=== PATIENT | female | born 1960 | race Caucasian/White ===

== ENCOUNTER 2021-06-28 14:02 | Outpatient (REF) | payer MEDICARE, MEDICAID, SELFPAY ==
--- NOTE | ~2021-06-28 | MM_ITS ---
EXAMINATION: MM SCREENING DIGITAL BREAST TOMOSYNTHESIS, BILATERAL CLINICAL INFORMATION: Screening. Asymptomatic. Remote reduction mammoplasty. Family history breast cancer, sister. The lifetime risk of breast cancer based on the Tyrer-Cuzick Model is 4%. COMPARISON: Mammography: 12/31/2018, 12/28/2017, 12/15/2016 TECHNIQUE: Digital breast tomosynthesis is performed in both the craniocaudal and mediolateral oblique views along with computer-aided detection (CAD). Synthesized 2D images are generated from the tomosynthesis. Additional views are provided: Exaggerated right CC, left CC, left MLO. FINDINGS: The breasts are almost entirely fatty (ACR BI-RADS breast composition Category a). Background stromal and fibroglandular densities are stable. There is no interval mass or architectural abnormality or abnormal calcifications. Grouped dermal calcifications are again noted on the left overlying inferior breast. There are other scattered round and dermal and vascular calcifications on each side. The axilla are unremarkable. No significant changes. MM/MM tomosynthesis screening BI IMPRESSION: No mammographic evidence of malignancy. ASSESSMENT: BI-RADS 2: Benign RECOMMENDATION: Routine annual mammography screening. This patient's information was entered into a reminder system with a target due date for their next mammogram.
== END 2021-06-28 14:03 | disposition home or self-care (01) ==
LOC: HO.MAMMO 14:02
PROVIDERS: Visit Provider Internal Medicine
DX: Z12.31 Encounter for screening mammogram for malignant neoplasm of breast (principal)
CPT/HCPCS: 77063; 77067

== ENCOUNTER → 2021-07-01 13:30 | Outpatient (BNVA) | payer MEDICARE, MEDICAID, SELFPAY | PROVIDERS: PCP Internal Medicine; Referring Provider Internal Medicine; Visit Provider Nurse Practitioner Family | DX: Z01.810 Encounter for preprocedural cardiovascular examination (principal); I48.0 Paroxysmal atrial fibrillation; I10 Essential (primary) hypertension; E66.01 Morbid (severe) obesity due to excess calories | CPT/HCPCS: 93005; 99212 ==

== ENCOUNTER → 2022-01-06 12:28 | Outpatient (BNVA) | payer MEDICARE, MEDICAID, SELFPAY | PROVIDERS: PCP Internal Medicine; Referring Provider Internal Medicine; Visit Provider Nurse Practitioner Family | DX: I48.0 Paroxysmal atrial fibrillation (principal); I10 Essential (primary) hypertension; E66.01 Morbid (severe) obesity due to excess calories; Z68.42 Body mass index [BMI] 45.0-49.9, adult | CPT/HCPCS: 99212 ==

== ENCOUNTER 2022-09-26 10:03 | Outpatient (REF) | payer MEDICARE, MEDICAID, SELFPAY ==
--- NOTE | ~2022-09-26 | MM_ITS ---
EXAMINATION: MM SCREENING DIGITAL BREAST TOMOSYNTHESIS, BILATERAL CLINICAL INFORMATION: Screening. Asymptomatic. The lifetime risk of breast cancer based on the Tyrer-Cuzick Model is 3.3%. COMPARISON: Mammography: This study is compared with the prior examinations dating back to 2018. TECHNIQUE: Digital breast tomosynthesis is performed in both the craniocaudal and mediolateral oblique views along with computer-aided detection (CAD). Synthesized 2D images are generated from the tomosynthesis. FINDINGS: At approximately the 12:00 position of the left breast at middle depth there is a focal asymmetry for which additional mammographic and targeted sonographic imaging is advised. In the upper-outer quadrant of the left breast, there is a focal asymmetry which warrants additional mammographic and targeted imaging. This may represent a small benign intramammary lymph node. There are no other significant findings. MM/MM tomosynthesis screening BI IMPRESSION: Bilateral focal asymmetries which warrant additional mammographic and targeted sonographic evaluation. ASSESSMENT: BI-RADS BI-RADS 0 - Incomplete: Needs additional Imaging. RECOMMENDATION: 1. Additional views of each breast are advised. 2. Targeted ultrasound if warranted after review of the additional views. 3. Radiology department staff will contact the patient for additional imaging. Additional Imaging required This patient's information was entered into a reminder system with a target due date for their next mammogram.
== END 2022-09-26 10:04 | disposition home or self-care (01) ==
LOC: HO.MAMMO 10:03
PROVIDERS: PCP Internal Medicine; Visit Provider Internal Medicine
DX: Z12.31 Encounter for screening mammogram for malignant neoplasm of breast (principal)
CPT/HCPCS: 77063; 77067

== ENCOUNTER → 2022-09-26 10:15 | Outpatient (BNV) | payer MEDICARE, MEDICAID, SELFPAY | PROVIDERS: PCP Internal Medicine; Visit Provider Radiology Diagnostic Radiology | DX: Z12.31 Encounter for screening mammogram for malignant neoplasm of breast (principal) | CPT/HCPCS: 77063; 77067 ==

== ENCOUNTER 2022-09-29 12:47 | Outpatient (AMB) | payer MEDICARE, MEDICAID, SELFPAY ==
[2022-09-29 13:14] VITALS: BP 130/80; PULSE 72; BMI 46.2
--- NOTE | 2022-09-29 13:14 | A.OFFVIS_ITS ---
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 Allergies latex [LATEX] Allergy (Unknown, Verified 09/29/22 13:34) RASH Sulfa (Sulfonamide Antibiotics) Allergy (Unknown, Verified 09/29/22 13:34) hives sulfamethoxazole [From BACTRIM] Allergy (Unknown, Verified 09/29/22 13:34) HIVES trimethoprim [From BACTRIM] Allergy (Unknown, Verified 09/29/22 13:34) HIVES valsartan [From DIOVAN] Allergy (Unknown, Verified 09/29/22 13:34) RASH Bandage Adhesive [place] 3/4 Allergy (Unknown, Uncoded 07/01/21 13:49) Unknown Pt states no allergy to foods Allergy (Unknown, Uncoded 07/01/21 13:49) Unknown SURGICAL TAPE Allergy (Unknown, Uncoded 07/01/21 13:49) RASH tape Allergy (Unknown, Uncoded 07/01/21 13:49) Unknown Medication List - Last Reconciled 09/29/22 by Kristie Bright NP-Jayshree apixaban (Eliquis) 5 mg PO BID ascorbic acid (vitamin C) (Vitamin C) 500 mg PO BID atenolol 100 mg PO DAILY bupropion HCl 300 mg PO DAILY calcium carbonate-vitamin D3 600 mg-20 mcg (800 unit) 1 tab PO BID cetirizine 10 mg PO DAILY cyanocobalamin (vitamin B-12) 100 mcg PO DAILY fluoxetine 40 mg PO QAM furosemide 20 mg PO DAILY gabapentin 600 mg PO TID hydrochlorothiazide 12.5 mg PO DAILY lorazepam 1 mg PO TID mirtazapine 15 mg PO BEDTIME oxycodone 5 mg PO Q6H PRN sucralfate 1 g PO BID HPI r/s 6 month follow up HPI Details Beba Delcid is a 62-year-old female with past medical history of hypertension, morbid obesity, paroxysmal atrial fibrillation who presents for follow-up. Today she reports that she has generally been doing very well since her last visit 9 months ago. She has not had any known recurrent atrial fibrillation. She denies any chest discomfort at rest or with activity.? No heart palpitations, dizziness, presyncope, syncope, PND, orthopnea or edema. Her Pradaxa was changed to Eliquis for insurance reasons.? No bleeding issues. She is still trying to lose weight.? She has no concerning symptoms during activity.? Takes all meds as directed. [facility] Medical History Hypertension Paroxysmal atrial fibrillation Surgical History (Reviewed 09/29/22 @ 15: by Kristie Bright NP-C) H/O hemorrhoidectomy H/O shoulder surgery History of cholecystectomy History of gastric bypass History of left knee replacement History of total right knee replacement Status post breast reduction Family History (Reviewed 09/29/22 @ 15: by SOPHIE GreenC) Father COPD (chronic obstructive pulmonary disease) HTN (hypertension) Diabetes Mother COPD (chronic obstructive pulmonary disease) Diabetes HTN (hypertension) Social History Patient Tobacco Use Status: Former Tobacco user Review of Systems ENT Reports dizziness Card Denies chest pain, Denies chest pain at rest, Denies chest pain with activity, Denies rapid heart rate, Denies pedal edema, Denies edema, Denies leg edema, Denies lightheadedness, Denies palpitations, Denies dyspnea, Denies dyspnea on exertion and Denies orthopnea Resp Denies cough, Denies dyspnea and Denies dyspnea on exertion GI Denies hematochezia and Denies change in stool character Musc Denies abnormal gait, Reports limited range of motion, Reports muscle cramps, Denies muscle weakness, Denies numbness, Denies radiating pain into limb, Denies stiffness and Denies tingling Neuro Denies abnormal gait, Reports dizziness, Denies numbness and Denies tingling Endo Denies palpitations Physical Exam Vital Signs: Last Vital Signs Pulse 72 09/29/22 13:14 BP 130/80 09/29/22 13:14 BMI result Body Mass Index 46.2 Const Other: morbidly obese General: cooperative, comfortable and no acute distress Orientation/consciousness: patient oriented x3 Neck Neck: Yes normal visual inspection Resp Effort & Inspection: normal respiratory effort Auscultation: clear to auscultation bilaterally, no crackles, no rales, no rhonchi and no wheezes Cardio Jugular venous distension: no JVD Rate: regular rate Rhythm: regular rhythm Heart sounds: S1 normal heart sound present, S2 normal heart sound present, no murmurs and no rubs Neuro General: patient oriented x3 Extrem General: Yes normal to inspection and No no pedal edema Psych Appearance: grossly normal Mental Status: mental status grossly normal Speech and movement: Normal speech and movement present Office Procedures EKG Details: today, read by me, normal sinus rhythm, no acute ST or T-wave abnormalities, rate 72, QTC 420 milliseconds [id number], Complete Assessment & Plan Assessment & Plan (1) Paroxysmal atrial fibrillation: Code(s): I48.0 - Paroxysmal atrial fibrillation Plan: History of paroxysmal atrial fibrillation. No recent episodes documented. Patient denies feeling heart palpitations. EKG done last visit showed normal sinus rhythm. EKG today showing normal sinus rhythm, rate 72. She continues on atenolol for heart rate control. She is on Eliquisfor anticoagulation. No reports of bleeding. Chads Vasc score of 2. Last echocardiogram done 04/04/2017 showing EF 65-70%, no valve abnormalities, mild pulmonary hypertension. Nuclear stress test done 05/16/2016 showed normal myocardial perfusion imaging. Will continue on current med management with atenolol and Eliquis. labs ordered for her to complete today. Cardiology followup in 9 months, sooner if needed (2) Hypertension: Code(s): I10 - Essential (primary) hypertension Plan: Well controlled presently. Medications reviewed and she reports compliance with atenolol, hydrochlorothiazide. checking labs. She says she is working on weight loss and better dietary control however no weight loss since last visit, 12/2021 (3) Morbid obesity: Code(s): E66.01 - Morbid (severe) obesity due to excess calories Orders: Orders Comprehensive Met. Panel Today I10 - Essential (primary) hypertension, I48.0 - Paroxysmal atrial fibrillation Complete Blood Count Auto Diff Today I10 - Essential (primary) hypertension, I48.0 - Paroxysmal atrial fibrillation Coding Level of Care Code Tele Est Pt Level 3 (31744) Diagnoses Paroxysmal atrial fibrillation I48.0 Hypertension I10 Morbid obesity E66.01 CPT Codes EKG - CPT: 62613-[id number], Complete ([id number]) Time Spent (min) 20 Comment chart review, documentation, interview, assess
== END 2022-09-29 14:20 | disposition home or self-care (01) ==
PROVIDERS: Visit Provider Nurse Practitioner Family
DX: I48.0 Paroxysmal atrial fibrillation (principal); I10 Essential (primary) hypertension; E66.01 Morbid (severe) obesity due to excess calories
CPT/HCPCS: 93010; 99213

== ENCOUNTER 2022-09-29 12:47 | Outpatient (REF) | payer MEDICARE, MEDICAID, SELFPAY ==
[2022-09-29 14:19] LABS: MANUAL DIFF FLAG NO
[2022-09-29 15:08] LABS: Basophils Percent Auto 0.3 % (0-2); Eosinophils Absolute Auto 0.1 X10*3/uL (0.0-0.4); Eosinophils Percent Auto 1.3 % (0-4); Hematocrit 40.8 % (37.0-47.0); Hemoglobin 12.6 g/dl (12.0-16.0); Imm Gran Abs Auto 0.01 X10*3/uL (0.00-0.03); Imm Gran Pct Auto 0.2 % (0.0-0.4); Lymphocytes Absolute Auto 2.2 X10*3/uL (1.2-4.9); Lymphocytes Percent Auto 35.7 % (20-40); Mean Corpuscular HGB Conc 30.9 g/dl (31.0-35.0); Mean Corpuscular Hemoglobin 27.3 pg (27.0-33.0); Mean Corpuscular Volume 88.5 fL (80.0-98.0); Mean Platelet Volume 10.7 fL (9.4-12.3); Monocytes Absolute Auto 0.4 X10*3/uL (0.1-1.2); Monocytes Percent Auto 6.7 % (2-11); Neutrophils Absolute Auto 3.4 x10*3/uL (2.0-8.3); Neutrophils Percent Auto 55.8 % (45-73); Platelet Count 241 X10*3/uL (160-400); Red Blood Count 4.61 X10*6/uL (4.20-5.50); White Blood Count 6.1 X10*3/uL (4.8-10.8)
[2022-09-29 16:04] LABS: Alanine Aminotransferase 21 U/L (0-31); Alkaline Phosphatase 94 U/L (39-117); Anion Gap 12 (12-20); Aspartate Amino Transferase 24 U/L (5-31); Bilirubin Total 0.5 mg/dL (0.0-1.0); Blood Urea Nitrogen 16 mg/dL (9-16); Calcium 9.8 mg/dL (8.4-10.2); Carbon Dioxide 28 mmol/L (22-29); Chloride 106 mmol/L (96-108); Estimated Glomerular Filt Rate > 60; Glucose Random 82 mg/dL (60-115); Sodium 142 mmol/L (135-145); Total Protein 6.9 g/dL (6.5-8.0)
== END 2022-09-29 12:48 | disposition home or self-care (01) ==
LOC: HO.LAB 12:47
PROVIDERS: PCP Internal Medicine; Visit Provider Nurse Practitioner Family
DX: I48.0 Paroxysmal atrial fibrillation (principal); I10 Essential (primary) hypertension; E66.01 Morbid (severe) obesity due to excess calories; Z79.01 Long term (current) use of anticoagulants; Z79.899 Other long term (current) drug therapy
CPT/HCPCS: 36415; 80053; 85025; 93005; 99212

== ENCOUNTER 2022-10-25 11:16 | Outpatient (REF) | payer MEDICARE, MEDICAID, SELFPAY ==
--- NOTE | ~2022-10-25 | US_ITS ---
EXAMINATION: MM DIAGNOSTIC DIGITAL BREAST TOMOSYNTHESIS, BILATERAL AND BILATERAL BREAST ULTRASOUND. CLINICAL INFORMATION: The patient presents for bilateral additional imaging of focal asymmetries in each breast as noted on screening mammography from 09/26/2022. COMPARISON: Mammography: This study is compared with prior exams dating back to 2017. MAMMOGRAM: TECHNIQUE: Digital breast tomosynthesis is performed in both the craniocaudal and mediolateral oblique views along with computer-aided detection (CAD). Synthesized 2D images are generated from the tomosynthesis. Bilateral CC and MLO spot compression in each breast and bilateral 90 degree views of each breast. FINDINGS: There are scattered areas of fibroglandular density (ACR BI-RADS breast composition Category b). Additional mammographic imaging of the focal asymmetry in the right breast at the 5:00 position reveals a suspicious, irregular mass. Additional mammographic imaging of the left breast revealed reveals no suspicious underlying abnormality. There are small, normal intramammary lymph nodes which are closely grouped together which account for the focal asymmetry. This finding is corroborated by the ultrasound performed today. This is a benign finding. ULTRASOUND: Sonography of the left breast to evaluate the mammographic focal asymmetry was performed. In the 5:00 region of the left breast, 7 cm from the nipple, there is an irregular 11 mm x 6 x 6 mm hypoechoic irregularly marginated mass. This finding is suspicious and ultrasound-guided biopsy is indicated. Sonography of the 10:00 region of the right breast reveals few, subcentimeter, contiguous normal intramammary lymph nodes. This finding accounts for the mammographic finding and is benign. US/US breast BI limited mamm only IMPRESSION: Suspicious 11 mm irregular mass in the 5:00 position of the left breast warrants ultrasound-guided biopsy. No mammographic signs of malignancy right breast. Results are provided to the patient at time of visit by the interpreting radiologist. ASSESSMENT: BI-RADS BI-RADS 4 - Suspicious finding RECOMMENDATION: Biopsy recommended. This recommendation for biopsy refers to the left breast. Annual screening mammography of right breast recommended. This patient's information was entered into a reminder system with a target due date for their next mammogram.
== END 2022-10-25 11:17 | disposition home or self-care (01) ==
LOC: HO.MAMMO 11:16
PROVIDERS: PCP Internal Medicine; Visit Provider Internal Medicine
DX: N64.89 Other specified disorders of breast (principal)
CPT/HCPCS: 76642; 77062; 77066

== ENCOUNTER 2022-10-31 08:17 | Outpatient (AMB) | payer MEDICARE, MEDICAID, SELFPAY ==
--- NOTE | 2022-10-31 08:14 | A.OFFVIS_ITS ---
Intake Vital Signs 10/31/22 08:19 Height 5 ft 5 in Weight 277 lb BMI 46.1 Intake Visit Reasons: US bx left breast 5 O'clock asymmetry Intake Note: This patient presents for a Ultrasound guided biopsy consultation for left breast 5 o'clock asymmetry. Patient c/o; reports left breast pain. 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 Accompanied by: Self / Same As Patient Allergies latex [LATEX] Allergy (Unknown, Verified 10/31/22 08:20) RASH Sulfa (Sulfonamide Antibiotics) Allergy (Unknown, Verified 10/31/22 08:20) hives sulfamethoxazole [From BACTRIM] Allergy (Unknown, Verified 10/31/22 08:20) HIVES trimethoprim [From BACTRIM] Allergy (Unknown, Verified 10/31/22 08:20) HIVES valsartan [From DIOVAN] Allergy (Unknown, Verified 10/31/22 08:20) RASH Bandage Adhesive Damian 3/4 Allergy (Unknown, Uncoded 10/31/22 08:20) Unknown Pt states no allergy to foods Allergy (Unknown, Uncoded 10/31/22 08:20) Unknown SURGICAL TAPE Allergy (Unknown, Uncoded 10/31/22 08:20) RASH tape Allergy (Unknown, Uncoded 10/31/22 08:20) Unknown Medication List - Last Reconciled 10/31/22 by Henok Shultz MD apixaban (Eliquis) 5 mg PO BID ascorbic acid (vitamin C) (Vitamin C) 500 mg PO BID atenolol 100 mg PO DAILY bupropion HCl 300 mg PO DAILY calcium carbonate-vitamin D3 600 mg-20 mcg (800 unit) 1 tab PO BID cetirizine 10 mg PO DAILY cyanocobalamin (vitamin B-12) 100 mcg PO DAILY fluoxetine 40 mg PO QAM furosemide 20 mg PO DAILY gabapentin 600 mg PO TID hydrochlorothiazide 12.5 mg PO DAILY lorazepam 1 mg PO TID mirtazapine 15 mg PO BEDTIME oxycodone 5 mg PO Q6H PRN sucralfate 1 g PO BID HPI US bx left breast 5 O'clock asymmetry HPI Details 62-year-old female referred for a left breast mass. She had undergone screening mammogram last month and was noted to have this density on the left breast. She underwent a diagnostic mammogram and ultrasound. This showed an irregular 11 x 6 x 6 mm hypoechoic irregularly marginated mass at the 5 o'clock position of the left breast. An ultrasound biopsy had been recommended She otherwise says she did not feel any lump on her breast. She denies any breast changes Her menarche was at age of 11. Her 1st was at age of 14. She had 4 pregnancies. She had menopause in her 40s. [facility] Medical History Hypertension Left breast mass Paroxysmal atrial fibrillation Surgical History H/O hemorrhoidectomy H/O shoulder surgery History of cholecystectomy History of gastric bypass History of left knee replacement History of total right knee replacement Status post breast reduction Family History Father COPD (chronic obstructive pulmonary disease) HTN (hypertension) Diabetes Mother COPD (chronic obstructive pulmonary disease) Diabetes HTN (hypertension) Social History Patient Tobacco Use Status: Former Tobacco user Female Reproductive History Menstrual Age of Menarche: 10 Total pregnancies: 4 Review of Systems Const Denies chills and Denies fever(s) Card Denies chest pain, Denies dyspnea and Denies dyspnea on exertion Resp Denies cough, Denies dyspnea and Denies dyspnea on exertion GI Denies hematochezia and Denies change in bowel habits Denies hematuria Musc Denies back pain and Denies limited range of motion Neuro Denies focal weakness and Denies convulsions Psych Denies depression and Denies mood swings Physical Exam Vital Signs: BMI result Body Mass Index 46.1 Const Other: Morbidly obese General: comfortable and no acute distress Orientation/consciousness: patient oriented x3 Neck Neck: Yes no lymphadenopathy Chest Other: No palpable breast masses, no nipple or skin changes, no axillary lymphadenopathy Resp Auscultation: clear to auscultation bilaterally Cardio Rhythm: abnormal rhythm GI Palpation (GI): Soft to palpation, nontender and no guarding Neuro General: patient oriented x3 Assessment & Plan Assessment & Plan (1) Left breast mass: Code(s): N63.20 - Unspecified lump in the left breast, unspecified quadrant Plan: She has a left breast mass as described above. She understands the technique of ultrasound-guided biopsy. I will see her again in the office next week to discuss the path report She seems to be comfortable with the plan. Orders: Orders US breast ndl core biopsy LT 10/28/22 N63.20 - Unspecified lump in the left breast, unspecified quadrant Coding Level of Care Code New Pt Level 3 (40405) Diagnoses Left breast mass N63.20
[2022-10-31 08:19] VITALS: BMI 46.1
== END 2022-10-31 08:46 | disposition home or self-care (01) ==
PROVIDERS: PCP Internal Medicine; Visit Provider Surgery
DX: N63.20 Unspecified lump in the left breast, unspecified quadrant (principal)
CPT/HCPCS: 99203

== ENCOUNTER 2022-10-31 09:04 | Outpatient (REF) | payer MEDICARE, MEDICAID, SELFPAY ==
--- NOTE | ~2022-10-31 | MM_ITS ---
PROCEDURE: ULTRASOUND-GUIDED LEFT BREAST BIOPSY CLINICAL INFORMATION: Suspicious spiculated mass 5:00 axis left breast, 7 cm from the nipple. Biopsy recommended. COMPARISON: Left breast ultrasound 10/25/2022. Left breast mammography 10/25/2022, 09/26/2022, 06/28/2021. TECHNIQUE: The details of the procedure, as well as the risks, benefits, and alternatives to the procedure were explained to the patient in detail and all of her questions were answered, after which, written informed consent was obtained. PROCEDURE: Prior to the procedure, sonography revealed a hypoechoic irregular shadowing mass at the 5:00 axis left breast, 7 cm from the nipple, measuring 11 x 6 x 6 mm. A time-out was performed, the lesion intended for biopsy was targeted and the skin of the left breast overlying the lesion was then marked, prepped and draped in the usual sterile fashion. Using sonographic guidance, sterile technique, and 1% lidocaine without epinephrine for local anesthesia, a total of 3 cores were obtained through the targeted area with a 14-gauge spring activated Achieve biopsy device. At the completion of tissue sampling, a single butterfly-shaped metallic clip was deposited at the biopsy site. The postprocedure 2-view direct digital mammogram reveals accurate positioning of the biopsy clip. The patient tolerated the procedure well and, after assuring adequate hemostasis, was discharged in good condition after reviewing postbiopsy breast care instructions. Final pathology results are pending. MM/MM diagnostic mammo unilat LT IMPRESSION: 1. Uncomplicated sonographically-guided core biopsy of the left breast. The 2-view direct digital postprocedure mammogram reveals accurate positioning of the biopsy clip. 2. Final pathology results are pending. A separate report with final recommendations will be issued once these results are made available.
== END 2022-10-31 09:05 | disposition home or self-care (01) ==
LOC: HO.MAMMO 09:04
PROVIDERS: PCP Internal Medicine; Visit Provider Surgery
DX: N63.24 Unspecified lump in the left breast, lower inner quadrant (principal)
CPT/HCPCS: 19083; 77062; 77065; 88305; 88342; 88360; 99202

== ENCOUNTER → 2022-10-31 10:00 | Outpatient (BNV) | payer MEDICARE, MEDICAID, SELFPAY | PROVIDERS: PCP Internal Medicine; Visit Provider Radiology Diagnostic Radiology | DX: N63.10 Unspecified lump in the right breast, unspecified quadrant (principal) | CPT/HCPCS: 19083; 77065 ==

== ENCOUNTER → 2022-11-09 10:55 | Outpatient (BNV) | payer MEDICARE, MEDICAID, SELFPAY | PROVIDERS: PCP Internal Medicine; Visit Provider Internal Medicine | DX: D05.12 Intraductal carcinoma in situ of left breast (principal); Z90.12 Acquired absence of left breast and nipple; Z92.21 Personal history of antineoplastic chemotherapy; D64.9 Anemia, unspecified | CPT/HCPCS: 99204; 99213; 99214; G2211 ==

== ENCOUNTER 2022-11-14 08:23 | Outpatient (AMB) | payer MEDICARE, MEDICAID, SELFPAY ==
--- NOTE | 2022-11-14 08:51 | MHC.OFFVIS ---
Intake Vital Signs 11/14/22 08:52 Height 5 ft 5.5 in Weight 275 lb BMI 45.1 BP 136/80 Position Sitting Respiration 16 Pulse 80 Intake Visit Reasons: James cath insert consultation Intake Note: I'm here to talk about having a port put in my chest. c/o fall over the weekend - states her knee gave out c/o bruising of both ankles. 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 Allergies latex [LATEX] Allergy (Unknown, Verified 11/14/22 08:58) RASH Sulfa (Sulfonamide Antibiotics) Allergy (Unknown, Verified 11/14/22 08:58) hives sulfamethoxazole [From BACTRIM] Allergy (Unknown, Verified 11/14/22 08:58) HIVES trimethoprim [From BACTRIM] Allergy (Unknown, Verified 11/14/22 08:58) HIVES valsartan [From DIOVAN] Allergy (Unknown, Verified 11/14/22 08:58) RASH Bandage Adhesive Damian 3/4 Allergy (Unknown, Uncoded 11/14/22 08:58) Unknown Pt states no allergy to foods Allergy (Unknown, Uncoded 11/14/22 08:58) Unknown SURGICAL TAPE Allergy (Unknown, Uncoded 11/14/22 08:58) RASH tape Allergy (Unknown, Uncoded 11/14/22 08:58) Unknown Medication List - Last Reconciled 11/14/22 by Krzysztof Grimes, RN apixaban (Eliquis) 5 mg PO BID ascorbic acid (vitamin C) (Vitamin C) 500 mg PO BID atenolol 100 mg PO DAILY bupropion HCl 300 mg PO DAILY calcium carbonate-vitamin D3 600 mg-20 mcg (800 unit) 1 tab PO BID cetirizine 10 mg PO DAILY cyanocobalamin (vitamin B-12) 100 mcg PO DAILY fluoxetine 40 mg PO QAM furosemide 20 mg PO DAILY gabapentin 600 mg PO TID hydrochlorothiazide 12.5 mg PO DAILY lorazepam 1 mg PO TID mirtazapine 15 mg PO BEDTIME oxycodone 5 mg PO Q6H PRN sucralfate 1 g PO BID HPI HPI Comments History of Present Illness Details Patient presents for Port-A-Cath placement her recent diagnosed breast cancer. Chart was reviewed patient evaluated. Patient , among other issues, is on Eliquis. This will be held 2 days prior to the procedure. [facility] Medical History Hypertension Left breast mass Paroxysmal atrial fibrillation Surgical History H/O hemorrhoidectomy H/O shoulder surgery History of cholecystectomy History of gastric bypass History of left knee replacement History of total right knee replacement Status post breast reduction Family History Father COPD (chronic obstructive pulmonary disease) HTN (hypertension) Diabetes Mother COPD (chronic obstructive pulmonary disease) Diabetes HTN (hypertension) Social History (Updated 11/09/22 @ 11:11 by Annemarie Ferguson) Household Members: Children Housing: House Patient Tobacco Use Status: Former Tobacco user Tobacco use type: Cigarette service: No Current occupational status: employed Female Reproductive History Menstrual Age of Menarche: 10 Physical Exam Vital Signs: Last Vital Signs Pulse 80 11/14/22 08:52 Resp 16 11/14/22 08:52 BP 136/80 11/14/22 08:52 BMI result Body Mass Index 45.1 Chest Other: Chest breath sounds bilaterally, left breast pathology. HS 1 2. GI Other: Corpulent, soft Assessment & Plan Assessment & Plan (1) Breast cancer: Code(s): C50.919 - Malignant neoplasm of unspecified site of unspecified female breast (2) Triple negative breast cancer: Code(s): C50.919 - Malignant neoplasm of unspecified site of unspecified female breast (3) Admission for fitting of Port-A-Cath: Code(s): Z45.2 - Encounter for adjustment and management of vascular access device Plan Risks, benefits, alternatives of Port-A-Cath placement reviewed with the patient and included but not limited to bleeding, infection, pneumothorax, numbness, pain, scarring, catheter migration and the patient wishes to proceed. All questions were answered. Arrangements will be made for this to be tentatively scheduled for 11/17 Coding Level of Care Code New Pt Level 4 (71704) Diagnoses Breast cancer C50.919 Triple negative breast cancer C50.919 Admission for fitting of Port-A-Cath Z45.2
[2022-11-14 08:52] VITALS: BP 136/80; PULSE 80; RESP 16; BMI 45.1
== END 2022-11-14 09:32 | disposition home or self-care (01) ==
PROVIDERS: PCP Internal Medicine; Visit Provider Surgery
DX: C50.919 Malignant neoplasm of unspecified site of unspecified female breast (principal); Z45.2 Encounter for adjustment and management of vascular access device
CPT/HCPCS: 99204

== ENCOUNTER → 2022-11-14 08:23 | Outpatient (BNVA) | payer MEDICARE, MEDICAID, SELFPAY | PROVIDERS: PCP Internal Medicine; Visit Provider Surgery | DX: C50.919 Malignant neoplasm of unspecified site of unspecified female breast (principal); I48.0 Paroxysmal atrial fibrillation; Z79.01 Long term (current) use of anticoagulants | CPT/HCPCS: 99202 ==

== ENCOUNTER 2022-11-18 08:31 | Inpatient (IN) | payer MEDICARE, MEDICAID, SELFPAY ==
[2022-11-18] VITALS (12 sets, daily range): BP systolic 114–152; BP diastolic 57–80; PULSE 72–80; RESP 10–20; TEMP 36–36.7; O2SAT 93–99; BMI 45.3; BMI 48.9
--- NOTE | ~2022-11-18 | NM_ITS ---
EXAMINATION: NM LYMPH SCINTIGRAPHY CLINICAL INFORMATION: Malignant neoplasm left breast. COMPARISON: None available. TECHNIQUE: Following explaining left breast sentinel node procedure, benefits and risk, a written consent was obtained. The area around the left breast areola was cleaned and draped in usual sterile manner. 0.500 uCi of 99m Tc lymphoseek divided in 4 equal doses was injected in 4 quadrants of the left breast areola and imaging obtained 30 minutes later. Patient tolerated procedure extremely well. FINDINGS: On imaging there is isotope activity in the 4 quadrants around the left breast areola. There is a solitary sentinel node seen in the left anterior axilla at 30 minutes. No additional lymph nodes seen. NM/NM sentinel node w imaging IMPRESSION: Solitary sentinel node left anterior axilla on left breast lymphoscintigraphy.
[2022-11-18] MEDS: Lactated Ringers 1,000 ML 50 ML IVCONT ×2 (08:12→18:08)
--- NOTE | 2022-11-18 09:12 | PC.NURSE ---
at 0825, computer technology instructor over to see pt and states radiologist delay of 1/[address] Shultz aware.
--- NOTE | 2022-11-18 09:56 | MHC.SHP ---
Pre-Procedural Eval Section A Date of Service: 11/18/22 The patient is an INPATIENT: No Changes since office visit: No Cold of Flu in the past 2 weeks, No New Medical Problems, No Changes in Medication and No Patient answered all questions The History & Physical has been completed within 30 days and I have reviewed it.: Yes Section B Chief Complaint: LEFT BREAST CANCER Allergies: Allergies Allergy/AdvReac Type Severity Reaction Status Date / Time latex [LATEX] Allergy Unknown RASH Verified 11/14/22 08:58 Sulfa (Sulfonamide Allergy Unknown hives Verified 11/14/22 08:58 Antibiotics) sulfamethoxazole Allergy Unknown HIVES Verified 11/14/22 08:58 [From BACTRIM] trimethoprim [From BACTRIM] Allergy Unknown HIVES Verified 11/14/22 08:58 valsartan [From DIOVAN] Allergy Unknown RASH Verified 11/14/22 08:58 Bandage Adhesive Damian Allergy Unknown Unknown Uncoded 11/14/22 08:58 3/4 Pt states no allergy to foods Allergy Unknown Unknown Uncoded 11/14/22 08:58 SURGICAL TAPE Allergy Unknown RASH Uncoded 11/14/22 08:58 tape Allergy Unknown Unknown Uncoded 11/14/22 08:58 Plan I have reviewed the history and physical and performed a pertinent physical examination on my patient. No changes have occurred unless specified. Time Spent With Patient Time: Total time managing care of this patient today ____ minutes.
--- NOTE | 2022-11-18 10:05 | PC.NURSE ---
1002 pt left for sentinal node. per tech approx 1/2 hour - Dr. Shultz and team aware.
--- NOTE | 2022-11-18 10:16 | PHA.MEDREC ---
Pharmacy Consult ? Medication Reconciliation Pharmacy has reviewed the medication reconciliation done by RN.
--- NOTE | 2022-11-18 10:40 | P.CONAN_ITS ---
HPI - Anesthesia Eval Consult details Narrative: for left simple mastectomy PMFSH Active Problems Active Problems: All Active Problems (Updated 11/09/22 @ 11:13 by Cathryn Starkey MD) Admission for fitting of Port-A-Cath (Acute) Triple negative breast cancer (Acute) Breast cancer (Acute) Left breast mass (Acute) Preop cardiovascular exam (Acute) Morbid obesity (Acute) Hypertension (Acute) Paroxysmal atrial fibrillation (Acute) Past Medical History Medical History Hypertension Left breast mass Paroxysmal atrial fibrillation Family History Family History Father COPD (chronic obstructive pulmonary disease) HTN (hypertension) Diabetes Mother COPD (chronic obstructive pulmonary disease) Diabetes HTN (hypertension) Family history of problems with anesthesia: No Surgical History Surgical History H/O hemorrhoidectomy H/O shoulder surgery History of cholecystectomy History of gastric bypass History of left knee replacement History of total right knee replacement Status post breast reduction History of Problems with Anesthesia: No Social History Social History (Updated 11/09/22 @ 11:11 by Annemarie Ferguson) Household Members: Children Housing: House Patient Tobacco Use Status: Former Tobacco user Tobacco use type: Cigarette Use of substances other than those prescribed or required for medical reasons: No Are you DNR?: No Advance Directives: No Advance Directives Information Provided: Yes service: No Current occupational status: employed Meds Allergies Allergy/AdvReac Type Severity Reaction Status Date / Time latex [LATEX] Allergy Unknown RASH Verified 11/14/22 08:58 Sulfa (Sulfonamide Allergy Unknown hives Verified 11/14/22 08:58 Antibiotics) sulfamethoxazole Allergy Unknown HIVES Verified 11/14/22 08:58 [From BACTRIM] trimethoprim [From BACTRIM] Allergy Unknown HIVES Verified 11/14/22 08:58 valsartan [From DIOVAN] Allergy Unknown RASH Verified 11/14/22 08:58 Bandage Adhesive [place] Allergy Unknown Unknown Uncoded 11/14/22 08:58 3/4 Pt states no allergy to foods Allergy Unknown Unknown Uncoded 11/14/22 08:58 SURGICAL TAPE Allergy Unknown RASH Uncoded 11/14/22 08:58 tape Allergy Unknown Unknown Uncoded 11/14/22 08:58 Active Medications: Current Medications Lactated Ringer's (Lr) 1,000 mls @ 50 mls/hr IVCONT .Q20H [facility] Last Admin: 11/18/22 08:12 Dose: 50 mls/hr Sodium Chloride (0.9 % Sodium Chloride Flush 3 Ml Syringe) 3 ml IVFLUSH QSHIFT [facility] Home Medications Medication Instructions Recorded Confirmed Last Taken Type ascorbic acid (vitamin C) 500 mg 500 mg PO BID 07/01/21 11/18/22 11/10/22 History tablet (Vitamin C) bupropion HCl 150 mg tablet,12 hr 300 mg PO DAILY 07/01/21 11/18/22 11/17/22 History sustained-release calcium carbonate 600 mg-vitamin 1 tab PO BID 07/01/21 11/18/22 11/17/22 History D3 20 mcg (800 unit) tablet cetirizine 10 mg tablet 10 mg PO DAILY 07/01/21 11/18/22 11/17/22 History cyanocobalamin (vitamin B-12) 100 100 mcg PO DAILY 07/01/21 11/18/22 11/17/22 History mcg tablet fluoxetine 20 mg capsule 40 mg PO QAM 07/01/21 11/18/22 11/17/22 History furosemide 20 mg tablet 20 mg PO DAILY 07/01/21 11/18/22 11/17/22 History gabapentin 600 mg tablet 600 mg PO TID 07/01/21 11/18/22 11/17/22 History lorazepam 1 mg tablet 1 mg PO TID 07/01/21 11/18/22 11/17/22 History mirtazapine 15 mg tablet 15 mg PO BEDTIME 07/01/21 11/18/22 11/17/22 History sucralfate 1 gram tablet 1 g PO BID 07/01/21 11/18/22 11/17/22 History oxycodone 10 mg tablet 5 mg PO Q6H PRN Pain 01/06/22 11/18/22 11/17/22 History Exam Exam Date and Time: November 18, 2022 1040 Height,Weight and Vital Signs: Height 5 ft 5 in Weight 123.377 kg Last Vital Signs Temp 96.9 F 11/18/22 07:41 Pulse 72 11/18/22 07:41 Resp 18 11/18/22 07:41 BP 152/79 H 11/18/22 07:41 Pulse Ox 98 11/18/22 07:41 O2 Del Method Room Air 11/18/22 07:41 Airway Mallampati Class: II TM Dist: <=3cm Neck ROM: Full Loose/Missing/Broken Teeth: No Heart: ok. see above. Lungs: ok Assessment and Plan Assessment Anesthesia Assessment: Anesthesia Plan Discussed and Chart Reviewed Final Anesthetic Review Family History of Problems with Anesthesia: No History of Problems with Anesthesia: No NPO: Yes ASA Class: III Final Preanesthetic Review: No Changes in Pt Med Stat, Meds/Allgs Chart Reviewed, Consent Obtained/Reviewed and Anes Risks/Benef Reviewed Patient Risk: Intermediate Procedure Risk: Low Anesthetic Plan Anesthetic Plan: GA and Agree w/ Assess. and Plan Disposition: Standard PACU
--- NOTE | 2022-11-18 12:52 | P.OP_ITS ---
Operative Note Operative Note Date of Service: 11/18/22 Narrative: Preop diagnosis: Left breast cancer, invasive ductal Postop diagnosis: The same Procedure: Left breast mastectomy with sentinel node biopsy Surgeon: Henok Shultz MD temporary office assistant: HANNA Andrews The patient is a 62 year female recently diagnosed to have invasive ductal carcinoma of the left breast. She wanted to proceed with mastectomy after explanation of her treatment options. She understood the technique of the planned procedure including final biopsy, as well as the risks, benefits, alternatives. She had undergone sentinel node mapping earlier. I reviewed the films and there was 1 lymph node that seemed to have uptake in the axilla She was brought to the operating room. She was placed supine with the left arm abducted to expose the axilla. She was in general anesthesia via laryngeal mask airway. The left chest and the axilla were prepped and draped in the usual sterile fashion. A surgical time-out was done. The patient received cefazolin 2 g IV preoperatively I marked my planned line of incision for the mastectomy. I made the incision in elliptical fashion around the nipple areolar complex using blade 15. This carried down with electrocautery through the full-thickness of the skin and part of subcutaneous tissue. We I then developed her superior flap. I left about 5 to 10 mm of subcutaneous fat on the flap and developed this plane all the way to the level of the clavicle. The medial border was the sternum. I developed the inferior flap as well in the same manner with the inferior border being the inframammary crease The patient did have a previous breast reduction so we did encounter some poorly defined planes periodically Once we were able to define the superior and inferior and medial margins I proceeded to then incise the fascia of the pectoralis muscle. I then proceeded to define another plane of dissection between the pectoralis fascia and the fibers of the pectoralis. I used electrocautery to separate the fascia from the muscle fibers along this plane. I continue with dissection to remove all the breast tissue along this plane until I was able to reach the lateral border of the pectoralis muscle. This worse the lateral margin of our dissection and a proceeded to then complete the resection of the breast way up to this area. I marked the medial margin and was sent as a specimen I copies irrigated paired I observed for hemostasis. I cauterized oozing areas on the post fibers of the pectoralis. There was 1 area with some bleeding cover mat machine operator vessel so we had to ligate this Other than that, we were able to achieve good hemostasis. I copies irrigated He did to do the sentinel node biopsy. I used the gamma probe and scanned the axillary fat pad. I was able to detect elevated signals in 2 areas. We then proceeded to gently dissect using the [place] emptied scissors through the axillary fat pad until was able to visualize 1 lymph node with a count of 563.This was labled as sentinel node #1. Another lymph node with a count of 4299 was also removed. This was labeled snetinel node #2. These were sent as specimen. There were 2 nodules that appeared to be lymph nodes as well which were removed but this did not have any count but we had sent this as axillary tissue. Final scanning of the axilla did not reveal any other elevated counts above 10% of highest count. I copies irrigated again and made sure we had good hemostasis. I positioned 1 drain on the inferior under the inferior flap and a 2nd drain on the superior flap and these were brought out so an exit site on the lateral aspect of the lower flap. This required to the skin with sutures nylon 3-0 Within reapposed the subcutaneous layer with multiple Polysorb 3-0 interrupted sutures. Skin closure was achieved with a running Polysorb 4-0 subcuticular stitch Dressings were applied. The flaps appeared viable at the end the procedure The procedure was completed. The patient tolerated procedure well. There were no immediate complications. Initial and final counts of sponges and instruments were correct. Estimated blood loss was about 75 cc The patient was extubated without difficulty and transferred to the recovery room with stable vital signs. Breast [place] Node Biopsy Substrate(s) used for sentinel node biopsy in the non-neoadjuvant setting: Radiotracer Substrate(s) used for sentinel node biopsy in the neoadjuvant setting: N/A All colored nodes or non-colored nodes present at the end of a dye filled lymphatic channel were removed, if dye was used as the substrate for localization: N/A All significantly radioactive nodes were removed, if radionuclide was used as the substrate for localization: Yes All palpably suspicious nodes were removed, if present: N/A If clips were placed in pathology-involved nodes, those nodes were identified and removed: N/A General Surg. - Synoptic Notes Breast [place] Node Biopsy Substrate(s) used for sentinel node biopsy in the non-neoadjuvant setting: Radiotracer Substrate(s) used for sentinel node biopsy in the neoadjuvant setting: N/A All colored nodes or non-colored nodes present at the end of a dye filled lymphatic channel were removed, if dye was used as the substrate for localization: N/A All significantly radioactive nodes were removed, if radionuclide was used as the substrate for localization: Yes All palpably suspicious nodes were removed, if present: N/A If clips were placed in pathology-involved nodes, those nodes were identified and removed: N/A
[2022-11-18] MEDS: oxyCODONE HCl Immed Release 5 MG TABLET PO (13:33)
[2022-11-18] MEDS: Acetaminophen 325 MG TABLET 650 MG PO (13:34)
--- NOTE | 2022-11-18 15:26 | P.F2F_ITS ---
Service Date Service Date: 11/18/22 Encounter Date of encounter: 11/18/22 Reasons for Services Signs and symptoms assessed: s/p left mastectomy and sentinel node biopsy dressing change, SHERRY drain care Reason for half-way: wound care and other (SHERRY drains) Homebound: Leaving the home is medically contraindicated at this time without the asist of a device and/or another person due th the listed conditions above and below. Reason homebound: pain with ambulation, poor balance / fall risk and unable to drive Certification: Based on the above findings, I certify that this patient is confined to the home and needs intermittent half-way care, physical therapy and/or speech therapy, or continues to need occupational therapy. The patient is under my care, and I have initiated the establishment of the plan of care. The patient will be followed by a physician who will periodically review the plan of care. Time Spent With Patient Time: Total time managing care of this patient today ____ minutes.
--- NOTE | 2022-11-18 15:28 | PM.DS ---
DS: Providers Provider Date of Service: 11/18/22 Date of admission: 11/18/22 08:31 Primary care physician: Ayan Perdomo MD DS: Diagnosis Discharge Diagnosis (1) Triple negative breast cancer: Status: Acute (2) Left breast mass: Status: Acute DS: Summary Hospital Course Hospital Course: 62-year-old female with recent diagnosis of left breast invasive ductal carcinoma, underwent left breast mastectomy with sentinel biopsy on 11/18/2022. She had [address] as well. She tolerated procedure well. She was kept overnight for pain management There were no significant events during her hospital stay. She is being sent home with the SHERRY drains in place. She will have a visiting nurse as well for dressing changes. She can restart all her medications from home. She has been prescribed cassette for pain. She will be seen in the office next week for wound check. Time Spent with Patient Time attestation: Total time managing care of this patient today ____ minutes. Discharge coordination time: Less than 30 minutes Quality: Safe Use of Opioids Does Pt have an Active Cancer Diagnosis on the Problem List?: Yes Opioid Measure Date for [facility] Report: 10/23/22 Opioid Measure Time for [facility] Report: 14:49 Quality: Stroke Does the patient have a stroke diagnosis?: No Physical Exam Vital Signs: Vital Signs: Last Vital Signs Temp 97.8 F 11/18/22 15:08 Pulse 78 11/18/22 15:08 Resp 16 11/18/22 15:08 BP 139/71 11/18/22 15:08 Pulse Ox 95 11/18/22 15:08 O2 Del Method Nasal Cannula 11/18/22 15:08 O2 Flow Rate 2 11/18/22 15:08 BMI result Body Mass Index 48.9 Const: General: comfortable and no acute distress Chest: Other: Mastectomy site with dry dressings, SHERRY drains x2 in place, scanty serosanguineous output Resp: Effort & Inspection: normal respiratory effort Cardio: Rhythm: abnormal rhythm GI: Palpation (GI): Soft to palpation, not firm and nontender DS: Data Data Completed and Pending Pending studies at discharge: Pending at discharge 11/18/22 12:13 Surgical [PTH] Routine Discharge Plan Discharge Anticipated Discharge Date/Time: 11/19/22 15:57 Patient Disposition: Home Health Service Discharge Diagnosis: left breast cancer Referrals: [facility] [Outside] - 1 Day (the visiting nurse will see you on Monday11/20/22 for start of care. ) Henok Shultz MD [Physician] - 1 Week Discharge Medications: New oxycodone-acetaminophen [Percocet] 5-325 mg tablet 1 tab PO Q4-6H PRN (Reason: pain) Qty: 30 0RF Rx Instructions: Partial Fill upon patient request. ok to take 1-2 tablets every 4-6 hours NEEDED for pain Continued atenolol 100 mg tablet 100 mg PO DAILY Qty: 90 3RF hydrochlorothiazide 12.5 mg tablet 12.5 mg PO DAILY Qty: 90 3RF Eliquis 5 mg tablet 5 mg PO BID Qty: 60 5RF lorazepam 1 mg tablet 1 mg PO TID sucralfate 1 gram tablet 1 g PO BID ascorbic acid (vitamin C) [Vitamin C] 500 mg tablet 500 mg PO BID cetirizine 10 mg tablet 10 mg PO DAILY gabapentin 600 mg tablet 600 mg PO TID mirtazapine 15 mg tablet 15 mg PO BEDTIME calcium carbonate-vitamin D3 600 mg-20 mcg (800 unit) tablet 1 tab PO BID cyanocobalamin (vitamin B-12) 100 mcg tablet 100 mcg PO DAILY bupropion HCl 150 mg tablet sustained-release 12 hr 300 mg PO DAILY furosemide 20 mg tablet 20 mg PO DAILY fluoxetine 20 mg capsule 40 mg PO QAM oxycodone 10 mg tablet 5 mg PO Q6H PRN (Reason: Pain) Discharge Orders: Discharge Order (Routine); Ordered 11/20/22 Ordered By: Saeid Parkinson Diet: Advance to usual diet Activity on Discharge: No heavy lifting Stand Alone Forms: Patient Portal Discharge page Activity Restrictions/Additional Instructions: change dressings with thick gauze daily starting Monday 3 - dry sterile gauze them reapply breast binder If the incision area is tender, you may apply an ice pack for short intervals (No more than 20 minutes on, followed by at least 20 minutes off). Do not apply heat. Do not use creams, lotions, or topical antibiotics unless instructed to do so by your surgeon. These can cause infection or allergic reaction. You have 2 drains - empty contents twice a day or as necessary No lifting more than 20 lbs Okay to shower starting 11/20/2022 SHERRY drain care - measure total output daily and record separately No strenuous activities Call the office for follow-up in 2 weeks - with Dr. Shultz Call Your Doctor If: -Your temperature exceeds 101.5? F -You experience excessive pain or swelling -You have an unexpected reaction to medication -You have excessive bleeding -You experience continued vomiting/nausea -Your incision begins to separate -Your incision shows signs of infection such as increased redness, swelling, excessive pain, drainage (light blood or clear fluid is normal) or heat Care Plan Goals: continue treatment for breast cancer pain control postop Health Concerns: breast cancer atrial fibrillation postop pain Plan of Treatment: ffup in office Assessment: doing well postop Discharge Date/Time: 11/20/22 14:31
--- NOTE | 2022-11-18 15:39 | PC.NURSE ---
Assume care of patient at this time.
--- NOTE | 2022-11-18 16:12 | PM.EVENT ---
Event Note Date of Service: 11/18/22 Event Note: Seen postop Appears to have good pain control Looks comfortable Stable vital signs Dressings dry 2 SHERRY drains with scanty deep serosanguineous output Continue pain management Drain care Visiting nurse arranged Likely home tomorrow Daughter June updated Time Spent With Patient Time: Total time managing care of this patient today ____ minutes.
[2022-11-18] MEDS: oxyCODONE HCl Immed Release 5 MG TABLET 10 MG PO ×2 (17:27→21:39)
[2022-11-18] MEDS: LORazepam 1 MG TABLET PO ×2 (17:27→20:59)
[2022-11-18] MEDS: Gabapentin 600 MG TABLET PO ×2 (17:27→21:00)
[2022-11-18] MEDS: 0.9 % Sodium Chloride Flush 3 ML SYRINGE IVFLUSH (17:28)
[2022-11-18] MEDS: Acetaminophen 1,000 MG/100 ML PIGGYBACK 400 MG IV ×2 (17:28→21:01)
[2022-11-18] MEDS: Apixaban 5 MG TABLET PO (20:59)
[2022-11-18] MEDS: Ascorbic Acid 500 MG TABLET PO (20:59)
[2022-11-18] MEDS: Calcium + Vitamin D 250 MG TABLET 500 MG PO (20:59)
[2022-11-18] MEDS: Sucralfate 1 GM TABLET PO (21:00)
[2022-11-18] MEDS: Mirtazapine 15 MG TABLET PO (21:00)
[2022-11-19] MEDS: oxyCODONE HCl Immed Release 5 MG TABLET 10 MG PO ×6 (01:45→23:42)
[2022-11-19] MEDS: Acetaminophen 1,000 MG/100 ML PIGGYBACK 400 MG IV ×4 (03:12→20:23)
[2022-11-19 04:00] VITALS: BP 114/58; PULSE 76; RESP 20; TEMP 36.6; O2SAT 92
[2022-11-19 07:03] LABS: MANUAL DIFF FLAG NO
[2022-11-19 07:13] LABS: Basophils Percent Auto 0.2 % (0-2); Eosinophils Absolute Auto 0.1 X10*3/uL (0.0-0.4); Eosinophils Percent Auto 1.7 % (0-4); Hematocrit 38.5 % (37.0-47.0); Hemoglobin 11.7 g/dl (12.0-16.0); Imm Gran Abs Auto 0.01 X10*3/uL (0.00-0.03); Imm Gran Pct Auto 0.2 % (0.0-0.4); Lymphocytes Absolute Auto 2.2 X10*3/uL (1.2-4.9); Lymphocytes Percent Auto 34.3 % (20-40); Mean Corpuscular HGB Conc 30.4 g/dl (31.0-35.0); Mean Corpuscular Volume 92.1 fL (80.0-98.0); Mean Platelet Volume 10.3 fL (9.4-12.3); Monocytes Absolute Auto 0.5 X10*3/uL (0.1-1.2); Monocytes Percent Auto 7.9 % (2-11); Neutrophils Absolute Auto 3.5 x10*3/uL (2.0-8.3); Neutrophils Percent Auto 55.7 % (45-73); Platelet Count 253 X10*3/uL (160-400); Red Blood Count 4.18 X10*6/uL (4.20-5.50); Red Cell Distribution Width 14.4 % (11.0-16.0); White Blood Count 6.3 X10*3/uL (4.8-10.8)
[2022-11-19 07:26] VITALS: BP 124/51; PULSE 100; RESP 20; TEMP 36.8; O2SAT 94
[2022-11-19 07:36] LABS: Anion Gap 15 (12-20); Blood Urea Nitrogen 18 mg/dL (9-16); Calcium 9.2 mg/dL (8.4-10.2); Carbon Dioxide 22 mmol/L (22-29); Chloride 103 mmol/L (96-108); Creatinine Clr Calc Pharmacy 60.9; Estimated Glomerular Filt Rate 42; Glucose Fasting 101 mg/dL (60-99); Potassium 4.4 mmol/L (3.3-5.1); Sodium 136 mmol/L (135-145)
[2022-11-19] MEDS: buPROPion HCl XL 300 MG TAB.ER.24H PO (08:53)
[2022-11-19] MEDS: FLUoxetine HCl 20 MG CAPSULE 40 MG PO (08:53)
[2022-11-19] MEDS: Loratadine 10 MG TABLET PO (08:54)
[2022-11-19] MEDS: Cyanocobalamin (Vitamin B-12) 100 MCG TABLET PO (08:54)
[2022-11-19] MEDS: Apixaban 5 MG TABLET PO ×2 (08:54→20:17)
[2022-11-19] MEDS: Sucralfate 1 GM TABLET PO ×2 (08:54→20:17)
[2022-11-19] MEDS: Ascorbic Acid 500 MG TABLET PO ×2 (08:54→20:17)
[2022-11-19] MEDS: atenoloL 100 MG TABLET PO (08:54)
[2022-11-19] MEDS: hydroCHLOROthiazide 12.5 MG TABLET PO (08:54)
[2022-11-19] MEDS: Furosemide 20 MG TABLET PO (08:54)
[2022-11-19] MEDS: Gabapentin 600 MG TABLET PO ×3 (08:54→20:17)
[2022-11-19] MEDS: LORazepam 1 MG TABLET PO ×3 (08:55→20:17)
[2022-11-19] MEDS: Calcium + Vitamin D 250 MG TABLET 500 MG PO ×2 (08:55→20:17)
--- NOTE | 2022-11-19 10:04 | PM.PNGS ---
Subjective Subjective Date of Service: 11/19/22 Patient reports: still having pain Interval history: Patient is seen in coverage for Dr. Shultz Patient reports she is having severe pain. We discussed discharge, but the patient reports that she was told to plan to be in the hospital till at least Monday by Dr. Shultz and that she is not comfortable going home. She reports pain in her left axilla and left chest. She otherwise denies difficulty breathing or shortness of breath. Physical Exam Vital Signs: Vital Signs: Last Vital Signs Temp 98.3 F 11/19/22 07:26 Pulse 100 11/19/22 07:26 Resp 20 11/19/22 07:26 BP 124/51 L 11/19/22 07:26 Pulse Ox 94 11/19/22 07:26 O2 Del Method Room Air 11/19/22 07:26 O2 Flow Rate 2 11/18/22 15:08 BMI result Body Mass Index 48.9 The patient is having no respiratory difficulty She appears comfortable Dressing is clean and intact on the left chest and serosanguineous, predominantly bloody drainage is noted. Objective Data Active Medications Apixaban (Apixaban 5 Mg Tablet) 5 mg PO BID [facility] Last Admin: 11/19/22 08:54 Dose: 5 mg Documented By: MAGDALENA Ascorbic Acid (Ascorbic Acid 500 Mg Tablet) 500 mg PO BID [facility] Last Admin: 11/19/22 08:54 Dose: 500 mg Documented By: MAGDALENA Atenolol (Atenolol 100 Mg Tablet) 100 mg PO DAILY [facility]; Protocol Last Admin: 11/19/22 08:54 Dose: 100 mg Documented By: MAGDALENA Bupropion HCl (Bupropion Hcl Xl 300 Mg Tab.Er.24h) 300 mg PO DAILY [facility] Last Admin: 11/19/22 08:53 Dose: 300 mg Documented By: MAGDALENA Calcium Carbonate/Cholecalciferol (Calcium + Vitamin D 250 Mg Tablet) 500 mg PO BID [facility] Last Admin: 11/19/22 08:55 Dose: 500 mg Documented By: MAGDALENA Cyanocobalamin (Cyanocobalamin (Vitamin B-12) 100 Mcg Tablet) 100 mcg PO DAILY [facility] Last Admin: 11/19/22 08:54 Dose: 100 mcg Documented By: MAGDALENA Fluoxetine HCl (Fluoxetine Hcl 20 Mg Capsule) 40 mg PO DAILY [facility] Last Admin: 11/19/22 08:53 Dose: 40 mg Documented By: MAGDALENA Furosemide (Furosemide 20 Mg Tablet) 20 mg PO DAILY [facility]; Protocol Last Admin: 11/19/22 08:54 Dose: 20 mg Documented By: MAGDALENA Gabapentin (Gabapentin 600 Mg Tablet) 600 mg PO TID [facility] Last Admin: 11/19/22 08:54 Dose: 600 mg Documented By: MAGDALENA Hydrochlorothiazide (Hydrochlorothiazide 12.5 Mg Tablet) 12.5 mg PO DAILY [facility]; Protocol Last Admin: 11/19/22 08:54 Dose: 12.5 mg Documented By: MAGDALENA Lactated Ringer's (Lr) 1,000 mls @ 50 mls/hr IVCONT .Q20H [facility] Last Admin: 11/18/22 18:08 Dose: 50 mls/hr Documented By: ABIDA-RIVLA Acetaminophen (Ofirmev) 1,000 mg in 100 mls @ 400 mls/hr IV Q6H [facility] Last Infusion: 11/19/22 09:18 Dose: 0 mls/hr Documented By: MAGDALENA Loratadine (Loratadine 10 Mg Tablet) 10 mg PO DAILY [facility] Last Admin: 11/19/22 08:54 Dose: 10 mg Documented By: MAGDALENA Lorazepam (Lorazepam 1 Mg Tablet) 1 mg PO TID [facility] Last Admin: 11/19/22 08:55 Dose: 1 mg Documented By: MAGDALENA Mirtazapine (Mirtazapine 15 Mg Tablet) 15 mg PO BEDTIME [facility] Last Admin: 11/18/22 21:00 Dose: 15 mg Documented By: KATELYN Oxycodone HCl (Oxycodone Hcl Immed Release 5 Mg Tablet) 5 mg PO Q4H PRN PRN Reason: Pain, Moderate(Pain Scale 4-6) Oxycodone HCl (Oxycodone Hcl Immed Release 5 Mg Tablet) 10 mg PO Q4H PRN PRN Reason: Pain, Severe (Pain Scale 7-10) Last Admin: 11/19/22 06:20 Dose: 10 mg Documented By: KATELYN Sodium Chloride (0.9 % Sodium Chloride Flush 3 Ml Syringe) 3 ml IVFLUSH QSHIFT [facility] Last Admin: 11/19/22 08:44 Dose: Not Given Documented By: MAGDALENA Non-Admin Reason: IV Running Sucralfate (Sucralfate 1 Gm Tablet) 1 gm PO BID [facility] Last Admin: 11/19/22 08:54 Dose: 1 gm Documented By: MAGDALENA Labs 11/19/22 06:32 11/19/22 06:32 Labs: Laboratory Results - last 24 hr 11/19/22 11/19/22 06:32 06:32 MCV 92.1 MCH 28.0 MCHC 30.4 L RDW 14.4 Plt Count 253 MPV 10.3 Immature Gran % (Auto) 0.2 Neut % (Auto) 55.7 Lymph % (Auto) 34.3 [place] % (Auto) 7.9 Eos % (Auto) 1.7 Baso % (Auto) 0.2 Lymph # (Auto) 2.2 [place] # (Auto) 0.5 Eos # (Auto) 0.1 Baso # (Auto) 0.0 Abs Immat Gran (auto) 0.01 Absolute Neuts (auto) 3.5 Absolute Nucleated RBC 0.000 Nucleated RBC % (auto) 0.0 Anion Gap 15 Estim Creat Clear Calc 60.9 Estimated GFR 42 Fasting Glucose 101 H Calcium 9.2 D Procedures Date of Service Date of Service: 11/19/22 Progress Note: A&P Assessment and plan (1) Left breast mass: Status: Acute (2) Breast cancer: Status: Acute (3) Triple negative breast cancer: Status: Acute (4) Morbid obesity: Status: Acute (5) Hypertension: Status: Acute Plan The patient states she is not comfortable going home due to pain and that she was advised she would be in the hospital until Monday. Continue present management Time Spent With Patient Time: Total time managing care of this patient today ____ minutes. Quality Stroke Does the patient have a stroke diagnosis?: No VTE Prior VTE?: No VTE Risk Level:: Medical - moderate - high VTE Device Contraindication: N/A - Device Ordered VTE Drug Contraindication: N/A - Med Ordered
--- NOTE | 2022-11-19 10:40 | P.POSTANES_ITS ---
Post Anesthesia Evaluation Post Anesthesia Evaluation Date of Service: 11/19/22 Vital Signs: Vital Signs Temp Pulse Resp BP Pulse Ox O2 Del Method 11/19/22 07:26 98.3 F 100 20 124/51 L 94 Room Air 11/19/22 04:00 97.8 F 76 20 114/58 L 92 Room Air Anesthesia: General LMA Mental Status: Awake Pain Control: Satisfactory (SIGNIFICANT PAIN IN AXILLA ANS AT THE SITE OF IN CISION) Nausea/Vomiting: None Anesthesia-Related Issues: No Anes. Related Issues
--- NOTE | 2022-11-19 12:59 | MHC.CM.PN ---
pt lives with son who will transport pt home had no previous services pt will have [facility]
[2022-11-19] MEDS: Lactated Ringers 1,000 ML 50 ML IVCONT (14:19)
[2022-11-19 20:00] VITALS: BP 143/61; PULSE 77; RESP 18; TEMP 36.1; O2SAT 92
[2022-11-19] MEDS: oxyCODONE HCl Immed Release 5 MG TABLET PO (20:17)
[2022-11-19] MEDS: Mirtazapine 15 MG TABLET PO (20:17)
[2022-11-20] MEDS: Acetaminophen 1,000 MG/100 ML PIGGYBACK 400 MG IV ×2 (03:20→09:21)
[2022-11-20 03:59] VITALS: BP 122/56; PULSE 74; RESP 18; TEMP 36.3; O2SAT 95
[2022-11-20] MEDS: oxyCODONE HCl Immed Release 5 MG TABLET 10 MG PO ×3 (05:57→14:00)
[2022-11-20] MEDS: Lactated Ringers 1,000 ML 50 ML IVCONT (05:59)
[2022-11-20 07:22] VITALS: BP 118/58; PULSE 74; RESP 20; TEMP 36.4; O2SAT 92
[2022-11-20] MEDS: Furosemide 20 MG TABLET PO (09:16)
[2022-11-20] MEDS: buPROPion HCl XL 300 MG TAB.ER.24H PO (09:16)
[2022-11-20] MEDS: Ascorbic Acid 500 MG TABLET PO (09:16)
[2022-11-20] MEDS: Calcium + Vitamin D 250 MG TABLET 500 MG PO (09:16)
[2022-11-20] MEDS: FLUoxetine HCl 20 MG CAPSULE 40 MG PO (09:16)
[2022-11-20] MEDS: LORazepam 1 MG TABLET PO (09:16)
[2022-11-20] MEDS: hydroCHLOROthiazide 12.5 MG TABLET PO (09:17)
[2022-11-20] MEDS: Sucralfate 1 GM TABLET PO (09:17)
[2022-11-20] MEDS: Loratadine 10 MG TABLET PO (09:17)
[2022-11-20] MEDS: atenoloL 100 MG TABLET PO (09:17)
[2022-11-20] MEDS: Gabapentin 600 MG TABLET PO (09:17)
[2022-11-20] MEDS: Apixaban 5 MG TABLET PO (09:17)
[2022-11-20] MEDS: Cyanocobalamin (Vitamin B-12) 100 MCG TABLET PO (09:17)
--- NOTE | 2022-11-20 09:33 | PM.PNGS ---
Subjective Subjective Date of Service: 11/20/22 Interval history: Patient is seen in coverage for Dr. Shultz The patient reports that she is still having pain but believes that she can go home today. She denies any worsening pain, fevers, chills, shortness of breath. Physical Exam Vital Signs: Vital Signs: Last Vital Signs Temp 97.5 F 11/20/22 07:22 Pulse 74 11/20/22 07:22 Resp 20 11/20/22 07:22 BP 118/58 L 11/20/22 07:22 Pulse Ox 92 11/20/22 07:22 O2 Del Method Room Air 11/20/22 07:22 O2 Flow Rate 2 11/18/22 15:08 BMI result Body Mass Index 48.9 On exam she is nontoxic She is in no respiratory distress Dressings are clean, dry and intact SHERRY is have continued serosanguineous drainage Objective Data Active Medications Apixaban (Apixaban 5 Mg Tablet) 5 mg PO BID [facility] Last Admin: 11/20/22 09:17 Dose: 5 mg Documented By: MAGDALENA Ascorbic Acid (Ascorbic Acid 500 Mg Tablet) 500 mg PO BID [facility] Last Admin: 11/20/22 09:16 Dose: 500 mg Documented By: MAGDALENA Atenolol (Atenolol 100 Mg Tablet) 100 mg PO DAILY [facility]; Protocol Last Admin: 11/20/22 09:17 Dose: 100 mg Documented By: MAGDALENA Bupropion HCl (Bupropion Hcl Xl 300 Mg Tab.Er.24h) 300 mg PO DAILY [facility] Last Admin: 11/20/22 09:16 Dose: 300 mg Documented By: MAGDALENA Calcium Carbonate/Cholecalciferol (Calcium + Vitamin D 250 Mg Tablet) 500 mg PO BID [facility] Last Admin: 11/20/22 09:16 Dose: 500 mg Documented By: MAGDALENA Cyanocobalamin (Cyanocobalamin (Vitamin B-12) 100 Mcg Tablet) 100 mcg PO DAILY [facility] Last Admin: 11/20/22 09:17 Dose: 100 mcg Documented By: MAGDALENA Fluoxetine HCl (Fluoxetine Hcl 20 Mg Capsule) 40 mg PO DAILY [facility] Last Admin: 11/20/22 09:16 Dose: 40 mg Documented By: MAGDALENA Furosemide (Furosemide 20 Mg Tablet) 20 mg PO DAILY [facility]; Protocol Last Admin: 11/20/22 09:16 Dose: 20 mg Documented By: MAGDALENA Gabapentin (Gabapentin 600 Mg Tablet) 600 mg PO TID [facility] Last Admin: 11/20/22 09:17 Dose: 600 mg Documented By: MAGDALENA Hydrochlorothiazide (Hydrochlorothiazide 12.5 Mg Tablet) 12.5 mg PO DAILY [facility]; Protocol Last Admin: 11/20/22 09:17 Dose: 12.5 mg Documented By: MAGDALENA Acetaminophen (Ofirmev) 1,000 mg in 100 mls @ 400 mls/hr IV Q6H [facility] Last Admin: 11/20/22 09:21 Dose: 400 mls/hr Documented By: MAGDALENA Loratadine (Loratadine 10 Mg Tablet) 10 mg PO DAILY [facility] Last Admin: 11/20/22 09:17 Dose: 10 mg Documented By: MAGDALENA Lorazepam (Lorazepam 1 Mg Tablet) 1 mg PO TID [facility] Last Admin: 11/20/22 09:16 Dose: 1 mg Documented By: MAGDALENA Mirtazapine (Mirtazapine 15 Mg Tablet) 15 mg PO BEDTIME [facility] Last Admin: 11/19/22 20:17 Dose: 15 mg Documented By: KATELYN Oxycodone HCl (Oxycodone Hcl Immed Release 5 Mg Tablet) 5 mg PO Q4H PRN PRN Reason: Pain, Moderate(Pain Scale 4-6) Last Admin: 11/19/22 20:17 Dose: 5 mg Documented By: KATELYN Oxycodone HCl (Oxycodone Hcl Immed Release 5 Mg Tablet) 10 mg PO Q4H PRN PRN Reason: Pain, Severe (Pain Scale 7-10) Last Admin: 11/20/22 05:57 Dose: 10 mg Documented By: KATELYN Sodium Chloride (0.9 % Sodium Chloride Flush 3 Ml Syringe) [facility] Last Admin: 11/20/22 09:12 Dose: Not Given Documented By: MAGDALENA Non-Admin Reason: IV Running Sucralfate (Sucralfate 1 Gm Tablet) 1 gm PO BID [facility] Last Admin: 11/20/22 09:17 Dose: 1 gm Documented By: MAGDALENA Labs 11/19/22 06:32 11/19/22 06:32 Procedures Date of Service Date of Service: 11/20/22 Progress Note: A&P Assessment and plan (1) Breast cancer: Status: Acute (2) Morbid obesity: Status: Acute (3) Hypertension: Status: Acute Plan Okay for discharge. Follow-up with Dr. Shultz on outpatient basis Time Spent With Patient Time: Total time managing care of this patient today ____ minutes. Quality Stroke Does the patient have a stroke diagnosis?: No VTE Prior VTE?: No VTE Risk Level:: Medical - moderate - high VTE Device Contraindication: N/A - Device Ordered VTE Drug Contraindication: N/A - Med Ordered
--- NOTE | 2022-11-20 09:41 | MHC.CM.PN ---
PT WILL DC HOME TODAY WITH [facility] NOTIFIED OF DC AND DCS/F2[facility] SENT VIA [facility] PT WILL ARRANGE TRANSPORTATION HOME
== END 2022-11-20 14:31 | disposition home health service (06) | DRG 580 ==
LOC: HO.SSSA 10:01 → HO.S3 14:38
PROVIDERS: Physician Assistant Surgical; Admitting Provider Surgery; PCP Internal Medicine; Visit Provider Surgery
PROC: (CPT 19303; principal; 2022-11-18 09:50)
DX: C50.912 Malignant neoplasm of unspecified site of left female breast (principal); Z68.42 Body mass index [BMI] 45.0-49.9, adult; E66.01 Morbid (severe) obesity due to excess calories; I10 Essential (primary) hypertension; Z17.1 Estrogen receptor negative status [ER-]; Z98.84 Bariatric surgery status; Z91.040 Latex allergy status; Z79.01 Long term (current) use of anticoagulants; Z79.899 Other long term (current) drug therapy
CPT/HCPCS: 36415; 78195; 80048; 85025; 88305; 88307; 88342; 88360; A9520; J0131; J0690; J1170; J2250; J2405; J3010

== ENCOUNTER → 2022-11-18 08:31 | Outpatient (BNV) | payer MEDICARE, MEDICAID, SELFPAY | PROVIDERS: Admitting Provider Surgery; PCP Internal Medicine; Visit Provider Surgery | DX: C50.919 Malignant neoplasm of unspecified site of unspecified female breast (principal); N63.20 Unspecified lump in the left breast, unspecified quadrant | CPT/HCPCS: 19307; 99024; 99499; G0180 ==

== ENCOUNTER 2022-11-24 08:39 | Outpatient (AMB) | payer MEDICARE, MEDICAID, SELFPAY ==
--- NOTE | 2022-11-24 08:41 | MHC.OFFVIS ---
Intake Intake Visit Reasons: s/p left mastectomy Intake Note: This patient presents for a post-op assessment status post left breast mastectomy. Patient c/o; I will talk to him , denies changes or new medications at this time. Mystery Shopper Required: No Accompanied by: Other Relationship Allergies latex [LATEX] Allergy (Unknown, Verified 11/24/22 08:49) RASH Sulfa (Sulfonamide Antibiotics) Allergy (Unknown, Verified 11/24/22 08:49) hives sulfamethoxazole [From BACTRIM] Allergy (Unknown, Verified 11/24/22 08:49) HIVES trimethoprim [From BACTRIM] Allergy (Unknown, Verified 11/24/22 08:49) HIVES valsartan [From DIOVAN] Allergy (Unknown, Verified 11/24/22 08:49) RASH Bandage Adhesive Pillager 3/4 Allergy (Unknown, Uncoded 11/24/22 08:49) Unknown Pt states no allergy to foods Allergy (Unknown, Uncoded 11/24/22 08:49) Unknown SURGICAL TAPE Allergy (Unknown, Uncoded 11/24/22 08:49) RASH tape Allergy (Unknown, Uncoded 11/24/22 08:49) Unknown HPI s/p left mastectomy HPI Details She had undergone left breast mastectomy and sentinel biopsy for invasive ductal cancer on 11/18/2022. She tolerated the procedure well. She was discharged with drains in place. She seems to be doing well at home. A visiting nurse has been helping her with dressings as well as with care of her SHERRY drains. She states she has ran out of her Percocet and is asking for a refill. [facility] Medical History (Updated 11/24/22 @ 08:43 by Henok Shultz MD) Invasive ductal carcinoma of left breast Left breast mass Hypertension Paroxysmal atrial fibrillation Surgical History H/O total mastectomy of left breast (~11/18/22) History of total right knee replacement History of cholecystectomy History of gastric bypass H/O shoulder surgery H/O hemorrhoidectomy History of left knee replacement Status post breast reduction Family History Father COPD (chronic obstructive pulmonary disease) HTN (hypertension) Diabetes Mother COPD (chronic obstructive pulmonary disease) Diabetes HTN (hypertension) Social History Household Members: Children Housing: House Do you presently have visiting nurse or other home services: Yes (home health aid 1x [facility]) Patient Tobacco Use Status: Never used Tobacco Tobacco use type: Cigarette Second Hand Smoke Exposure: No service: No Current occupational status: employed Female Reproductive History Menstrual Age of Menarche: 10 Review of Systems Const Denies chills and Denies fever(s) Card Denies chest pain, Denies dyspnea and Denies dyspnea on exertion Resp Denies cough, Denies dyspnea and Denies dyspnea on exertion GI Denies hematochezia and Denies change in bowel habits Denies hematuria Musc Denies back pain and Denies limited range of motion Neuro Denies focal weakness and Denies convulsions Psych Denies depression and Denies mood swings Physical Exam Const General: comfortable and no acute distress Chest Other: Incision healing well, flaps viable with some area of redness on the inferior flap; two drains in place Assessment & Plan Assessment & Plan (1) Invasive ductal carcinoma of left breast: Code(s): C50.912 - Malignant neoplasm of unspecified site of left female breast Plan: Status post left breast mastectomy, sentinel biopsy. Her path report confirms an invasive ductal cancer, T2 N0 with lymphovascular invasion. She seems to be doing well at home. She denies any significant complaints. She does state that she has ran out of pain meds and is asking for refill. I am leaving the drains in place as she still has about at least 50 cc of serosanguineous output on the drains every day. The incision is well healed. The flaps appeared to be viable at this point although there is some redness on the inferior flap. I will see her again next week in the office for another wound check and to see if we can remove the drains . She will have a follow-up with Dr. Starkey as well. Coding Level of Care Code Global (51814) Diagnoses Invasive ductal carcinoma of left breast C50.912
== END 2022-11-24 09:05 | disposition home or self-care (01) ==
PROVIDERS: PCP Internal Medicine; Visit Provider Surgery
DX: C50.912 Malignant neoplasm of unspecified site of left female breast (principal)
CPT/HCPCS: 99024

== ENCOUNTER → 2022-11-24 08:39 | Outpatient (BNVA) | payer MEDICARE, MEDICAID, SELFPAY | PROVIDERS: PCP Internal Medicine; Visit Provider Surgery ==

== ENCOUNTER 2022-12-01 08:38 | Outpatient (AMB) | payer MEDICARE, MEDICAID, SELFPAY ==
--- NOTE | 2022-12-01 08:40 | A.OFFVIS_ITS ---
Intake Vital Signs 12/01/22 08:48 BP 132/66 Blood Pressure Location Lt brachial Position Sitting Pulse 75 Intake Visit Reasons: s/p left mastectomy- 1 wk check Intake Note: This patient presents for a one week check status post left breast mastectomy. Patient c/o; denies complaints at this time. Sorter Lumber Straightener Required: No Accompanied by: Other Relationship Allergies latex [LATEX] Allergy (Unknown, Verified 12/01/22 08:48) RASH Sulfa (Sulfonamide Antibiotics) Allergy (Unknown, Verified 12/01/22 08:48) hives sulfamethoxazole [From BACTRIM] Allergy (Unknown, Verified 12/01/22 08:48) HIVES trimethoprim [From BACTRIM] Allergy (Unknown, Verified 12/01/22 08:48) HIVES valsartan [From DIOVAN] Allergy (Unknown, Verified 12/01/22 08:48) RASH Bandage Adhesive Harmon 3/4 Allergy (Unknown, Uncoded 12/01/22 08:48) Unknown Pt states no allergy to foods Allergy (Unknown, Uncoded 12/01/22 08:48) Unknown SURGICAL TAPE Allergy (Unknown, Uncoded 12/01/22 08:48) RASH tape Allergy (Unknown, Uncoded 12/01/22 08:48) Unknown HPI s/p left mastectomy- 1 wk check HPI Details She is here for follow-up after mastectomy and sentinel node biopsy for a left breast invasive ductal cancer. She still has both drains in place. She denies any new complaints. Says she feels well overall. She is asking if both drains can be removed. [facility] Medical History Invasive ductal carcinoma of left breast Left breast mass Hypertension Paroxysmal atrial fibrillation Surgical History H/O total mastectomy of left breast (~11/18/22) History of total right knee replacement History of cholecystectomy History of gastric bypass H/O shoulder surgery H/O hemorrhoidectomy History of left knee replacement Status post breast reduction Family History Father COPD (chronic obstructive pulmonary disease) HTN (hypertension) Diabetes Mother COPD (chronic obstructive pulmonary disease) Diabetes HTN (hypertension) Social History Household Members: Children Housing: House Do you presently have visiting nurse or other home services: Yes (home health aid 1x [facility]) Patient Tobacco Use Status: Never used Tobacco Tobacco use type: Cigarette Second Hand Smoke Exposure: No service: No Current occupational status: employed Female Reproductive History Menstrual Age of Menarche: 10 Review of Systems Const Denies chills and Denies fever(s) Card Denies chest pain, Denies dyspnea and Denies dyspnea on exertion Resp Denies cough, Denies dyspnea and Denies dyspnea on exertion GI Denies hematochezia and Denies change in bowel habits Denies hematuria Musc Denies back pain and Denies limited range of motion Neuro Denies focal weakness and Denies convulsions Psych Denies depression and Denies mood swings Physical Exam Vital Signs: Last Vital Signs Pulse 75 12/01/22 08:48 BP 132/66 12/01/22 08:48 Const General: comfortable and no acute distress Chest Other: Mastectomy site healing well with small area on the inferior flap that seems to be a little erythematous to be from flap ischemia with no open wound; both SHERRY drains in place with minimal output from SHERRY drain 2 which is towards the superior flap. SHERRY 1 still has about 40-50 cc every day of output Resp Effort & Inspection: normal respiratory effort Assessment & Plan Assessment & Plan (1) Invasive ductal carcinoma of left breast: Code(s): C50.912 - Malignant neoplasm of unspecified site of left female breast Plan: Status post left breast mastectomy, sentinel biopsy for a T2 N0 invasive ductal carcinoma. I have changed her dressings. I removed SHERRY drain number 2. I left SHERRY drain 1 and will remove this next week. She seems to be doing well overall. Her incision is healing well. She is scheduled to see Dr. Starkey next week to discuss event treatment in view of her triple negative cancer. She will eventually need to have genetic testing as well. I will see her again in the office next week. Coding Level of Care Code Global (77060) Diagnoses Invasive ductal carcinoma of left breast C50.912
[2022-12-01 08:48] VITALS: BP 132/66; PULSE 75
== END 2022-12-01 09:06 | disposition home or self-care (01) ==
PROVIDERS: PCP Internal Medicine; Visit Provider Surgery
DX: C50.912 Malignant neoplasm of unspecified site of left female breast (principal)
CPT/HCPCS: 99024

== ENCOUNTER → 2022-12-01 08:38 | Outpatient (BNVA) | payer MEDICARE, MEDICAID, SELFPAY | PROVIDERS: PCP Internal Medicine; Visit Provider Surgery ==

== ENCOUNTER 2022-12-07 15:51 | Outpatient (AMB) | payer MEDICARE, MEDICAID, SELFPAY ==
--- NOTE | 2022-12-07 15:51 | A.OFFVIS_ITS ---
Intake Vital Signs 12/07/22 15:55 Comment pt in wheelchair Intake Visit Reasons: s/p left mastectomy- 1 wk check Intake Note: This patient presents for a one week follow-up status post left mastectomy. Patient c/o; reports lost of appetite, has not been able to eat in the last 2 days or sleep, pain, reports dizziness, patient appearance; pale. Identification Printing Machine Setter Required: No Accompanied by: Family/Other Allergies latex [LATEX] Allergy (Unknown, Verified 12/07/22 15:56) RASH Sulfa (Sulfonamide Antibiotics) Allergy (Unknown, Verified 12/07/22 15:56) hives sulfamethoxazole [From BACTRIM] Allergy (Unknown, Verified 12/07/22 15:56) HIVES trimethoprim [From BACTRIM] Allergy (Unknown, Verified 12/07/22 15:56) HIVES valsartan [From DIOVAN] Allergy (Unknown, Verified 12/07/22 15:56) RASH Bandage Adhesive Jessamine 3/4 Allergy (Unknown, Uncoded 12/07/22 15:56) Unknown Pt states no allergy to foods Allergy (Unknown, Uncoded 12/07/22 15:56) Unknown SURGICAL TAPE Allergy (Unknown, Uncoded 12/07/22 15:56) RASH tape Allergy (Unknown, Uncoded 12/07/22 15:56) Unknown HPI s/p left mastectomy- 1 wk check HPI Details She is here for follow-up after left breast mastectomy last 11/18/2022. She still has 1 drain left which is on the inferior flap and I had asked her to come back to much output there has been She she seems to have had no appetite for about 2-3 days. According to her son, she may have had some chills as well at home although no actual fever. She has therefore had poor oral intake she admits. She was just seen by Dr. Starkey of Oncology and she had ordered for blood tests. [facility] Medical History Invasive ductal carcinoma of left breast Left breast mass Hypertension Paroxysmal atrial fibrillation Surgical History H/O total mastectomy of left breast (~11/18/22) History of total right knee replacement History of cholecystectomy History of gastric bypass H/O shoulder surgery H/O hemorrhoidectomy History of left knee replacement Status post breast reduction Family History Father COPD (chronic obstructive pulmonary disease) HTN (hypertension) Diabetes Mother COPD (chronic obstructive pulmonary disease) Diabetes HTN (hypertension) Social History Household Members: Children Housing: House Do you presently have visiting nurse or other home services: Yes (home health aid 1x [facility]) Patient Tobacco Use Status: Never used Tobacco Tobacco use type: Cigarette Second Hand Smoke Exposure: No service: No Current occupational status: employed Female Reproductive History Menstrual Age of Menarche: 10 Review of Systems Const Reports chills Card Denies chest pain Resp Denies cough Denies difficulty voiding Physical Exam Const Other: On wheelchair General: comfortable and no acute distress Chest Other: Mastectomy site is well healed, SHERRY drain in place, output occasionally above 50 cc per day, no cellulitis Resp Effort & Inspection: normal respiratory effort Cardio Rate: regular rate Assessment & Plan Assessment & Plan (1) Invasive ductal carcinoma of left breast: Code(s): C50.912 - Malignant neoplasm of unspecified site of left female breast Plan: Status post left breast mastectomy, sentinel biopsy. Her incision is clean and well healed. Her flaps are viable. Her SHERRY drain still has some 50 cc of output a drain so I am going to keep this in place for now. She just saw Dr. Starkey of Oncology who had ordered for blood draws today. Her white count today was 20 and her blood sugar was 266. I therefore advised Beba Ma to the ER as she is likely to have a new onset diabetes. Initially, she was hesitant but I was able to convince her with her family. I will see her again in the office next week otherwise to if he can remove the SHERRY drain. Orders: Orders AMB Urinalysis Auto Microscop. Today C50.912 - Malignant neoplasm of unspecified site of left female breast Coding Level of Care Code Global (07269) Diagnoses Invasive ductal carcinoma of left breast C50.912
== END 2022-12-07 16:20 | disposition home or self-care (01) ==
PROVIDERS: PCP Internal Medicine; Visit Provider Surgery
DX: C50.912 Malignant neoplasm of unspecified site of left female breast (principal)
CPT/HCPCS: 99024

== ENCOUNTER → 2022-12-07 15:51 | Outpatient (BNVA) | payer MEDICARE, MEDICAID, SELFPAY | PROVIDERS: PCP Internal Medicine; Visit Provider Surgery ==

== ENCOUNTER 2022-12-07 16:30 | Inpatient (IN) | payer MEDICARE, MEDICAID, SELFPAY ==
--- NOTE | ~2022-12-07 | XR_ITS ---
EXAMINATION: XR CHEST CLINICAL INFORMATION: Fever COMPARISON: 03/17/2019 TECHNIQUE: Frontal view of the chest was obtained. FINDINGS: No acute finding. The lung leach are felt to be grossly clear comparable to previous. No infiltrate. No failure. Low lung volumes. The cardiac silhouette is within normal limits. Mildly tortuous versus ectatic aorta XR/XR chest 1V IMPRESSION: No acute finding.
--- NOTE | ~2022-12-07 | CT_ITS ---
EXAMINATION: CT ABDOMEN AND PELVIS WITH CONTRAST CLINICAL INFORMATION: Pain, leukocytosis, fever COMPARISON: Previous exam dated 01/22/2018 TECHNIQUE: Multidetector volumetric images were obtained from the superior aspect of the liver through the pubic symphysis following administration 85 mL of Omnipaque 350 intravenous contrast. Sagittal and coronal reformatted images were obtained on the technologist's workstation. Oral contrast: No This CT examination was performed using dose optimization techniques as appropriate, variously including the following: *Automated exposure control *Adjustment of mA and/or kV according to patient size (this includes techniques or standardized protocols for targeted exams where dose is matched to indication/reason for exam; i.e. extremities or head) *Use of iterative reconstruction technique DLP: 1430 mGy-cm FINDINGS: LUNG BASES: The visualized lung bases are unremarkable. LIVER, GALLBLADDER, AND BILIARY TREE: Probable fatty change Status post cholecystectomy PANCREAS: Unremarkable. SPLEEN: Unremarkable. ADRENAL GLANDS: Unremarkable. KIDNEYS AND URETERS: The kidneys are normal in size, shape, and attenuation. No hydronephrosis, hydroureter, or calculi seen. No perinephric stranding. BLADDER: Unremarkable. GASTROINTESTINAL TRACT: The bowel pattern is nonobstructing. The appendix is within normal limits. Surgical change around the stomach is noted ABDOMINAL WALL: There is a catheter within the subcutaneous fat on the topmost images which terminates in the subcutaneous fat anterior to the left lower chest wall. There is surrounding soft tissue and fluid density. The entire extent of this area is not visualized and if indicated consider CT of the chest for full evaluation. Catheter tip as stated lies within the subcutaneous fat approximately 6 cm from the midline sternal region. Mild periumbilical herniation of fat also seen previously LYMPH NODES: There is no bulky adenopathy here. VASCULAR: Mild atherosclerotic changes PELVIC VISCERA: Unremarkable. OSSEOUS STRUCTURES: No acute finding. Some areas of chronic compression injury. CT/CT abdomen pelvis w IV con IMPRESSION: This exam is most remarkable for a catheter which is within the subcutaneous fat of the lower chest on the left with surrounding soft tissue stranding and fluid density.. The entirety of the subcutaneous abnormality is not seen on this study and is only visualized the topmost cuts. Certainly infectious etiology with the surrounding soft tissue stranding would need to be considered. The catheter tip ends as described within the subcutaneous fat anterior to the lower left chest wall The bowel pattern is nonobstructing. There is no free fluid. Other findings are as described above. Fleischner guidelines were followed.
--- NOTE | 2022-12-07 16:36 | ED_ITS ---
HPI - General Adult General Chief complaint: General Medical Stated complaint: referred by provider abnormal labs Time Seen by Provider: 12/07/22 17:26 Source: patient, RN notes reviewed and old records reviewed History of Present Illness HPI narrative: 62-year-old female with a past medical history of AFib on Eliquis, invasive ductal carcinoma s/p left breast mastectomy on 11/18/22 w/SHERRY drain intact, sent to ED from Dr. Shultz's office for fever T-max 101 degrees and leukocytosis noted on outpatient labs today. Patient was also seen in oncology office today who ordered labs. Patient reports lower abdominal discomfort, dysuria, generalized fatigue/weakness and decreased p.o. intake. Admits to taking Tylenol. Denies nausea, vomiting, diarrhea, chest pain/shortness of breath Onset (ago): day(s) Related Data Home Medications Medication Instructions Recorded Confirmed ascorbic acid (vitamin C) 500 mg 500 mg PO BID 07/01/21 12/07/22 tablet (Vitamin C) bupropion HCl 150 mg tablet,12 hr 300 mg PO DAILY 07/01/21 12/07/22 sustained-release calcium carbonate 600 mg-vitamin 1 tab PO DAILY 07/01/21 12/07/22 D3 20 mcg (800 unit) tablet cetirizine 10 mg tablet 10 mg PO DAILY 07/01/21 12/07/22 cyanocobalamin (vitamin B-12) 100 100 mcg PO DAILY 07/01/21 12/07/22 mcg tablet fluoxetine 20 mg capsule 40 mg PO QAM 07/01/21 12/07/22 furosemide 20 mg tablet 20 mg PO DAILY 07/01/21 12/07/22 gabapentin 600 mg tablet 600 mg PO TID 07/01/21 12/07/22 lorazepam 1 mg tablet 1 mg PO TID 07/01/21 12/07/22 docusate sodium 100 mg capsule 100 mg PO QAM PRN Constipation 12/07/22 12/07/22 magnesium oxide 400 mg (241.3 mg 400 mg PO DAILY 12/07/22 12/07/22 magnesium) tablet mirtazapine 15 mg disintegrating 15 mg PO BEDTIME 12/07/22 12/07/22 tablet oxycodone 5 mg tablet 5 mg PO Q4H severe pain 12/07/22 12/07/22 pantoprazole 40 mg tablet,delayed 40 mg PO QAM 12/07/22 12/07/22 release Previous Rx's Medication Instructions Recorded atenolol 100 mg tablet 100 mg PO DAILY #90 tabs 09/15/22 hydrochlorothiazide 12.5 mg tablet 12.5 mg PO DAILY #90 tabs 09/15/22 apixaban 5 mg tablet (Eliquis) 5 mg PO BID #60 tabs 10/13/22 Allergies Allergy/AdvReac Type Severity Reaction Status Date / Time latex [LATEX] Allergy Unknown RASH Verified 12/07/22 15:56 Sulfa (Sulfonamide Allergy Unknown hives Verified 12/07/22 15:56 Antibiotics) sulfamethoxazole Allergy Unknown HIVES Verified 12/07/22 15:56 [From BACTRIM] trimethoprim [From BACTRIM] Allergy Unknown HIVES Verified 12/07/22 15:56 valsartan [From DIOVAN] Allergy Unknown RASH Verified 12/07/22 15:56 Bandage Adhesive Damian Allergy Unknown Unknown Uncoded 12/07/22 15:56 3/4 Pt states no allergy to foods Allergy Unknown Unknown Uncoded 12/07/22 15:56 SURGICAL TAPE Allergy Unknown RASH Uncoded 12/07/22 15:56 tape Allergy Unknown Unknown Uncoded 12/07/22 15:56 Review of Systems 2 Review of Systems: Constitutional: + Fever, No Chills, +Fatigue, No Malaise ENT/Mouth: No Hearing loss, No Ear Pain, No Nasal Congestion, No sore throat, No Rhinorrhea, No Swallowing Difficulty Eyes: No Eye Pain, No Swelling, No Redness, No Vision Changes Cardiovascular: No Chest Pain, No SOB, No Edema, No Palpitations Respiratory: No Cough, No Sputum, No Dyspnea Gastrointestinal: No Nausea, No Vomiting, No Diarrhea, No Constipation, + Abdominal pain Genitourinary: No irregular bleeding, + Dysuria, No Urinary Frequency, No Hematuria, No Flank Pain Musculoskeletal: No joint pain, No Myalgias, No Joint Swelling Skin: No Skin Lesions, No rash Neuro: + Weakness, No Numbness, No Paresthesias, No Loss of Consciousness, No Dizziness, No Headache Yes all other systems are reviewed and are negative Constitutional: Constitutional: Reports as per HPI Neurologic: Denies Abnormal speech present PMFSH Past Medical History Attestation statement: The following information was validated with the patient. Source: old records reviewed Medical History Invasive ductal carcinoma of left breast Left breast mass Hypertension Paroxysmal atrial fibrillation Surgical History H/O total mastectomy of left breast (~11/18/22) History of total right knee replacement History of cholecystectomy History of gastric bypass H/O shoulder surgery H/O hemorrhoidectomy History of left knee replacement Status post breast reduction Family History Family History Father COPD (chronic obstructive pulmonary disease) HTN (hypertension) Diabetes Mother COPD (chronic obstructive pulmonary disease) Diabetes HTN (hypertension) Social History Social History Household Members: Children Housing: House Do you presently have visiting nurse or other home services: Yes (home health aid 1x [facility]) Alcohol intake: never Patient Tobacco Use Status: Never used Tobacco Tobacco use type: Cigarette Smoked in Last 30 Days: No Second Hand Smoke Exposure: No Use of substances other than those prescribed or required for medical reasons: No Advance Directives: Yes Advance Directives on File: Yes Advance Directives Date on File: 11/22/22 service: No Current occupational status: employed Physical Exam ED Vital Signs: Vital Signs - 24 hr 12/07/22 16:37 12/07/22 20:25 Temperature 98.4 F Pulse Rate 120 H 85 Respiratory Rate 20 19 Blood Pressure 149/80 H 93/54 L Pulse Oximetry 96 95 Oxygen Delivery Method Room Air Room Air BMI result Body Mass Index 46.3 Const General: cooperative, healthy appearing and no acute distress Orientation/consciousness: patient oriented x3 Limitations: no limitations HENMT Head: Yes normal to inspection and Yes atraumatic Ears: hearing grossly normal bilaterally General nose exam: Normal external nose present Face and sinus: Yes normal facial exam Eyes General: appearance normal, both eyes and all related structures EOM: EOMs intact bilaterally Neck Neck: Yes normal visual inspection and Yes no meningeal signs Chest Other: Left mastectomy site appropriately healing with SHERRY drain in place. Output noted in SHERRY drain. Slight surrounding erythema. No warmth, fluctuance/induration or drainage around site. Resp Effort & Inspection: normal respiratory effort and no respiratory distress Auscultation: clear to auscultation bilaterally and no wheezes Cardio Rate: regular rate Heart sounds: S1 normal heart sound present and S2 normal heart sound present GI Inspection: Yes normal to inspection Palpation (GI): Soft to palpation, Tenderness to palpation present (GI) suprapubicly; with no rebound tenderness, no guarding and not rigid General: Yes no CVA tenderness Back/Spine/Pelvis Back: no CVA tenderness Skin Rashes: no rashes Wounds: no wounds Neuro General: patient oriented x3, tone normal, moves all extremities, no meningeal signs, no focal motor deficits and CN's II-XI intact bilaterally Cranial nerves: Yes CN's II-XII intact bilaterally Cognition (Neuro): normal cognition Speech: No Abnormal speech present Motor exam (neuro): 5/5 motor strength present throughout Extrem General: Yes normal to inspection Course Course Course Narrative: This is a rapid medical exam: Additional HPI, ROS, PE not included below will be deferred to primary provider. Patient is a 62-year-old female with history of breast CA, HTN, afib on Eliquis presenting to the ED from Dr. Shultz's office with report of abnormal labs. Complaining of pain in area of drain. Reports weakness, stating I think I have a UTI. Leukocytosis on labs drawn today. Patient reports she has not been eating or drinking. Tachycardic to 120's in triage. Plan: UA, labs, EKG, blood cultures, lactic, weigh and charge worker notified as patient meets sepsis criteria -[id number]--patient in AFib with RVR will give 10 mg of IV Cardizem. Empiric IV Rocephin already ordered. > heart rate improved to 85. -leukocytosis 20,000. Labs otherwise reassuring. UA negative. CXR unremarkable > will obtain CT for further eval CT abdomen pelvis w IV con IMPRESSION: This exam is most remarkable for a catheter which is within the subcutaneous fat of the lower chest on the left with surrounding soft tissue stranding and fluid density.. The entirety of the subcutaneous abnormality is not seen on this study and is only visualized the topmost cuts. Certainly infectious etiology with the surrounding soft tissue stranding would need to be considered. The catheter tip ends as described within the subcutaneous fat anterior to the lower left chest wall The bowel pattern is nonobstructing. There is no free fluid. Other findings are as described above. Fleischner guidelines were followed. > hospitalist consulted Medications Administered Generic Name Dose Route Start Last Admin Trade Name Fre[place]ward PRN Reason Stop Dose Admin Acetaminophen/Codeine Phosphate 1 tab 12/07/22 22:29 12/07/22 22:54 Acetaminophen With Codeine # 3 Tablet PO 1 tab Q4H PRN Administration Pain, Severe (Pain Scale 7-10) Sodium Chloride 3 ml 12/08/22 00:00 12/08/22 00:24 0.9 % Sodium Chloride Flush 3 Ml Syringe IVFLUSH Not Given QSHIFT BEV Discontinued Medications Generic Name Dose Route Start Last Admin Trade Name [place]ward PRN Reason Stop Dose Admin Apixaban 5 mg 12/07/22 22:38 12/07/22 22:54 Apixaban 5 Mg Tablet PO 12/07/22 22:39 5 mg ONCE ONE Administration Diltiazem HCl 10 mg 12/07/22 18:55 12/07/22 20:09 Diltiazem Hcl 50 Mg/10 Ml Vial IVPUSH 12/07/22 18:56 10 mg STAT STA Administration Ceftriaxone Sodium 1 gm/ 50 mls @ 100 mls/hr 12/07/22 17:46 12/07/22 19:28 Sodium Chloride IV 12/07/22 18:15 Infused ONCE ONE Infusion Sodium Chloride 500 mls @ 999 mls/hr 12/07/22 18:00 12/07/22 20:09 Ns IV 12/07/22 18:30 Infused .Q31M BEV Infusion Sodium Chloride 500 mls @ 999 mls/hr 12/07/22 18:30 12/08/22 01:35 Ns IV 12/07/22 19:00 Infused .Q31M BEV Infusion Vancomycin HCl 2,000 mg in 500 mls @ 250 mls/hr 12/07/22 22:28 12/08/22 01:34 Vancomycin/Ns IV 12/08/22 00:27 Infused ONCE ONE Infusion Iohexol 100 ml 12/07/22 20:58 12/07/22 20:59 Iohexol 350 Mg/Ml 100 Ml Infus..Btl IV 12/07/22 20:59 85 ml ONCE ONE Administration Lorazepam 1 mg 12/07/22 19:28 12/07/22 20:09 Lorazepam 1 Mg Tablet PO 12/07/22 19:29 1 mg ONCE ONE Administration Mirtazapine 15 mg 12/07/22 22:38 12/07/22 22:54 Mirtazapine 15 Mg Tablet PO 12/07/22 22:39 15 mg ONCE ONE Administration Oxycodone HCl 5 mg 12/07/22 18:07 12/07/22 18:22 Oxycodone Hcl Immed Release 5 Mg Tablet PO 12/07/22 18:08 5 mg ONCE ONE Administration Medical Decision Making Medical Decision Making MDM Narrative: 62-year-old female with a past medical history of AFib on Eliquis, invasive ductal carcinoma s/p left breast mastectomy on 11/18/22 w/SHERRY drain intact, sent to ED from Dr. Shultz's office for fever T-max 101 degrees and leukocytosis noted on outpatient labs today. On exam tachycardic to 120, AFib with RVR noted on EKG, physical exam as above, lungs CTA, no focal neuro deficits, left mastectomy site appropriately healing with SHERRY drain intact. Concern for infectious etiology including UTI. Mastectomy site does not seem to be source at this time. Lower suspicion for appendicitis/diverticulitis or renal stones/pneumonia at this time. Rule out metabolic abnormalities Plan: EKG, labs, lactic/blood cultures, UA, CXR, empiric IV antibiotics, admission Please refer to course for remaining clinical decision making, interpretation of labs/imaging results, and discussions with consultants and/or family members. Differential Diagnosis Differential Diagnoses: The differential diagnosis associated with the presentation includes As above Admission/Observation Consideration of admission/observation: Escalation of care including admission/observation considered Consult Healthcare Provider Management of the patient was discussed with: Hospitalist Lab Data [facility] Lab Attestation statement: I reviewed the patient's lab results. 12/07/22 17:09 12/07/22 17:09 Labs: Lab Results 12/07/22 12/07/22 Range/Units 17:09 19:59 WBC 20.0 H (4.8-10.8) X10*3/uL RBC 4.66 (4.20-5.50) X10*6/uL Hgb 13.1 (12.0-16.0) g/dl Hct 41.3 (37.0-47.0) % MCV 88.6 (80.0-98.0) fL MCH 28.1 (27.0-33.0) pg MCHC 31.7 (31.0-35.0) g/dl RDW 13.9 (11.0-16.0) % Plt Count 363 (160-400) X10*3/uL MPV 10.8 (9.4-12.3) fL Immature Gran % (Auto) 0.6 H (0.0-0.4) % Neut % (Auto) 84.2 H (45-73) % Lymph % (Auto) 10.7 L (20-40) % [place] % (Auto) 4.2 (2-11) % Eos % (Auto) 0.0 (0-4) % Baso % (Auto) 0.3 (0-2) % Lymph # (Auto) 2.2 (1.2-4.9) X10*3/uL [place] # (Auto) 0.8 (0.1-1.2) X10*3/uL Eos # (Auto) 0.0 (0.0-0.4) X10*3/uL Baso # (Auto) 0.1 (0.0-0.2) X10*3/uL Abs Immat Gran (auto) 0.13 H (0.00-0.03) X10*3/uL Absolute Neuts (auto) 16.8 H (2.0-8.3) x10*3/uL Absolute Nucleated RBC 0.000 (0.0-0.012) X10*3/uL Nucleated RBC % (auto) 0.0 (0.0-0.2) /100WBC Sodium 135 (135-145) mmol/L Potassium 3.8 (3.3-5.1) mmol/L Chloride 101 (96-108) mmol/L Carbon Dioxide 25 (22-29) mmol/L Anion Gap 13 (12-20) BUN 12 (9-16) mg/dL Creatinine 0.93 (0.5-1.4) mg/dL Estim Creat Clear Calc 81.7 Estimated GFR > 60 Random Glucose 171 H (60-115) mg/dL Lactic Acid 2.0 (0.5-2.0) mmol/L Calcium 9.7 (8.4-10.2) mg/dL Magnesium 2.0 (1.6-2.6) mg/dL Total Bilirubin 1.1 H (0.0-1.0) mg/dL AST 16 (5-31) U/L ALT 12 (0-31) U/L Alkaline Phosphatase 85 (39-117) U/L Troponin I High Sens < 2.7 (<3.5-17.0) ng/L Total Protein 7.4 (6.5-8.0) g/dL Albumin 4.1 (3.5-5.0) g/dL Lipase 14 (8-78) U/L Urine Color Yellow Urine Appearance Clear Urine pH 7.5 (5.0-9.0) Ur Specific [place] 1.015 (1.005-1.025) Urine Protein Trace (Neg-Trace) mg/dL Urine Glucose (UA) 100 H (Negative) mg/dL Urine Ketones Negative (Negative) mg/dL Urine Blood Negative (Negative) Urine Nitrite Negative (Negative) Ur Leukocyte Esterase Negative (Negative) Independent Interpretation I performed an independent interpretation of an: EKG (EKG AFib with RVR at rate of 116. QRS 78. QTC 442. AFib has replaced sinus rhythm when compared to prior. ) Radiology Impression Discussion of test interpretation with radiology: I have reviewed the radiologist's reading. Independent Historian Clinical information obtained from an independent historian. History obtained from or confirmed by: Other (Son) External Record Review External record reviewed: Inpatient record, Office record, Outpatient record, Prior outpatient labs, Prior outpatient radiology, Primary care record and Outside ED record Tests considered The following testing was considered but not selected: As above Prescription Management I considered prescription management with: Pain Medication and Antibiotic Chronic Conditions Patient?s care impacted by: Hypertension, Cancer and Other (Proximal AFib) Critical Care Time Critical Care Time Critical Care Time: Yes Total Critical Care Time: 45 Attestation: I have personally provided critical care time exclusive of time spent on separately billable procedures. Time includes review of lab data, radiology results, discussion with consultants, and monitoring for potential decompensation. Intervention performed as documented. Discharge Plan Discharge Clinical Impression: Fever, Leukocytosis Patient Disposition: Admitted As Inpatient
[2022-12-07 16:37] VITALS: BP 149/80; PULSE 120; RESP 20; TEMP 36.9; O2SAT 96; BMI 46.3
--- NOTE | 2022-12-07 16:40 | ECG_ITS ---
Test Reason : tachycardic Blood Pressure : / mmHG Vent. Rate : 116 BPM Atrial Rate : 000 BPM P-R Int : 000 ms QRS Dur : 078 ms QT Int : 318 ms P-R-T Axes : 000 014 047 degrees QTc Int : 442 ms Atrial fibrillation with rapid ventricular response Abnormal ECG When compared with ECG of 17-MAR-2019 09:25, Atrial fibrillation has replaced Sinus rhythm Vent. rate has increased BY 41 BPM Referred By: Vicki Hansen Electronically Signed By:JUDY WARNER
[2022-12-07 17:15] LABS: MANUAL DIFF FLAG NO
[2022-12-07 17:18] LABS: Basophils Absolute Auto 0.1 X10*3/uL (0.0-0.2); Basophils Percent Auto 0.3 % (0-2); Hematocrit 41.3 % (37.0-47.0); Hemoglobin 13.1 g/dl (12.0-16.0); Imm Gran Abs Auto 0.13 X10*3/uL (0.00-0.03); Imm Gran Pct Auto 0.6 % (0.0-0.4); Lymphocytes Absolute Auto 2.2 X10*3/uL (1.2-4.9); Lymphocytes Percent Auto 10.7 % (20-40); Mean Corpuscular HGB Conc 31.7 g/dl (31.0-35.0); Mean Corpuscular Hemoglobin 28.1 pg (27.0-33.0); Mean Corpuscular Volume 88.6 fL (80.0-98.0); Mean Platelet Volume 10.8 fL (9.4-12.3); Monocytes Absolute Auto 0.8 X10*3/uL (0.1-1.2); Monocytes Percent Auto 4.2 % (2-11); Neutrophils Absolute Auto 16.8 x10*3/uL (2.0-8.3); Neutrophils Percent Auto 84.2 % (45-73); Platelet Count 363 X10*3/uL (160-400); Red Blood Count 4.66 X10*6/uL (4.20-5.50); Red Cell Distribution Width 13.9 % (11.0-16.0)
[2022-12-07 17:31] LABS: Alanine Aminotransferase 12 U/L (0-31); Albumin Level 4.1 g/dL (3.5-5.0); Alkaline Phosphatase 85 U/L (39-117); Anion Gap 13 (12-20); Aspartate Amino Transferase 16 U/L (5-31); Bilirubin Total 1.1 mg/dL (0.0-1.0); Blood Urea Nitrogen 12 mg/dL (9-16); Calcium 9.7 mg/dL (8.4-10.2); Carbon Dioxide 25 mmol/L (22-29); Chloride 101 mmol/L (96-108); Creatinine Clr Calc Pharmacy 81.7; Estimated Glomerular Filt Rate > 60; Glucose Random 171 mg/dL (60-115); Potassium 3.8 mmol/L (3.3-5.1); Sodium 135 mmol/L (135-145); Total Protein 7.4 g/dL (6.5-8.0)
[2022-12-07 17:50] LABS: Troponin-I High Sensitivity < 2.7 ng/L (<3.5-17.0)
[2022-12-07] MEDS: 0.9 % Sodium Chloride 500 ML 999 ML IV ×2 (18:15→20:09)
[2022-12-07] MEDS: cefTRIAXone sodium 1 GM in 0.9 % Sodium Chloride 50 ML IV (18:21)
[2022-12-07] MEDS: oxyCODONE HCl Immed Release 5 MG TABLET PO (18:22)
[2022-12-07 18:28] LABS: Lipase 14 U/L (8-78)
--- NOTE | 2022-12-07 18:32 | PC.NURSE ---
coming in s/p left breast mastectomy. iv established in right AC, fluids/abx infusing.
[2022-12-07 20:04] LABS: Appearance Urine Clear; Color Urine Yellow; Glucose Urine UA 100 mg/dL (Negative); Leukocyte Esterase Urine Negative (Negative); Nitrite Urine Negative (Negative); PH 7.5 (5.0-9.0); Specific Gravity - Urine 1.015 (1.005-1.025); Urine Blood Negative (Negative); Urine Ketones Negative (Negative); Urine Protein Trace mg/dL (Neg-Trace)
[2022-12-07] MEDS: LORazepam 1 MG TABLET PO (20:09)
[2022-12-07] MEDS: dilTIAZem HCL 50 MG/10 ML VIAL 10 MG IVPUSH (20:09)
[2022-12-07 20:25] VITALS: BP 93/54; PULSE 85; RESP 19; O2SAT 95
[2022-12-07] MEDS: iohexoL 350 MG/ML 100 ML INFUS..BTL IV (20:59)
--- NOTE | 2022-12-07 22:30 | PM.IMHP ---
History of Present Illness Date of Service: 12/07/22 Chief Complaint: Fever This is a 62-year-old female with pertinent history of mood disorder, invasive ductal carcinoma of left breast status post mastectomy, paroxysmal atrial fibrillation on Eliquis who was sent to the emergency department for evaluation of fevers. Patient states she saw her oncologist and general surgeon today. She was found to be febrile and white count was found to be elevated and she was sent to the ER for further evaluation. Patient does admit that the surgical mastectomy site is burning and warm. Continues to drain clear serous fluid. Also complaining of suprapubic pain and thinks she has a UTI. Admits fevers and chills that has been ongoing for the last 2 days. Has associated poor p.o. intake and generalized body discomfort. No chest discomfort, palpitations, shortness of breath, changes in bowel habits In the emergency department, patient was found to be septic and initiated on empiric antibiotics. Review of Systems Constitutional: Constitutional: Reports chills, Reports fatigue, Reports fever(s) and Reports lethargy Cardiovascular: Cardiovascular: Reports no additional cardiovascular complaints Respiratory: Respiratory: Reports no additional respiratory complaints Gastrointestinal: Gastrointestinal: Reports no additional gastrointestinal complaints Genitourinary: Genitourinary: Reports no additional female genitourinary complaints Musculoskeletal: Musculoskeletal: Reports myalgias Endocrine: Endocrine: Reports fatigue [facility] Medical History Invasive ductal carcinoma of left breast Left breast mass Hypertension Paroxysmal atrial fibrillation Family History Father COPD (chronic obstructive pulmonary disease) HTN (hypertension) Diabetes Mother COPD (chronic obstructive pulmonary disease) Diabetes HTN (hypertension) Surgical History H/O total mastectomy of left breast (~11/18/22) History of total right knee replacement History of cholecystectomy History of gastric bypass H/O shoulder surgery H/O hemorrhoidectomy History of left knee replacement Status post breast reduction Social History Household Members: Children Housing: House Do you presently have visiting nurse or other home services: Yes (home health aid 1x [facility]) Patient Tobacco Use Status: Never used Tobacco Tobacco use type: Cigarette Second Hand Smoke Exposure: No Advance Directives: Yes Advance Directives on File: Yes Advance Directives Date on File: 11/22/22 service: No Current occupational status: employed Meds Allergies Allergy/AdvReac Type Severity Reaction Status Date / Time latex [LATEX] Allergy Unknown RASH Verified 12/07/22 15:56 Sulfa (Sulfonamide Allergy Unknown hives Verified 12/07/22 15:56 Antibiotics) sulfamethoxazole Allergy Unknown HIVES Verified 12/07/22 15:56 [From BACTRIM] trimethoprim [From BACTRIM] Allergy Unknown HIVES Verified 12/07/22 15:56 valsartan [From DIOVAN] Allergy Unknown RASH Verified 12/07/22 15:56 Bandage Adhesive [place] Allergy Unknown Unknown Uncoded 12/07/22 15:56 3/4 Pt states no allergy to foods Allergy Unknown Unknown Uncoded 12/07/22 15:56 SURGICAL TAPE Allergy Unknown RASH Uncoded 12/07/22 15:56 tape Allergy Unknown Unknown Uncoded 12/07/22 15:56 Active Medications: Current Medications Vancomycin HCl (Vancomycin/Ns) 2,000 mg in 500 mls @ 250 mls/hr IV ONCE ONE Stop: 12/08/22 00:27 Pharmacy Consult (Consult Rx Vancomycin Dosing) 1 each MISCELLANE DAILY PRN PRN Reason: Consult order Home Medications Medication Instructions Recorded Confirmed Last Taken Type ascorbic acid (vitamin C) 500 mg 500 mg PO BID 07/01/21 11/18/22 11/10/22 History tablet (Vitamin C) bupropion HCl 150 mg tablet,12 hr 300 mg PO DAILY 07/01/21 11/18/22 11/17/22 History sustained-release calcium carbonate 600 mg-vitamin 1 tab PO DAILY 07/01/21 11/18/22 11/17/22 History D3 20 mcg (800 unit) tablet cetirizine 10 mg tablet 10 mg PO DAILY 07/01/21 11/18/22 11/17/22 History cyanocobalamin (vitamin B-12) 100 100 mcg PO DAILY 07/01/21 11/18/22 11/17/22 History mcg tablet fluoxetine 20 mg capsule 40 mg PO QAM 07/01/21 11/18/22 11/17/22 History furosemide 20 mg tablet 20 mg PO DAILY 07/01/21 11/18/22 11/17/22 History gabapentin 600 mg tablet 600 mg PO TID 07/01/21 11/18/22 11/17/22 History lorazepam 1 mg tablet 1 mg PO TID 07/01/21 11/18/22 11/17/22 History sucralfate 1 gram tablet 1 g PO BID 07/01/21 11/18/22 11/17/22 History oxycodone 10 mg tablet 5 mg PO Q4H PRN Severe Pain (Scale 01/06/22 11/18/22 11/17/22 History Score 7-10) docusate sodium 100 mg capsule 100 mg PO QAM 12/07/22 Unknown History exenatide microspheres 2 mg/0.85 2 mg subcut QMONTH 12/07/22 Unknown History mL subcutaneous auto-injector ([employer]) magnesium oxide 400 mg (241.3 mg 400 mg PO DAILY 12/07/22 Unknown History magnesium) tablet mirtazapine 15 mg disintegrating 15 mg PO BEDTIME 12/07/22 Unknown History tablet pantoprazole 40 mg tablet,delayed 40 mg PO QAM 12/07/22 Unknown History release Physical Exam Vital Signs and Narrative: Vital Signs: Last Vital Signs Temp 98.4 F 12/07/22 16:37 Pulse 85 12/07/22 20:25 Resp 19 12/07/22 20:25 BP 93/54 L 12/07/22 20:25 Pulse Ox 95 12/07/22 20:25 O2 Del Method Room Air 12/07/22 20:25 BMI result Body Mass Index 46.3 Middle-aged female lying in bed in no distress Neck supple, no JVD Irregularly irregular, S1-S2 heard Regular breath sounds bilaterally, no wheezing or crackles appreciated Abdomen soft nontender, no guarding, no rigidity Patient is awake, alert and oriented to self, place, time and person ; no focal motor deficit Skin: mastectomy site erythematous, warm draining serous fluid Psych: Anxious No pedal edema Results Labs 12/07/22 17:09 12/07/22 17:09 Labs: Laboratory Results - last 24 hr 12/07/22 12/07/22 17:09 19:59 MCV 88.6 MCH 28.1 MCHC 31.7 RDW 13.9 Plt Count 363 MPV 10.8 Immature Gran % (Auto) 0.6 H Neut % (Auto) 84.2 H Lymph % (Auto) 10.7 L [place] % (Auto) 4.2 Eos % (Auto) 0.0 Baso % (Auto) 0.3 Lymph # (Auto) 2.2 [place] # (Auto) 0.8 Eos # (Auto) 0.0 Baso # (Auto) 0.1 Abs Immat Gran (auto) 0.13 H Absolute Neuts (auto) 16.8 H Absolute Nucleated RBC 0.000 Nucleated RBC % (auto) 0.0 Anion Gap 13 Estim Creat Clear Calc 81.7 Estimated GFR > 60 Random Glucose 171 H Lactic Acid 2.0 Calcium 9.7 Magnesium 2.0 Total Bilirubin 1.1 H AST 16 ALT 12 Alkaline Phosphatase 85 Total Protein 7.4 Albumin 4.1 Lipase 14 Urine Color Yellow Urine Appearance Clear Urine pH 7.[address] [place] 1.015 Urine Protein Trace Urine Glucose (UA) 100 H Urine Ketones Negative Urine Blood Negative Urine Nitrite Negative Ur Leukocyte Esterase Negative Imaging Radiologist's Impressions: Impressions Chest X-Ray 12/07/22 19:20 IMPRESSION: No acute finding. Abdomen/Pelvis CT 12/07/22 21:04 IMPRESSION: This exam is most remarkable for a catheter which is within the subcutaneous fat of the lower chest on the left with surrounding soft tissue stranding and fluid density.. The entirety of the subcutaneous abnormality is not seen on this study and is only visualized the topmost cuts. Certainly infectious etiology with the surrounding soft tissue stranding would need to be considered. The catheter tip ends as described within the subcutaneous fat anterior to the lower left chest wall The bowel pattern is nonobstructing. There is no free fluid. Other findings are as described above. Fleischner guidelines were followed. Assessment and Plan (1) Sepsis: Status: Acute Plan This is a 62-year-old female with pertinent history of mood disorder, invasive ductal carcinoma of left breast status post mastectomy, paroxysmal atrial fibrillation on Eliquis who was sent to the emergency department for evaluation of fevers. #. sepsis, likely due to cellulitis over mastectomy site. Resuscitated with IV crystalloids. Lactic acid and blood culture obtained. Initiating empiric IV antibiotics. The site with drain in place draining clear serous fluid. Consulting general surgery, appreciate assistance. Patient thinks she has urine infection but urine not concerning for UTI. #. paroxysmal atrial fibrillation. Continue Eliquis #. mood disorder. Continue home mood stabilizers med rec pending DVT prophylaxis: Eliquis Full code Admit as inpatient and will require two night minimum hospital stay for IV antibiotics Time Spent With Patient Time: Total time managing care of this patient today ____ minutes. Quality Stroke Does the patient have a stroke diagnosis?: No VTE Prior VTE?: No VTE Risk Level:: Medical - moderate - high VTE Device Contraindication: Treatment Not Indicated VTE Drug Contraindication: N/A - Med Ordered
--- NOTE | 2022-12-07 22:49 | PHA.MEDREC ---
Pharmacy Consult ? Medication Reconciliation Pharmacy has completed the medication reconciliation. Patient confirmed medications. Report oxycodone every 4 hr instead of PRN. Astrid Tirado, LilyD
[2022-12-07] MEDS: Mirtazapine 15 MG TABLET PO (22:54)
[2022-12-07] MEDS: Apixaban 5 MG TABLET PO (22:54)
[2022-12-07] MEDS: vancomycin/NS 2,000 MG/500 ML PLAST..BAG 250 MG IV (22:55)
[2022-12-08 04:33] VITALS: BP 106/65; PULSE 99; RESP 16; O2SAT 93
[2022-12-08 05:28] LABS: MANUAL DIFF FLAG NO
[2022-12-08 05:29] LABS: Basophils Percent Auto 0.3 % (0-2); Eosinophils Percent Auto 0.1 % (0-4); Hematocrit 34.4 % (37.0-47.0); Hemoglobin 10.9 g/dl (12.0-16.0); Imm Gran Abs Auto 0.06 X10*3/uL (0.00-0.03); Imm Gran Pct Auto 0.4 % (0.0-0.4); Lymphocytes Absolute Auto 1.8 X10*3/uL (1.2-4.9); Lymphocytes Percent Auto 11.4 % (20-40); Mean Corpuscular HGB Conc 31.7 g/dl (31.0-35.0); Mean Corpuscular Hemoglobin 28.1 pg (27.0-33.0); Mean Corpuscular Volume 88.7 fL (80.0-98.0); Mean Platelet Volume 10.8 fL (9.4-12.3); Monocytes Percent Auto 6.1 % (2-11); Neutrophils Absolute Auto 12.7 x10*3/uL (2.0-8.3); Neutrophils Percent Auto 81.7 % (45-73); Platelet Count 231 X10*3/uL (160-400); Red Blood Count 3.88 X10*6/uL (4.20-5.50); Red Cell Distribution Width 13.8 % (11.0-16.0); White Blood Count 15.5 X10*3/uL (4.8-10.8)
[2022-12-08 05:50] LABS: Anion Gap 12 (12-20); Blood Urea Nitrogen 10 mg/dL (9-16); Calcium 8.4 mg/dL (8.4-10.2); Carbon Dioxide 24 mmol/L (22-29); Chloride 105 mmol/L (96-108); Creatinine Clr Calc Pharmacy 101.2; Estimated Glomerular Filt Rate > 60; Glucose Random 143 mg/dL (60-115); Potassium 3.3 mmol/L (3.3-5.1); Sodium 138 mmol/L (135-145)
--- NOTE | 2022-12-08 06:47 | PC.NURSE ---
pt's left SHERRY drain accidently pulled out by patient. Hospitalist Alejandro aware. Surgical site covered with gauze. Per MD pt may need to return to the OR today for a new drain
[2022-12-08 08:18] VITALS: BP 97/62; PULSE 66; RESP 16; O2SAT 93
[2022-12-08] MEDS: vancomycin HCL 1,000 MG in 0.9 % Sodium Chloride 250 ML 270 MG IV ×2 (08:19→22:00)
[2022-12-08] MEDS: FLUoxetine HCl 20 MG CAPSULE 40 MG PO (08:21)
[2022-12-08] MEDS: Ascorbic Acid 500 MG TABLET PO ×2 (08:21→19:53)
[2022-12-08] MEDS: Calcium + Vitamin D 250 MG TABLET PO (08:21)
[2022-12-08] MEDS: Gabapentin 600 MG TABLET PO ×3 (08:21→19:53)
[2022-12-08] MEDS: Omeprazole 20 MG CAPSULE.DR PO (08:21)
[2022-12-08] MEDS: LORazepam 1 MG TABLET PO ×3 (08:21→19:52)
[2022-12-08] MEDS: buPROPion HCl XL 300 MG TAB.ER.24H PO (08:21)
[2022-12-08] MEDS: Magnesium Oxide 400 MG TABLET PO (08:22)
[2022-12-08] MEDS: Furosemide 20 MG TABLET PO (08:22)
[2022-12-08] MEDS: oxyCODONE HCl Immed Release 5 MG TABLET PO ×5 (08:22→23:06)
[2022-12-08] MEDS: Apixaban 5 MG TABLET PO ×2 (08:22→19:53)
[2022-12-08] MEDS: Loratadine 10 MG TABLET PO (08:22)
--- NOTE | 2022-12-08 09:54 | MHC.EDTECH ---
PT was changed cleaned up and bedding was changed
[2022-12-08] MEDS: atenoloL 100 MG TABLET PO (10:34)
[2022-12-08] MEDS: Cyanocobalamin (Vitamin B-12) 100 MCG TABLET PO (10:34)
[2022-12-08] MEDS: hydroCHLOROthiazide 12.5 MG TABLET PO (10:34)
[2022-12-08] MEDS: 0.9 % Sodium Chloride Flush 3 ML SYRINGE IVFLUSH ×3 (10:35→23:07)
--- NOTE | 2022-12-08 10:44 | PM.CNGS ---
History of Present Illness Consult details Consult date: 12/08/22 Narrative: 62-year-old female admitted because of of sepsis. She had left breast mastectomy and sentinel biopsy for invasive ductal cancer last 11/18/2022. I had seen her in the office yesterday and she had complained of some fever at home. She also described sense of being ?not well?. She had an outpatient blood draw yesterday as well which showed a white count of 20 and a blood sugar of 266 so I had sent her to the ER from the office. She currently says that she feels better although still is not completely well. She has had no fever since last night She had [address] from her mastectomy site and this got pulled out accidentally when she was having an x-ray last night. Review of Systems Constitutional: Constitutional: Denies chills and Reports fever(s) Cardiovascular: Cardiovascular: Denies chest pain, Denies dyspnea and Denies dyspnea on exertion Respiratory: Respiratory: Denies cough, Denies dyspnea and Denies dyspnea on exertion Gastrointestinal: Gastrointestinal: Denies hematochezia and Denies change in bowel habits Genitourinary: Genitourinary: Denies hematuria Musculoskeletal: Musculoskeletal: Denies back pain and Denies limited range of motion Neurologic: Denies focal weakness and Denies convulsions Psychiatric: Psychiatric: Denies depression and Denies mood swings PMFSH Past Medical History Medical History Invasive ductal carcinoma of left breast Left breast mass Hypertension Paroxysmal atrial fibrillation Family History Family History Father COPD (chronic obstructive pulmonary disease) HTN (hypertension) Diabetes Mother COPD (chronic obstructive pulmonary disease) Diabetes HTN (hypertension) Surgical History Surgical History H/O total mastectomy of left breast (~11/18/22) History of total right knee replacement History of cholecystectomy History of gastric bypass H/O shoulder surgery H/O hemorrhoidectomy History of left knee replacement Status post breast reduction Social History Social History Household Members: Family Housing: House Do you presently have visiting nurse or other home services: Yes (was set up before admission (hadn't actually seen)) Alcohol intake: never Patient Tobacco Use Status: Never used Tobacco Tobacco use type: Cigarette Second Hand Smoke Exposure: No Advance Directives Date on File: 11/22/22 service: No Current occupational status: employed Meds Allergies Allergy/AdvReac Type Severity Reaction Status Date / Time latex [LATEX] Allergy Unknown RASH Verified 12/07/22 15:56 Sulfa (Sulfonamide Allergy Unknown hives Verified 12/07/22 15:56 Antibiotics) sulfamethoxazole Allergy Unknown HIVES Verified 12/07/22 15:56 [From BACTRIM] trimethoprim [From BACTRIM] Allergy Unknown HIVES Verified 12/07/22 15:56 valsartan [From DIOVAN] Allergy Unknown RASH Verified 12/07/22 15:56 seafood Allergy Rash Verified 12/08/22 11:59 Bandage Adhesive [place] Allergy Unknown Unknown Uncoded 12/07/22 15:56 3/4 SURGICAL TAPE Allergy Unknown RASH Uncoded 12/07/22 15:56 tape Allergy Unknown Unknown Uncoded 12/07/22 15:56 Active Medications: Current Medications Acetaminophen (Acetaminophen 325 Mg Tablet) 650 mg PO Q6H PRN PRN Reason: Pain, Mild (Pain Scale 1-3) Acetaminophen/Codeine Phosphate (Acetaminophen With Codeine # 3 Tablet) 1 tab PO Q4H PRN PRN Reason: Pain, Severe (Pain Scale 7-10) Last Admin: 12/08/22 03:27 Dose: 1 tab Apixaban (Apixaban 5 Mg Tablet) 5 mg PO BID [facility] Last Admin: 12/08/22 08:22 Dose: 5 mg Ascorbic Acid (Ascorbic Acid 500 Mg Tablet) 500 mg PO BID [facility] Last Admin: 12/08/22 08:21 Dose: 500 mg Atenolol (Atenolol 100 Mg Tablet) 100 mg PO DAILY [facility]; Protocol Last Admin: 12/08/22 10:34 Dose: 100 mg Bupropion HCl (Bupropion Hcl Xl 300 Mg Tab.Er.24h) 300 mg PO DAILY [facility] Last Admin: 12/08/22 08:21 Dose: 300 mg Calcium Carbonate/Cholecalciferol (Calcium + Vitamin D 250 Mg Tablet) 250 mg PO DAILY [facility] Last Admin: 12/08/22 08:21 Dose: 250 mg Cyanocobalamin (Cyanocobalamin (Vitamin B-12) 100 Mcg Tablet) 100 mcg PO DAILY [facility] Last Admin: 12/08/22 10:34 Dose: 100 mcg Docusate Sodium (Docusate Sodium 100 Mg Capsule) 100 mg PO DAILY PRN PRN Reason: Constipation Fluoxetine HCl (Fluoxetine Hcl 20 Mg Capsule) 40 mg PO DAILY [facility] Last Admin: 12/08/22 08:21 Dose: 40 mg Furosemide (Furosemide 20 Mg Tablet) 20 mg PO DAILY [facility]; Protocol Last Admin: 12/08/22 08:22 Dose: 20 mg Gabapentin (Gabapentin 600 Mg Tablet) 600 mg PO TID [facility] Last Admin: 12/08/22 08:21 Dose: 600 mg Hydrochlorothiazide (Hydrochlorothiazide 12.5 Mg Tablet) 12.5 mg PO DAILY [facility]; Protocol Last Admin: 12/08/22 10:34 Dose: 12.5 mg Vancomycin HCl 1,000 mg/ (Sodium Chloride) 270 mls @ 270 mls/hr IV Q12H [facility] Last Admin: 12/08/22 08:19 Dose: 270 mls/hr Loratadine (Loratadine 10 Mg Tablet) 10 mg PO DAILY [facility] Last Admin: 12/08/22 08:22 Dose: 10 mg Lorazepam (Lorazepam 1 Mg Tablet) 1 mg PO TID [facility] Last Admin: 12/08/22 08:21 Dose: 1 mg Magnesium Oxide (Magnesium Oxide 400 Mg Tablet) 400 mg PO DAILY [facility] Last Admin: 12/08/22 08:22 Dose: 400 mg Melatonin (Melatonin 3 Mg Tablet) 6 mg PO BEDTIME PRN PRN Reason: Insomnia Mirtazapine (Mirtazapine 15 Mg Tablet) 15 mg PO BEDTIME [facility] Omeprazole (Omeprazole 20 Mg Capsule.Dr) 20 mg PO DAILY@0630 [facility] Last Admin: 12/08/22 08:21 Dose: 20 mg Ondansetron HCl (Ondansetron Hcl 4 Mg/2 Ml Vial) 4 mg IVPUSH Q8H PRN PRN Reason: Nausea and Vomiting Oxycodone HCl (Oxycodone Hcl Immed Release 5 Mg Tablet) 5 mg PO Q4H [facility] Last Admin: 12/08/22 08:22 Dose: 5 mg Pharmacy Consult (Consult Rx Vancomycin Dosing) 1 each MISCELLANE DAILY PRN PRN Reason: Consult order Sodium Chloride (0.9 % Sodium Chloride Flush 3 Ml Syringe) 3 ml IVFLUSH QSHIFT [facility] Last Admin: 12/08/22 10:35 Dose: 3 ml Home Medications Medication Instructions Recorded Confirmed Last Taken Type ascorbic acid (vitamin C) 500 mg 500 mg PO BID 07/01/21 12/07/22 11/10/22 History tablet (Vitamin C) bupropion HCl 150 mg tablet,12 hr 300 mg PO DAILY 07/01/21 12/07/22 11/17/22 History sustained-release calcium carbonate 600 mg-vitamin 1 tab PO DAILY 07/01/21 12/07/22 11/17/22 History D3 20 mcg (800 unit) tablet cetirizine 10 mg tablet 10 mg PO DAILY 07/01/21 12/07/22 11/17/22 History cyanocobalamin (vitamin B-12) 100 100 mcg PO DAILY 07/01/21 12/07/22 11/17/22 History mcg tablet fluoxetine 20 mg capsule 40 mg PO QAM 07/01/21 12/07/22 11/17/22 History furosemide 20 mg tablet 20 mg PO DAILY 07/01/21 12/07/22 11/17/22 History gabapentin 600 mg tablet 600 mg PO TID 07/01/21 12/07/22 11/17/22 History lorazepam 1 mg tablet 1 mg PO TID 07/01/21 12/07/22 11/17/22 History docusate sodium 100 mg capsule 100 mg PO QAM PRN Constipation 12/07/22 12/07/22 Unknown History magnesium oxide 400 mg (241.3 mg 400 mg PO DAILY 12/07/22 12/07/22 Unknown History magnesium) tablet mirtazapine 15 mg disintegrating 15 mg PO BEDTIME 12/07/22 12/07/22 Unknown History tablet oxycodone 5 mg tablet 5 mg PO Q4H severe pain 12/07/22 12/07/22 Unknown History pantoprazole 40 mg tablet,delayed 40 mg PO QAM 12/07/22 12/07/22 Unknown History release Physical Exam Vital Signs: Vital Signs: Last Vital Signs Temp 98.4 F 12/07/22 16:37 Pulse 66 12/08/22 08:18 Resp 16 12/08/22 08:18 BP 97/62 12/08/22 08:18 Pulse Ox 93 12/08/22 08:18 O2 Del Method Room Air 12/08/22 08:18 BMI result Body Mass Index 46.3 Const: Other: She appears comfortable, conversant General: no acute distress Orientation/consciousness: patient oriented x3 Neck: Neck: Yes no lymphadenopathy Chest: Other: Mastectomy site well healed, mild patchy redness but no spreading cellulitis or fluctuance; there is no SHERRY drain seen Resp: Auscultation: clear to auscultation bilaterally Cardio: Rhythm: regular rhythm GI: Palpation (GI): Soft to palpation, nontender and no guarding Neuro: General: patient oriented x3 Results Labs 12/09/22 10:22 12/09/22 08:15 Labs: Abnormal lab results 12/07/22 12/07/22 12/08/22 Range/Units 17:09 19:59 04:52 WBC 20.0 H 15.5 H (4.8-10.8) X10*3/uL RBC 3.88 L (4.20-5.50) X10*6/uL Hgb 10.9 L (12.0-16.0) g/dl Hct 34.4 L (37.0-47.0) % Immature Gran % (Auto) 0.6 H (0.0-0.4) % Neut % (Auto) 84.2 H 81.7 H (45-73) % Lymph % (Auto) 10.7 L 11.4 L (20-40) % Abs Immat Gran (auto) 0.13 H 0.06 H (0.00-0.03) X10*3/uL Absolute Neuts (auto) 16.8 H 12.7 H (2.0-8.3) x10*3/uL Random Glucose 171 H 143 H (60-115) mg/dL Total Bilirubin 1.1 H (0.0-1.0) mg/dL Urine Glucose (UA) 100 H (Negative) mg/dL Short CBC 12/07/22 12/08/22 Range/Units 17:09 04:52 WBC 20.0 H 15.5 H (4.8-10.8) X10*3/uL Hgb 13.1 10.9 L (12.0-16.0) g/dl Hct 41.3 34.4 L (37.0-47.0) % Plt Count 363 231 D (160-400) X10*3/uL BMP 12/07/22 12/08/22 17:09 04:52 Sodium 135 138 Potassium 3.8 3.3 Chloride 101 105 Carbon Dioxide 25 24 BUN 12 10 Creatinine 0.93 0.75 Calcium 9.7 8.4 D Liver Function 12/07/22 Range/Units 17:09 Total Bilirubin 1.1 H (0.0-1.0) mg/dL AST 16 (5-31) U/L ALT 12 (0-31) U/L Alkaline Phosphatase 85 (39-117) U/L Albumin 4.1 (3.5-5.0) g/dL Urine 12/07/22 Range/Units 19:59 Urine Color Yellow Urine Appearance Clear Urine pH 7.5 (5.0-9.0) Ur Specific [place] 1.015 (1.005-1.025) Urine Protein Trace (Neg-Trace) mg/dL Urine Glucose (UA) 100 H (Negative) mg/dL All other labs normal. Assessment and Plan (1) Leukocytosis: Status: Acute Her white count has dropped to 15 from 20 yesterday. Her blood sugars have improved as well. She says she feels better today. Her mastectomy site on the left is well healed. Her SHERRY drain was however pulled out accidentally. I did tell her that there is a possibility that she may develop a seroma and to aspirate this if this happens. In the meantime, she seems to have improved significantly. Focus of infection is uncertain at this time. There is some mild redness on areas of the mastectomy but no convincing signs of any abscess or spreading infection I will follow along while she is in the hospital. Time Spent With Patient Time: Total time managing care of this patient today ____ minutes. Procedures Date of Service Date of Service: 12/09/22
--- NOTE | 2022-12-08 10:53 | MHC.CM.PN ---
CM MET WITH PT IN ED OVERFLOW BED 4 PT REPORTS SHE LIVES WITH HER SON AND IS INDEPENDENT WITH CARE SHE SAYS SHE IS STILL ACTIVE WITH [facility] AND HAS NO OTHER SERVICES SHE HAS NO DME PCP: [facility] HCP ON FILE IMM DELIVERED DCP: [facility] TO TRANSPORT
[2022-12-08] MEDS: Acetaminophen 325 MG TABLET 650 MG PO ×3 (11:39→23:05)
--- NOTE | 2022-12-08 14:07 | PM.EVENT ---
Event Note Date of Service: 12/08/22 Event Note: Seen on afternoon rounds Comfortable Does not appear toxic No significant redness on mastectomy site I have applied a new mastectomy binder Will re-evaluate tomorrow - if there is significant buildup of fluid on the mastectomy site, planned to aspirate with a needle She understands the plan Time Spent With Patient Time: Total time managing care of this patient today ____ minutes.
--- NOTE | 2022-12-08 17:35 | P.PNIM_ITS ---
Subjective Subjective Date of Service: 12/08/22 Interval History: No acute issues overnight. SHERRY out unintentionally Review of Systems Denies chest pain Denies shortness of breath Denies nausea vomiting diarrhea Denies fever chills Physical Exam 2 Vital Signs: Vital Signs: Last Vital Signs Temp 98.4 F 12/07/22 16:37 Pulse 66 12/08/22 08:18 Resp 16 12/08/22 08:18 BP 97/62 12/08/22 08:18 Pulse Ox 93 12/08/22 08:18 O2 Del Method Room Air 12/08/22 08:18 BMI result Body Mass Index 46.3 Const: Other: Awake alert no acute distress Chest: Other: Right mastectomy site with minimal erythema and no drainage. No palpable fluctuance Resp: Other: Clear to auscultation bilaterally no rales rhonchi or wheezes Cardio: Other: No S4; positive S1-S2; no S3 murmurs rubs or gallops GI: Other: Soft nontender nondistended normoactive bowel sounds Extrem: Other: No edema bilaterally Objective Data Active Medications Acetaminophen (Acetaminophen 325 Mg Tablet) 650 mg PO Q6H PRN PRN Reason: Pain, Mild (Pain Scale 1-3) Last Admin: 12/08/22 17:15 Dose: 650 mg Documented By: YAN Acetaminophen/Codeine Phosphate (Acetaminophen With Codeine # 3 Tablet) 1 tab PO Q4H PRN PRN Reason: Pain, Severe (Pain Scale 7-10) Last Admin: 12/08/22 03:27 Dose: 1 tab Documented By: LOVE Apixaban (Apixaban 5 Mg Tablet) 5 mg PO BID [facility] Last Admin: 12/08/22 08:22 Dose: 5 mg Documented By: YAN Ascorbic Acid (Ascorbic Acid 500 Mg Tablet) 500 mg PO BID [facility] Last Admin: 12/08/22 08:21 Dose: 500 mg Documented By: YAN Atenolol (Atenolol 100 Mg Tablet) 100 mg PO DAILY [facility]; Protocol Last Admin: 12/08/22 10:34 Dose: 100 mg Documented By: YAN Bupropion HCl (Bupropion Hcl Xl 300 Mg Tab.Er.24h) 300 mg PO DAILY [facility] Last Admin: 12/08/22 08:21 Dose: 300 mg Documented By: YAN Calcium Carbonate/Cholecalciferol (Calcium + Vitamin D 250 Mg Tablet) 250 mg PO DAILY [facility] Last Admin: 12/08/22 08:21 Dose: 250 mg Documented By: YAN Cyanocobalamin (Cyanocobalamin (Vitamin B-12) 100 Mcg Tablet) 100 mcg PO DAILY [facility] Last Admin: 12/08/22 10:34 Dose: 100 mcg Documented By: YAN Docusate Sodium (Docusate Sodium 100 Mg Capsule) 100 mg PO DAILY PRN PRN Reason: Constipation Fluoxetine HCl (Fluoxetine Hcl 20 Mg Capsule) 40 mg PO DAILY [facility] Last Admin: 12/08/22 08:21 Dose: 40 mg Documented By: YAN Furosemide (Furosemide 20 Mg Tablet) 20 mg PO DAILY [facility]; Protocol Last Admin: 12/08/22 08:22 Dose: 20 mg Documented By: YAN Gabapentin (Gabapentin 600 Mg Tablet) 600 mg PO TID [facility] Last Admin: 12/08/22 15:34 Dose: 600 mg Documented By: YAN Hydrochlorothiazide (Hydrochlorothiazide 12.5 Mg Tablet) 12.5 mg PO DAILY [facility]; Protocol Last Admin: 12/08/22 10:34 Dose: 12.5 mg Documented By: YAN Vancomycin HCl 1,000 mg/ (Sodium Chloride) 270 mls @ 270 mls/hr IV Q12H [facility] Last Infusion: 12/08/22 15:09 Dose: Infused Documented By: YAN Loratadine (Loratadine 10 Mg Tablet) 10 mg PO DAILY [facility] Last Admin: 12/08/22 08:22 Dose: 10 mg Documented By: YAN Lorazepam (Lorazepam 1 Mg Tablet) 1 mg PO TID [facility] Last Admin: 12/08/22 15:34 Dose: 1 mg Documented By: YAN Magnesium Oxide (Magnesium Oxide 400 Mg Tablet) 400 mg PO DAILY [facility] Last Admin: 12/08/22 08:22 Dose: 400 mg Documented By: YAN Melatonin (Melatonin 3 Mg Tablet) 6 mg PO BEDTIME PRN PRN Reason: Insomnia Mirtazapine (Mirtazapine 15 Mg Tablet) 15 mg PO BEDTIME [facility] Omeprazole (Omeprazole 20 Mg Capsule.) 20 mg PO DAILY@0630 [facility] Last Admin: 12/08/22 08:21 Dose: 20 mg Documented By: YAN Ondansetron HCl (Ondansetron Hcl 4 Mg/2 Ml Vial) 4 mg IVPUSH Q8H PRN PRN Reason: Nausea and Vomiting Oxycodone HCl (Oxycodone Hcl Immed Release 5 Mg Tablet) 5 mg PO Q4H [facility] Last Admin: 12/08/22 15:34 Dose: 5 mg Documented By: YAN Pharmacy Consult (Consult Rx Vancomycin Dosing) 1 each MISCELLANE DAILY PRN PRN Reason: Consult order Sodium Chloride (0.9 % Sodium Chloride Flush 3 Ml Syringe) 3 ml IVFLUSH QSHIFT [facility] Last Admin: 12/08/22 17:23 Dose: 3 ml Documented By: YAN Labs 12/08/22 04:52 12/08/22 04:52 Labs: Laboratory Results - last 24 hr 12/07/22 12/07/22 12/08/22 17:09 19:59 04:52 MCV 88.7 MCH 28.1 MCHC 31.7 RDW 13.8 Plt Count 231 D MPV 10.8 Immature Gran % (Auto) 0.4 Neut % (Auto) 81.7 H Lymph % (Auto) 11.4 L [place] % (Auto) 6.1 Eos % (Auto) 0.1 Baso % (Auto) 0.3 Lymph # (Auto) 1.8 [place] # (Auto) 1.0 Eos # (Auto) 0.0 Baso # (Auto) 0.0 Abs Immat Gran (auto) 0.06 H Absolute Neuts (auto) 12.7 H Absolute Nucleated RBC 0.000 Nucleated RBC % (auto) 0.0 Anion Gap 12 Estim Creat Clear Calc 101.2 Estimated GFR > 60 Random Glucose 143 H Calcium 8.4 D Magnesium 2.0 Lipase 14 Urine Color Yellow Urine Appearance Clear Urine pH 7.5 Ur Specific [place] 1.015 Urine Protein Trace Urine Glucose (UA) 100 H Urine Ketones Negative Urine Blood Negative Urine Nitrite Negative Ur Leukocyte Esterase Negative Assessment and Plan (1) Cellulitis: Status: Acute (2) Paroxysmal atrial fibrillation: Status: Acute Plan This is a 62-year-old female with pertinent history of mood disorder, invasive ductal carcinoma of left breast status post mastectomy, paroxysmal atrial fibrillation on Eliquis who was sent to the emergency department for evaluation of fevers. 1.Cellulitis @mastectomy site(sepsis resolved) -continue vanco/ceftriaxone (2) -further treatment as per Dr. Shultz 2.Paroxysmal atrial fibrillation -acceptable rate control -continue Eliquis -adjust meds as indicated 3. Hyperglycemia -lispro correctional scale -A1C in am Eliquis Full code Patient requires ongoing hospitalization for IV antibiotics to treat cellulitis Time Spent With Patient Time: Total time managing care of this patient today ____ minutes. Quality Stroke Does the patient have a stroke diagnosis?: No VTE Prior VTE?: No VTE Risk Level:: Medical - moderate - high VTE Device Contraindication: Treatment Not Indicated VTE Drug Contraindication: N/A - Med Ordered
[2022-12-08 19:18] VITALS: BP 139/64; PULSE 87; RESP 18; TEMP 36.8; O2SAT 96
[2022-12-08] MEDS: Mirtazapine 15 MG TABLET PO (19:52)
[2022-12-09] MEDS: oxyCODONE HCl Immed Release 5 MG TABLET PO ×5 (02:48→21:10)
[2022-12-09 04:00] VITALS: BP 122/59; PULSE 73; RESP 16; TEMP 36.4; O2SAT 94
[2022-12-09 07:34] VITALS: BP 146/63; PULSE 79; RESP 12; TEMP 35.8; O2SAT 98
[2022-12-09 08:43] LABS: Vancomycin Trough 12.2 mcg/mL (10.0-20.0)
[2022-12-09] MEDS: 0.9 % Sodium Chloride Flush 3 ML SYRINGE IVFLUSH ×2 (08:43→16:04)
[2022-12-09] MEDS: LORazepam 1 MG TABLET PO ×3 (08:44→21:10)
[2022-12-09] MEDS: Gabapentin 600 MG TABLET PO ×3 (08:45→21:10)
[2022-12-09] MEDS: Ascorbic Acid 500 MG TABLET PO ×2 (08:45→21:11)
[2022-12-09] MEDS: buPROPion HCl XL 300 MG TAB.ER.24H PO (08:45)
[2022-12-09] MEDS: Magnesium Oxide 400 MG TABLET PO (08:45)
[2022-12-09] MEDS: Cyanocobalamin (Vitamin B-12) 100 MCG TABLET PO (08:45)
[2022-12-09] MEDS: Loratadine 10 MG TABLET PO (08:45)
[2022-12-09] MEDS: Calcium + Vitamin D 250 MG TABLET PO (08:46)
[2022-12-09] MEDS: FLUoxetine HCl 20 MG CAPSULE 40 MG PO (08:46)
[2022-12-09] MEDS: Apixaban 5 MG TABLET PO ×2 (08:46→21:11)
[2022-12-09 08:47] LABS: Alanine Aminotransferase 7 U/L (0-31); Albumin Level 3.5 g/dL (3.5-5.0); Alkaline Phosphatase 72 U/L (39-117); Anion Gap 16 (12-20); Aspartate Amino Transferase 13 U/L (5-31); Bilirubin Total 0.6 mg/dL (0.0-1.0); Blood Urea Nitrogen 11 mg/dL (9-16); Calcium 8.8 mg/dL (8.4-10.2); Carbon Dioxide 23 mmol/L (22-29); Chloride 105 mmol/L (96-108); Estimated Average Glucose 108 mg/dL; Estimated Glomerular Filt Rate > 60; Glucose Fasting 104 mg/dL (60-99); Hemoglobin A1c % 5.4 % (<6.0); Potassium 3.5 mmol/L (3.3-5.1); Sodium 140 mmol/L (135-145); Total Protein 6.6 g/dL (6.5-8.0)
[2022-12-09] MEDS: hydroCHLOROthiazide 12.5 MG TABLET PO (08:53)
[2022-12-09] MEDS: Furosemide 20 MG TABLET PO (08:53)
[2022-12-09] MEDS: atenoloL 100 MG TABLET PO (08:53)
--- NOTE | 2022-12-09 09:03 | HE.PHANOTE ---
RE CYNDEE CONTINUE CURRENT DOSE. TROUGH WAS 12.2 AFTER THREE DOSES. PT NOT AT STEADY STATE YET. NEXT LEVEL 12/10 @ 1999 FERMÍN
[2022-12-09] MEDS: vancomycin HCL 1,000 MG in 0.9 % Sodium Chloride 250 ML 270 MG IV ×2 (10:14→21:04)
[2022-12-09 10:35] LABS: MANUAL DIFF FLAG NO
[2022-12-09 10:38] LABS: Basophils Percent Auto 0.1 % (0-2); Eosinophils Absolute Auto 0.1 X10*3/uL (0.0-0.4); Eosinophils Percent Auto 1.3 % (0-4); Hematocrit 31.9 % (37.0-47.0); Hemoglobin 9.8 g/dl (12.0-16.0); Imm Gran Abs Auto 0.04 X10*3/uL (0.00-0.03); Imm Gran Pct Auto 0.5 % (0.0-0.4); Lymphocytes Absolute Auto 0.9 X10*3/uL (1.2-4.9); Lymphocytes Percent Auto 11.1 % (20-40); Mean Corpuscular HGB Conc 30.7 g/dl (31.0-35.0); Mean Corpuscular Hemoglobin 27.8 pg (27.0-33.0); Mean Corpuscular Volume 90.4 fL (80.0-98.0); Mean Platelet Volume 10.6 fL (9.4-12.3); Monocytes Absolute Auto 0.5 X10*3/uL (0.1-1.2); Monocytes Percent Auto 5.4 % (2-11); Neutrophils Absolute Auto 6.8 x10*3/uL (2.0-8.3); Neutrophils Percent Auto 81.6 % (45-73); Platelet Count 212 X10*3/uL (160-400); Red Blood Count 3.53 X10*6/uL (4.20-5.50); Red Cell Distribution Width 13.8 % (11.0-16.0); White Blood Count 8.4 X10*3/uL (4.8-10.8)
--- NOTE | 2022-12-09 12:57 | MHC.CM.PN ---
Per MD rounds no discharge today. DP home resume [facility]. He son with provide transport home.
--- NOTE | 2022-12-09 14:08 | P.PNGS_ITS ---
Subjective Subjective Date of Service: 12/09/22 Interval history: Feels well Denies new complaints States she is sore on mastectomy site Physical Exam 2 Vital Signs: Vital Signs: Last Vital Signs Temp 96.5 F L 12/09/22 07:34 Pulse 79 12/09/22 07:34 Resp 12 12/09/22 07:34 BP 146/63 H 12/09/22 07:34 Pulse Ox 98 12/09/22 07:34 O2 Del Method Room Air 12/09/22 07:34 BMI result Body Mass Index 46.3 Const: Other: Ambulating General: comfortable and no acute distress Chest: Other: Mastectomy site is well healed, no obvious cellulitic changes, no fluctuance, some bogginess lateral to the mastectomy site towards the axilla but this may be axillary fat Resp: Effort & Inspection: normal respiratory effort Objective Data Active Medications Acetaminophen (Acetaminophen 325 Mg Tablet) 650 mg PO Q6H PRN PRN Reason: Pain, Mild (Pain Scale 1-3) Last Admin: 12/08/22 23:05 Dose: 650 mg Documented By: MOISÉS Acetaminophen/Codeine Phosphate (Acetaminophen With Codeine # 3 Tablet) 1 tab PO Q4H PRN PRN Reason: Pain, Severe (Pain Scale 7-10) Last Admin: 12/09/22 13:21 Dose: 1 tab Documented By: RICHAR Apixaban (Apixaban 5 Mg Tablet) 5 mg PO BID [facility] Last Admin: 12/09/22 08:46 Dose: 5 mg Documented By: RICHAR Ascorbic Acid (Ascorbic Acid 500 Mg Tablet) 500 mg PO BID [facility] Last Admin: 12/09/22 08:45 Dose: 500 mg Documented By: RICHAR Atenolol (Atenolol 100 Mg Tablet) 100 mg PO DAILY [facility]; Protocol Last Admin: 12/09/22 08:53 Dose: 100 mg Documented By: RICHAR Bupropion HCl (Bupropion Hcl Xl 300 Mg Tab.Er.24h) 300 mg PO DAILY [facility] Last Admin: 12/09/22 08:45 Dose: 300 mg Documented By: RICHAR Calcium Carbonate/Cholecalciferol (Calcium + Vitamin D 250 Mg Tablet) 250 mg PO DAILY [facility] Last Admin: 12/09/22 08:46 Dose: 250 mg Documented By: RICHAR Cyanocobalamin (Cyanocobalamin (Vitamin B-12) 100 Mcg Tablet) 100 mcg PO DAILY [facility] Last Admin: 12/09/22 08:45 Dose: 100 mcg Documented By: RICHAR Docusate Sodium (Docusate Sodium 100 Mg Capsule) 100 mg PO DAILY PRN PRN Reason: Constipation Fluoxetine HCl (Fluoxetine Hcl 20 Mg Capsule) 40 mg PO DAILY [facility] Last Admin: 12/09/22 08:46 Dose: 40 mg Documented By: RICHAR Furosemide (Furosemide 20 Mg Tablet) 20 mg PO DAILY [facility]; Protocol Last Admin: 12/09/22 08:53 Dose: 20 mg Documented By: RICHAR Gabapentin (Gabapentin 600 Mg Tablet) 600 mg PO TID [facility] Last Admin: 12/09/22 08:45 Dose: 600 mg Documented By: RICHAR Hydrochlorothiazide (Hydrochlorothiazide 12.5 Mg Tablet) 12.5 mg PO DAILY [facility]; Protocol Last Admin: 12/09/22 08:53 Dose: 12.5 mg Documented By: RICHAR Vancomycin HCl 1,000 mg/ (Sodium Chloride) 270 mls @ 270 mls/hr IV Q12H [facility] Last Infusion: 12/09/22 11:31 Dose: Infused Documented By: RICHAR Loratadine (Loratadine 10 Mg Tablet) 10 mg PO DAILY [facility] Last Admin: 12/09/22 08:45 Dose: 10 mg Documented By: RICHAR Lorazepam (Lorazepam 1 Mg Tablet) 1 mg PO TID [facility] Last Admin: 12/09/22 08:44 Dose: 1 mg Documented By: RICHAR Magnesium Oxide (Magnesium Oxide 400 Mg Tablet) 400 mg PO DAILY [facility] Last Admin: 12/09/22 08:45 Dose: 400 mg Documented By: RICHAR Melatonin (Melatonin 3 Mg Tablet) 6 mg PO BEDTIME PRN PRN Reason: Insomnia Mirtazapine (Mirtazapine 15 Mg Tablet) 15 mg PO BEDTIME [facility] Last Admin: 12/08/22 19:52 Dose: 15 mg Documented By: MOISÉS Omeprazole (Omeprazole 20 Mg Capsule.) 20 mg PO DAILY@0630 [facility] Last Admin: 12/09/22 06:15 Dose: Not Given Documented By: MOISÉS Non-Admin Reason: nursing judgment Ondansetron HCl (Ondansetron Hcl 4 Mg/2 Ml Vial) 4 mg IVPUSH Q8H PRN PRN Reason: Nausea and Vomiting Oxycodone HCl (Oxycodone Hcl Immed Release 5 Mg Tablet) 5 mg PO Q4H [facility] Last Admin: 12/09/22 11:16 Dose: 5 mg Documented By: RICHAR Pharmacy Consult (Consult Rx Vancomycin Dosing) 1 each MISCELLANE DAILY PRN PRN Reason: Consult order Sodium Chloride (0.9 % Sodium Chloride Flush 3 Ml Syringe) 3 ml IVFLUSH QSHIFT [facility] Last Admin: 12/09/22 08:43 Dose: 3 ml Documented By: RICHAR Labs 12/09/22 10:22 12/09/22 08:15 Labs: Laboratory Results - last 24 hr 12/09/22 12/09/22 08:15 10:22 MCV 90.4 MCH 27.8 MCHC 30.7 L RDW 13.8 Plt Count 212 MPV 10.6 Immature Gran % (Auto) 0.5 H Neut % (Auto) 81.6 H Lymph % (Auto) 11.1 L [place] % (Auto) 5.4 Eos % (Auto) 1.3 Baso % (Auto) 0.1 Lymph # (Auto) 0.9 L [place] # (Auto) 0.5 Eos # (Auto) 0.1 Baso # (Auto) 0.0 Abs Immat Gran (auto) 0.04 H Absolute Neuts (auto) 6.8 Absolute Nucleated RBC 0.000 Nucleated RBC % (auto) 0.0 Anion Gap 16 Estim Creat Clear Calc 100.0 Estimated GFR > 60 Fasting Glucose 104 H Estimat Average Glucose 108 Hemoglobin A1c % 5.4 Calcium 8.8 Total Bilirubin 0.6 AST 13 ALT 7 Alkaline Phosphatase 72 Total Protein 6.6 Albumin 3.5 Vancomycin Trough 12.2 Microbiology Microbiology Results: Microbiology 12/07/22 17:08 Blood Culture - Preliminary Blood - Venous No growth after 24 hours. 12/07/22 17:09 Blood Culture - Preliminary Blood - Venous No growth after 24 hours. Procedures Date of Service Date of Service: 12/09/22 Progress Note: A&P Assessment and plan (1) Sepsis: Status: Acute Assessment and Plan: WBC back to normal No fever Clinical looks well No cellulitic changes on mastectomy site I aspirated the area lateral to the mastectomy site with a gauge 18 needle This was initially prepped and draped. Lidocaine was used for local anesthesia Very scanty serosanguineous fluid aspirated, less than 10 cc Breast binder reapplied If discharged, I can see her in the office in 1-2 weeks Time Spent With Patient Time: Total time managing care of this patient today ____ minutes. Quality Stroke Does the patient have a stroke diagnosis?: No VTE Prior VTE?: No VTE Risk Level:: Medical - moderate - high VTE Device Contraindication: Treatment Not Indicated VTE Drug Contraindication: N/A - Med Ordered
[2022-12-09 15:25] VITALS: BP 115/56; PULSE 73; RESP 18; TEMP 36.6; O2SAT 95
--- NOTE | 2022-12-09 17:16 | P.PNIM_ITS ---
Subjective Subjective Date of Service: 12/09/22 Interval History: Continues to improve. Discussed with surgery no fluid accumulation overnight. Review of Systems Denies chest pain Denies shortness of breath Denies nausea vomiting diarrhea Denies fever chills Physical Exam 2 Vital Signs: Vital Signs: Last Vital Signs Temp 97.9 F 12/09/22 15:25 Pulse 73 12/09/22 15:25 Resp 18 12/09/22 15:25 BP 115/56 L 12/09/22 15:25 Pulse Ox 95 12/09/22 15:25 O2 Del Method Room Air 12/09/22 15:25 BMI result Body Mass Index 46.3 Const: Other: Awake alert no acute distress Chest: Other: Right mastectomy site with minimal erythema and no drainage. No palpable fluctuance Resp: Other: Clear to auscultation bilaterally no rales rhonchi or wheezes Cardio: Other: No S4; positive S1-S2; no S3 murmurs rubs or gallops GI: Other: Soft nontender nondistended normoactive bowel sounds Extrem: Other: No edema bilaterally Objective Data Active Medications Acetaminophen (Acetaminophen 325 Mg Tablet) 650 mg PO Q6H PRN PRN Reason: Pain, Mild (Pain Scale 1-3) Last Admin: 12/08/22 23:05 Dose: 650 mg Documented By: MOISÉS Acetaminophen/Codeine Phosphate (Acetaminophen With Codeine # 3 Tablet) 1 tab PO Q4H PRN PRN Reason: Pain, Severe (Pain Scale 7-10) Last Admin: 12/09/22 13:21 Dose: 1 tab Documented By: RICHAR Apixaban (Apixaban 5 Mg Tablet) 5 mg PO BID [facility] Last Admin: 12/09/22 08:46 Dose: 5 mg Documented By: RICHAR Ascorbic Acid (Ascorbic Acid 500 Mg Tablet) 500 mg PO BID [facility] Last Admin: 12/09/22 08:45 Dose: 500 mg Documented By: RICHAR Atenolol (Atenolol 100 Mg Tablet) 100 mg PO DAILY [facility]; Protocol Last Admin: 12/09/22 08:53 Dose: 100 mg Documented By: RICHAR Bupropion HCl (Bupropion Hcl Xl 300 Mg Tab.Er.24h) 300 mg PO DAILY [facility] Last Admin: 12/09/22 08:45 Dose: 300 mg Documented By: RICHAR Calcium Carbonate/Cholecalciferol (Calcium + Vitamin D 250 Mg Tablet) 250 mg PO DAILY [facility] Last Admin: 12/09/22 08:46 Dose: 250 mg Documented By: RICHAR Cyanocobalamin (Cyanocobalamin (Vitamin B-12) 100 Mcg Tablet) 100 mcg PO DAILY [facility] Last Admin: 12/09/22 08:45 Dose: 100 mcg Documented By: RICHAR Docusate Sodium (Docusate Sodium 100 Mg Capsule) 100 mg PO DAILY PRN PRN Reason: Constipation Fluoxetine HCl (Fluoxetine Hcl 20 Mg Capsule) 40 mg PO DAILY [facility] Last Admin: 12/09/22 08:46 Dose: 40 mg Documented By: RICHAR Furosemide (Furosemide 20 Mg Tablet) 20 mg PO DAILY [facility]; Protocol Last Admin: 12/09/22 08:53 Dose: 20 mg Documented By: RICHAR Gabapentin (Gabapentin 600 Mg Tablet) 600 mg PO TID [facility] Last Admin: 12/09/22 16:01 Dose: 600 mg Documented By: RICHAR Hydrochlorothiazide (Hydrochlorothiazide 12.5 Mg Tablet) 12.5 mg PO DAILY [facility]; Protocol Last Admin: 12/09/22 08:53 Dose: 12.5 mg Documented By: RICHRA Vancomycin HCl 1,000 mg/ (Sodium Chloride) 270 mls @ 270 mls/hr IV Q12H [facility] Last Infusion: 12/09/22 11:31 Dose: Infused Documented By: RICHAR Loratadine (Loratadine 10 Mg Tablet) 10 mg PO DAILY [facility] Last Admin: 12/09/22 08:45 Dose: 10 mg Documented By: RICHAR Lorazepam (Lorazepam 1 Mg Tablet) 1 mg PO TID [facility] Last Admin: 12/09/22 16:01 Dose: 1 mg Documented By: RICHAR Magnesium Oxide (Magnesium Oxide 400 Mg Tablet) 400 mg PO DAILY [facility] Last Admin: 12/09/22 08:45 Dose: 400 mg Documented By: RICHAR Melatonin (Melatonin 3 Mg Tablet) 6 mg PO BEDTIME PRN PRN Reason: Insomnia Mirtazapine (Mirtazapine 15 Mg Tablet) 15 mg PO BEDTIME [facility] Last Admin: 12/08/22 19:52 Dose: 15 mg Documented By: MOISÉS Omeprazole (Omeprazole 20 Mg [place]an.) 20 mg PO DAILY@0630 [facility] Last Admin: 12/09/22 06:15 Dose: Not Given Documented By: MOISÉS Non-Admin Reason: nursing judgment Ondansetron HCl (Ondansetron Hcl 4 Mg/2 Ml Vial) 4 mg IVPUSH Q8H PRN PRN Reason: Nausea and Vomiting Oxycodone HCl (Oxycodone Hcl Immed Release 5 Mg Tablet) 5 mg PO Q4H [facility] Last Admin: 12/09/22 16:01 Dose: 5 mg Documented By: RICHAR Pharmacy Consult (Consult Rx Vancomycin Dosing) 1 each MISCELLANE DAILY PRN PRN Reason: Consult order Sodium Chloride (0.9 % Sodium Chloride Flush 3 Ml Syringe) 3 ml IVFLUSH QSHIFT [facility] Last Admin: 12/09/22 16:04 Dose: 3 ml Documented By: RICHAR Labs 12/09/22 10:22 12/09/22 08:15 Labs: Laboratory Results - last 24 hr 12/09/22 12/09/22 08:15 10:22 MCV 90.4 MCH 27.8 MCHC 30.7 L RDW 13.8 Plt Count 212 MPV 10.6 Immature Gran % (Auto) 0.5 H Neut % (Auto) 81.6 H Lymph % (Auto) 11.1 L [place] % (Auto) 5.4 Eos % (Auto) 1.3 Baso % (Auto) 0.1 Lymph # (Auto) 0.9 L [place] # (Auto) 0.5 Eos # (Auto) 0.1 Baso # (Auto) 0.0 Abs Immat Gran (auto) 0.04 H Absolute Neuts (auto) 6.8 Absolute Nucleated RBC 0.000 Nucleated RBC % (auto) 0.0 Anion Gap 16 Estim Creat Clear Calc 100.0 Estimated GFR > 60 Fasting Glucose 104 H Estimat Average Glucose 108 Hemoglobin A1c % 5.4 Calcium 8.8 Total Bilirubin 0.6 AST 13 ALT 7 Alkaline Phosphatase 72 Total Protein 6.6 Albumin 3.5 Vancomycin Trough 12.2 Microbiology Microbiology Results: Microbiology 12/07/22 17:08 Blood Culture - Preliminary Blood - Venous No growth after 24 hours. 12/07/22 17:09 Blood Culture - Preliminary Blood - Venous No growth after 24 hours. Assessment and Plan (1) Cellulitis: Status: Acute (2) Paroxysmal atrial fibrillation: Status: Acute Plan This is a 62-year-old female with pertinent history of mood disorder, invasive ductal carcinoma of left breast status post mastectomy, paroxysmal atrial fibrillation on Eliquis who was sent to the emergency department for evaluation of fevers. 1.Cellulitis @mastectomy site(sepsis resolved) -continue vanco/ceftriaxone (3) -discussed with surgery ... -check CBC in a.m. if normal will DC to home to complete a course of oral antibiotics 2.Paroxysmal atrial fibrillation -acceptable rate control -continue Eliquis -adjust meds as indicated 3. Hyperglycemia -lispro correctional scale -A1C in am Eliquis Full code Patient requires ongoing hospitalization for IV antibiotics to treat cellulitis Time Spent With Patient Time: Total time managing care of this patient today ____ minutes. Quality Stroke Does the patient have a stroke diagnosis?: No VTE Prior VTE?: No VTE Risk Level:: Medical - moderate - high VTE Device Contraindication: Treatment Not Indicated VTE Drug Contraindication: N/A - Med Ordered
[2022-12-09 20:00] VITALS: BP 130/60; PULSE 76; RESP 18; TEMP 37; O2SAT 97
[2022-12-09] MEDS: Mirtazapine 15 MG TABLET PO (21:11)
[2022-12-10] MEDS: oxyCODONE HCl Immed Release 5 MG TABLET PO ×5 (00:07→15:45)
[2022-12-10] MEDS: 0.9 % Sodium Chloride Flush 3 ML SYRINGE IVFLUSH ×2 (00:12→07:55)
[2022-12-10 04:00] VITALS: BP 124/58; PULSE 73; RESP 18; TEMP 36.3; O2SAT 95
[2022-12-10] MEDS: Omeprazole 20 MG CAPSULE.DR PO (06:12)
[2022-12-10 07:31] VITALS: BP 116/56; PULSE 68; RESP 16; TEMP 36; O2SAT 96
[2022-12-10] MEDS: Cyanocobalamin (Vitamin B-12) 100 MCG TABLET PO (07:52)
[2022-12-10] MEDS: hydroCHLOROthiazide 12.5 MG TABLET PO (07:53)
[2022-12-10] MEDS: Loratadine 10 MG TABLET PO (07:53)
[2022-12-10] MEDS: atenoloL 100 MG TABLET PO (07:53)
[2022-12-10] MEDS: Furosemide 20 MG TABLET PO (07:53)
[2022-12-10] MEDS: LORazepam 1 MG TABLET PO ×2 (07:53→14:32)
[2022-12-10] MEDS: Calcium + Vitamin D 250 MG TABLET PO (07:54)
[2022-12-10] MEDS: Magnesium Oxide 400 MG TABLET PO (07:54)
[2022-12-10] MEDS: FLUoxetine HCl 20 MG CAPSULE 40 MG PO (07:54)
[2022-12-10] MEDS: Ascorbic Acid 500 MG TABLET PO (07:54)
[2022-12-10] MEDS: buPROPion HCl XL 300 MG TAB.ER.24H PO (07:54)
[2022-12-10] MEDS: Gabapentin 600 MG TABLET PO ×2 (07:55→14:31)
[2022-12-10] MEDS: Apixaban 5 MG TABLET PO (07:55)
[2022-12-10 08:39] LABS: MANUAL DIFF FLAG NO
[2022-12-10 08:42] LABS: Basophils Percent Auto 0.4 % (0-2); Eosinophils Absolute Auto 0.2 X10*3/uL (0.0-0.4); Eosinophils Percent Auto 3.2 % (0-4); Hematocrit 32.3 % (37.0-47.0); Hemoglobin 9.9 g/dl (12.0-16.0); Imm Gran Abs Auto 0.02 X10*3/uL (0.00-0.03); Imm Gran Pct Auto 0.4 % (0.0-0.4); Lymphocytes Absolute Auto 1.5 X10*3/uL (1.2-4.9); Mean Corpuscular HGB Conc 30.7 g/dl (31.0-35.0); Mean Corpuscular Hemoglobin 27.7 pg (27.0-33.0); Mean Corpuscular Volume 90.2 fL (80.0-98.0); Mean Platelet Volume 10.6 fL (9.4-12.3); Monocytes Absolute Auto 0.5 X10*3/uL (0.1-1.2); Monocytes Percent Auto 8.9 % (2-11); Neutrophils Absolute Auto 2.9 x10*3/uL (2.0-8.3); Neutrophils Percent Auto 57.1 % (45-73); Platelet Count 229 X10*3/uL (160-400); Red Blood Count 3.58 X10*6/uL (4.20-5.50); Red Cell Distribution Width 13.7 % (11.0-16.0); White Blood Count 5.1 X10*3/uL (4.8-10.8)
[2022-12-10 09:03] LABS: Alanine Aminotransferase 11 U/L (0-31); Albumin Level 3.1 g/dL (3.5-5.0); Alkaline Phosphatase 68 U/L (39-117); Anion Gap 13 (12-20); Aspartate Amino Transferase 19 U/L (5-31); Bilirubin Total 0.2 mg/dL (0.0-1.0); Blood Urea Nitrogen 13 mg/dL (9-16); Calcium 8.5 mg/dL (8.4-10.2); Carbon Dioxide 26 mmol/L (22-29); Chloride 106 mmol/L (96-108); Estimated Glomerular Filt Rate > 60; Glucose Fasting 98 mg/dL (60-99); Potassium 3.5 mmol/L (3.3-5.1); Sodium 141 mmol/L (135-145); Total Protein 5.8 g/dL (6.5-8.0)
[2022-12-10] MEDS: vancomycin HCL 1,000 MG in 0.9 % Sodium Chloride 250 ML 270 MG IV (10:17)
--- NOTE | 2022-12-10 12:51 | PM.DS ---
DS: Providers Provider Date of Service: 12/10/22 Date of admission: 12/07/22 22:29 Date of discharge: 12/10/22 Primary care physician: Ayan Perdomo MD Consults: 12/07/22 22:37 Consult to General Surgery Routine Consulting Provider: [facility] [place] [facility] Reason for consultation: Cellulitis over mastectomy site DS: Diagnosis Discharge Diagnosis (1) Cellulitis: Status: Acute (2) Sepsis: Status: Acute (3) Paroxysmal atrial fibrillation: Status: Acute DS: Summary Hospital Course Hospital Course: 62-year-old female with pertinent history of mood disorder, invasive ductal carcinoma of left breast status post mastectomy, paroxysmal atrial fibrillation on Eliquis who was sent to the emergency department for evaluation of fevers. Patient states she saw her oncologist and general surgeon today. She was found to be febrile and white count was found to be elevated and she was sent to the ER for further evaluation. Patient does admit that the surgical mastectomy site is burning and warm. Continues to drain clear serous fluid. Also complaining of suprapubic pain and thinks she has a UTI. Admits fevers and chills that has been ongoing for the last 2 days. Has associated poor p.o. intake and generalized body discomfort. No chest discomfort, palpitations, shortness of breath, changes in bowel habits Hospital Course Admitted to general medical floor and seen in consultation by surgery. Drain accidentally removed however surgery did not feel there was any fluid left in the mastectomy site. A binder was placed and she was started on vancomycin. Over the course of next 48 hours her white count returned to normal and her cultures at discharge were negative. She was seen again by surgery who felt no drainage was indicated. At this point in time she is medically acceptable to discharge to home to complete a course of oral doxycycline. She can follow-up with Dr. Shultz in the office Time Spent with Patient Time attestation: Total time managing care of this patient today ____ minutes. Discharge coordination time: Greater than 30 minutes Quality: Safe Use of Opioids Does Pt have an Active Cancer Diagnosis on the Problem List?: No Quality: Stroke Does the patient have a stroke diagnosis?: No Physical Exam Vital Signs: Vital Signs: Last Vital Signs Temp 96.8 F 12/10/22 07:31 Pulse 68 12/10/22 07:31 Resp 16 12/10/22 07:31 BP 116/56 L 12/10/22 07:31 Pulse Ox 96 12/10/22 07:31 O2 Del Method Room Air 12/10/22 07:31 BMI result Body Mass Index 46.3 Const: Other: Awake alert no acute distress Chest: Other: Right mastectomy site with minimal erythema and no drainage. No palpable fluctuance Resp: Other: Clear to auscultation bilaterally no rales rhonchi or wheezes Cardio: Other: No S4; positive S1-S2; no S3 murmurs rubs or gallops GI: Other: Soft nontender nondistended normoactive bowel sounds Extrem: Other: No edema bilaterally DS: Data Data Completed and Pending Completed studies during hospitalization [Text1]: Procedures Excision of Left Axillary Lymphatic, Open Approach, Diagnostic (11/18/22) Resection of Left Breast, Open Approach (11/18/22) Labs on day of discharge: Laboratory Results - last 24 hr 12/10/22 12/10/22 08:10 08:11 WBC 5.1 RBC 3.58 L Hgb 9.9 L Hct 32.3 L MCV 90.2 MCH 27.7 MCHC 30.7 L RDW 13.7 Plt Count 229 MPV 10.6 Immature Gran % (Auto) 0.4 Neut % (Auto) 57.1 Lymph % (Auto) 30.0 Pender % (Auto) 8.9 Eos % (Auto) 3.2 Baso % (Auto) 0.4 Lymph # (Auto) 1.5 Pender # (Auto) 0.5 Eos # (Auto) 0.2 Baso # (Auto) 0.0 Abs Immat Gran (auto) 0.02 Absolute Neuts (auto) 2.9 Absolute Nucleated RBC 0.000 Nucleated RBC % (auto) 0.0 Sodium 141 Potassium 3.5 Chloride 106 Carbon Dioxide 26 Anion Gap 13 BUN 13 Creatinine 0.76 Estim Creat Clear Calc 100.0 Estimated GFR > 60 Fasting Glucose 98 Calcium 8.5 Total Bilirubin 0.2 AST 19 ALT 11 Alkaline Phosphatase 68 Total Protein 5.8 L Albumin 3.1 L Preliminary micro results at discharge 12/07/22 17:08 Blood Culture - Preliminary Blood - Venous No growth after 48 hours. 12/07/22 17:09 Blood Culture - Preliminary Blood - Venous No growth after 48 hours. Discharge Plan Discharge Anticipated Discharge Date/Time: 12/10/22 12:15 Patient Disposition: Home, Self-Care Discharge Diagnosis: Cellulitis Referrals: Ayan Perdomo MD [Primary Care Provider] - 1 Week Discharge Medications: New acetaminophen-codeine 300-30 mg Tablet 1 tab PO Q4H PRN (Reason: Pain, Severe (Pain Scale 7-10)) Qty: 30 0RF Continued atenolol 100 mg tablet 100 mg PO DAILY Qty: 90 3RF hydrochlorothiazide 12.5 mg tablet 12.5 mg PO DAILY Qty: 90 3RF Eliquis 5 mg tablet 5 mg PO BID Qty: 60 5RF magnesium oxide 400 mg (241.3 mg magnesium) tablet 400 mg PO DAILY pantoprazole 40 mg tablet,delayed release (DR/EC) 40 mg PO QAM docusate sodium 100 mg capsule 100 mg PO QAM PRN (Reason: Constipation) mirtazapine 15 mg tablet,disintegrating 15 mg PO BEDTIME oxycodone 5 mg tablet 5 mg PO Q4H lorazepam 1 mg tablet 1 mg PO TID ascorbic acid (vitamin C) [Vitamin C] 500 mg tablet 500 mg PO BID cetirizine 10 mg tablet 10 mg PO DAILY gabapentin 600 mg tablet 600 mg PO TID calcium carbonate-vitamin D3 600 mg-20 mcg (800 unit) tablet 1 tab PO DAILY cyanocobalamin (vitamin B-12) 100 mcg tablet 100 mcg PO DAILY bupropion HCl 150 mg tablet sustained-release 12 hr 300 mg PO DAILY furosemide 20 mg tablet 20 mg PO DAILY fluoxetine 20 mg capsule 40 mg PO QAM Discharge Orders: Discharge Order (Routine); Ordered 12/10/22 Ordered By: Cesar Yoon Diet: Advance to usual diet Activity on Discharge: As tolerated Stand Alone Forms: Patient Portal Discharge page Care Plan Goals: Continue all medicines as taken before the hospital Health Concerns: Doxycycline 100 mg twice daily times 10 days along with Tylenol No. 3 1 every 4 hour has been added to your meds. Finish doxycycline as ordered. Tylenol No. 3 is only for pain as needed Plan of Treatment: Follow-up with Dr. Shultz as scheduled Assessment: See discharge summary
--- NOTE | 2022-12-10 13:46 | MHC.CM.PN ---
PT WILL DC HOME TODAY WITH [facility] OF [facility] TO TRANSPORT
[2022-12-10 15:36] VITALS: BP 126/61; PULSE 85; RESP 18; TEMP 36.2; O2SAT 96
== END 2022-12-10 17:40 | disposition home health service (06) | DRG 862 ==
LOC: HO.ED 21:40 → HO.EDOVER 22:33 → HO.S3 12-08 17:43
PROVIDERS: Physician Assistant; Registered Nurse Emergency; Admitting Provider Student in an Organized Health Care Education/Training Program; Emergency Provider Emergency Medicine Emergency Medical Services; PCP Internal Medicine; Visit Provider Hospitalist
DX: T81.41XA Infection following a procedure, superficial incisional surgical site, initial encounter (principal); A41.9 Sepsis, unspecified organism; I48.0 Paroxysmal atrial fibrillation; C50.912 Malignant neoplasm of unspecified site of left female breast; N61.0 Mastitis without abscess; Z98.84 Bariatric surgery status; Z91.040 Latex allergy status; Z79.01 Long term (current) use of anticoagulants; Z79.899 Other long term (current) drug therapy
CPT/HCPCS: 36415; 71045; 74177; 80048; 80053; 80202; 81003; 83036; 83605; 83690; 83735; 84484; 85025; 87040; 93005; 99285; J0696; J3370; Q9967

== ENCOUNTER → 2022-12-07 22:29 | Outpatient (BNV) | payer MEDICARE, MEDICAID, SELFPAY | PROVIDERS: Admitting Provider Student in an Organized Health Care Education/Training Program; Emergency Provider Emergency Medicine Emergency Medical Services; PCP Internal Medicine; Visit Provider Surgery | DX: D72.829 Elevated white blood cell count, unspecified (principal); A41.9 Sepsis, unspecified organism | CPT/HCPCS: 99024; 99499 ==

== ENCOUNTER → 2022-12-07 22:29 | Outpatient (BNV) | payer MEDICARE, MEDICAID, SELFPAY | PROVIDERS: Admitting Provider Student in an Organized Health Care Education/Training Program; Emergency Provider Emergency Medicine Emergency Medical Services; PCP Internal Medicine; Visit Provider Student in an Organized Health Care Education/Training Program | DX: L03.313 Cellulitis of chest wall (principal); A41.9 Sepsis, unspecified organism; I48.0 Paroxysmal atrial fibrillation; Z90.12 Acquired absence of left breast and nipple | CPT/HCPCS: 99222; 99233; 99239 ==

== ENCOUNTER 2022-12-16 07:00 | Day surgery (SDC) | payer MEDICARE, MEDICAID, SELFPAY ==
--- NOTE | 2022-12-15 10:38 | MHC.SHP ---
Pre-Procedural Eval Section A Date of Service: 12/15/22 The patient is an INPATIENT: No Changes since office visit: No Cold of Flu in the past 2 weeks, No New Medical Problems, No Changes in Medication and No Patient answered all questions The History & Physical has been completed within 30 days and I have reviewed it.: Yes Section B Chief Complaint: Malignant neoplasm,Encounter for adjustment and ma Allergies: Allergies Allergy/AdvReac Type Severity Reaction Status Date / Time latex [LATEX] Allergy Unknown RASH Verified 12/07/22 15:56 Sulfa (Sulfonamide Allergy Unknown hives Verified 12/07/22 15:56 Antibiotics) sulfamethoxazole Allergy Unknown HIVES Verified 12/07/22 15:56 [From BACTRIM] trimethoprim [From BACTRIM] Allergy Unknown HIVES Verified 12/07/22 15:56 valsartan [From DIOVAN] Allergy Unknown RASH Verified 12/07/22 15:56 seafood Allergy Rash Verified 12/08/22 11:59 Bandage Adhesive Damian Allergy Unknown Unknown Uncoded 12/07/22 15:56 3/4 SURGICAL TAPE Allergy Unknown RASH Uncoded 12/07/22 15:56 tape Allergy Unknown Unknown Uncoded 12/07/22 15:56 Plan I have reviewed the history and physical and performed a pertinent physical examination on my patient. No changes have occurred unless specified. Time Spent With Patient Time: Total time managing care of this patient today ____ minutes.
[2022-12-16] VITALS (11 sets, daily range): BP systolic 149–179; BP diastolic 68–87; PULSE 64–75; RESP 16–18; TEMP 36.4–36.7; O2SAT 92–98; BMI 45.8
--- NOTE | ~2022-12-16 | XR_ITS ---
EXAMINATION: XR CHEST CLINICAL INFORMATION: Status post Port-A-Cath placement. COMPARISON: 12/07/2022 TECHNIQUE: Frontal view of the chest was obtained. FINDINGS: Tunneled left internal jugular chest port has been placed. Superior loop of the cervical portion of the catheter is not totally included on the radiograph. Catheter crosses midline from the left innominate to the right innominate veins at about the level of the right subclavian and internal jugular veins. No pneumothorax. Heart, mediastinum, pulmonary vessels and right lung within normal limits. Mild left costophrenic angle blunting and obscuration of the left hemidiaphragm. XR/XR chest 1V IMPRESSION: Malpositioned tunneled chest port.
--- NOTE | ~2022-12-16 | FL_ITS ---
EXAMINATION: XR FLUOROSCOPY WITH IMAGES CLINICAL INFORMATION: Port-A-Cath insertion. COMPARISON: None available. TECHNIQUE: Fluoroscopy Supervised By: Dr. Hammad Saravia. Fluoroscopy Time: 38.8 seconds. Cumulative Dose: 7.85 mGy. DAP: Gycm2. Images: 3 FINDINGS: Fluoroscopic guidance provided for left jugular Port-A-Cath placement. Final image demonstrates distal end of the port projecting over the SVC. FL/FL guidance in OR IMPRESSION: Fluoroscopic guidance provided for left jugular Port-A-Cath placement.
--- NOTE | 2022-12-16 08:08 | P.CONAN_ITS ---
HPI - Anesthesia Eval Consult details Narrative: 62 yo F with history of breast cancer for port-a-cath placement. [facility] Active Problems Active Problems: All Active Problems (Updated 12/15/22 @ 00:04 by Matilde Davis) Invasive ductal carcinoma of left breast (Acute) Admission for fitting of Port-A-Cath (Acute) Triple negative breast cancer (Acute) Breast cancer (Acute) Left breast mass (Acute) Preop cardiovascular exam (Acute) Morbid obesity (Acute) Hypertension (Acute) Past Medical History Medical History Invasive ductal carcinoma of left breast Left breast mass Hypertension Paroxysmal atrial fibrillation Family History Family History Father COPD (chronic obstructive pulmonary disease) HTN (hypertension) Diabetes Mother COPD (chronic obstructive pulmonary disease) Diabetes HTN (hypertension) Family history of problems with anesthesia: No Surgical History Surgical History H/O total mastectomy of left breast (~11/18/22) History of total right knee replacement History of cholecystectomy History of gastric bypass H/O shoulder surgery H/O hemorrhoidectomy History of left knee replacement Status post breast reduction History of Problems with Anesthesia: No Social History Social History Household Members: Family Housing: House Do you presently have visiting nurse or other home services: Yes (was set up before admission (hadn't actually seen)) Alcohol intake: never Patient Tobacco Use Status: Never used Tobacco Tobacco use type: Cigarette Second Hand Smoke Exposure: No Use of substances other than those prescribed or required for medical reasons: No Are you DNR?: No Advance Directives: No Advance Directives Information Provided: Yes Advance Directives Date on File: 11/22/22 service: No Current occupational status: employed Meds Allergies Allergy/AdvReac Type Severity Reaction Status Date / Time latex [LATEX] Allergy Intermediate RASH Verified 12/16/22 07:17 seafood Allergy Intermediate Rash Verified 12/16/22 07:17 Sulfa (Sulfonamide Allergy Intermediate hives Verified 12/16/22 07:17 Antibiotics) sulfamethoxazole Allergy Intermediate HIVES Verified 12/16/22 07:17 [From BACTRIM] trimethoprim [From BACTRIM] Allergy Intermediate HIVES Verified 12/16/22 07:17 valsartan [From DIOVAN] Allergy Intermediate RASH Verified 12/16/22 07:17 Bandage Adhesive Dennison Allergy Severe Rash Uncoded 12/16/22 07:17 3/4 SURGICAL TAPE Allergy Severe RASH Uncoded 12/16/22 07:17 tape Allergy Severe Rash Uncoded 12/16/22 07:17 Home Medications Medication Instructions Recorded Confirmed Last Taken Type ascorbic acid (vitamin C) 500 mg 500 mg PO BID 07/01/21 12/16/22 11/10/22 History tablet (Vitamin C) bupropion HCl 150 mg tablet,12 hr 300 mg PO DAILY 07/01/21 12/16/22 11/17/22 History sustained-release calcium carbonate 600 mg-vitamin 1 tab PO DAILY 07/01/21 12/16/22 11/17/22 History D3 20 mcg (800 unit) tablet cetirizine 10 mg tablet 10 mg PO DAILY 07/01/21 12/16/22 11/17/22 History cyanocobalamin (vitamin B-12) 100 100 mcg PO DAILY 07/01/21 12/16/22 11/17/22 History mcg tablet fluoxetine 20 mg capsule 40 mg PO QAM 07/01/21 12/16/22 11/17/22 History furosemide 20 mg tablet 20 mg PO DAILY 07/01/21 12/16/22 11/17/22 History gabapentin 600 mg tablet 600 mg PO TID 07/01/21 12/16/22 11/17/22 History lorazepam 1 mg tablet 1 mg PO TID 07/01/21 12/16/22 11/17/22 History docusate sodium 100 mg capsule 100 mg PO QAM PRN Constipation 12/07/22 12/16/22 Unknown History magnesium oxide 400 mg (241.3 mg 400 mg PO DAILY 12/07/22 12/16/22 Unknown History magnesium) tablet mirtazapine 15 mg disintegrating 15 mg PO BEDTIME 12/07/22 12/16/22 Unknown History tablet oxycodone 5 mg tablet 5 mg PO Q4H severe pain 12/07/22 12/16/22 Unknown History pantoprazole 40 mg tablet,delayed 40 mg PO QAM 12/07/22 12/16/22 Unknown History release Exam Exam Date and Time: December 16, 2022 0808 Height,Weight and Vital Signs: Height 5 ft 5 in Weight 124.738 kg Last Vital Signs Temp 98.1 F 12/16/22 07:22 Pulse 75 12/16/22 07:22 Resp 16 12/16/22 07:22 BP 149/77 H 12/16/22 07:22 Pulse Ox 97 12/16/22 07:22 O2 Del Method Room Air 12/16/22 07:22 Airway Mallampati Class: II TM Dist: <=3cm Neck ROM: Full Loose/Missing/Broken Teeth: No Heart: S1S2 Lungs: CTAB Assessment and Plan Assessment Anesthesia Assessment: Anesthesia Plan Discussed and Chart Reviewed Final Anesthetic Review Family History of Problems with Anesthesia: No History of Problems with Anesthesia: No NPO: Yes ASA Class: III Final Preanesthetic Review: No Changes in Pt Med Stat, Meds/Allgs Chart Reviewed, Consent Obtained/Reviewed and Anes Risks/Benef Reviewed Patient Risk: Intermediate Procedure Risk: Low Anesthetic Plan Anesthetic Plan: GA and Agree w/ Assess. and Plan Disposition: Standard PACU
[2022-12-16] MEDS: Lactated Ringers 1,000 ML 50 ML IVCONT (08:33)
--- NOTE | 2022-12-16 10:20 | W.PM.OPN ---
Operative Note Operative Note Date of Service: 12/16/22 Narrative: Preoperative diagnosis: [] Breast cancer, IV access for chemotherapy Postop diagnosis: [] Same Procedure [] left internal jugular vein Port-A-Cath placement with Doppler ultrasound guidance and fluoroscopy Surgeon: [] Manjit Personal Financial Advisor: [] Juliana Type of Anesthesia: [] LMA Indication for surgery: [] IV access chemotherapy, breast cancer Findings: [] Patient brought to the operating room, placed on operative table in supine position, after adequate level of LMA anesthesia was induced, patient placed in Trendelenburg position. Initially, the right neck and chest were prepped draped in usual sterile fashion. Using Doppler ultrasound guidance, the right internal jugular vein was identified and cannulated using Seldinger technique. Despite multiple attempts, there was inability to advance the wire beyond the jugular/subclavian vein junction. Unsuccessfully. Next the right subclavian vein was attempted to be accessed unsuccessfully. A cutdown was performed for the right internal jugular vein using a transverse incision in the right mid neck and carried down through skin, subcutaneous tissue, and cervical fascia. Right internal jugular vein was again identified, cannulated, with inability to advance the wire beyond the subclavian/internal jugular vein junction. This incision was closed using interrupted 3-0 Vicryl sutures to reapproximate the cervical fascia and interrupted inverted dermal 3-0 Vicryl sutures to close the skin. Steri-Strips and sterile dressings were applied. Fluoroscopy demonstrated no pneumothorax on the right side. The left neck and chest were then prepped and draped in usual sterile fashion and again using Doppler ultrasound guidance, the left internal jugular vein was identified, cannulated and wire uneventfully advanced into the superior vena cava under fluoroscopic guidance. A pocket was fashioned approximately 3 finger breaths below the cannulation site and tunneled to the wire. Catheter was placed in the subcutaneous tunnel, connected to port, and the port secured to the pocket using 3-0 Vicryl sutures. Dilating sheath was then placed over the wire again under fluoroscopic guidance and a wire retrieved. The pre hep flush catheter was advanced level superior vena cava under fluoroscopic guidance. Peel-away sheath was removed without incident. Antegrade and retrograde flow established. Wounds were irrigated, secured hemostasis, and closed using interrupted inverted dermal 3-0 Vicryl sutures followed by Steri-Strips and sterile dressings. Sponge, needle, instrument counts reported correct. Patient tolerated the procedure well and emerged anesthesia stable condition. EBL minimum. Postprocedure x-ray recovery room is pending.
[2022-12-16] MEDS: Acetaminophen 325 MG TABLET 650 MG PO (10:33)
[2022-12-16] MEDS: oxyCODONE HCl Immed Release 5 MG TABLET PO (10:35)
[2022-12-16] MEDS: fentaNYL citrate/PF 100 MCG/2 ML VIAL 25 MCG IVPUSH ×3 (10:35→10:55)
== END 2022-12-16 12:05 ==
LOC: HO.SSS 07:01
PROVIDERS: PCP Internal Medicine; Visit Provider Surgery
PROC: (CPT 36561; principal; 2022-12-16 08:40)
DX: Z45.2 Encounter for adjustment and management of vascular access device (principal); C50.912 Malignant neoplasm of unspecified site of left female breast; Z17.1 Estrogen receptor negative status [ER-]; I10 Essential (primary) hypertension; I48.0 Paroxysmal atrial fibrillation; Z79.01 Long term (current) use of anticoagulants; Z79.899 Other long term (current) drug therapy; Z88.2 Allergy status to sulfonamides; Z91.040 Latex allergy status; L23.1 Allergic contact dermatitis due to adhesives; Z98.84 Bariatric surgery status; Z96.653 Presence of artificial knee joint, bilateral; Z98.890 Other specified postprocedural states; Z87.891 Personal history of nicotine dependence
CPT/HCPCS: 36561; 71045; C1788; J0690; J1643; J2405; J3010

== ENCOUNTER → 2022-12-16 07:00 | Outpatient (BNV) | payer MEDICARE, MEDICAID, SELFPAY | PROVIDERS: PCP Internal Medicine; Visit Provider Surgery | DX: C50.912 Malignant neoplasm of unspecified site of left female breast (principal) | CPT/HCPCS: 36561; 76937; 77001 ==

== ENCOUNTER 2022-12-27 13:19 | Outpatient (REF) | payer MEDICARE, MEDICAID, SELFPAY | END 2022-12-27 13:20 | disposition home or self-care (01) | LOC: HO.LAB 13:19 | PROVIDERS: PCP Internal Medicine; Visit Provider Surgery | DX: L03.90 Cellulitis, unspecified (principal) | CPT/HCPCS: 36415; 85025 ==

== ENCOUNTER 2022-12-27 13:20 | Outpatient (AMB) | payer MEDICARE, MEDICAID, SELFPAY ==
[2022-12-27 13:26] VITALS: BP 174/83; PULSE 68; TEMP 36.4
--- NOTE | 2022-12-27 13:26 | MHC.OFFVIS ---
Intake Vital Signs 12/27/22 13:26 Weight 275 lb BP 174/83 H Blood Pressure Location Rt radial Position Sitting Pulse 68 Temp 97.6 F Temp Source Temporal Artery Scan Intake Visit Reasons: wound check, red and hot to the touch Intake Note: Patient here for wound check. C/o redness, feels hot touch. Electrical Service Technician Required: No Accompanied by: Son Allergies latex [LATEX] Allergy (Intermediate, Verified 12/27/22 13:27) RASH seafood Allergy (Intermediate, Verified 12/27/22 13:27) Rash Sulfa (Sulfonamide Antibiotics) Allergy (Intermediate, Verified 12/27/22 13:27) hives sulfamethoxazole [From BACTRIM] Allergy (Intermediate, Verified 12/27/22 13:27) HIVES trimethoprim [From BACTRIM] Allergy (Intermediate, Verified 12/27/22 13:27) HIVES valsartan [From DIOVAN] Allergy (Intermediate, Verified 12/27/22 13:27) RASH Bandage Adhesive Damian 3/4 Allergy (Severe, Uncoded 12/27/22 13:27) Rash SURGICAL TAPE Allergy (Severe, Uncoded 12/27/22 13:27) RASH tape Allergy (Severe, Uncoded 12/27/22 13:27) Rash Medication List - Last Reconciled 12/27/22 by Hammad Saravia MD acetaminophen-codeine 300-15 mg 1 tab PO Q8H PRN acetaminophen-codeine 300-30 mg 1 tab PO Q4H PRN apixaban (Eliquis) 5 mg PO BID ascorbic acid (vitamin C) (Vitamin C) 500 mg PO BID atenolol 100 mg PO DAILY bupropion HCl 300 mg PO DAILY calcium carbonate-vitamin D3 600 mg-20 mcg (800 unit) 1 tab PO DAILY cephalexin 500 mg PO TID cetirizine 10 mg PO DAILY cyanocobalamin (vitamin B-12) 100 mcg PO DAILY docusate sodium 100 mg PO QAM PRN doxycycline hyclate 100 mg PO BID fluoxetine 40 mg PO QAM furosemide 20 mg PO DAILY gabapentin 600 mg PO TID hydrochlorothiazide 12.5 mg PO DAILY lorazepam 1 mg PO TID magnesium oxide 400 mg PO DAILY mirtazapine 15 mg PO BEDTIME oxycodone 5 mg PO Q4H PRN oxycodone 5 mg PO Q4H pantoprazole 40 mg PO QAM HPI HPI Comments History of Present Illness Details Patient presents with her son status post recent admission for postmastectomy cellulitis and for follow-up status post Port-A-Cath placement. Patient is complaining of incisional discomfort. She has also has some residual her symptoms over her mid mastectomy site. Patient is very anxious and apprehensive [facility] Medical History Invasive ductal carcinoma of left breast Left breast mass Hypertension Paroxysmal atrial fibrillation Surgical History H/O total mastectomy of left breast (~11/18/22) History of total right knee replacement History of cholecystectomy History of gastric bypass H/O shoulder surgery H/O hemorrhoidectomy History of left knee replacement Status post breast reduction Family History Father COPD (chronic obstructive pulmonary disease) HTN (hypertension) Diabetes Mother COPD (chronic obstructive pulmonary disease) Diabetes HTN (hypertension) Social History Household Members: Family Housing: House Do you presently have visiting nurse or other home services: Yes (was set up before admission (hadn't actually seen)) Alcohol intake: never Patient Tobacco Use Status: Never used Tobacco Tobacco use type: Cigarette Second Hand Smoke Exposure: No Advance Directives Date on File: 11/22/22 service: No Current occupational status: employed Female Reproductive History Menstrual Age of Menarche: 10 Physical Exam Vital Signs: Last Vital Signs Temp 97.6 F 12/27/22 13:26 Pulse 68 12/27/22 13:26 BP 174/83 H 12/27/22 13:26 Neck Other: Left chest port site demonstrates some minimal erythema but no obvious gross cellulitis or fluctuance. Patient also has a 50 set piece area of superficial cellulitis/red over the right central area of her mastectomy incision. Remainder of incision is clean dry and intact Assessment & Plan Assessment & Plan (1) Cellulitis: Code(s): L03.90 - Cellulitis, unspecified Plan: The current plan Street patient conservatively. We will will put her on Keflex antibiotics for the to skin areas in question. She will also have a CBC. Patient will be seen this Monday for follow-up or p.r.n.. All questions were answered. Her son also understood these instructions. Orders: Orders Complete Blood Count Auto Diff Today L03.90 - Cellulitis, unspecified Medications: New cephalexin 500 mg PO TID 30 caps 0RF Coding Level of Care Code Global (10432) Diagnoses Cellulitis L03.90
== END 2022-12-27 13:48 | disposition home or self-care (01) ==
PROVIDERS: PCP Internal Medicine; Visit Provider Surgery
DX: L03.90 Cellulitis, unspecified (principal)
CPT/HCPCS: 99024

== ENCOUNTER → 2022-12-29 14:42 | Outpatient (REF) | payer MEDICARE, MEDICAID, SELFPAY ==
--- NOTE | 2022-12-29 14:54 | CA_ITS ---
Transthoracic Echocardiogram Patient (Last, First, Middle): Beba Rizzo Anne M Gender: Female Date of : 1960 Age: 62 Procedure Date: 12/29/2022 Procedure Type: Transthoracic Echocardiogram Location: OP Height: 165.1 cm Weight: 122.47 kg BSA: 2.25 m2 Heart Rate: bpm BP: 130 / 80 mmHg Carpet Cleaning Technician: TO Referring MD: Cathryn Starkey MD Symptoms: pre chemo eval Study Quality: Technically Difficult, contrast Conclusions: - Normal left ventricular size, thickness, systolic function, and wall motion. The visually estimated ejection fraction is between 60-65%. Diastolic function is normal for age. - Normal right ventricular cavity size and systolic function. - The left atrium is mildly dilated. Findings Procedure Information Contrast agent, definity, is being given per protocol without apparent complications. Left Ventricle Normal left ventricular size, thickness, systolic function, and wall motion. The visually estimated ejection fraction is between 60-65%. Diastolic function is normal for age. Right Ventricle Normal right ventricular cavity size and systolic function. Atria The left atrium is mildly dilated. The right atrium is normal in size. Aortic Valve There is a normal trileaflet aortic valve. There is no aortic valve stenosis. There is no aortic valve regurgitation. Mitral Valve The mitral valve appears normal. There is trace mitral valve regurgitation. There is no mitral valve stenosis. Pulmonic Valve The pulmonic valve is likely normal. There is trace pulmonic valve regurgitation. Tricuspid Valve Normal tricuspid valve structure. There is trace tricuspid valve regurgitation. Mildly elevated right atrial pressure. There is no evidence of pulmonary hypertension. Great Vessels There is mild dilatation of the ascending aorta measuring 3.30 cm. The visualized portions of the pulmonary artery and branches are normal. Venous The inferior vena cava is dilated and collapses greater than 50% with inspiration. Pericardium/Pleural There is no evidence of pericardial effusion. Prior Study Comparison Changes noted compared to prior study dated: 04/06/2017. Mild dilation of aorta. Measurements 2D Linear Measurements IVSd: 0.82 0.6-0.9/0.6-1.0 cm LVIDd: 5.11 3.9-5.3/4.2-5.9 cm LVIDd Index: 2.27 2.4-3.2/2.2-3.1 cm/m2 LVIDs: 3.11 2.0-3.6 cm LVPWd: 0.68 0.7-1.1 cm LA Diam: 4.60 2.7-3.8/3.0-4.0 cm LAIDs Index: 2.04 1.5-2.3 cm/m2 LV Mass: 161.18 67-162/88-224 g LV Mass Index: 71.63 43-95/49-115 g/m2 LVOT Diam: 2.00 3.0+(-)1.3 cm 2D Systolic Function EF 4C: 68.40 >55% EF 2C: 70.40 >55% EF BiP: 68.40 >55% Mitral Valve MV Pk E: 0.70 MV PK A: 0.35 MV Decel Time: 209.00 E/A: 2.00 E'Lateral: 10.30 E'Medial: 8.38 E/E' Med: 8.30 E/E' Lat: 6.80 PHT: 61.00 MVA PHT: 3.61 Decel [place]: 3.34 Aortic Valve AoV Pk Darryl: 1.09 AoV Mn Darryl: 0.71 AoV VTI: 0.25 AoV Pk Grad: 5.00 Aov Mn Grad: 2.00 TAMIA Cont.VTI: 2.76 LVOT LVOT Pk Darryl: 0.81 LVOT Mn Darryl: 0.56 LVOT VTI: 0.22 LVOT Pk Grad: 3.00 LVOT Mn Grad: 1.00 LVOT Diam: 2.00 LVOT Area: 3.14 Diastolic Function MV Pk E: 0.70 MV Pk A: 0.35 E/A: 2.00 E'Medial: 8.38 E/E' Med: 8.30 E' Laterial: 10.30 E/E' Lat: 6.80 Right Ventricle TAPSE (mm): 29.50 TVS' Darryl: 11.00 Tricuspid Valve TR Pk Darryl: 2.50 TR Pk Grad: 25.00 RA Press: 8.00 RVSP: 33.00 Great Vessels Aorta Sinus of Valsalva: 3.26 2.0-3.5 cm Ao Asc: 3.30 2.1-3.4 cm Updated in Other Vendor System with Status of Final Bryce Juarez MD electronically signed on 12/31/2022 7:40:00 PM with status of Final
== END ==
LOC: HO.CARD 14:42
PROVIDERS: PCP Internal Medicine; Visit Provider Internal Medicine
DX: C50.919 Malignant neoplasm of unspecified site of unspecified female breast (principal)
CPT/HCPCS: 93306; Q9957

== ENCOUNTER → 2022-12-29 14:54 | Outpatient (BNV) | payer MEDICARE, MEDICAID, SELFPAY | PROVIDERS: PCP Internal Medicine; Visit Provider Internal Medicine Cardiovascular Disease | DX: I48.91 Unspecified atrial fibrillation (principal); R94.31 Abnormal electrocardiogram [ECG] [EKG] | CPT/HCPCS: 93306 ==

== ENCOUNTER 2023-01-02 09:41 | Outpatient (AMB) | payer MEDICARE, MEDICAID, SELFPAY ==
[2023-01-02 09:50] VITALS: BP 159/74; PULSE 65
--- NOTE | 2023-01-02 09:50 | A.OFFVIS_ITS ---
Intake Vital Signs 01/02/23 09:50 Weight 272 lb BP 159/74 H Blood Pressure Location Rt brachial Position Sitting Pulse 65 Intake Visit Reasons: Abdominal pain Intake Note: Patient c/o burning sensation at port site. Worries due to hot sensation to touch. Hx of sepsis. Access Nurse Required: No Accompanied by: Son Allergies latex [LATEX] Allergy (Intermediate, Verified 01/02/23 09:52) RASH seafood Allergy (Intermediate, Verified 01/02/23 09:52) Rash Sulfa (Sulfonamide Antibiotics) Allergy (Intermediate, Verified 01/02/23 09:52) hives sulfamethoxazole [From BACTRIM] Allergy (Intermediate, Verified 01/02/23 09:52) HIVES trimethoprim [From BACTRIM] Allergy (Intermediate, Verified 01/02/23 09:52) HIVES valsartan [From DIOVAN] Allergy (Intermediate, Verified 01/02/23 09:52) RASH Bandage Adhesive [place] 3/4 Allergy (Severe, Uncoded 01/02/23 09:52) Rash SURGICAL TAPE Allergy (Severe, Uncoded 01/02/23 09:52) RASH tape Allergy (Severe, Uncoded 01/02/23 09:52) Rash HPI HPI Comments History of Present Illness Details Patient presents with her son. Has a collection of non-specific complaints. [facility] Medical History Invasive ductal carcinoma of left breast Left breast mass Hypertension Paroxysmal atrial fibrillation Surgical History H/O total mastectomy of left breast (~11/18/22) History of total right knee replacement History of cholecystectomy History of gastric bypass H/O shoulder surgery H/O hemorrhoidectomy History of left knee replacement Status post breast reduction Family History Father COPD (chronic obstructive pulmonary disease) HTN (hypertension) Diabetes Mother COPD (chronic obstructive pulmonary disease) Diabetes HTN (hypertension) Social History Household Members: Family Housing: House Do you presently have visiting nurse or other home services: Yes (was set up before admission (hadn't actually seen)) Alcohol intake: never Patient Tobacco Use Status: Never used Tobacco Tobacco use type: Cigarette Second Hand Smoke Exposure: No Advance Directives Date on File: 11/22/22 service: No Current occupational status: employed Female Reproductive History Menstrual Age of Menarche: 10 Physical Exam Vital Signs: Last Vital Signs Pulse 65 01/02/23 09:50 BP 159/74 H 01/02/23 09:50 Chest Other: Port site is clean dry and intact. Left mastectomy site is clean dry and intact, resolved cellulitis mid incision. Assessment & Plan Assessment & Plan (1) Admission for fitting of Port-A-Cath: Code(s): Z45.2 - Encounter for adjustment and management of vascular access device (2) S/P left mastectomy: Code(s): Z90.12 - Acquired absence of left breast and nipple Plan Patient was reassured. Her laboratory are white count from last week was normal. This was also communicated to her son last week. Patient would like to be fitted for a breast prosthetic. We will address that with Krzysztof. Patient from my perspective will follow-up p.r.n.. Coding Level of Care Code Global (50150) Diagnoses Admission for fitting of Port-A-Cath Z45.2 S/P left mastectomy Z90.12
== END 2023-01-02 10:12 | disposition home or self-care (01) ==
PROVIDERS: PCP Internal Medicine; Visit Provider Surgery
DX: Z45.2 Encounter for adjustment and management of vascular access device (principal); Z90.12 Acquired absence of left breast and nipple
CPT/HCPCS: 99024

== ENCOUNTER → 2023-01-02 09:41 | Outpatient (BNVA) | payer MEDICARE, MEDICAID, SELFPAY | PROVIDERS: PCP Internal Medicine; Visit Provider Surgery ==

== ENCOUNTER 2023-01-04 11:37 | Outpatient (AMB) | payer MEDICARE, MEDICAID, SELFPAY ==
--- NOTE | 2023-01-04 11:38 | MHC.OFFVIS ---
Intake Vital Signs 01/04/23 11:44 BP 147/66 H Blood Pressure Location Rt brachial Position Sitting Pulse 65 Intake Visit Reasons: s/p left mastectomy, port in place Intake Note: This patient presents for a post-op assessment status post left breast mastectomy, port in place. Patient c/o; reports no changes or complaints at this time. Dairy Manufacturing Technologist Required: No Accompanied by: Son Allergies latex [LATEX] Allergy (Intermediate, Verified 01/04/23 11:45) RASH seafood Allergy (Intermediate, Verified 01/04/23 11:45) Rash Sulfa (Sulfonamide Antibiotics) Allergy (Intermediate, Verified 01/04/23 11:45) hives sulfamethoxazole [From BACTRIM] Allergy (Intermediate, Verified 01/04/23 11:45) HIVES trimethoprim [From BACTRIM] Allergy (Intermediate, Verified 01/04/23 11:45) HIVES valsartan [From DIOVAN] Allergy (Intermediate, Verified 01/04/23 11:45) RASH Bandage Adhesive [place] 3/4 Allergy (Severe, Uncoded 01/04/23 11:45) Rash SURGICAL TAPE Allergy (Severe, Uncoded 01/04/23 11:45) RASH tape Allergy (Severe, Uncoded 01/04/23 11:45) Rash HPI s/p left mastectomy, port in place HPI Details She continues to feel well. She says that she does not have any problems with her mastectomy site anymore. She does state that she is scheduled to start with her chemotherapy on Monday. [facility] Medical History Invasive ductal carcinoma of left breast Left breast mass Hypertension Paroxysmal atrial fibrillation Surgical History H/O total mastectomy of left breast (~11/18/22) History of total right knee replacement History of cholecystectomy History of gastric bypass H/O shoulder surgery H/O hemorrhoidectomy History of left knee replacement Status post breast reduction Family History Father COPD (chronic obstructive pulmonary disease) HTN (hypertension) Diabetes Mother COPD (chronic obstructive pulmonary disease) Diabetes HTN (hypertension) Social History Household Members: Family Housing: House Do you presently have visiting nurse or other home services: Yes (was set up before admission (hadn't actually seen)) Alcohol intake: never Patient Tobacco Use Status: Never used Tobacco Tobacco use type: Cigarette Second Hand Smoke Exposure: No Advance Directives Date on File: 11/22/22 service: No Current occupational status: employed Female Reproductive History Menstrual Age of Menarche: 10 Review of Systems Const Denies chills and Denies fever(s) Card Denies chest pain, Denies dyspnea and Denies dyspnea on exertion Resp Denies cough, Denies dyspnea and Denies dyspnea on exertion GI Denies hematochezia and Denies change in bowel habits Denies hematuria Musc Denies back pain and Denies limited range of motion Neuro Denies focal weakness and Denies convulsions Psych Denies depression and Denies mood swings Physical Exam Vital Signs: Last Vital Signs Pulse 65 01/04/23 11:44 BP 147/66 H 01/04/23 11:44 Const General: comfortable and no acute distress Chest Other: Mastectomy site is now well healed, no axillary lymphadenopathy Assessment & Plan Assessment & Plan (1) S/P left mastectomy: Code(s): Z90.12 - Acquired absence of left breast and nipple Plan: She is doing well. Her incision is completely healed. She is ready for chemotherapy next week. I will see her again in the office in about 6 months. (2) Invasive ductal carcinoma of left breast: Code(s): C50.912 - Malignant neoplasm of unspecified site of left female breast Medications: New [mastectomy bra] As directed 2 ea 0RF C50.912 - Malignant neoplasm of unspecified site of left female breast, C50.919 - Malignant neoplasm of unspecified site of unspecified female breast, Z90.12 - Acquired absence of left breast and nipple [left breast prosthetic] As directed 1 ea 0RF C50.912 - Malignant neoplasm of unspecified site of left female breast, C50.919 - Malignant neoplasm of unspecified site of unspecified female breast, Z90.12 - Acquired absence of left breast and nipple Coding Level of Care Code Global (34666) Diagnoses S/P left mastectomy Z90.12 Invasive ductal carcinoma of left breast C50.912
[2023-01-04 11:44] VITALS: BP 147/66; PULSE 65
== END 2023-01-04 11:57 | disposition home or self-care (01) ==
PROVIDERS: PCP Internal Medicine; Visit Provider Surgery
DX: Z90.12 Acquired absence of left breast and nipple (principal); C50.912 Malignant neoplasm of unspecified site of left female breast
CPT/HCPCS: 99024

== ENCOUNTER → 2023-01-04 11:37 | Outpatient (BNVA) | payer MEDICARE, MEDICAID, SELFPAY | PROVIDERS: PCP Internal Medicine; Visit Provider Surgery | DX: C50.919 Malignant neoplasm of unspecified site of unspecified female breast (principal); C50.912 Malignant neoplasm of unspecified site of left female breast; Z90.12 Acquired absence of left breast and nipple ==

== ENCOUNTER 2023-01-21 12:08 | Emergency (ER) | payer MEDICARE, MEDICAID, SELFPAY ==
[2023-01-21 12:12] VITALS: BP 140/81; PULSE 66; RESP 18; TEMP 36.7; O2SAT 97; BMI 44.6
--- NOTE | 2023-01-21 12:15 | ED_ITS ---
HPI - General Adult General Chief complaint: General Medical Stated complaint: chemo pt not feeling well Time Seen by Provider: 01/21/23 13:04 History of Present Illness HPI narrative: I was informed by the patient's nurse that the patient was brought back to the main ED, patient asked her nurse what am I doing back here? The patient told the nurse that she only wants to get her blood work done because today is Monday and the main lab is closed. So patient walked out before I go to see her Related Data Home Medications Medication Instructions Recorded Confirmed ascorbic acid (vitamin C) 500 mg 500 mg PO BID 07/01/21 12/16/22 tablet (Vitamin C) bupropion HCl 150 mg tablet,12 hr 300 mg PO DAILY 07/01/21 12/16/22 sustained-release calcium carbonate 600 mg-vitamin 1 tab PO DAILY 07/01/21 12/16/22 D3 20 mcg (800 unit) tablet cetirizine 10 mg tablet 10 mg PO DAILY 07/01/21 12/16/22 cyanocobalamin (vitamin B-12) 100 100 mcg PO DAILY 07/01/21 12/16/22 mcg tablet fluoxetine 20 mg capsule 40 mg PO QAM 07/01/21 12/16/22 furosemide 20 mg tablet 20 mg PO DAILY 07/01/21 12/16/22 gabapentin 600 mg tablet 600 mg PO TID 07/01/21 12/16/22 lorazepam 1 mg tablet 1 mg PO TID 07/01/21 12/16/22 docusate sodium 100 mg capsule 100 mg PO QAM PRN Constipation 12/07/22 12/16/22 magnesium oxide 400 mg (241.3 mg 400 mg PO DAILY 12/07/22 12/16/22 magnesium) tablet mirtazapine 15 mg disintegrating 15 mg PO BEDTIME 12/07/22 12/16/22 tablet oxycodone 5 mg tablet 5 mg PO Q4H severe pain 12/07/22 12/16/22 pantoprazole 40 mg tablet,delayed 40 mg PO QAM 12/07/22 12/16/22 release Previous Rx's Medication Instructions Recorded atenolol 100 mg tablet 100 mg PO DAILY #90 tabs 09/15/22 hydrochlorothiazide 12.5 mg tablet 12.5 mg PO DAILY #90 tabs 09/15/22 apixaban 5 mg tablet (Eliquis) 5 mg PO BID #60 tabs 10/13/22 acetaminophen 300 mg-codeine 30 mg 1 tab PO Q4H PRN Pain, Severe 12/10/22 tablet (Pain Scale 7-10) #30 tabs doxycycline hyclate 100 mg tablet 100 mg PO BID #20 tabs 12/10/22 oxycodone 5 mg capsule 5 mg PO Q4H PRN pain #30 caps 12/16/22 acetaminophen 300 mg-codeine 15 mg 1 tab PO Q8H PRN pain #20 tabs 12/27/22 tablet cephalexin 500 mg capsule 500 mg PO TID #30 caps 12/27/22 left breast prosthetic #1 ea 01/02/23 mastectomy bra #2 ea 01/02/23 Allergies Allergy/AdvReac Type Severity Reaction Status Date / Time latex [LATEX] Allergy Intermediate RASH Verified 01/21/23 12:12 seafood Allergy Intermediate Rash Verified 01/21/23 12:12 Sulfa (Sulfonamide Allergy Intermediate hives Verified 01/21/23 12:12 Antibiotics) sulfamethoxazole Allergy Intermediate HIVES Verified 01/21/23 12:12 [From BACTRIM] trimethoprim [From BACTRIM] Allergy Intermediate HIVES Verified 01/21/23 12:12 valsartan [From DIOVAN] Allergy Intermediate RASH Verified 01/21/23 12:12 Bandage Adhesive [place] Allergy Severe Rash Uncoded 01/04/23 11:45 3/4 SURGICAL TAPE Allergy Severe RASH Uncoded 01/04/23 11:45 tape Allergy Severe Rash Uncoded 01/04/23 11:45 PMFSH Past Medical History Medical History Invasive ductal carcinoma of left breast Left breast mass Hypertension Paroxysmal atrial fibrillation Surgical History H/O total mastectomy of left breast (~11/18/22) History of total right knee replacement History of cholecystectomy History of gastric bypass H/O shoulder surgery H/O hemorrhoidectomy History of left knee replacement Status post breast reduction Family History Family History Father COPD (chronic obstructive pulmonary disease) HTN (hypertension) Diabetes Mother COPD (chronic obstructive pulmonary disease) Diabetes HTN (hypertension) Social History Social History Household Members: Family Housing: House Do you presently have visiting nurse or other home services: Yes (was set up before admission (hadn't actually seen)) Alcohol intake: never Patient Tobacco Use Status: Never used Tobacco Tobacco use type: Cigarette Second Hand Smoke Exposure: No Advance Directives: Yes Advance Directives on File: Yes Advance Directives Date on File: 11/22/22 service: No Current occupational status: employed Physical Exam ED Vital Signs: Vital Signs - 24 hr 01/21/23 12:12 Temperature 98.0 F Pulse Rate 66 Respiratory Rate 18 Blood Pressure 140/81 H Pulse Oximetry 97 Oxygen Delivery Method Room Air BMI result Body Mass Index 44.6 Course Course Course Narrative: Patient complains that she was unable to get screening labs prior to prior to chemotherapy She also complains that she has been somewhat congested and feeling warm for several days as well as having some pain in her ears Screening labs are sent as well as COVID and flu swab and RSV This is rapid screening exam in triage pending full ER evaluation for history physical, review of all results and disposition Medical Decision Making Lab Data 01/21/23 12:56 01/21/23 12:56 Labs: Lab Results 01/21/23 Range/Units 12:56 WBC 5.1 (4.8-10.8) X10*3/uL RBC 4.49 (4.20-5.50) X10*6/uL Hgb 12.0 (12.0-16.0) g/dl Hct 38.1 (37.0-47.0) % MCV 84.9 (80.0-98.0) fL MCH 26.7 L (27.0-33.0) pg MCHC 31.5 (31.0-35.0) g/dl RDW 14.6 (11.0-16.0) % Plt Count 225 (160-400) X10*3/uL MPV 10.4 (9.4-12.3) fL Immature Gran % (Auto) 1.4 H (0.0-0.4) % Neut % (Auto) 61.0 (45-73) % Lymph % (Auto) 27.6 (20-40) % [place] % (Auto) 9.2 (2-11) % Eos % (Auto) 0.4 (0-4) % Baso % (Auto) 0.4 (0-2) % Lymph # (Auto) 1.4 (1.2-4.9) X10*3/uL [place] # (Auto) 0.5 (0.1-1.2) X10*3/uL Eos # (Auto) 0.0 (0.0-0.4) X10*3/uL Baso # (Auto) 0.0 (0.0-0.2) X10*3/uL Abs Immat Gran (auto) 0.07 H (0.00-0.03) X10*3/uL Absolute Neuts (auto) 3.1 (2.0-8.3) x10*3/uL Absolute Nucleated RBC 0.000 (0.0-0.012) X10*3/uL Nucleated RBC % (auto) 0.0 (0.0-0.2) /100WBC Discharge Plan Discharge Clinical Impression: Routine lab draw Patient Disposition: Left W/O Completing Treatment Prescriptions: No Action atenolol 100 mg tablet 100 mg PO DAILY Qty: 90 3RF hydrochlorothiazide 12.5 mg tablet 12.5 mg PO DAILY Qty: 90 3RF Eliquis 5 mg tablet 5 mg PO BID Qty: 60 5RF acetaminophen-codeine 300-15 mg tablet 1 tab PO Q8H PRN (Reason: pain) Qty: 20 0RF oxycodone 5 mg capsule 5 mg PO Q4H PRN (Reason: pain) Qty: 30 0RF Rx Instructions: Partial Fill upon patient request. magnesium oxide 400 mg (241.3 mg magnesium) tablet 400 mg PO DAILY pantoprazole 40 mg tablet,delayed release (DR/EC) 40 mg PO QAM docusate sodium 100 mg capsule 100 mg PO QAM PRN (Reason: Constipation) mirtazapine 15 mg tablet,disintegrating 15 mg PO BEDTIME oxycodone 5 mg tablet 5 mg PO Q4H acetaminophen-codeine 300-30 mg Tablet 1 tab PO Q4H PRN (Reason: Pain, Severe (Pain Scale 7-10)) Qty: 30 0RF doxycycline hyclate 100 mg tablet 100 mg PO BID Qty: 20 0RF lorazepam 1 mg tablet 1 mg PO TID ascorbic acid (vitamin C) [Vitamin C] 500 mg tablet 500 mg PO BID cetirizine 10 mg tablet 10 mg PO DAILY gabapentin 600 mg tablet 600 mg PO TID calcium carbonate-vitamin D3 600 mg-20 mcg (800 unit) tablet 1 tab PO DAILY cyanocobalamin (vitamin B-12) 100 mcg tablet 100 mcg PO DAILY bupropion HCl 150 mg tablet sustained-release 12 hr 300 mg PO DAILY furosemide 20 mg tablet 20 mg PO DAILY fluoxetine 20 mg capsule 40 mg PO QAM (DME) mastectomy bra to fit See Rx Instructions .Route .MEDSUPPLY Qty: 2 0RF Rx Instructions: As directed (DME) left breast prosthetic to fit See Rx Instructions .Route .MEDSUPPLY Qty: 1 0RF Rx Instructions: As directed cephalexin 500 mg capsule 500 mg PO TID Qty: 30 0RF
[2023-01-21 13:02] LABS: MANUAL DIFF FLAG NO
[2023-01-21 13:03] LABS: Basophils Percent Auto 0.4 % (0-2); Eosinophils Percent Auto 0.4 % (0-4); Hematocrit 38.1 % (37.0-47.0); Imm Gran Abs Auto 0.07 X10*3/uL (0.00-0.03); Imm Gran Pct Auto 1.4 % (0.0-0.4); Lymphocytes Absolute Auto 1.4 X10*3/uL (1.2-4.9); Lymphocytes Percent Auto 27.6 % (20-40); Mean Corpuscular HGB Conc 31.5 g/dl (31.0-35.0); Mean Corpuscular Hemoglobin 26.7 pg (27.0-33.0); Mean Corpuscular Volume 84.9 fL (80.0-98.0); Mean Platelet Volume 10.4 fL (9.4-12.3); Monocytes Absolute Auto 0.5 X10*3/uL (0.1-1.2); Monocytes Percent Auto 9.2 % (2-11); Neutrophils Absolute Auto 3.1 x10*3/uL (2.0-8.3); Platelet Count 225 X10*3/uL (160-400); Red Blood Count 4.49 X10*6/uL (4.20-5.50); Red Cell Distribution Width 14.6 % (11.0-16.0); White Blood Count 5.1 X10*3/uL (4.8-10.8)
[2023-01-21 13:20] LABS: Alanine Aminotransferase 13 U/L (0-31); Alkaline Phosphatase 87 U/L (39-117); Anion Gap 13 (12-20); Aspartate Amino Transferase 22 U/L (5-31); Bilirubin Direct 0.1 mg/dL (0.0-0.5); Bilirubin Total 0.3 mg/dL (0.0-1.0); Blood Urea Nitrogen 11 mg/dL (9-16); Calcium 9.5 mg/dL (8.4-10.2); Carbon Dioxide 25 mmol/L (22-29); Chloride 104 mmol/L (96-108); Creatinine Clr Calc Pharmacy 90.6; Estimated Glomerular Filt Rate > 60; Glucose Random 111 mg/dL (60-115); Potassium 4.1 mmol/L (3.3-5.1); Sodium 138 mmol/L (135-145)
[2023-01-21 13:39] LABS: Influenza A PCR NEGATIVE (Negative); Influenza B PCR NEGATIVE (Negative); Resp Syncy Virus RNA Qual PCR NEGATIVE (Negative); SARS COV2 PCR INHOUSE NEGATIVE (Negative)
== END 2023-01-21 13:22 | disposition left against medical advice (07) ==
PROVIDERS: Physician Assistant Medical; Emergency Provider Emergency Medicine; PCP Internal Medicine
DX: C50.912 Malignant neoplasm of unspecified site of left female breast (principal); Z20.822 Contact with and (suspected) exposure to COVID-19; Z20.828 Contact with and (suspected) exposure to other viral communicable diseases; Z53.21 Procedure and treatment not carried out due to patient leaving prior to being seen by health care provider; I10 Essential (primary) hypertension; E66.01 Morbid (severe) obesity due to excess calories; Z68.41 Body mass index [BMI] 40.0-44.9, adult; Z92.21 Personal history of antineoplastic chemotherapy; Z79.01 Long term (current) use of anticoagulants; Z79.899 Other long term (current) drug therapy
CPT/HCPCS: 0241U; 36415; 80048; 80076; 85025; 99281; 99283

== ENCOUNTER 2023-02-04 09:14 | Outpatient (REF) | payer MEDICARE, MEDICAID, SELFPAY ==
[2023-02-04 09:25] LABS: MANUAL DIFF FLAG NO
[2023-02-04 09:28] LABS: Basophils Percent Auto 0.3 % (0-2); Hemoglobin 10.5 g/dl (12.0-16.0); Imm Gran Pct Auto 1.7 % (0.0-0.4); Lymphocytes Absolute Auto 1.3 X10*3/uL (1.2-4.9); Lymphocytes Percent Auto 21.7 % (20-40); Mean Corpuscular HGB Conc 30.9 g/dl (31.0-35.0); Mean Corpuscular Hemoglobin 26.9 pg (27.0-33.0); Mean Platelet Volume 10.3 fL (9.4-12.3); Monocytes Absolute Auto 0.6 X10*3/uL (0.1-1.2); Monocytes Percent Auto 9.4 % (2-11); Neutrophils Percent Auto 66.9 % (45-73); Platelet Count 183 X10*3/uL (160-400); Red Blood Count 3.91 X10*6/uL (4.20-5.50)
[2023-02-04 09:42] LABS: Alanine Aminotransferase 11 U/L (0-31); Albumin Level 3.7 g/dL (3.5-5.0); Alkaline Phosphatase 80 U/L (39-117); Anion Gap 15 (12-20); Aspartate Amino Transferase 14 U/L (5-31); Bilirubin Total 0.3 mg/dL (0.0-1.0); Blood Urea Nitrogen 9 mg/dL (9-16); Carbon Dioxide 27 mmol/L (22-29); Chloride 103 mmol/L (96-108); Estimated Glomerular Filt Rate > 60; Glucose Random 151 mg/dL (60-115); Potassium 4.5 mmol/L (3.3-5.1); Sodium 140 mmol/L (135-145); Total Protein 6.2 g/dL (6.5-8.0)
== END 2023-02-04 09:15 | disposition home or self-care (01) ==
LOC: HO.LAB 09:14
PROVIDERS: PCP Internal Medicine; Visit Provider Internal Medicine
DX: C50.919 Malignant neoplasm of unspecified site of unspecified female breast (principal)
CPT/HCPCS: 36415; 80053; 85025

== ENCOUNTER 2023-02-13 15:00 | Inpatient (IN) | payer MEDICARE, MEDICAID, SELFPAY ==
[2023-02-13] VITALS (9 sets, daily range): BP systolic 102–152; BP diastolic 42–79; PULSE 97–118; RESP 15–19; TEMP 37.1–37.3; O2SAT 92–97; BMI 45.5; BMI 46.6
--- NOTE | ~2023-02-13 | XR_ITS ---
EXAMINATION: XR CHEST AP PORTABLE, 10:03 AM CLINICAL INFORMATION: Hemoptysis COMPARISON: 02/13/2023 TECHNIQUE: Frontal view of the chest was obtained. FINDINGS: There are low lung volumes. No focal pneumonia is detected. The cardiomediastinal silhouette is stable as is a left internal jugular central line. XR/XR chest 1V IMPRESSION: Poor inspiratory effort. No acute disease or interval change.
--- NOTE | ~2023-02-13 | XR_ITS ---
EXAMINATION: XR CHEST CLINICAL INFORMATION: Fever COMPARISON: Chest x-ray 12/16/2022 TECHNIQUE: Frontal view of the chest was obtained. FINDINGS: The lungs are expanded and clear of acute pneumonic process. Heart size and pulmonary vascularity is normal. There is a left jugular inserted port catheter with its tip in the left brachiocephalic vein. Heart size and pulmonary vascularity is normal. No gross bony abnormality seen except for a moderate size loose body inferior to right shoulder joint. XR/XR chest 1V IMPRESSION: No acute cardiopulmonary process. Left jugular central venous port with its tip in the left distal brachiocephalic vein. On previous exam the Port-A-Cath tip was in right jugular vein and has been retracted and its tip now in the left brachiocephalic vein
--- NOTE | ~2023-02-13 | CT_ITS ---
EXAMINATION: CT HEAD WITHOUT CONTRAST CLINICAL INFORMATION: Fall. Patient on blood thinner. COMPARISON: None available. TECHNIQUE: Contiguous axial imaging was performed from the skull base to vertex without intravenous administration of contrast. This CT examination was performed using dose optimization techniques as appropriate, variously including the following: *Automated exposure control *Adjustment of mA and/or kV according to patient size (this includes techniques or standardized protocols for targeted exams where dose is matched to indication/reason for exam; i.e. extremities or head) *Use of iterative reconstruction technique DLP: 577 mGy-cm FINDINGS: The lateral, third and fourth ventricles are normally outlined. The cortical sulci and basal cisterns are normally outlined as well. There is no acute territorial defect, hemorrhage or midline shift. The extra-axial spaces are unremarkable. Calvarium: Intact. Maxillofacial sinuses and mastoids: Clear as visualized. CT/CT head/brain wo IV con IMPRESSION: No acute intracranial abnormality.
--- NOTE | 2023-02-13 15:16 | ECG_ITS ---
Test Reason : TACHYCARDIA, DIZZINESS Blood Pressure : / mmHG Vent. Rate : 105 BPM Atrial Rate : 000 BPM P-R Int : 000 ms QRS Dur : 078 ms QT Int : 414 ms P-R-T Axes : 000 021 029 degrees QTc Int : 547 ms Atrial fibrillation with rapid ventricular response Nonspecific ST abnormality Abnormal ECG When compared with ECG of 07-DEC-2022 16:58, No significant change was found Referred By: Melony Spaulding Electronically Signed By:GAYATHRI BUITRAGO MD
--- NOTE | 2023-02-13 15:32 | ED.GENADULT ---
HPI - General Adult General Chief complaint: General Medical Stated complaint: FELLINF UNWELL,WARM TO TOUCH,WEAK,DIZZY PER EMS Time Seen by Provider: 02/13/23 15:21 Source: patient Mode of arrival: EMS Limitations: no limitations History of Present Illness HPI narrative: Patient comes to the emergency room from home. Patient states that for the last 2-3 days, patient has been feeling weak, lightheaded, denies chest pain or shortness of breath. Today, patient states that her knee gave out which has happened before, patient fell on the floor. Patient states that she did not lose consciousness. Patient takes Eliquis for atrial fibrillation. Patient states that her son took her temperature and it was 101 F, took Tylenol. Patient's son became concerned about the constellation of symptoms that the patient has had for last few days, decided to call the ambulance and asked them to bring the patient to the hospital. At this time, patient feeling weak, denies chest pain, no shortness of breath, no headache. However, patient states that she has diffuse pain that she chronically has and she is due for her pain meds. Related Data Home Medications Medication Instructions Recorded Confirmed ascorbic acid (vitamin C) 500 mg 500 mg PO BID 07/01/21 12/16/22 tablet (Vitamin C) bupropion HCl 150 mg tablet,12 hr 300 mg PO DAILY 07/01/21 12/16/22 sustained-release calcium carbonate 600 mg-vitamin 1 tab PO DAILY 07/01/21 12/16/22 D3 20 mcg (800 unit) tablet cetirizine 10 mg tablet 10 mg PO DAILY 07/01/21 12/16/22 cyanocobalamin (vitamin B-12) 100 100 mcg PO DAILY 07/01/21 12/16/22 mcg tablet fluoxetine 20 mg capsule 40 mg PO QAM 07/01/21 12/16/22 furosemide 20 mg tablet 20 mg PO DAILY 07/01/21 12/16/22 gabapentin 600 mg tablet 600 mg PO TID 07/01/21 12/16/22 lorazepam 1 mg tablet 1 mg PO TID 07/01/21 12/16/22 docusate sodium 100 mg capsule 100 mg PO QAM PRN Constipation 12/07/22 12/16/22 magnesium oxide 400 mg (241.3 mg 400 mg PO DAILY 12/07/22 12/16/22 magnesium) tablet mirtazapine 15 mg disintegrating 15 mg PO BEDTIME 12/07/22 12/16/22 tablet oxycodone 5 mg tablet 5 mg PO Q4H severe pain 12/07/22 12/16/22 pantoprazole 40 mg tablet,delayed 40 mg PO QAM 12/07/22 12/16/22 release albuterol 90 mcg/actuation aerosol mcg inhalation 01/24/23 01/24/23 inhaler Previous Rx's Medication Instructions Recorded atenolol 100 mg tablet 100 mg PO DAILY #90 tabs 09/15/22 hydrochlorothiazide 12.5 mg tablet 12.5 mg PO DAILY #90 tabs 09/15/22 apixaban 5 mg tablet (Eliquis) 5 mg PO BID #60 tabs 10/13/22 doxycycline hyclate 100 mg tablet 100 mg PO BID #20 tabs 12/10/22 oxycodone 5 mg capsule 5 mg PO Q4H PRN pain #30 caps 12/16/22 cephalexin 500 mg capsule 500 mg PO TID #30 caps 12/27/22 left breast prosthetic #1 ea 01/02/23 mastectomy bra #2 ea 01/02/23 ondansetron 8 mg disintegrating 8 mg PO Q8H PRN Nausea And 01/23/23 tablet Vomiting #30 tabs Wig #1 ea 01/24/23 mastectomy bra (bra, mastectomy) #1 ea 01/24/23 Prosthesis, breast (Breast #1 ea 01/25/23 prosthesis) Magic Mouthwash 10 ml PO 4-5XD #240 mL 02/01/23 Diphen/Lido/Antacid 1:1:1 240 mL suspension fluconazole 150 mg tablet 150 mg PO Q3D #1 tab 02/06/23 Allergies Allergy/AdvReac Type Severity Reaction Status Date / Time latex [LATEX] Allergy Intermediate RASH Verified 01/21/23 12:12 seafood Allergy Intermediate Rash Verified 01/21/23 12:12 Sulfa (Sulfonamide Allergy Intermediate hives Verified 01/21/23 12:12 Antibiotics) sulfamethoxazole Allergy Intermediate HIVES Verified 01/21/23 12:12 [From BACTRIM] trimethoprim [From BACTRIM] Allergy Intermediate HIVES Verified 01/21/23 12:12 valsartan [From DIOVAN] Allergy Intermediate RASH Verified 01/21/23 12:12 Bandage Adhesive [place] Allergy Severe Rash Uncoded 01/04/23 11:45 3/4 SURGICAL TAPE Allergy Severe RASH Uncoded 01/04/23 11:45 tape Allergy Severe Rash Uncoded 01/04/23 11:45 Review of Systems Review of Systems: Constitutional : No Weight loss, Complaining of fever, fatigue, generalized malaise, lightheaded ENT/Mouth : No Hearing loss, No Ear Pain, No Nasal Congestion, No Sinus Pain, No Hoarseness, No sore throat, No Rhinorrhea, No Swallowing Difficulty Eyes: No Eye Pain, No Swelling, No Redness, No Foreign Body, No Discharge, No Vision Changes Cardiovascular : No Chest Pain, No SOB, No Dyspnea on Exertion, No Orthopnea, No Edema, No Palpitations Respiratory : No Cough, No Sputum, No Wheezing, No Smoke Exposure, No Dyspnea Gastrointestinal : No Nausea, No Vomiting, No Diarrhea, No Constipation, No abdominal Pain, No Hematochezia, No Melena Genitourinary : no irregular bleeding, No Dysuria, No Urinary Frequency, No Hematuria, No Urinary Incontinence, No Urgency, No Flank Pain, No Urinary Flow Changes, No Hesitancy Musculoskeletal : No joint pain, No Myalgias, No Joint Swelling Skin : No Skin Lesions, No rash Neuro : No Weakness, No Numbness, No Paresthesias, No Loss of Consciousness, No Dizziness, No Headache Psych : No Anxiety/Panic, No Depression, No SI/HI/AH/VH, No Social Issues, Heme/Lymph: No Bruising, No Bleeding,No Lymphadenopathy Endocrine : No Polyuria, No Polydipsia, No Temperature Intolerance [facility] Past Medical History Medical History (Updated 02/13/23 @ 18:14 by Jenny Gomes MD) 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 Invasive ductal carcinoma of left breast Left breast mass Hypertension Paroxysmal atrial fibrillation Surgical History (Updated 01/09/23 @ 11:56 by Cathryn Starkey MD) H/O total mastectomy of left breast (~11/18/22) History of total right knee replacement History of cholecystectomy History of gastric bypass H/O shoulder surgery H/O hemorrhoidectomy History of left knee replacement Status post breast reduction Family History Family History Father COPD (chronic obstructive pulmonary disease) HTN (hypertension) Diabetes Mother COPD (chronic obstructive pulmonary disease) Diabetes HTN (hypertension) Social History Household Members: Family Housing: House Do you presently have visiting nurse or other home services: Yes (was set up before admission (hadn't actually seen)) Alcohol intake: never Patient Tobacco Use Status: Never used Tobacco Tobacco use type: Cigarette Smoked in Last 30 Days: No Second Hand Smoke Exposure: No Use of substances other than those prescribed or required for medical reasons: No Advance Directives: Yes Advance Directives on File: Yes Advance Directives Date on File: 11/22/22 Nutrition Risks: No Nutritional Risk Patient : No service: No Current occupational status: employed Physical Exam ED Vital Signs: Vital Signs - 24 hr 02/13/23 15:04 02/13/23 15:35 02/13/23 15:54 Temperature 98.8 F 98.7 F Pulse Rate 106 H 106 H 97 Respiratory Rate 18 16 15 Blood Pressure 111/51 L 122/42 L Pulse Oximetry 97 93 94 Oxygen Delivery Method Room Air Room Air Room Air 02/13/23 17:38 02/13/23 17:39 02/13/23 17:41 Temperature Pulse Rate 114 H 97 118 H Respiratory Rate Blood Pressure 152/79 H 140/69 H 121/74 Pulse Oximetry Oxygen Delivery Method 02/13/23 17:47 Temperature Pulse Rate 118 H Respiratory Rate 19 Blood Pressure 121/74 Pulse Oximetry 95 Oxygen Delivery Method Room Air BMI result Body Mass Index 45.5 Const Other: Appearance: Alert. Oriented X3. No acute distress. Eyes: Pupils equal, round and reactive to light. ENT: Pharynx normal. Neck: Normal inspection. Neck supple. No lymph nodes noted. No crepitus CVS: irregular heart rate, heart rate between 100 and 110, Pulses normal. Normal S1 and S2 Respiratory: No respiratory distress. Breath sounds normal. No Wheezing. No rales Abdomen: Soft and nontender. No rigidity. No distention. Skin: Skin warm and dry. Normal skin color. Normal skin turgor. Extremities: No lower extremity edema. No Lacerations. No Rash Neuro: Oriented X 3. No motor deficit. No sensory deficit. Moving all extremities. No slurred speech. CN 2 through 12 grossly intact Psych: calm, cooperative, normal affect Course Course Course Narrative: - all of patient's labs and imaging pending - patient AFib with RVR, heart rate between 100 and 110, blood pressure 122/42 - patient was given a dose of IV metoprolol push 2.5 mg Medications Administered Discontinued Medications Generic Name Dose Route Start Last Admin Trade Name Freq PRN Reason Stop Dose Admin Cefepime HCl 2 gm/ Sodium 50 mls @ 100 mls/hr 02/13/23 16:07 02/13/23 17:12 Chloride IV 02/13/23 16:36 Infused ONCE ONE Infusion Sodium Chloride 2,000 mls @ 999 mls/hr 02/13/23 16:07 02/13/23 16:28 Ns IVCONT 02/13/23 18:07 999 mls/hr .Q2H1M ONE Administration Metoprolol Tartrate 2.5 mg 02/13/23 15:38 02/13/23 15:48 Metoprolol Tartrate 5 Mg/5 Ml Vial IVPUSH 02/13/23 15:39 2.5 mg ONCE ONE Administration Oxycodone HCl 5 mg 02/13/23 15:34 02/13/23 15:48 Oxycodone Hcl Immed Release 5 Mg Tablet PO 02/13/23 15:35 5 mg ONCE ONE Administration Medical Decision Making Medical Decision Making MDM Narrative: - at this time, 16:09, I received a phone call from the lab, patient is hematology shows a white blood cell count of 0.2. patient's baseline white blood cell count is between 5 and 6. empirically, patient will be treated with IV fluids based on ideal weight of 55 kg, patient is obese. Also, empirically patient being given 2 g of cefepime. Discussed wit the patient's nurse that we will put the patient on neutropenic precautions. - my interpretation of EKG: Atrial fibrillation with RVR, rate 105, no ST segment depression, no T-wave inversion, QTC 547 - my interpretation of labs: Negative for influenza, RSV and COVID, urinalysis negative - interpretation of chest x-ray: No infiltrate - source of infection is unknown. However, patient is severely neutropenic. Patient has an ANC of 24. Patient was given 1 dose of Filgastrim - patient came in AFib with RVR, patient was given 1 dose of IV metoprolol 2.5 mg. Heart rate now in the 100s, stable blood pressure 121/74. Differential Diagnosis Differential Diagnoses: The differential diagnosis associated with the presentation includes ( UTI, pneumonia, viral syndrome, neutropenic fever) Admission/Observation Consideration of admission/observation: Escalation of care including admission/observation considered Consult Healthcare Provider Management of the patient was discussed with: Hospitalist Lab Data MDM Lab Attestation statement: I reviewed the patient's lab results. 02/13/23 15:34 02/13/23 15:34 Labs: Lab Results 02/13/23 02/13/23 02/13/23 Range/Units 15:34 15:46 17:35 WBC 0.2 L* (4.8-10.8) X10*3/uL RBC 2.95 L D (4.20-5.50) X10*6/uL Hgb 8.0 L D (12.0-16.0) g/dl Hct 25.2 L D (37.0-47.0) % MCV 85.4 (80.0-98.0) fL MCH 27.1 (27.0-33.0) pg MCHC 31.7 (31.0-35.0) g/dl RDW 16.8 H (11.0-16.0) % Plt Count 113 L D (160-400) X10*3/uL MPV 10.3 (9.4-12.3) fL Immature Gran % (Auto) Cancelled Neut % (Auto) Cancelled Lymph % (Auto) Cancelled Cook % (Auto) Cancelled Eos % (Auto) Cancelled Baso % (Auto) Cancelled Lymph # (Auto) Cancelled Cook # (Auto) Cancelled Eos # (Auto) Cancelled Baso # (Auto) Cancelled Abs Immat Gran (auto) Cancelled Absolute Neuts (auto) Cancelled Absolute Nucleated RBC 0.000 (0.0-0.012) X10*3/uL Nucleated RBC % (auto) 0.0 (0.0-0.2) /100WBC Neutrophils % (Manual) 12 L (45-73) % Band Neutrophils % 0 L (3-5) % Lymphocytes % (Manual) 60 H (20-40) % Monocytes % (Manual) 28 H (2-11) % Abs Neuts (Manual) Not Reportable Lymphocytes # (Manual) 0.1 L (1.2-4.9) X10*3/uL Monocytes # (Manual) 0.1 (0.1-1.2) X10*3/uL Platelet Estimate DECREASED (NORMAL) Large Platelets PRESENT Plt Morphology Comment NOTED RBC Morphology NORMAL Smear Tech's Comments VERIFIED ESR 24 H (0-20) MM/HR PT 17.2 H (11.1-13.3) SEC INR 1.4 H (0.9-1.1) APTT 30.3 (26.0-36.4) SEC Sodium 135 (135-145) mmol/L Potassium 3.7 (3.3-5.1) mmol/L Chloride 102 (96-108) mmol/L Carbon Dioxide 24 (22-29) mmol/L Anion Gap 13 (12-20) BUN 13 (9-16) mg/dL Creatinine 0.80 (0.5-1.4) mg/dL Estim Creat Clear Calc 93.9 Estimated GFR > 60 Random Glucose 146 H (60-115) mg/dL Lactic Acid 2.0 (0.5-2.0) mmol/L Calcium 8.4 D (8.4-10.2) mg/dL Magnesium 1.9 (1.6-2.6) mg/dL Total Bilirubin 0.7 (0.0-1.0) mg/dL AST 14 (5-31) U/L ALT 9 (0-31) U/L Alkaline Phosphatase 57 (39-117) U/L Troponin I High Sens 13.4 D (<3.5-17.0) ng/L C-Reactive Protein 4.56 H (< or = 0.50) mg/dL Total Protein 5.9 L (6.5-8.0) g/dL Albumin 3.5 (3.5-5.0) g/dL Urine Color Yellow Urine Appearance Clear Urine pH 6.0 (5.0-9.0) Ur Specific [place] 1.010 (1.005-1.025) Urine Protein Negative (Neg-Trace) mg/dL Urine Glucose (UA) Negative (Negative) mg/dL Urine Ketones Negative (Negative) mg/dL Urine Blood Negative (Negative) Urine Nitrite Negative (Negative) Ur Leukocyte Esterase Negative (Negative) Influenza Type A (PCR) NEGATIVE (Negative) Influenza Type B (PCR) NEGATIVE (Negative) RSV RNA Qual (PCR) NEGATIVE (Negative) SARS-CoV-2 RNA (RT-PCR) NEGATIVE (Negative) Independent Interpretation I performed an independent interpretation of an: EKG and CT Scan ( my interpretation of CT scan of the head: No intracranial bleed) Radiology Impression Discussion of test interpretation with radiology: I have reviewed the radiologist's reading. Radiologist Impression: FINDINGS: The lateral, third and fourth ventricles are normally outlined. The cortical sulci and basal cisterns are normally outlined as well. There is no acute territorial defect, hemorrhage or midline shift. The extra-axial spaces are unremarkable. Calvarium: Intact. Maxillofacial sinuses and mastoids: Clear as visualized. CT/CT head/brain wo IV con IMPRESSION: No acute intracranial abnormality. Critical Care Time Critical Care Time Critical Care Time: Yes Total Critical Care Time: 60 Attestation: I have personally provided critical care time. Time includes review of lab data, radiology results, discussion with consultants, and monitoring for potential decompensation. Intervention performed as documented. Discharge Plan Discharge Clinical Impression: Neutropenic fever, Atrial fibrillation with RVR Patient Disposition: Admitted As Inpatient
[2023-02-13] MEDS: Metoprolol Tartrate 5 MG/5 ML VIAL 2.5 MG IVPUSH (15:48)
[2023-02-13] MEDS: oxyCODONE HCl Immed Release 5 MG TABLET PO ×2 (15:48→21:24)
[2023-02-13 15:53] LABS: INTERNATIONAL NORM RATIO 1.4 (0.9-1.1); Prothrombin Time 17.2 SEC (11.1-13.3)
[2023-02-13 15:56] LABS: Alanine Aminotransferase 9 U/L (0-31); Albumin Level 3.5 g/dL (3.5-5.0); Alkaline Phosphatase 57 U/L (39-117); Anion Gap 13 (12-20); Aspartate Amino Transferase 14 U/L (5-31); Bilirubin Total 0.7 mg/dL (0.0-1.0); Blood Urea Nitrogen 13 mg/dL (9-16); C Reactive Protein 4.56 mg/dL (< or = 0.50); Calcium 8.4 mg/dL (8.4-10.2); Carbon Dioxide 24 mmol/L (22-29); Chloride 102 mmol/L (96-108); Creatinine Clr Calc Pharmacy 93.9; Estimated Glomerular Filt Rate > 60; Glucose Random 146 mg/dL (60-115); Magnesium 1.9 mg/dL (1.6-2.6); Partial Thromboplastin Time 30.3 SEC (26.0-36.4); Potassium 3.7 mmol/L (3.3-5.1); Sodium 135 mmol/L (135-145); Total Protein 5.9 g/dL (6.5-8.0)
[2023-02-13 16:02] LABS: Hematocrit 25.2 % (37.0-47.0); Mean Corpuscular HGB Conc 31.7 g/dl (31.0-35.0); Mean Corpuscular Hemoglobin 27.1 pg (27.0-33.0); Mean Corpuscular Volume 85.4 fL (80.0-98.0); Mean Platelet Volume 10.3 fL (9.4-12.3); Platelet Count 113 X10*3/uL (160-400); Red Blood Count 2.95 X10*6/uL (4.20-5.50); Red Cell Distribution Width 16.8 % (11.0-16.0); Troponin-I High Sensitivity 13.4 ng/L (<3.5-17.0)
[2023-02-13 16:07] LABS: White Blood Count 0.2 X10*3/uL (4.8-10.8)
[2023-02-13] MEDS: 0.9 % Sodium Chloride 2,000 ML 999 ML IVCONT (16:28)
[2023-02-13] MEDS: cefEPime HCl 2 GM in 0.9 % Sodium Chloride 50 ML IV (16:30)
[2023-02-13 16:31] LABS: Influenza A PCR NEGATIVE (Negative); Influenza B PCR NEGATIVE (Negative); Resp Syncy Virus RNA Qual PCR NEGATIVE (Negative); SARS COV2 PCR INHOUSE NEGATIVE (Negative)
[2023-02-13 16:48] LABS: Erythrocyte Sedimentation Rate 24 MM/HR (0-20)
[2023-02-13 16:59] LABS: Lymphocytes Absolute Manual 0.1 X10*3/uL (1.2-4.9); Monocytes Absolute Manual 0.1 X10*3/uL (0.1-1.2); Monocytes Percent Manual 28 % (2-11)
[2023-02-13 17:00] LABS: Large Platelet PRESENT; Platelet Estimate DECREASED (NORMAL); Platelet Morphology Comment NOTED; RBC Morphology NORMAL
[2023-02-13 17:01] LABS: Band Neutrophils Percent 0 % (3-5); Lymphocytes Percent Manual 60 % (20-40); Neutrophils Percent Manual 12 % (45-73)
[2023-02-13 17:02] LABS: SLIDE REVIEW VERIFIED
--- NOTE | 2023-02-13 17:10 | PM.IMHP ---
History of Present Illness Date of Service: 02/13/23 <Ariela Enriquez NP - Last Filed: 02/14/23 10:31> Chief Complaint: Fever <Ariela Enriquez NP - Last Filed: 02/14/23 10:31> 62-year-old woman with history of cancer on chemotherapy presents with fever and chills over the last few days. She denied any recent travel, sick contacts, nausea, vomiting, diarrhea, chest pain, shortness of breath, dizziness. She lives alone but her son does help her and is very careful regarding his health because of her. In the ER her white blood cell count was noted to be 0.2, urinalysis was taken but results pending, chest x-ray without consolidation or effusion, negative COVID-19, influenza, RSV, blood cultures pending. In the ER she was given a dose of cefepime, metoprolol for tachycardia and oxycodone for pain. She will be admitted further management and treatment of acute neutropenia. <Ariela Enriquez NP - Last Filed: 02/14/23 10:31> Review of Systems Review of Systems: Denies any recent fever chills or decrease in appetite, reported fever and chills respiratory denies any shortness of breath coverage production cardiovascular denies chest pain gastrointestinal denies any dysphagia abdominal pain nausea vomiting or diarrhea genitourinary denies any dysuria frequency or hematuria musculoskeletal denies any joint pain or swelling neuropsych denies any weakness or seizures all other systems reviewed are negative <Ariela Enriquez NP - Last Filed: 02/14/23 10:31> [facility] Medical History: Medical History (Updated 02/13/23 @ 18:14 by Jenny Gomes MD) Hx of intermediate use of blood thinners Invasive ductal carcinoma of left breast Left breast mass Hypertension Paroxysmal atrial fibrillation <Ariela Enriquez NP - Last Filed: 02/14/23 10:31> Family History: Family History Father COPD (chronic obstructive pulmonary disease) HTN (hypertension) Diabetes Mother COPD (chronic obstructive pulmonary disease) Diabetes HTN (hypertension) <Ariela Enriquez NP - Last Filed: 02/14/23 10:31> Surgical History: Surgical History (Updated 01/09/23 @ 11:56 by Cathryn Starkey MD) H/O total mastectomy of left breast (~11/18/22) History of total right knee replacement History of cholecystectomy History of gastric bypass H/O shoulder surgery H/O hemorrhoidectomy History of left knee replacement Status post breast reduction <Ariela Enriquez NP - Last Filed: 02/14/23 10:31> Social History: Household Members: Children Housing: House Do you presently have visiting nurse or other home services: No Alcohol intake: never Patient Tobacco Use Status: Never used Tobacco Tobacco use type: Cigarette Smoked in Last 30 Days: No Second Hand Smoke Exposure: No Use of substances other than those prescribed or required for medical reasons: No Currently Displaying Signs/Symptoms of Drug Intoxication Withdrawal: No Have you been hit, kicked, punched, or otherwise hurt by someone within the past year? If so, by whom?: No Do you feel safe in your current relationship?: No Current Relationship Is there a partner from a previous relationship who is making you feel unsafe now?: No Are you made to feel afraid or neglected: No Advance Directives: Yes Advance Directives on File: Yes Advance Directives Date on File: 11/22/22 Do you have thoughts of harming others: None Do you have a plan to hurt others: No Plan Recently lost weight without trying: No How much weight loss: Not applicable Eating poorly because of decreased appetite: No Nutrition screen score: 0 Nutrition Risks: No Nutritional Risk Patient : No : No Poor oral hygiene: No service: No Current occupational status: employed <Ariela Enriquez NP - Last Filed: 02/14/23 10:31> Meds Allergies/Adverse reactions: Allergies Allergy/AdvReac Type Severity Reaction Status Date / Time latex [LATEX] Allergy Intermediate RASH Verified 01/21/23 12:12 seafood Allergy Intermediate Rash Verified 01/21/23 12:12 Sulfa (Sulfonamide Allergy Intermediate hives Verified 01/21/23 12:12 Antibiotics) sulfamethoxazole Allergy Intermediate HIVES Verified 01/21/23 12:12 [From BACTRIM] trimethoprim [From BACTRIM] Allergy Intermediate HIVES Verified 01/21/23 12:12 valsartan [From DIOVAN] Allergy Intermediate RASH Verified 01/21/23 12:12 Bandage Adhesive Damian Allergy Severe Rash Uncoded 01/04/23 11:45 3/4 SURGICAL TAPE Allergy Severe RASH Uncoded 01/04/23 11:45 tape Allergy Severe Rash Uncoded 01/04/23 11:45 <Ariela Enriquez NP - Last Filed: 02/14/23 10:31> Active Medications: Current Medications Sodium Chloride (Ns) 2,000 mls @ 999 mls/hr IVCONT .Q2H1M ONE Stop: 02/13/23 18:07 Last Admin: 02/13/23 16:28 Dose: 999 mls/hr <Ariela Enriquez NP - Last Filed: 02/14/23 10:31> Home medications: Home Medications Medication Instructions Recorded Confirmed Last Taken Type ascorbic acid (vitamin C) 500 mg 500 mg PO BID 07/01/21 02/13/23 02/13/23 History tablet (Vitamin C) bupropion HCl 150 mg tablet,12 hr 300 mg PO DAILY 07/01/21 02/13/23 02/13/23 History sustained-release calcium carbonate 600 mg-vitamin 1 tab PO BID 07/01/21 02/13/23 02/13/23 History D3 20 mcg (800 unit) tablet cetirizine 10 mg tablet 10 mg PO DAILY 07/01/21 02/13/23 02/13/23 History cyanocobalamin (vitamin B-12) 100 100 mcg PO DAILY 07/01/21 02/13/23 02/13/23 History mcg tablet fluoxetine 20 mg capsule 40 mg PO DAILY 07/01/21 02/13/23 02/13/23 History furosemide 20 mg tablet 20 mg PO DAILY 07/01/21 02/13/23 02/13/23 History gabapentin 600 mg tablet 600 mg PO TID 07/01/21 02/13/23 02/13/23 History lorazepam 1 mg tablet 1 mg PO TID PRN Anxiety 07/01/21 02/13/23 02/13/23 History docusate sodium 100 mg capsule 100 mg PO DAILY PRN Constipation 12/07/22 02/13/23 Unknown History magnesium oxide 400 mg (241.3 mg 400 mg PO DAILY 12/07/22 02/13/23 Unknown History magnesium) tablet mirtazapine 15 mg disintegrating 15 mg PO BEDTIME 12/07/22 02/13/23 02/12/23 History tablet oxycodone 5 mg tablet 5 mg PO Q4H severe pain 12/07/22 02/13/23 Unknown History pantoprazole 40 mg tablet,delayed 40 mg PO DAILY@0630 12/07/22 02/13/23 02/13/23 History release Magic Mouthwash 10 ml PO 4-5XD PRN SORES FROM CHEMO 02/13/23 02/13/23 Unknown History Diphen/Lido/Antacid 1:1:1 240 mL suspension albuterol sulfate 90 mcg/actuation 1 puff inhalation QID PRN 02/13/23 02/13/23 Unknown History aerosol inhaler (ProAir HFA) Shortness Of Breath Or Wheezing diphenhydramine HCl 12.5 mg/5 mL 25 mg PO BID PRN Allergy Symptoms 02/13/23 02/13/23 02/12/23 History oral liquid (Children's Allergy (diphenhydramine)) fluconazole 150 mg tablet 150 mg PO Q3D PRN SORES FROM CHEMO 02/13/23 02/13/23 Unknown History polyethylene glycol 3350 17 gram 17 g PO DAILY PRN Constipation 02/13/23 02/13/23 Unknown History oral powder packet (Miralax) sucralfate 1 gram tablet 1 g PO BID 02/13/23 02/13/23 02/13/23 History <Ariela Enriquez NP - Last Filed: 02/14/23 10:31> Physical Exam Vital Signs and Narrative: Vital Signs: Last Vital Signs Temp 98.7 F 02/13/23 15:35 Pulse 97 02/13/23 15:54 Resp 15 02/13/23 15:54 BP 122/42 L 02/13/23 15:35 Pulse Ox 94 02/13/23 15:54 O2 Del Method Room Air 02/13/23 15:54 BMI result Body Mass Index 45.5 <Ariela Enriquez NP - Last Filed: 02/14/23 10:31> Appearing in no acute distress head is normocephalic atraumatic eyes pupils are PERRLA sclera is anicteric mouth throat mucous membranes are intact and moist neck is supple no lymphadenopathy, no JVD noted lung sounds are clear to auscultation heart regular rate rhythm, clear S1, S2 positive bowel sounds, abdomen is soft, nontender neuro patient is alert x3, no focal deficits <Ariela Enriquez NP - Last Filed: 02/14/23 10:31> Results Labs CBC and Chem 7: 02/14/23 05:37 02/14/23 05:37 <Ariela Enriquez NP - Last Filed: 02/14/23 10:31> Labs: Laboratory Results - last 24 hr 02/13/23 02/13/23 15:34 15:46 MCV 85.4 MCH 27.1 MCHC 31.7 RDW 16.8 H Plt Count 113 L D MPV 10.3 Immature Gran % (Auto) Cancelled Neut % (Auto) Cancelled Lymph % (Auto) Cancelled Harvey % (Auto) Cancelled Eos % (Auto) Cancelled Baso % (Auto) Cancelled Lymph # (Auto) Cancelled Harvey # (Auto) Cancelled Eos # (Auto) Cancelled Baso # (Auto) Cancelled Abs Immat Gran (auto) Cancelled Absolute Neuts (auto) Cancelled Absolute Nucleated RBC 0.000 Nucleated RBC % (auto) 0.0 Neutrophils % (Manual) 12 L Band Neutrophils % 0 L Lymphocytes % (Manual) 60 H Monocytes % (Manual) 28 H Abs Neuts (Manual) Not Reportable Lymphocytes # (Manual) 0.1 L Monocytes # (Manual) 0.1 Platelet Estimate DECREASED Large Platelets PRESENT Plt Morphology Comment NOTED RBC Morphology NORMAL Smear Tech's Comments VERIFIED ESR 24 H PT 17.2 H INR 1.4 H APTT 30.3 Anion Gap 13 Estim Creat Clear Calc 93.9 Estimated GFR > 60 Random Glucose 146 H Lactic Acid 2.0 Calcium 8.4 D Magnesium 1.9 Total Bilirubin 0.7 AST 14 ALT 9 Alkaline Phosphatase 57 C-Reactive Protein 4.56 H Total Protein 5.9 L Albumin 3.5 Influenza Type A (PCR) NEGATIVE Influenza Type B (PCR) NEGATIVE RSV RNA Qual (PCR) NEGATIVE SARS-CoV-2 RNA (RT-PCR) NEGATIVE <Ariela Enriquez NP - Last Filed: 02/14/23 10:31> Imaging Radiologist's Impressions: Impressions Head CT 02/13/23 16:03 IMPRESSION: No acute intracranial abnormality. <Ariela Enriquez NP - Last Filed: 02/14/23 10:31> Assessment and Plan (1) Atrial fibrillation with RVR: Status: Acute <Ariela Enriquez NP - Last Filed: 02/14/23 10:31> 62-year-old woman with history of breast cancer on chemotherapy presenting with neutropenia with fever and chills Neutropenia No obvious infectious source at this time Chest x-ray negative for consolidation or effusion, UA pending, no skin wounds Follow-up blood cultures Empiric cefepime Sees Dr. Starkey, will consult Paroxysmal atrial fibrillation Continue beta-oren and apixaban Hypertension Stable blood pressure Morbid obesity. BMI 45.5 Discussed importance of weight management as this may be contributing to worsening of other comorbidities Mental health Continue home medications GERD Continue PPI DVT prophylaxis with apixaban Full code MED REC PENDING Patient required 2 inpatient midnights for treatment of neutropenia requiring close monitoring for infection, blood culture finalization and empiric IV antibiotics <Ariela Enriquez NP - Last Filed: 02/14/23 10:31> Quality Stroke Does the patient have a stroke diagnosis?: No <Tej Gibbs MD - Last Filed: 02/14/23 10:27> VTE Prior VTE?: Yes <Tej Gibbs MD - Last Filed: 02/14/23 10:27> VTE Risk Level:: Medical - moderate - high <Tej Gibbs MD - Last Filed: 02/14/23 10:27> VTE Device Contraindication: Treatment Not Indicated <Tej Gibbs MD - Last Filed: 02/14/23 10:27> VTE Drug Contraindication: N/A - Med Ordered <Tej Gibbs MD - Last Filed: 02/14/23 10:27>
[2023-02-13 17:53] LABS: Appearance Urine Clear; Color Urine Yellow; Glucose Urine UA Negative (Negative); Leukocyte Esterase Urine Negative (Negative); Nitrite Urine Negative (Negative); Urine Blood Negative (Negative); Urine Ketones Negative (Negative); Urine Protein Negative (Neg-Trace)
--- NOTE | 2023-02-13 19:11 | PC.NURSE ---
Attempted report per abrasives sales representative nurse is busy and will call you back
--- NOTE | 2023-02-13 19:32 | PC.NURSE ---
report given to MATT greer- pt to be transported to floor
--- NOTE | 2023-02-13 20:15 | PHA.MEDREC ---
Pharmacy Consult ? Medication Reconciliation Pharmacy has completed the medication reconciliation.Spoke to pt to confirm medications. She was able to verify medications and doses as well as last time taken at home. She states the fluconazole and magic mouthwash are only used when she has chemotherapy and develops sores from it.
[2023-02-13] MEDS: Acetaminophen 325 MG TABLET 650 MG PO (20:44)
[2023-02-13] MEDS: 0.9 % Sodium Chloride Flush 3 ML SYRINGE IVFLUSH (20:47)
[2023-02-13] MEDS: Gabapentin 600 MG TABLET PO (21:23)
[2023-02-13] MEDS: Mirtazapine 15 MG TABLET PO (21:23)
[2023-02-13] MEDS: Sucralfate 1 GM TABLET PO (21:24)
[2023-02-13] MEDS: LORazepam 1 MG TABLET PO (21:24)
[2023-02-14] MEDS: oxyCODONE HCl Immed Release 5 MG TABLET PO ×6 (01:36→21:47)
[2023-02-14 04:00] VITALS: BP 136/60; PULSE 98; RESP 16; TEMP 37.2; O2SAT 93
[2023-02-14] MEDS: Omeprazole 20 MG CAPSULE.DR PO (05:34)
[2023-02-14 06:27] LABS: Anion Gap 10 (12-20); Blood Urea Nitrogen 11 mg/dL (9-16); Calcium 8.4 mg/dL (8.4-10.2); Carbon Dioxide 26 mmol/L (22-29); Chloride 105 mmol/L (96-108); Creatinine Clr Calc Pharmacy 107.4; Estimated Glomerular Filt Rate > 60; Glucose Random 145 mg/dL (60-115); Magnesium 1.8 mg/dL (1.6-2.6); Potassium 3.5 mmol/L (3.3-5.1); Sodium 137 mmol/L (135-145)
[2023-02-14 06:38] LABS: Hematocrit 23.3 % (37.0-47.0); Hemoglobin 7.4 g/dl (12.0-16.0); Mean Corpuscular HGB Conc 31.8 g/dl (31.0-35.0); Mean Corpuscular Hemoglobin 27.2 pg (27.0-33.0); Mean Corpuscular Volume 85.7 fL (80.0-98.0); Mean Platelet Volume 11.8 fL (9.4-12.3); Red Blood Count 2.72 X10*6/uL (4.20-5.50); Red Cell Distribution Width 17.1 % (11.0-16.0)
[2023-02-14 07:33] VITALS: BP 109/54; PULSE 109; RESP 18; TEMP 37.4; O2SAT 94
[2023-02-14 07:42] LABS: Platelet Count 96 X10*3/uL (160-400)
[2023-02-14 08:02] LABS: Neutrophils Percent Manual 20 % (45-73)
[2023-02-14 08:03] LABS: Monocytes Percent Manual 18 % (2-11); RBC Morphology NOTED
[2023-02-14 08:04] LABS: Band Neutrophils Percent 6 % (3-5); Hypochromasia 2+ (15-30) /OIF; Lymphocytes Percent Manual 56 % (20-40); Ovalocytes 1+ (5-14) /OIF; Tear Drop Cells 1+ (0-2) /OIF
[2023-02-14 08:05] LABS: Dohle Bodies PRESENT; Large Platelet PRESENT; Platelet Estimate DECREASED (NORMAL); Platelet Morphology Comment NOTED
[2023-02-14 08:08] LABS: Lymphocytes Absolute Manual 0.3 X10*3/uL (1.2-4.9); Monocytes Absolute Manual 0.1 X10*3/uL (0.1-1.2); Neutrophils Absolute Manual 0.1 X10*3/uL (2.0-8.3); White Blood Count 0.5 X10*3/uL (4.8-10.8)
[2023-02-14] MEDS: Ascorbic Acid 500 MG TABLET PO ×2 (09:09→21:47)
[2023-02-14] MEDS: Apixaban 5 MG TABLET PO ×2 (09:09→21:47)
[2023-02-14] MEDS: Sucralfate 1 GM TABLET PO ×2 (09:09→21:46)
[2023-02-14] MEDS: Furosemide 20 MG TABLET PO (09:09)
[2023-02-14] MEDS: FLUoxetine HCl 20 MG CAPSULE 40 MG PO (09:09)
[2023-02-14] MEDS: atenoloL 100 MG TABLET PO (09:09)
[2023-02-14] MEDS: buPROPion HCl XL 300 MG TAB.ER.24H PO (09:09)
[2023-02-14] MEDS: Cyanocobalamin (Vitamin B-12) 100 MCG TABLET PO (09:10)
[2023-02-14] MEDS: Calcium + Vitamin D 250 MG TABLET 500 MG PO ×2 (09:10→21:47)
[2023-02-14] MEDS: Gabapentin 600 MG TABLET PO ×3 (09:10→21:46)
[2023-02-14] MEDS: hydroCHLOROthiazide 12.5 MG TABLET PO (09:11)
[2023-02-14] MEDS: Magnesium Oxide 400 MG TABLET PO (09:11)
[2023-02-14] MEDS: 0.9 % Sodium Chloride Flush 3 ML SYRINGE IVFLUSH ×3 (09:11→21:48)
[2023-02-14] MEDS: cefEPime HCl 1 GM in 0.9 % Sodium Chloride 50 ML IV ×2 (09:11→15:49)
[2023-02-14] MEDS: Loratadine 10 MG TABLET PO (09:11)
[2023-02-14] MEDS: Acetaminophen 325 MG TABLET 650 MG PO ×2 (09:19→15:58)
--- NOTE | 2023-02-14 09:48 | P.PNIM_ITS ---
Subjective Subjective Date of Service: 02/14/23 Review of Systems Follow up neutropenia felling better, no fever or chills Physical Exam 2 Vital Signs: Vital Signs: Last Vital Signs Temp 99.3 F 02/14/23 07:33 Pulse 109 H 02/14/23 07:33 Resp 18 02/14/23 07:33 BP 109/54 L 02/14/23 07:33 Pulse Ox 94 02/14/23 07:33 O2 Del Method Room Air 02/14/23 07:33 BMI result Body Mass Index 46.6 Appearing in no acute distress lung sounds are clear to auscultation heart regular rate rhythm, clear S1, S2 positive bowel sounds, abdomen is soft, nontender neuro patient is alert x3, no focal deficits Objective Data Active Medications Acetaminophen (Acetaminophen 325 Mg Tablet) 650 mg PO Q6H PRN PRN Reason: Pain, Mild (Pain Scale 1-3) Last Admin: 02/14/23 09:19 Dose: 650 mg Documented By: TREVOR Albuterol Sulfate (Albuterol Sulfate 90 Mcg 8 Gm Inhaler) 1 puff INHALE QID PRN PRN Reason: Shortness Of Breath Or Wheezing Apixaban (Apixaban 5 Mg Tablet) 5 mg PO BID [facility] Last Admin: 02/14/23 09:09 Dose: 5 mg Documented By: TREVOR Apixaban (Apixaban 5 Mg Tablet) 5 mg PO BID [facility] Last Admin: 02/14/23 09:12 Dose: Not Given Documented By: TREVOR Non-Admin Reason: Duplicate Order Ascorbic Acid (Ascorbic Acid 500 Mg Tablet) 500 mg PO BID [facility] Last Admin: 02/14/23 09:09 Dose: 500 mg Documented By: TREVOR Atenolol (Atenolol 100 Mg Tablet) 100 mg PO DAILY [facility]; Protocol Last Admin: 02/14/23 09:09 Dose: 100 mg Documented By: TREVOR Bupropion HCl (Bupropion Hcl Xl 300 Mg Tab.Er.24h) 300 mg PO DAILY [facility] Last Admin: 02/14/23 09:09 Dose: 300 mg Documented By: TREVOR Calcium Carbonate/Cholecalciferol (Calcium + Vitamin D 250 Mg Tablet) 500 mg PO BID [facility] Last Admin: 02/14/23 09:10 Dose: 500 mg Documented By: TREVOR Cyanocobalamin (Cyanocobalamin (Vitamin B-12) 100 Mcg Tablet) 100 mcg PO DAILY [facility] Last Admin: 02/14/23 09:10 Dose: 100 mcg Documented By: TREVOR Diphenhydramine HCl (Diphenhydramine Hcl 12.5 Mg/5 Ml Liquid) 25 mg PO BID PRN PRN Reason: Allergy Symptoms Docusate Sodium (Docusate Sodium 100 Mg Capsule) 100 mg PO DAILY PRN PRN Reason: Constipation Fluoxetine HCl (Fluoxetine Hcl 20 Mg Capsule) 40 mg PO DAILY [facility] Last Admin: 02/14/23 09:09 Dose: 40 mg Documented By: TREVOR Furosemide (Furosemide 20 Mg Tablet) 20 mg PO DAILY [facility]; Protocol Last Admin: 02/14/23 09:09 Dose: 20 mg Documented By: TREVOR Gabapentin (Gabapentin 600 Mg Tablet) 600 mg PO TID [facility] Last Admin: 02/14/23 09:10 Dose: 600 mg Documented By: TREVOR Hydrochlorothiazide (Hydrochlorothiazide 12.5 Mg Tablet) 12.5 mg PO DAILY [facility]; Protocol Last Admin: 02/14/23 09:11 Dose: 12.5 mg Documented By: TREVOR Cefepime HCl 1 gm/ Sodium (Chloride) 50 mls @ 100 mls/hr IV Q8H [facility] Last Admin: 02/14/23 09:11 Dose: 100 mls/hr Documented By: TREVOR Lidocaine/Diphenhydr/Alum/Mg/Simeth (Mag&Al/Sim/Diphenhyd/Lidocaine 10 Ml Oral.Susp) 10 ml PO 5XD PRN PRN Reason: SORES FROM CHEMO Loratadine (Loratadine 10 Mg Tablet) 10 mg PO DAILY [facility] Last Admin: 02/14/23 09:11 Dose: 10 mg Documented By: TREVOR Lorazepam (Lorazepam 1 Mg Tablet) 1 mg PO TID PRN PRN Reason: Anxiety Last Admin: 02/13/23 21:24 Dose: 1 mg Documented By: HARVEY Magnesium Oxide (Magnesium Oxide 400 Mg Tablet) 400 mg PO DAILY [facility] Last Admin: 02/14/23 09:11 Dose: 400 mg Documented By: TREVOR Mirtazapine (Mirtazapine 15 Mg Tablet) 15 mg PO BEDTIME [facility] Last Admin: 02/13/23 21:23 Dose: 15 mg Documented By: HARVEY Omeprazole (Omeprazole 20 Mg Capsule.Dr) 20 mg PO DAILY@0630 [facility] Last Admin: 02/14/23 05:34 Dose: 20 mg Documented By: HARVEY Ondansetron HCl (Ondansetron Hcl 4 Mg/2 Ml Vial) 4 mg IVPUSH Q8H PRN PRN Reason: Nausea and Vomiting Oxycodone HCl (Oxycodone Hcl Immed Release 5 Mg Tablet) 5 mg PO Q4H [facility] Last Admin: 02/14/23 09:11 Dose: 5 mg Documented By: TREVOR Polyethylene Glycol (Polyethylene Glycol 3350 17 Gm Powd.Pack) 17 gm PO DAILY PRN PRN Reason: Constipation Sodium Chloride (0.9 % Sodium Chloride Flush 3 Ml Syringe) 3 ml IVFLUSH QSHIFT [facility] Last Admin: 02/14/23 09:11 Dose: 3 ml Documented By: TREVOR Sucralfate (Sucralfate 1 Gm Tablet) 1 gm PO BID [facility] Last Admin: 02/14/23 09:09 Dose: 1 gm Documented By: TREVOR Labs 02/14/23 05:37 02/14/23 05:37 Labs: Laboratory Results - last 24 hr 02/13/23 02/13/23 02/13/23 15:34 15:46 17:35 MCV 85.4 MCH 27.1 MCHC 31.7 RDW 16.8 H Plt Count 113 L D MPV 10.3 Immature Gran % (Auto) Cancelled Neut % (Auto) Cancelled Lymph % (Auto) Cancelled White % (Auto) Cancelled Eos % (Auto) Cancelled Baso % (Auto) Cancelled Lymph # (Auto) Cancelled White # (Auto) Cancelled Eos # (Auto) Cancelled Baso # (Auto) Cancelled Abs Immat Gran (auto) Cancelled Absolute Neuts (auto) Cancelled Absolute Nucleated RBC 0.000 Nucleated RBC % (auto) 0.0 Neutrophils % (Manual) 12 L Band Neutrophils % 0 L Lymphocytes % (Manual) 60 H Monocytes % (Manual) 28 H Abs Neuts (Manual) Not Reportable Lymphocytes # (Manual) 0.1 L Monocytes # (Manual) 0.1 Dohle Bodies Platelet Estimate DECREASED Large Platelets PRESENT Plt Morphology Comment NOTED RBC Morphology NORMAL Hypochromasia Tear Drop Cells Ovalocytes Smear Tech's Comments VERIFIED ESR 24 H PT 17.2 H INR 1.4 H APTT 30.3 Anion Gap 13 Estim Creat Clear Calc 93.9 Estimated GFR > 60 Random Glucose 146 H Lactic Acid 2.0 Calcium 8.4 D Magnesium 1.9 Total Bilirubin 0.7 AST 14 ALT 9 Alkaline Phosphatase 57 C-Reactive Protein 4.56 H Total Protein 5.9 L Albumin 3.5 Urine Color Yellow Urine Appearance Clear Urine pH 6.0 Ur Specific [place] 1.010 Urine Protein Negative Urine Glucose (UA) Negative Urine Ketones Negative Urine Blood Negative Urine Nitrite Negative Ur Leukocyte Esterase Negative Influenza Type A (PCR) NEGATIVE Influenza Type B (PCR) NEGATIVE RSV RNA Qual (PCR) NEGATIVE SARS-CoV-2 RNA (RT-PCR) NEGATIVE 02/14/23 05:37 MCV 85.7 MCH 27.2 MCHC 31.8 RDW 17.1 H Plt Count 96 L MPV 11.8 Immature Gran % (Auto) Cancelled Neut % (Auto) Cancelled Lymph % (Auto) Cancelled White % (Auto) Cancelled Eos % (Auto) Cancelled Baso % (Auto) Cancelled Lymph # (Auto) Cancelled White # (Auto) Cancelled Eos # (Auto) Cancelled Baso # (Auto) Cancelled Abs Immat Gran (auto) Cancelled Absolute Neuts (auto) Cancelled Absolute Nucleated RBC 0.000 Nucleated RBC % (auto) 0.0 Neutrophils % (Manual) 20 L Band Neutrophils % 6 H Lymphocytes % (Manual) 56 H Monocytes % (Manual) 18 H Abs Neuts (Manual) 0.1 L Lymphocytes # (Manual) 0.3 L Monocytes # (Manual) 0.1 Dohle Bodies PRESENT Platelet Estimate DECREASED Large Platelets PRESENT Plt Morphology Comment NOTED RBC Morphology NOTED Hypochromasia 2+ (15-30) Tear Drop Cells 1+ (0-2) Ovalocytes 1+ (5-14) Smear Tech's Comments ESR PT INR APTT Anion Gap 10 L Estim Creat Clear Calc 107.4 Estimated GFR > 60 Random Glucose 145 H Lactic Acid Calcium 8.4 Magnesium 1.8 Total Bilirubin AST ALT Alkaline Phosphatase C-Reactive Protein Total Protein Albumin Urine Color Urine Appearance Urine pH Ur Specific [place] Urine Protein Urine Glucose (UA) Urine Ketones Urine Blood Urine Nitrite Ur Leukocyte Esterase Influenza Type A (PCR) Influenza Type B (PCR) RSV RNA Qual (PCR) SARS-CoV-2 RNA (RT-PCR) Assessment and Plan (1) Atrial fibrillation with RVR: Status: Acute (2) Neutropenic fever: Status: Acute Plan 62-year-old woman with history of breast cancer on chemotherapy presenting with neutropenia with fever and chills Neutropenia WBC up to 0.5 No obvious infectious source at this time Chest x-ray negative for consolidation or effusion, UA pending, no skin wounds Follow-up blood cultures Empiric cefepime Sees Dr. Starkey, will consult Paroxysmal atrial fibrillation Continue beta-oren and apixaban Hypertension Stable blood pressure Morbid obesity. BMI 45.5 Discussed importance of weight management as this may be contributing to worsening of other comorbidities Mental health Continue home medications GERD Continue PPI DVT prophylaxis with apixaban Attending Dr. Kumar Full code Continued hospital stay for treatment of neutropenia requiring close monitoring for infection, blood culture finalization and empiric IV antibiotics Quality Stroke Does the patient have a stroke diagnosis?: No VTE Prior VTE?: No VTE Risk Level:: Medical - moderate - high VTE Device Contraindication: Treatment Not Indicated VTE Drug Contraindication: N/A - Med Ordered
--- NOTE | 2023-02-14 09:55 | MHC.CM.PN ---
IMM 02/14/23 Female 62 DX Neutropenia. She lives by herself. She receives assist from her son. [employer]abil provides home O2 1L. She has a tub bench. She states that she does not use an AD. DP home self care. Son will transport home.
[2023-02-14 15:37] VITALS: BP 121/58; PULSE 97; RESP 20; TEMP 37; O2SAT 91
[2023-02-14 19:31] VITALS: BP 122/56; PULSE 96; RESP 17; TEMP 36.2; O2SAT 95
[2023-02-14] MEDS: LORazepam 1 MG TABLET PO (21:46)
[2023-02-14] MEDS: Mirtazapine 15 MG TABLET PO (21:47)
[2023-02-15] MEDS: cefEPime HCl 1 GM in 0.9 % Sodium Chloride 50 ML IV ×3 (00:27→17:41)
[2023-02-15] MEDS: oxyCODONE HCl Immed Release 5 MG TABLET PO ×6 (02:02→21:03)
[2023-02-15 04:00] VITALS: BP 126/60; PULSE 104; RESP 16; TEMP 36.5; O2SAT 93
--- NOTE | 2023-02-15 04:29 | PC.NURSE ---
Pt refuse bed alarm or tab alarm. Other high fall risk safety intervention in place.
[2023-02-15] MEDS: Omeprazole 20 MG CAPSULE.DR PO (06:05)
[2023-02-15 06:34] LABS: Hematocrit 23.4 % (37.0-47.0); Hemoglobin 7.4 g/dl (12.0-16.0); Mean Corpuscular HGB Conc 31.6 g/dl (31.0-35.0); Mean Corpuscular Hemoglobin 27.1 pg (27.0-33.0); Mean Corpuscular Volume 85.7 fL (80.0-98.0); Mean Platelet Volume 11.5 fL (9.4-12.3); Red Blood Count 2.73 X10*6/uL (4.20-5.50); Red Cell Distribution Width 17.3 % (11.0-16.0)
[2023-02-15 06:35] LABS: Platelet Count 89 X10*3/uL (160-400); WBC ABN SCTR FOR CBC 1; White Blood Count 2.9 X10*3/uL (4.8-10.8)
[2023-02-15 07:10] VITALS: BP 115/54; PULSE 110; RESP 17; TEMP 36.6; O2SAT 95
[2023-02-15] MEDS: FLUoxetine HCl 20 MG CAPSULE 40 MG PO (08:36)
[2023-02-15] MEDS: Cyanocobalamin (Vitamin B-12) 100 MCG TABLET PO (08:36)
[2023-02-15] MEDS: atenoloL 100 MG TABLET PO (08:36)
[2023-02-15] MEDS: Calcium + Vitamin D 250 MG TABLET 500 MG PO ×2 (08:36→20:50)
[2023-02-15] MEDS: buPROPion HCl XL 300 MG TAB.ER.24H PO (08:36)
[2023-02-15] MEDS: Ascorbic Acid 500 MG TABLET PO ×2 (08:37→20:50)
[2023-02-15] MEDS: hydroCHLOROthiazide 12.5 MG TABLET PO (08:37)
[2023-02-15] MEDS: Acetaminophen 325 MG TABLET 650 MG PO ×2 (08:37→20:49)
[2023-02-15] MEDS: Gabapentin 600 MG TABLET PO ×3 (08:37→20:50)
[2023-02-15] MEDS: Magnesium Oxide 400 MG TABLET PO (08:37)
[2023-02-15] MEDS: Sucralfate 1 GM TABLET PO ×2 (08:37→20:50)
[2023-02-15] MEDS: Furosemide 20 MG TABLET PO (08:37)
[2023-02-15] MEDS: LORazepam 1 MG TABLET PO ×2 (08:37→15:21)
[2023-02-15] MEDS: Loratadine 10 MG TABLET PO (08:37)
[2023-02-15] MEDS: Apixaban 5 MG TABLET PO ×3 (08:38→20:50)
[2023-02-15] MEDS: 0.9 % Sodium Chloride Flush 3 ML SYRINGE IVFLUSH ×2 (08:38→20:49)
[2023-02-15 09:18] LABS: Band Neutrophils Percent 8 % (3-5); Eosinophils Percent Manual 1 % (0-4); Lymphocytes Absolute Manual 0.6 X10*3/uL (1.2-4.9); Lymphocytes Percent Manual 21 % (20-40); Monocytes Absolute Manual 0.2 X10*3/uL (0.1-1.2); Monocytes Percent Manual 7 % (2-11); Neutrophils Absolute Manual 2.1 X10*3/uL (2.0-8.3); Neutrophils Percent Manual 63 % (45-73)
[2023-02-15 09:20] LABS: Burr Cells 1+ (0-2) /OIF; RBC Morphology NOTED; Tear Drop Cells 1+ (0-2) /OIF
[2023-02-15 09:22] LABS: Dohle Bodies PRESENT; Platelet Estimate DECREASED (NORMAL); Platelet Morphology Comment NORMAL
--- NOTE | 2023-02-15 11:16 | P.PNIM_ITS ---
Subjective Subjective Date of Service: 02/15/23 Interval History: seen and evaluated this morning WBCs improved she reports feeling weak and exhausted all over Hb at 7.4 denies any fever or chills Review of Systems Review of Systems: Yes all other systems are reviewed and are negative Physical Exam 2 Vital Signs: Vital Signs: Last Vital Signs Temp 98 F 02/15/23 07:10 Pulse 110 H 02/15/23 07:10 Resp 17 02/15/23 07:10 BP 115/54 L 02/15/23 07:10 Pulse Ox 95 02/15/23 07:10 O2 Del Method Room Air 02/15/23 07:10 BMI result Body Mass Index 46.6 Const: Other: Constitutional : Awake, interactive, obese, not in distress, deconditioned Neck : Normal inspection, Supple Cardiovascular : RRR, no JVP, no lower extremity edema Respiratory : fair bilateral air entry, no crackles, wheezes or rhonchi Gastrointestinal: soft, lax, Normal bowel sounds, Non tender Skin : Warm, Dry Neurological : Alert & oriented x3, No focal deficit Objective Data Active Medications Acetaminophen (Acetaminophen 325 Mg Tablet) 650 mg PO Q6H PRN PRN Reason: Pain, Mild (Pain Scale 1-3) Last Admin: 02/15/23 08:37 Dose: 650 mg Documented By: FLOR Albuterol Sulfate (Albuterol Sulfate 90 Mcg 8 Gm Inhaler) 1 puff INHALE QID PRN PRN Reason: Shortness Of Breath Or Wheezing Apixaban (Apixaban 5 Mg Tablet) 5 mg PO BID [facility] Last Admin: 02/15/23 08:38 Dose: 5 mg Documented By: FLOR Apixaban (Apixaban 5 Mg Tablet) 5 mg PO BID [facility] Last Admin: 02/15/23 08:38 Dose: 5 mg Documented By: FLOR Ascorbic Acid (Ascorbic Acid 500 Mg Tablet) 500 mg PO BID [facility] Last Admin: 02/15/23 08:37 Dose: 500 mg Documented By: FLOR Atenolol (Atenolol 100 Mg Tablet) 100 mg PO DAILY [facility]; Protocol Last Admin: 02/15/23 08:36 Dose: 100 mg Documented By: FLOR Bupropion HCl (Bupropion Hcl Xl 300 Mg Tab.Er.24h) 300 mg PO DAILY [facility] Last Admin: 02/15/23 08:36 Dose: 300 mg Documented By: FLOR Calcium Carbonate/Cholecalciferol (Calcium + Vitamin D 250 Mg Tablet) 500 mg PO BID [facility] Last Admin: 02/15/23 08:36 Dose: 500 mg Documented By: FLOR Cyanocobalamin (Cyanocobalamin (Vitamin B-12) 100 Mcg Tablet) 100 mcg PO DAILY [facility] Last Admin: 02/15/23 08:36 Dose: 100 mcg Documented By: FLOR Diphenhydramine HCl (Diphenhydramine Hcl 12.5 Mg/5 Ml Liquid) 25 mg PO BID PRN PRN Reason: Allergy Symptoms Docusate Sodium (Docusate Sodium 100 Mg Capsule) 100 mg PO DAILY PRN PRN Reason: Constipation Fluoxetine HCl (Fluoxetine Hcl 20 Mg Capsule) 40 mg PO DAILY [facility] Last Admin: 02/15/23 08:36 Dose: 40 mg Documented By: FLOR Furosemide (Furosemide 20 Mg Tablet) 20 mg PO DAILY [facility]; Protocol Last Admin: 02/15/23 08:37 Dose: 20 mg Documented By: FLOR Gabapentin (Gabapentin 600 Mg Tablet) 600 mg PO TID [facility] Last Admin: 02/15/23 08:37 Dose: 600 mg Documented By: FLOR Hydrochlorothiazide (Hydrochlorothiazide 12.5 Mg Tablet) 12.5 mg PO DAILY [facility]; Protocol Last Admin: 02/15/23 08:37 Dose: 12.5 mg Documented By: FLOR Cefepime HCl 1 gm/ Sodium (Chloride) 50 mls @ 100 mls/hr IV Q8H [facility] Last Infusion: 02/15/23 09:24 Dose: Infused Documented By: FLOR Lidocaine/Diphenhydr/Alum/Mg/Simeth (Mag&Al/Sim/Diphenhyd/Lidocaine 10 Ml Oral.Susp) 10 ml PO 5XD PRN PRN Reason: SORES FROM CHEMO Loratadine (Loratadine 10 Mg Tablet) 10 mg PO DAILY [facility] Last Admin: 02/15/23 08:37 Dose: 10 mg Documented By: FLOR Lorazepam (Lorazepam 1 Mg Tablet) 1 mg PO TID PRN PRN Reason: Anxiety Last Admin: 02/15/23 08:37 Dose: 1 mg Documented By: FLOR Magnesium Oxide (Magnesium Oxide 400 Mg Tablet) 400 mg PO DAILY [facility] Last Admin: 02/15/23 08:37 Dose: 400 mg Documented By: FLOR Mirtazapine (Mirtazapine 15 Mg Tablet) 15 mg PO BEDTIME [facility] Last Admin: 02/14/23 21:47 Dose: 15 mg Documented By: KATELYN Omeprazole (Omeprazole 20 Mg Capsule.Dr) 20 mg PO DAILY@0630 [facility] Last Admin: 02/15/23 06:05 Dose: 20 mg Documented By: KATELYN Ondansetron HCl (Ondansetron Hcl 4 Mg/2 Ml Vial) 4 mg IVPUSH Q8H PRN PRN Reason: Nausea and Vomiting Oxycodone HCl (Oxycodone Hcl Immed Release 5 Mg Tablet) 5 mg PO Q4H [facility] Last Admin: 02/15/23 10:44 Dose: 5 mg Documented By: FLOR Polyethylene Glycol (Polyethylene Glycol 3350 17 Gm Powd.Pack) 17 gm PO DAILY PRN PRN Reason: Constipation Sodium Chloride (0.9 % Sodium Chloride Flush 3 Ml Syringe) 3 ml IVFLUSH QSHIFT [facility] Last Admin: 02/15/23 08:38 Dose: 3 ml Documented By: FLOR Sucralfate (Sucralfate 1 Gm Tablet) 1 gm PO BID [facility] Last Admin: 02/15/23 08:37 Dose: 1 gm Documented By: FLOR Labs 02/15/23 05:03 02/14/23 05:37 Labs: Laboratory Results - last 24 hr 02/14/23 02/15/23 05:37 05:03 MCV 85.7 MCH 27.1 MCHC 31.6 RDW 17.3 H Plt Count 89 L MPV 11.5 Immature Gran % (Auto) Cancelled Neut % (Auto) Cancelled Lymph % (Auto) Cancelled Woods % (Auto) Cancelled Eos % (Auto) Cancelled Baso % (Auto) Cancelled Lymph # (Auto) Cancelled Woods # (Auto) Cancelled Eos # (Auto) Cancelled Baso # (Auto) Cancelled Abs Immat Gran (auto) Cancelled Absolute Neuts (auto) Cancelled Absolute Nucleated RBC 0.000 Nucleated RBC % (auto) 0.0 Neutrophils % (Manual) 63 Band Neutrophils % 8 H Lymphocytes % (Manual) 21 Monocytes % (Manual) 7 Eosinophils % (Manual) 1 Abs Neuts (Manual) 2.1 Lymphocytes # (Manual) 0.6 L Monocytes # (Manual) 0.2 Dohle Bodies PRESENT Platelet Estimate DECREASED Plt Morphology Comment NORMAL RBC Morphology NOTED Tear Drop Cells 1+ (0-2) Mercedes Cells 1+ (0-2) Smear Path Review SEE NOTE Microbiology Microbiology Results: Microbiology 02/13/23 15:46 Blood Culture - Preliminary Blood - Venous No growth after 24 hours. 02/13/23 15:34 Blood Culture - Preliminary Blood - Venous No growth after 24 hours. Assessment and Plan (1) Pancytopenia due to chemotherapy: Status: Acute (2) Symptomatic anemia: Status: Acute Plan 62-year-old woman with history of breast cancer on chemotherapy presenting with neutropenia with fever and chills Pancytopenia w symptomatic anemia WBCs recovering Hb of 7.4; to transfuse 1 unit PRBCs PLT trending down but no bleeding reported likely all related to Chemotherapy with no signs of infection negative blood cultures Empiric cefepime appreciate dr Starkey input Paroxysmal atrial fibrillation Continue beta-oren and apixaban Hypertension Stable blood pressure Morbid obesity. BMI 45.5 Discussed importance of weight management as this may be contributing to worsening of other comorbidities Mental health Continue home medications GERD Continue PPI DVT prophylaxis with apixaban Full code Patient required overnight stay for treatment of neutropenia requiring close monitoring for infection, blood culture finalization and empiric IV antibiotics Quality Stroke Does the patient have a stroke diagnosis?: No VTE Prior VTE?: Yes VTE Risk Level:: Medical - moderate - high VTE Device Contraindication: Treatment Not Indicated VTE Drug Contraindication: N/A - Med Ordered
[2023-02-15 15:13] VITALS: BP 111/62; PULSE 77; RESP 17; TEMP 36.8
[2023-02-15] MEDS: Benzonatate 100 MG CAPSULE PO ×2 (15:21→20:50)
[2023-02-15 15:29] VITALS: BP 126/58; PULSE 75; RESP 17; TEMP 36.5
[2023-02-15 16:00] VITALS: BP 126/58; PULSE 75; RESP 17; TEMP 36.5; O2SAT 95
[2023-02-15 20:00] VITALS: BP 132/66; PULSE 83; RESP 17; TEMP 37.9; O2SAT 96
[2023-02-15] MEDS: Throat Lozenge, Medicated LOZENGE 1 LOZENGE MUCOUS MEM (20:49)
[2023-02-15] MEDS: Mirtazapine 15 MG TABLET PO (20:50)
[2023-02-15] MEDS: polyethylene glycoL 3350 17 GM POWD.PACK PO (21:02)
--- NOTE | 2023-02-15 22:51 | PC.NURSE ---
Pt refuse bed alarm or tab alarm. Other high fall risk safety intervention in place.
[2023-02-16] MEDS: cefEPime HCl 1 GM in 0.9 % Sodium Chloride 50 ML IV ×4 (00:25→23:28)
[2023-02-16 00:44] VITALS: TEMP 36.1
[2023-02-16] MEDS: oxyCODONE HCl Immed Release 5 MG TABLET PO ×6 (02:12→20:14)
[2023-02-16 03:17] VITALS: BP 154/67; PULSE 80; RESP 16; TEMP 36.5; O2SAT 94
[2023-02-16] MEDS: Omeprazole 20 MG CAPSULE.DR PO (06:02)
[2023-02-16 06:21] LABS: Hematocrit 29.1 % (37.0-47.0); Hemoglobin 8.9 g/dl (12.0-16.0); Mean Corpuscular HGB Conc 30.6 g/dl (31.0-35.0); Mean Corpuscular Hemoglobin 27.1 pg (27.0-33.0); Mean Corpuscular Volume 88.7 fL (80.0-98.0); Mean Platelet Volume 12.6 fL (9.4-12.3); Platelet Count 101 X10*3/uL (160-400); Red Blood Count 3.28 X10*6/uL (4.20-5.50); Red Cell Distribution Width 17.2 % (11.0-16.0); White Blood Count 4.5 X10*3/uL (4.8-10.8)
[2023-02-16 06:22] LABS: Anion Gap 13 (12-20); Blood Urea Nitrogen 11 mg/dL (9-16); Carbon Dioxide 28 mmol/L (22-29); Chloride 104 mmol/L (96-108); Creatinine Clr Calc Pharmacy 110.5; Estimated Glomerular Filt Rate > 60; Glucose Random 102 mg/dL (60-115); Potassium 3.7 mmol/L (3.3-5.1); Sodium 141 mmol/L (135-145)
[2023-02-16 07:14] VITALS: BP 122/58; PULSE 78; RESP 16; TEMP 36.3; O2SAT 94
[2023-02-16] MEDS: 0.9 % Sodium Chloride Flush 3 ML SYRINGE IVFLUSH ×3 (08:02→20:14)
[2023-02-16] MEDS: buPROPion HCl XL 300 MG TAB.ER.24H PO (08:06)
[2023-02-16] MEDS: Ascorbic Acid 500 MG TABLET PO ×2 (08:06→20:13)
[2023-02-16] MEDS: Gabapentin 600 MG TABLET PO ×3 (08:06→20:13)
[2023-02-16] MEDS: Apixaban 5 MG TABLET PO (08:06)
[2023-02-16] MEDS: Furosemide 20 MG TABLET PO (08:06)
[2023-02-16] MEDS: Benzonatate 100 MG CAPSULE PO (08:06)
[2023-02-16] MEDS: atenoloL 100 MG TABLET PO (08:06)
[2023-02-16] MEDS: Magnesium Oxide 400 MG TABLET PO (08:07)
[2023-02-16] MEDS: Calcium + Vitamin D 250 MG TABLET 500 MG PO ×2 (08:07→20:13)
[2023-02-16] MEDS: Sucralfate 1 GM TABLET PO ×2 (08:07→20:13)
[2023-02-16] MEDS: Loratadine 10 MG TABLET PO (08:07)
[2023-02-16] MEDS: Cyanocobalamin (Vitamin B-12) 100 MCG TABLET PO (08:07)
[2023-02-16] MEDS: FLUoxetine HCl 20 MG CAPSULE 40 MG PO (08:07)
[2023-02-16] MEDS: hydroCHLOROthiazide 12.5 MG TABLET PO (08:07)
[2023-02-16] MEDS: Acetaminophen 325 MG TABLET 650 MG PO (08:31)
[2023-02-16] MEDS: LORazepam 1 MG TABLET PO ×3 (08:31→23:31)
--- NOTE | 2023-02-16 08:51 | MHC.CM.PN ---
Patient received 1U PRBC yesterday. A referral has been sent to [facility] today. Patient may require home services at discharge. DP home with her sons assistance and transport home.
[2023-02-16] MEDS: guaiFENesin LA 600 MG TAB.ER.12H PO ×2 (10:16→20:13)
--- NOTE | 2023-02-16 11:24 | P.PNIM_ITS ---
Subjective Subjective Date of Service: 02/16/23 Interval History: seen and evaluated this morning WBCs improved to 4.2 Hb at 8.9 Coughing bloody tinged sputum reporting chills but no fever Review of Systems Review of Systems: Yes all other systems are reviewed and are negative Physical Exam 2 Vital Signs: Vital Signs: Last Vital Signs Temp 97.3 F 02/16/23 07:14 Pulse 78 02/16/23 07:14 Resp 16 02/16/23 07:14 BP 122/58 L 02/16/23 07:14 Pulse Ox 94 02/16/23 07:14 O2 Del Method Room Air 02/16/23 07:14 BMI result Body Mass Index 46.6 Const: Other: Constitutional : Awake, interactive, obese, not in distress, deconditioned Neck : Normal inspection, Supple Cardiovascular : RRR, no JVP, no lower extremity edema Respiratory : fair bilateral air entry, no crackles, wheezes or rhonchi Gastrointestinal: soft, lax, Normal bowel sounds, Non tender Skin : Warm, Dry Neurological : Alert & oriented x3, No focal deficit Objective Data Active Medications Acetaminophen (Acetaminophen 325 Mg Tablet) 650 mg PO Q6H PRN PRN Reason: Pain, Mild (Pain Scale 1-3) Last Admin: 02/16/23 08:31 Dose: 650 mg Documented By: MARCUS Albuterol Sulfate (Albuterol Sulfate 90 Mcg 8 Gm Inhaler) 1 puff INHALE QID PRN PRN Reason: Shortness Of Breath Or Wheezing Apixaban (Apixaban 5 Mg Tablet) 5 mg PO BID [facility] Last Admin: 02/16/23 08:06 Dose: 5 mg Documented By: MARCUS Ascorbic Acid (Ascorbic Acid 500 Mg Tablet) 500 mg PO BID [facility] Last Admin: 02/16/23 08:06 Dose: 500 mg Documented By: MARCUS Atenolol (Atenolol 100 Mg Tablet) 100 mg PO DAILY [facility]; Protocol Last Admin: 02/16/23 08:06 Dose: 100 mg Documented By: MARCUS Benzocaine (Throat Lozenge, Medicated Lozenge) 1 lozenge MUCOUS MEM Q2H PRN PRN Reason: Sore Throat Last Admin: 02/15/23 20:49 Dose: 1 lozenge Documented By: [email or web address] Benzonatate (Benzonatate 100 Mg Capsule) 200 mg PO TID [facility] Bupropion HCl (Bupropion Hcl Xl 300 Mg Tab.Er.24h) 300 mg PO DAILY [facility] Last Admin: 02/16/23 08:06 Dose: 300 mg Documented By: MARCUS Calcium Carbonate/Cholecalciferol (Calcium + Vitamin D 250 Mg Tablet) 500 mg PO BID [facility] Last Admin: 02/16/23 08:07 Dose: 500 mg Documented By: MARCUS Cyanocobalamin (Cyanocobalamin (Vitamin B-12) 100 Mcg Tablet) 100 mcg PO DAILY [facility] Last Admin: 02/16/23 08:07 Dose: 100 mcg Documented By: MARCUS Diphenhydramine HCl (Diphenhydramine Hcl 12.5 Mg/5 Ml Liquid) 25 mg PO BID PRN PRN Reason: Allergy Symptoms Docusate Sodium (Docusate Sodium 100 Mg Capsule) 100 mg PO DAILY PRN PRN Reason: Constipation Fluoxetine HCl (Fluoxetine Hcl 20 Mg Capsule) 40 mg PO DAILY [facility] Last Admin: 02/16/23 08:07 Dose: 40 mg Documented By: MARCUS Furosemide (Furosemide 20 Mg Tablet) 20 mg PO DAILY [facility]; Protocol Last Admin: 02/16/23 08:06 Dose: 20 mg Documented By: MARCUS Gabapentin (Gabapentin 600 Mg Tablet) 600 mg PO TID [facility] Last Admin: 02/16/23 08:06 Dose: 600 mg Documented By: MARCUS Guaifenesin (Guaifenesin La 600 Mg Tab.Er.12h) 600 mg PO BID [facility] Last Admin: 02/16/23 10:16 Dose: 600 mg Documented By: MARCUS Hydrochlorothiazide (Hydrochlorothiazide 12.5 Mg Tablet) 12.5 mg PO DAILY [facility]; Protocol Last Admin: 02/16/23 08:07 Dose: 12.5 mg Documented By: MARCUS Cefepime HCl 1 gm/ Sodium (Chloride) 50 mls @ 100 mls/hr IV Q8H [facility] Last Infusion: 02/16/23 08:39 Dose: Infused Documented By: MARCUS Lidocaine/Diphenhydr/Alum/Mg/Simeth (Mag&Al/Sim/Diphenhyd/Lidocaine 10 Ml Oral.Susp) 10 ml PO 5XD PRN PRN Reason: SORES FROM CHEMO Loratadine (Loratadine 10 Mg Tablet) 10 mg PO DAILY [facility] Last Admin: 02/16/23 08:07 Dose: 10 mg Documented By: MARCUS Lorazepam (Lorazepam 1 Mg Tablet) 1 mg PO TID PRN PRN Reason: Anxiety Last Admin: 02/16/23 08:31 Dose: 1 mg Documented By: MARCUS Magnesium Oxide (Magnesium Oxide 400 Mg Tablet) 400 mg PO DAILY [facility] Last Admin: 02/16/23 08:07 Dose: 400 mg Documented By: MARCUS Mirtazapine (Mirtazapine 15 Mg Tablet) 15 mg PO BEDTIME [facility] Last Admin: 02/15/23 20:50 Dose: 15 mg Documented By: KATELYN Omeprazole (Omeprazole 20 Mg Capsule.Dr) 20 mg PO DAILY@0630 [facility] Last Admin: 02/16/23 06:02 Dose: 20 mg Documented By: KELSIE Ondansetron HCl (Ondansetron Hcl 4 Mg/2 Ml Vial) 4 mg IVPUSH Q8H PRN PRN Reason: Nausea and Vomiting Oxycodone HCl (Oxycodone Hcl Immed Release 5 Mg Tablet) 5 mg PO Q4H [facility] Last Admin: 02/16/23 10:17 Dose: 5 mg Documented By: MARCUS Polyethylene Glycol (Polyethylene Glycol 3350 17 Gm Powd.Pack) 17 gm PO DAILY PRN PRN Reason: Constipation Last Admin: 02/15/23 21:02 Dose: 17 gm Documented By: KATELYN Sodium Chloride (0.9 % Sodium Chloride Flush 3 Ml Syringe) 3 ml IVFLUSH QSHIFT [facility] Last Admin: 02/16/23 08:02 Dose: 3 ml Documented By: MARCUS Sucralfate (Sucralfate 1 Gm Tablet) 1 gm PO BID [facility] Last Admin: 02/16/23 08:07 Dose: 1 gm Documented By: MARCUS Labs 02/16/23 05:37 02/16/23 05:37 Labs: Laboratory Results - last 24 hr 02/15/23 02/16/23 12:33 05:37 MCV 88.7 MCH 27.1 MCHC 30.6 L RDW 17.2 H Plt Count 101 L MPV 12.6 H Absolute Nucleated RBC 0.000 Nucleated RBC % (auto) 0.0 Anion Gap 13 Estim Creat Clear Calc 110.5 Estimated GFR > 60 Random Glucose 102 Calcium 9.0 D Blood Type B Positive Antibody Screen NEGATIVE Crossmatch See Detail Microbiology Microbiology Results: Microbiology 02/13/23 15:46 Blood Culture - Preliminary Blood - Venous No growth after 48 hours. 02/13/23 15:34 Blood Culture - Preliminary Blood - Venous No growth after 48 hours. Assessment and Plan (1) Symptomatic anemia: Status: Acute (2) Pancytopenia due to chemotherapy: Status: Acute (3) Atrial fibrillation with RVR: Status: Acute (4) Neutropenic fever: Status: Acute Plan 62-year-old woman with history of breast cancer on chemotherapy presenting with neutropenia with fever and chills Pancytopenia w symptomatic anemia WBCs recovering Hb of 8.9 post transfusion 1 unit PRBCs PLT trending up appreciate dr Starkey input, likely all related to Chemotherapy with no signs of infection negative blood cultures Empiric cefepime Hemoptysis related to cough and low PLT no hypoxia or resp distress CXR no infiltrates, encourage Spirometry follow clinically Hold Apixaban Paroxysmal atrial fibrillation Continue beta-oren Hold apixaban Hypertension Stable blood pressure Morbid obesity. BMI 45.5 Discussed importance of weight management as this may be contributing to worsening of other comorbidities Mental health Continue home medications GERD Continue PPI DVT prophylaxis with apixaban Full code Patient required overnight stay for treatment of neutropenia requiring close monitoring for infection, Hemoptysis, blood culture finalization and empiric IV antibiotics Quality Stroke Does the patient have a stroke diagnosis?: No VTE Prior VTE?: Yes VTE Risk Level:: Medical - moderate - high VTE Device Contraindication: Treatment Not Indicated VTE Drug Contraindication: N/A - Med Ordered
[2023-02-16] MEDS: Benzonatate 100 MG CAPSULE 200 MG PO ×2 (15:24→20:13)
[2023-02-16 15:43] VITALS: BP 119/59; PULSE 69; RESP 18; TEMP 36.6; O2SAT 97
[2023-02-16 20:00] VITALS: BP 150/71; PULSE 78; RESP 18; TEMP 36.6; O2SAT 97
[2023-02-16] MEDS: Mirtazapine 15 MG TABLET PO (20:13)
[2023-02-16] MEDS: diphenhydrAMINE HCl 12.5 MG/5 ML LIQUID 25 MG PO (23:31)
[2023-02-17] MEDS: oxyCODONE HCl Immed Release 5 MG TABLET PO ×6 (02:09→21:23)
[2023-02-17 04:00] VITALS: BP 118/54; PULSE 80; RESP 18; TEMP 36.8; O2SAT 93
[2023-02-17 06:01] LABS: Hematocrit 26.1 % (37.0-47.0); Hemoglobin 8.2 g/dl (12.0-16.0); Mean Corpuscular HGB Conc 31.4 g/dl (31.0-35.0); Mean Corpuscular Hemoglobin 27.2 pg (27.0-33.0); Mean Corpuscular Volume 86.4 fL (80.0-98.0); Mean Platelet Volume 11.7 fL (9.4-12.3); Platelet Count 111 X10*3/uL (160-400); Red Blood Count 3.02 X10*6/uL (4.20-5.50); Red Cell Distribution Width 17.2 % (11.0-16.0); White Blood Count 4.1 X10*3/uL (4.8-10.8)
[2023-02-17] MEDS: Omeprazole 20 MG CAPSULE.DR PO (06:05)
[2023-02-17 06:40] LABS: Anion Gap 11 (12-20); Blood Urea Nitrogen 9 mg/dL (9-16); Calcium 8.5 mg/dL (8.4-10.2); Carbon Dioxide 28 mmol/L (22-29); Chloride 106 mmol/L (96-108); Estimated Glomerular Filt Rate > 60; Glucose Random 100 mg/dL (60-115); Potassium 3.7 mmol/L (3.3-5.1); Sodium 141 mmol/L (135-145)
[2023-02-17 07:18] VITALS: BP 115/59; PULSE 78; RESP 18; TEMP 36.7; O2SAT 95
[2023-02-17] MEDS: Mag&Al/Sim/Diphenhyd/Lidocaine 10 ML ORAL.SUSP PO ×4 (08:14→21:24)
[2023-02-17] MEDS: Furosemide 20 MG TABLET PO (08:16)
[2023-02-17] MEDS: Sucralfate 1 GM TABLET PO ×2 (08:16→21:22)
[2023-02-17] MEDS: Ascorbic Acid 500 MG TABLET PO ×2 (08:16→21:23)
[2023-02-17] MEDS: FLUoxetine HCl 20 MG CAPSULE 40 MG PO (08:17)
[2023-02-17] MEDS: guaiFENesin LA 600 MG TAB.ER.12H PO ×2 (08:17→21:23)
[2023-02-17] MEDS: Benzonatate 100 MG CAPSULE 200 MG PO ×3 (08:17→21:22)
[2023-02-17] MEDS: Acetaminophen 325 MG TABLET 650 MG PO (08:17)
[2023-02-17] MEDS: Gabapentin 600 MG TABLET PO ×3 (08:17→21:23)
[2023-02-17] MEDS: Loratadine 10 MG TABLET PO (08:17)
[2023-02-17] MEDS: hydroCHLOROthiazide 12.5 MG TABLET PO (08:18)
[2023-02-17] MEDS: buPROPion HCl XL 300 MG TAB.ER.24H PO (08:18)
[2023-02-17] MEDS: LORazepam 1 MG TABLET PO ×2 (08:18→16:18)
[2023-02-17] MEDS: Magnesium Oxide 400 MG TABLET PO (08:18)
[2023-02-17] MEDS: 0.9 % Sodium Chloride Flush 3 ML SYRINGE IVFLUSH ×2 (08:19→21:24)
[2023-02-17] MEDS: cefEPime HCl 1 GM in 0.9 % Sodium Chloride 50 ML IV (08:19)
[2023-02-17] MEDS: Cyanocobalamin (Vitamin B-12) 100 MCG TABLET PO (08:19)
[2023-02-17] MEDS: Calcium + Vitamin D 250 MG TABLET 500 MG PO ×2 (08:19→21:21)
[2023-02-17] MEDS: atenoloL 100 MG TABLET PO (08:19)
[2023-02-17] MEDS: polyethylene glycoL 3350 17 GM POWD.PACK PO (12:23)
[2023-02-17] MEDS: Throat Lozenge, Medicated LOZENGE 1 LOZENGE MUCOUS MEM (14:16)
--- NOTE | 2023-02-17 14:29 | MHC.CM.PN ---
Per MD no discharge today. DP home with NA. Her son will transport to home at discharge.
--- NOTE | 2023-02-17 14:45 | MHC.HEMONC ---
Patient is currently inpatient and is scheduled for chemotherapy on Tuesday 02/20- Per Dr. Starkey chemotherapy should be postponed by one week with follow up. Called [facility] and spoke to nurse and she will relay that message to patient.
--- NOTE | 2023-02-17 15:02 | P.PNIM_ITS ---
Subjective Subjective Date of Service: 02/17/23 Interval History: seen and evaluated this morning WBCs improved to 4.1 Hb at 8.2 less bloody tinged sputum today no chills no fever Review of Systems Review of Systems: Yes all other systems are reviewed and are negative Physical Exam 2 Vital Signs: Vital Signs: Last Vital Signs Temp 98.0 F 02/17/23 07:18 Pulse 78 02/17/23 07:18 Resp 18 02/17/23 07:18 BP 115/59 L 02/17/23 07:18 Pulse Ox 95 02/17/23 07:18 O2 Del Method Room Air 02/17/23 07:18 BMI result Body Mass Index 46.6 Const: Other: Constitutional : Awake, interactive, obese, not in distress, deconditioned Neck : Normal inspection, Supple Cardiovascular : RRR, no JVP, no lower extremity edema Respiratory : fair bilateral air entry, no crackles, wheezes or rhonchi, coughing Gastrointestinal: soft, lax, Normal bowel sounds, Non tender Skin : Warm, Dry Neurological : Alert & oriented x3, No focal deficit Objective Data Active Medications Acetaminophen (Acetaminophen 325 Mg Tablet) 650 mg PO Q6H PRN PRN Reason: Pain, Mild (Pain Scale 1-3) Last Admin: 02/17/23 08:17 Dose: 650 mg Documented By: MARCUS Albuterol Sulfate (Albuterol Sulfate 90 Mcg 8 Gm Inhaler) 1 puff INHALE QID PRN PRN Reason: Shortness Of Breath Or Wheezing Apixaban (Apixaban 5 Mg Tablet) 5 mg PO BID [facility] Last Admin: 02/16/23 08:06 Dose: 5 mg Documented By: MARCUS Ascorbic Acid (Ascorbic Acid 500 Mg Tablet) 500 mg PO BID [facility] Last Admin: 02/17/23 08:16 Dose: 500 mg Documented By: MARCUS Atenolol (Atenolol 100 Mg Tablet) 100 mg PO DAILY [facility]; Protocol Last Admin: 02/17/23 08:19 Dose: 100 mg Documented By: MARCUS Benzocaine (Throat Lozenge, Medicated Lozenge) 1 lozenge MUCOUS MEM Q2H PRN PRN Reason: Sore Throat Last Admin: 02/17/23 14:16 Dose: 1 lozenge Documented By: MARCUS Benzonatate (Benzonatate 100 Mg Capsule) 200 mg PO TID [facility] Last Admin: 02/17/23 14:15 Dose: 200 mg Documented By: MARCUS Bupropion HCl (Bupropion Hcl Xl 300 Mg Tab.Er.24h) 300 mg PO DAILY [facility] Last Admin: 02/17/23 08:18 Dose: 300 mg Documented By: MARCUS Calcium Carbonate/Cholecalciferol (Calcium + Vitamin D 250 Mg Tablet) 500 mg PO BID [facility] Last Admin: 02/17/23 08:19 Dose: 500 mg Documented By: MARCUS Cyanocobalamin (Cyanocobalamin (Vitamin B-12) 100 Mcg Tablet) 100 mcg PO DAILY [facility] Last Admin: 02/17/23 08:19 Dose: 100 mcg Documented By: MARCUS Diphenhydramine HCl (Diphenhydramine Hcl 12.5 Mg/5 Ml Liquid) 25 mg PO BID PRN PRN Reason: Allergy Symptoms Last Admin: 02/16/23 23:31 Dose: 25 mg Documented By: STERLING Docusate Sodium (Docusate Sodium 100 Mg Capsule) 100 mg PO DAILY PRN PRN Reason: Constipation Fluoxetine HCl (Fluoxetine Hcl 20 Mg Capsule) 40 mg PO DAILY [facility] Last Admin: 02/17/23 08:17 Dose: 40 mg Documented By: MARCUS Furosemide (Furosemide 20 Mg Tablet) 20 mg PO DAILY [facility]; Protocol Last Admin: 02/17/23 08:16 Dose: 20 mg Documented By: MARCUS Gabapentin (Gabapentin 600 Mg Tablet) 600 mg PO TID [facility] Last Admin: 02/17/23 14:15 Dose: 600 mg Documented By: MARCUS Guaifenesin (Guaifenesin La 600 Mg Tab.Er.12h) 600 mg PO BID [facility] Last Admin: 02/17/23 08:17 Dose: 600 mg Documented By: MARCUS Hydrochlorothiazide (Hydrochlorothiazide 12.5 Mg Tablet) 12.5 mg PO DAILY [facility]; Protocol Last Admin: 02/17/23 08:18 Dose: 12.5 mg Documented By: MARCUS Lidocaine/Diphenhydr/Alum/Mg/Simeth (Mag&Al/Sim/Diphenhyd/Lidocaine 10 Ml Oral.Susp) 10 ml PO 5XD PRN PRN Reason: SORES FROM CHEMO Last Admin: 02/17/23 12:23 Dose: 10 ml Documented By: MARCUS Loratadine (Loratadine 10 Mg Tablet) 10 mg PO DAILY [facility] Last Admin: 02/17/23 08:17 Dose: 10 mg Documented By: MARCUS Lorazepam (Lorazepam 1 Mg Tablet) 1 mg PO TID PRN PRN Reason: Anxiety Last Admin: 02/17/23 08:18 Dose: 1 mg Documented By: MARCUS Magnesium Oxide (Magnesium Oxide 400 Mg Tablet) 400 mg PO DAILY [facility] Last Admin: 02/17/23 08:18 Dose: 400 mg Documented By: MARCUS Mirtazapine (Mirtazapine 15 Mg Tablet) 15 mg PO BEDTIME [facility] Last Admin: 02/16/23 20:13 Dose: 15 mg Documented By: STERLING Omeprazole (Omeprazole 20 Mg Capsule.Dr) 20 mg PO DAILY@0630 [facility] Last Admin: 02/17/23 06:05 Dose: 20 mg Documented By: STERLING Ondansetron HCl (Ondansetron Hcl 4 Mg/2 Ml Vial) 4 mg IVPUSH Q8H PRN PRN Reason: Nausea and Vomiting Oxycodone HCl (Oxycodone Hcl Immed Release 5 Mg Tablet) 5 mg PO Q4H [facility] Last Admin: 02/17/23 14:15 Dose: 5 mg Documented By: MARCUS Polyethylene Glycol (Polyethylene Glycol 3350 17 Gm Powd.Pack) 17 gm PO DAILY PRN PRN Reason: Constipation Last Admin: 02/17/23 12:23 Dose: 17 gm Documented By: MARCUS Sodium Chloride (0.9 % Sodium Chloride Flush 3 Ml Syringe) 3 ml IVFLUSH QSHIFT [facility] Last Admin: 02/17/23 08:19 Dose: 3 ml Documented By: MARCUS Sucralfate (Sucralfate 1 Gm Tablet) 1 gm PO BID [facility] Last Admin: 02/17/23 08:16 Dose: 1 gm Documented By: MARCUS Labs 02/17/23 05:39 02/17/23 05:39 Labs: Laboratory Results - last 24 hr 02/17/23 05:39 MCV 86.4 MCH 27.2 MCHC 31.4 RDW 17.2 H Plt Count 111 L MPV 11.7 Absolute Nucleated RBC 0.000 Nucleated RBC % (auto) 0.0 Anion Gap 11 L Estim Creat Clear Calc 125.0 Estimated GFR > 60 Random Glucose 100 Calcium 8.5 Assessment and Plan (1) Symptomatic anemia: Status: Acute (2) Pancytopenia due to chemotherapy: Status: Acute (3) Atrial fibrillation with RVR: Status: Acute (4) Neutropenic fever: Status: Acute Plan 62-year-old woman with history of breast cancer on chemotherapy presenting with neutropenia with fever and chills Pancytopenia w symptomatic anemia WBCs recovering Hb of 8.2 post transfusion 1 unit PRBCs PLT trending up appreciate dr Starkey input, likely all related to Chemotherapy with no signs of infection, To postpone Chemo until 02/27 negative blood cultures DC Empiric cefepime and monitor any symptoms of infection Hemoptysis related to cough and low PLT no hypoxia or resp distress CXR no infiltrates, encourage Spirometry follow clinically Hold Apixaban Paroxysmal atrial fibrillation w RvR on admission, controlled now Continue beta-oren Hold apixaban Hypertension Stable blood pressure Morbid obesity. BMI 45.5 Discussed importance of weight management as this may be contributing to worsening of other comorbidities Mental health Continue home medications GERD Continue PPI DVT prophylaxis with apixaban Full code Patient required overnight stay for treatment of neutropenia requiring close monitoring for infection, Hemoptysis, blood culture finalization and empiric IV antibiotics Quality Stroke Does the patient have a stroke diagnosis?: No VTE Prior VTE?: Yes VTE Risk Level:: Medical - moderate - high VTE Device Contraindication: Treatment Not Indicated VTE Drug Contraindication: N/A - Med Ordered
[2023-02-17 15:18] VITALS: BP 110/74; PULSE 75; RESP 18; TEMP 36.5; O2SAT 96
[2023-02-17] MEDS: diphenhydrAMINE HCl 12.5 MG/5 ML LIQUID 25 MG PO (16:17)
[2023-02-17 20:00] VITALS: BP 132/77; PULSE 87; RESP 14; O2SAT 93
[2023-02-17] MEDS: Mirtazapine 15 MG TABLET PO (21:23)
[2023-02-18] MEDS: LORazepam 1 MG TABLET PO ×2 (00:01→09:52)
[2023-02-18] MEDS: oxyCODONE HCl Immed Release 5 MG TABLET PO ×4 (02:31→13:45)
[2023-02-18 03:09] VITALS: BP 134/59; RESP 16; TEMP 36.4; O2SAT 94
[2023-02-18] MEDS: Omeprazole 20 MG CAPSULE.DR PO (06:11)
[2023-02-18] MEDS: Mag&Al/Sim/Diphenhyd/Lidocaine 10 ML ORAL.SUSP PO ×3 (06:17→13:49)
[2023-02-18 06:38] LABS: Anion Gap 13 (12-20); Blood Urea Nitrogen 9 mg/dL (9-16); Calcium 8.8 mg/dL (8.4-10.2); Carbon Dioxide 28 mmol/L (22-29); Chloride 106 mmol/L (96-108); Creatinine Clr Calc Pharmacy 108.9; Estimated Glomerular Filt Rate > 60; Glucose Random 108 mg/dL (60-115); Potassium 4.2 mmol/L (3.3-5.1); Sodium 143 mmol/L (135-145)
[2023-02-18 06:43] LABS: Hematocrit 29.2 % (37.0-47.0); Hemoglobin 9.1 g/dl (12.0-16.0); Mean Corpuscular HGB Conc 31.2 g/dl (31.0-35.0); Mean Corpuscular Hemoglobin 27.2 pg (27.0-33.0); Mean Corpuscular Volume 87.4 fL (80.0-98.0); Mean Platelet Volume 11.2 fL (9.4-12.3); Platelet Count 158 X10*3/uL (160-400); Red Blood Count 3.34 X10*6/uL (4.20-5.50); Red Cell Distribution Width 17.2 % (11.0-16.0); White Blood Count 5.3 X10*3/uL (4.8-10.8)
[2023-02-18 08:00] VITALS: BP 94/57; PULSE 109; RESP 18; TEMP 37.2; O2SAT 93
[2023-02-18] MEDS: buPROPion HCl XL 300 MG TAB.ER.24H PO (09:40)
[2023-02-18] MEDS: Sucralfate 1 GM TABLET PO (09:40)
[2023-02-18] MEDS: FLUoxetine HCl 20 MG CAPSULE 40 MG PO (09:40)
[2023-02-18] MEDS: Loratadine 10 MG TABLET PO (09:40)
[2023-02-18] MEDS: guaiFENesin LA 600 MG TAB.ER.12H PO (09:40)
[2023-02-18] MEDS: Calcium + Vitamin D 250 MG TABLET 500 MG PO (09:40)
[2023-02-18] MEDS: Cyanocobalamin (Vitamin B-12) 100 MCG TABLET PO (09:40)
[2023-02-18] MEDS: Ascorbic Acid 500 MG TABLET PO (09:40)
[2023-02-18] MEDS: Benzonatate 100 MG CAPSULE 200 MG PO (09:40)
[2023-02-18] MEDS: Magnesium Oxide 400 MG TABLET PO (09:41)
[2023-02-18] MEDS: 0.9 % Sodium Chloride Flush 3 ML SYRINGE IVFLUSH (09:41)
[2023-02-18] MEDS: Gabapentin 600 MG TABLET PO (09:41)
--- NOTE | 2023-02-18 12:11 | PM.DS ---
DS: Providers Provider Date of Service: 02/18/23 Date of admission: 02/13/23 17:15 Primary care physician: Ayan Perdomo MD DS: Diagnosis Discharge Diagnosis (1) Symptomatic anemia: Status: Acute (2) Pancytopenia due to chemotherapy: Status: Acute (3) Atrial fibrillation with RVR: Status: Acute (4) Neutropenic fever: Status: Acute DS: Summary Hospital Course Hospital Course: Admission note HPI 62-year-old woman with history of cancer on chemotherapy presents with fever and chills over the last few days. She denied any recent travel, sick contacts, nausea, vomiting, diarrhea, chest pain, shortness of breath, dizziness. She lives alone but her son does help her and is very careful regarding his health because of her. In the ER her white blood cell count was noted to be 0.2, urinalysis was taken but results pending, chest x-ray without consolidation or effusion, negative COVID-19, influenza, RSV, blood cultures pending. In the ER she was given a dose of cefepime, metoprolol for tachycardia and oxycodone for pain. She will be admitted further management and treatment of acute neutropenia. Hospital course # Pancytopenia w symptomatic anemia Admitted for pancytopenia from chemotherapy. Hb of 8.2 post transfusion 1 unit PRBCs. PLT trended up along with WBCs. She was seen by oncologist dr Starkey who suggested that her symptoms likely all related to Chemotherapy with no signs of infection, To postpone Chemo until 02/27. She was covered with IV Cefepime as no source of infection identified. negative blood cultures. Antibiotics were held for 24 hours with no fever reported. # Hemoptysis related to cough and low PLT . no hypoxia or resp distress . CXR no infiltrates, encouraged Spirometry along with cough medications. resolved as Eliquis was held for 24 hours. To resume on discharge. # Paroxysmal atrial fibrillation w RvR on admission, controlled with home medication To repeat blood test as scheduled by dr Starkey Next Chemo session on 02/27 Encourage fluid intake Please come back to the hospital for any fever, shortness of breath or bleeding. Time Attestation Discharge coordination time: Greater than 30 minutes Quality: Safe Use of Opioids Does Pt have an Active Cancer Diagnosis on the Problem List?: Yes Opioid Measure Date for CMS Report: 01/19/23 Opioid Measure Time for CMS Report: 12:20 Quality: Stroke Does the patient have a stroke diagnosis?: No Physical Exam Vital Signs: Vital Signs: Last Vital Signs Temp 98.9 F 02/18/23 08:00 Pulse 109 H 02/18/23 08:00 Resp 18 02/18/23 08:00 BP 94/57 L 02/18/23 08:00 Pulse Ox 93 02/18/23 08:00 O2 Del Method Room Air 02/18/23 08:00 BMI result Body Mass Index 46.6 Const: Other: Constitutional : Awake, interactive, obese, not in distress, deconditioned Neck : Normal inspection, Supple Cardiovascular : RRR, no JVP, no lower extremity edema Respiratory : fair bilateral air entry, no crackles, wheezes or rhonchi, coughing Gastrointestinal: soft, lax, Normal bowel sounds, Non tender Skin : Warm, Dry Neurological : Alert & oriented x3, No focal deficit DS: Data Data Completed and Pending Completed studies during hospitalization [Text1]: Procedures Drainage of Left Breast, Percutaneous Approach (12/07/22) Excision of Left Axillary Lymphatic, Open Approach, Diagnostic (11/18/22) Resection of Left Breast, Open Approach (11/18/22) Labs on day of discharge: Laboratory Results - last 24 hr 02/18/23 06:01 WBC 5.3 RBC 3.34 L Hgb 9.1 L Hct 29.2 L MCV 87.4 MCH 27.2 MCHC 31.2 RDW 17.2 H Plt Count 158 L D MPV 11.2 Absolute Nucleated RBC 0.000 Nucleated RBC % (auto) 0.0 Sodium 143 Potassium 4.2 Chloride 106 Carbon Dioxide 28 Anion Gap 13 BUN 9 Creatinine 0.70 Estim Creat Clear Calc 108.9 Estimated GFR > 60 Random Glucose 108 Calcium 8.8 Preliminary micro results at discharge 02/13/23 15:46 Blood Culture - Preliminary Blood - Venous No growth after 48 hours. 02/13/23 15:34 Blood Culture - Preliminary Blood - Venous No growth after 48 hours. Imaging Chest x-ray: Radiologist's impression: ITS Impressions Head CT 02/13/23 16:03 IMPRESSION: No acute intracranial abnormality. Chest X-Ray 02/13/23 16:47 IMPRESSION: No acute cardiopulmonary process. Left jugular central venous port with its tip in the left distal brachiocephalic vein. On previous exam the Port-A-Cath tip was in right jugular vein and has been retracted and its tip now in the left brachiocephalic vein Chest X-Ray 02/16/23 10:15 IMPRESSION: Poor inspiratory effort. No acute disease or interval change. Discharge Plan Discharge Anticipated Discharge Date/Time: 02/18/23 12:01 Patient Disposition: Home Health Service Discharge Diagnosis: Pancytopenia Fever Atrial fibrillation with RvR Referrals: Ayan Perdomo MD [Primary Care Provider] - 1 Week Discharge Medications: New guaifenesin [Mucinex] 600 mg Tablet Extended Release 12hr 600 mg PO BID Qty: 20 0RF benzonatate 100 mg Capsule 200 mg PO TID Qty: 30 0RF Continued atenolol 100 mg tablet 100 mg PO DAILY Qty: 90 3RF hydrochlorothiazide 12.5 mg tablet 12.5 mg PO DAILY Qty: 90 3RF Eliquis 5 mg tablet 5 mg PO BID Qty: 60 5RF diphenhydramine HCl [Children's Allergy (diphenhyd)] 12.5 mg/5 mL liquid 25 mg PO BID PRN (Reason: Allergy Symptoms) sucralfate 1 gram tablet 1 g PO BID albuterol sulfate [ProAir HFA] 90 mcg/actuation Hfa Aerosol Inhaler 1 puff INHALATION QID PRN (Reason: Shortness Of Breath Or Wheezing) fluconazole 150 mg tablet 150 mg PO Q3D PRN (Reason: SORES FROM CHEMO) Magic Mouthwash Diphen/Lido/Antacid 1:1:1 240 mL suspension 10 ml PO 4-5XD PRN (Reason: SORES FROM CHEMO) Rx Instructions: Lidocaine Viscous 2 % 80mL; diphenhydramine 12.5 mg/5 mL 80mL; aluminum-mag hydrox-simeth [id number]/5mL 80mL polyethylene glycol 3350 [Miralax] 17 gram Powder In Packet 17 g PO DAILY PRN (Reason: Constipation) ondansetron 8 mg Tablet,Disintegrating 8 mg PO Q8H PRN (Reason: Nausea And Vomiting) Qty: 30 3RF (DME) bra, mastectomy Crystals Qty: 1 0RF Rx Instructions: As Directed (DME) Wig Kit Qty: 1 0RF Rx Instructions: As Directed (DME) Breast prosthesis Kit Qty: 1 0RF Rx Instructions: As Directed magnesium oxide 400 mg (241.3 mg magnesium) tablet 400 mg PO DAILY pantoprazole 40 mg tablet,delayed release (DR/EC) 40 mg PO DAILY@0630 docusate sodium 100 mg capsule 100 mg PO DAILY PRN (Reason: Constipation) mirtazapine 15 mg tablet,disintegrating 15 mg PO BEDTIME oxycodone 5 mg tablet 5 mg PO Q4H lorazepam 1 mg tablet 1 mg PO TID PRN (Reason: Anxiety) ascorbic acid (vitamin C) [Vitamin C] 500 mg tablet 500 mg PO BID cetirizine 10 mg tablet 10 mg PO DAILY gabapentin 600 mg tablet 600 mg PO TID calcium carbonate-vitamin D3 600 mg-20 mcg (800 unit) tablet 1 tab PO BID cyanocobalamin (vitamin B-12) 100 mcg tablet 100 mcg PO DAILY bupropion HCl 150 mg tablet sustained-release 12 hr 300 mg PO DAILY furosemide 20 mg tablet 20 mg PO DAILY fluoxetine 20 mg capsule 40 mg PO DAILY (DME) mastectomy bra to fit See Rx Instructions .Route .MEDSUPPLY Qty: 2 0RF Rx Instructions: As directed (DME) left breast prosthetic to fit See Rx Instructions .Route .MEDSUPPLY Qty: 1 0RF Rx Instructions: As directed Discharge Orders: Discharge Order (Routine); Ordered 02/18/23 Ordered By: Emily Montenegro Diet: Advance to usual diet Activity on Discharge: As tolerated Stand Alone Forms: Patient Portal Discharge page Care Plan Goals: Read below Health Concerns: Read below Plan of Treatment: Read below Assessment: To repeat blood test as scheduled by dr Starkey Next Chemo session on 02/27 Encourage fluid intake Please come back to the hospital for any fever, shortness of breath or bleeding.
--- NOTE | 2023-02-18 12:41 | MHC.CM.PN ---
PT WILL DC HOME TODAY WITH [facility] VIA PRIVATE TRANSPORT
[2023-02-18] MEDS: diphenhydrAMINE HCl 12.5 MG/5 ML LIQUID 25 MG PO (13:45)
--- NOTE | 2023-03-06 11:54 | W.MHC.F2F ---
Service Date Service Date: 03/06/23 Encounter Date of encounter: 02/18/23 Reasons for Services Signs and symptoms assessed: physical deconditioning Reason for physical therapy: home safety and mobility and therapeutic exercises Homebound: Leaving the home is medically contraindicated at this time without the asist of a device and/or another person due th the listed conditions above and below. Reason homebound: unable to drive Certification: Based on the above findings, I certify that this patient is confined to the home and needs intermittent half-way care, physical therapy and/or speech therapy, or continues to need occupational therapy. The patient is under my care, and I have initiated the establishment of the plan of care. The patient will be followed by a physician who will periodically review the plan of care. Time Spent With Patient Time: Total time managing care of this patient today ____ minutes.
== END 2023-02-18 15:02 | disposition home health service (06) | DRG 809 ==
LOC: HO.ED 18:06 → HO.EDOVER 18:18 → HO.S3 18:58
PROVIDERS: Physician Assistant Medical; Admitting Provider Nurse Practitioner Acute Care; Emergency Provider Emergency Medicine; PCP Internal Medicine; Visit Provider Student in an Organized Health Care Education/Training Program
DX: D61.810 Antineoplastic chemotherapy induced pancytopenia (principal); R04.2 Hemoptysis; Z68.42 Body mass index [BMI] 45.0-49.9, adult; I48.0 Paroxysmal atrial fibrillation; C50.912 Malignant neoplasm of unspecified site of left female breast; T45.1X5A Adverse effect of antineoplastic and immunosuppressive drugs, initial encounter; E66.01 Morbid (severe) obesity due to excess calories; I10 Essential (primary) hypertension; K21.9 Gastro-esophageal reflux disease without esophagitis; Z71.3 Dietary counseling and surveillance; Z20.822 Contact with and (suspected) exposure to COVID-19; Z91.040 Latex allergy status; Z79.01 Long term (current) use of anticoagulants; Z79.899 Other long term (current) drug therapy
CPT/HCPCS: 0241U; 36415; 70450; 71045; 80048; 80053; 81003; 83605; 83735; 84484; 85007; 85025; 85027; 85610; 85652; 85730; 86140; 86850; 86900; 86901; 86923; 87040; 93005; 97161; 99285; J0692; J1447; P9016

== ENCOUNTER → 2023-02-13 17:15 | Outpatient (BNV) | payer MEDICARE, MEDICAID, SELFPAY | PROVIDERS: Admitting Provider Nurse Practitioner Acute Care; Emergency Provider Emergency Medicine; Visit Provider Nurse Practitioner Acute Care | DX: I48.91 Unspecified atrial fibrillation (principal); D70.9 Neutropenia, unspecified; R50.81 Fever presenting with conditions classified elsewhere | CPT/HCPCS: 99223; 99232; 99233; 99239; G0180 ==

== ENCOUNTER 2023-02-25 09:55 | Outpatient (REF) | payer MEDICARE, MEDICAID, SELFPAY ==
[2023-02-25 10:08] LABS: MANUAL DIFF FLAG NO
[2023-02-25 10:18] LABS: Basophils Percent Auto 0.7 % (0-2); Hemoglobin 10.7 g/dl (12.0-16.0); Imm Gran Abs Auto 0.01 X10*3/uL (0.00-0.03); Imm Gran Pct Auto 0.2 % (0.0-0.4); Lymphocytes Absolute Auto 0.8 X10*3/uL (1.2-4.9); Mean Corpuscular HGB Conc 30.6 g/dl (31.0-35.0); Mean Corpuscular Hemoglobin 27.4 pg (27.0-33.0); Mean Corpuscular Volume 89.7 fL (80.0-98.0); Mean Platelet Volume 9.7 fL (9.4-12.3); Monocytes Absolute Auto 0.5 X10*3/uL (0.1-1.2); Monocytes Percent Auto 10.9 % (2-11); Neutrophils Absolute Auto 2.8 x10*3/uL (2.0-8.3); Neutrophils Percent Auto 68.2 % (45-73); Platelet Count 494 X10*3/uL (160-400); White Blood Count 4.1 X10*3/uL (4.8-10.8)
[2023-02-25 10:32] LABS: Alanine Aminotransferase 11 U/L (0-31); Alkaline Phosphatase 74 U/L (39-117); Anion Gap 16 (12-20); Aspartate Amino Transferase 16 U/L (5-31); Bilirubin Total 0.3 mg/dL (0.0-1.0); Blood Urea Nitrogen 14 mg/dL (9-16); Calcium 9.4 mg/dL (8.4-10.2); Carbon Dioxide 23 mmol/L (22-29); Chloride 106 mmol/L (96-108); Estimated Glomerular Filt Rate > 60; Glucose Random 139 mg/dL (60-115); Magnesium 2.1 mg/dL (1.6-2.6); Potassium 4.3 mmol/L (3.3-5.1); Sodium 141 mmol/L (135-145); Total Protein 6.7 g/dL (6.5-8.0)
== END 2023-02-25 09:56 | disposition home or self-care (01) ==
LOC: HO.LAB 09:55
PROVIDERS: Visit Provider Internal Medicine
DX: C50.919 Malignant neoplasm of unspecified site of unspecified female breast (principal)
CPT/HCPCS: 36415; 80053; 83735; 85025

== ENCOUNTER 2023-03-11 10:29 | Outpatient (REF) | payer MEDICARE, MEDICAID, SELFPAY ==
[2023-03-11 10:40] LABS: MANUAL DIFF FLAG NO
[2023-03-11 11:59] LABS: Basophils Percent Auto 0.5 % (0-2); Eosinophils Percent Auto 0.5 % (0-4); Hematocrit 33.9 % (37.0-47.0); Hemoglobin 10.6 g/dl (12.0-16.0); Imm Gran Abs Auto 0.03 X10*3/uL (0.00-0.03); Imm Gran Pct Auto 0.8 % (0.0-0.4); Lymphocytes Absolute Auto 1.3 X10*3/uL (1.2-4.9); Lymphocytes Percent Auto 33.7 % (20-40); Mean Corpuscular HGB Conc 31.3 g/dl (31.0-35.0); Mean Corpuscular Hemoglobin 28.4 pg (27.0-33.0); Mean Corpuscular Volume 90.9 fL (80.0-98.0); Mean Platelet Volume 10.9 fL (9.4-12.3); Monocytes Absolute Auto 0.6 X10*3/uL (0.1-1.2); Neutrophils Absolute Auto 1.9 x10*3/uL (2.0-8.3); Neutrophils Percent Auto 49.5 % (45-73); Platelet Count 153 X10*3/uL (160-400); Red Blood Count 3.73 X10*6/uL (4.20-5.50); Red Cell Distribution Width 19.9 % (11.0-16.0); White Blood Count 3.9 X10*3/uL (4.8-10.8)
[2023-03-11 12:14] LABS: Alanine Aminotransferase 9 U/L (0-31); Albumin Level 4.1 g/dL (3.5-5.0); Alkaline Phosphatase 89 U/L (39-117); Anion Gap 16 (12-20); Aspartate Amino Transferase 17 U/L (5-31); Bilirubin Total 0.3 mg/dL (0.0-1.0); Blood Urea Nitrogen 8 mg/dL (9-16); Calcium 9.3 mg/dL (8.4-10.2); Carbon Dioxide 26 mmol/L (22-29); Chloride 103 mmol/L (96-108); Estimated Glomerular Filt Rate > 60; Glucose Random 147 mg/dL (60-115); Magnesium 2.1 mg/dL (1.6-2.6); Potassium 3.8 mmol/L (3.3-5.1); Sodium 141 mmol/L (135-145); Total Protein 6.8 g/dL (6.5-8.0)
== END 2023-03-11 10:30 | disposition home or self-care (01) ==
LOC: HO.LAB 10:29
PROVIDERS: PCP Internal Medicine; Visit Provider Internal Medicine
DX: C50.912 Malignant neoplasm of unspecified site of left female breast (principal)
CPT/HCPCS: 36415; 80053; 83735; 85025

== ENCOUNTER 2023-03-18 10:22 | Outpatient (REF) | payer MEDICARE, MEDICAID, SELFPAY ==
[2023-03-18 10:32] LABS: MANUAL DIFF FLAG NO
[2023-03-18 11:18] LABS: Basophils Percent Auto 0.3 % (0-2); Eosinophils Percent Auto 0.3 % (0-4); Hematocrit 31.7 % (37.0-47.0); Hemoglobin 9.9 g/dl (12.0-16.0); Imm Gran Abs Auto 0.01 X10*3/uL (0.00-0.03); Imm Gran Pct Auto 0.3 % (0.0-0.4); Lymphocytes Absolute Auto 0.9 X10*3/uL (1.2-4.9); Lymphocytes Percent Auto 28.1 % (20-40); Mean Corpuscular HGB Conc 31.2 g/dl (31.0-35.0); Mean Corpuscular Hemoglobin 28.7 pg (27.0-33.0); Mean Corpuscular Volume 91.9 fL (80.0-98.0); Mean Platelet Volume 10.7 fL (9.4-12.3); Monocytes Absolute Auto 0.2 X10*3/uL (0.1-1.2); Monocytes Percent Auto 6.6 % (2-11); Neutrophils Absolute Auto 2.2 x10*3/uL (2.0-8.3); Neutrophils Percent Auto 64.4 % (45-73); Platelet Count 281 X10*3/uL (160-400); Red Blood Count 3.45 X10*6/uL (4.20-5.50); Red Cell Distribution Width 19.8 % (11.0-16.0); White Blood Count 3.3 X10*3/uL (4.8-10.8)
[2023-03-18 11:53] LABS: Alanine Aminotransferase 11 U/L (0-31); Albumin Level 3.9 g/dL (3.5-5.0); Alkaline Phosphatase 73 U/L (39-117); Anion Gap 15 (12-20); Aspartate Amino Transferase 22 U/L (5-31); Bilirubin Total 0.7 mg/dL (0.0-1.0); Blood Urea Nitrogen 14 mg/dL (9-16); Calcium 8.9 mg/dL (8.4-10.2); Carbon Dioxide 24 mmol/L (22-29); Chloride 102 mmol/L (96-108); Estimated Glomerular Filt Rate > 60; Glucose Random 85 mg/dL (60-115); Potassium 4.1 mmol/L (3.3-5.1); Sodium 137 mmol/L (135-145); Total Protein 6.4 g/dL (6.5-8.0)
== END 2023-03-18 10:23 | disposition home or self-care (01) ==
LOC: HO.LAB 10:22
PROVIDERS: PCP Internal Medicine; Visit Provider Internal Medicine
DX: C50.919 Malignant neoplasm of unspecified site of unspecified female breast (principal)
CPT/HCPCS: 36415; 80053; 85025

== ENCOUNTER 2023-03-25 10:06 | Outpatient (REF) | payer MEDICARE, MEDICAID, SELFPAY | END 2023-03-25 10:07 | disposition home or self-care (01) | LOC: HO.LAB 10:06 | PROVIDERS: Absent Provider Internal Medicine; PCP Internal Medicine; Visit Provider Internal Medicine | DX: C50.919 Malignant neoplasm of unspecified site of unspecified female breast (principal) | CPT/HCPCS: 36415; 80053; 85025 ==

== ENCOUNTER 2023-04-01 10:43 | Outpatient (REF) | payer MEDICARE, MEDICAID, SELFPAY ==
[2023-04-01 11:06] LABS: Eosinophils Percent Auto 0.9 % (0-4); Hematocrit 30.4 % (37.0-47.0); Hemoglobin 9.7 g/dl (12.0-16.0); Imm Gran Abs Auto 0.01 X10*3/uL (0.00-0.03); Imm Gran Pct Auto 0.4 % (0.0-0.4); Lymphocytes Absolute Auto 0.8 X10*3/uL (1.2-4.9); MANUAL DIFF FLAG SCAN; Mean Corpuscular HGB Conc 31.9 g/dl (31.0-35.0); Mean Corpuscular Hemoglobin 30.4 pg (27.0-33.0); Mean Corpuscular Volume 95.3 fL (80.0-98.0); Mean Platelet Volume 10.2 fL (9.4-12.3); Monocytes Absolute Auto 0.2 X10*3/uL (0.1-1.2); Monocytes Percent Auto 6.4 % (2-11); Neutrophils Absolute Auto 1.4 x10*3/uL (2.0-8.3); Neutrophils Percent Auto 58.3 % (45-73); Platelet Count 239 X10*3/uL (160-400); Red Blood Count 3.19 X10*6/uL (4.20-5.50); SCAN SMEAR FLAG 1
[2023-04-01 11:13] LABS: White Blood Count 2.4 X10*3/uL (4.8-10.8)
[2023-04-01 11:20] LABS: Alanine Aminotransferase 19 U/L (0-31); Albumin Level 3.8 g/dL (3.5-5.0); Alkaline Phosphatase 72 U/L (39-117); Anion Gap 14 (12-20); Aspartate Amino Transferase 23 U/L (5-31); Bilirubin Total 0.6 mg/dL (0.0-1.0); Blood Urea Nitrogen 13 mg/dL (9-16); Calcium 9.2 mg/dL (8.4-10.2); Carbon Dioxide 25 mmol/L (22-29); Chloride 106 mmol/L (96-108); Estimated Glomerular Filt Rate > 60; Glucose Random 100 mg/dL (60-115); Potassium 3.9 mmol/L (3.3-5.1); Sodium 141 mmol/L (135-145); Total Protein 6.3 g/dL (6.5-8.0)
[2023-04-01 11:22] LABS: Estimated Average Glucose 111 mg/dL; Hemoglobin A1C 91.8077 umol/L; Hemoglobin A1c % 5.5 % (<6.0)
[2023-04-01 11:24] LABS: SLIDE REVIEW VERIFIED
== END 2023-04-01 10:44 | disposition home or self-care (01) ==
LOC: HO.LAB 10:43
PROVIDERS: PCP Internal Medicine; Visit Provider Internal Medicine
DX: R73.9 Hyperglycemia, unspecified (principal); C50.919 Malignant neoplasm of unspecified site of unspecified female breast
CPT/HCPCS: 36415; 80053; 83036; 85025

== ENCOUNTER 2023-04-08 09:58 | Outpatient (REF) | payer MEDICARE, MEDICAID, SELFPAY ==
[2023-04-08 10:39] LABS: Basophils Percent Auto 0.4 % (0-2); Eosinophils Percent Auto 1.7 % (0-4); Hematocrit 31.5 % (37.0-47.0); Imm Gran Abs Auto 0.01 X10*3/uL (0.00-0.03); Imm Gran Pct Auto 0.4 % (0.0-0.4); Lymphocytes Absolute Auto 0.8 X10*3/uL (1.2-4.9); Lymphocytes Percent Auto 32.6 % (20-40); MANUAL DIFF FLAG SCAN; Mean Corpuscular HGB Conc 31.7 g/dl (31.0-35.0); Mean Corpuscular Hemoglobin 31.2 pg (27.0-33.0); Mean Corpuscular Volume 98.1 fL (80.0-98.0); Mean Platelet Volume 10.2 fL (9.4-12.3); Monocytes Absolute Auto 0.1 X10*3/uL (0.1-1.2); Monocytes Percent Auto 5.2 % (2-11); Neutrophils Absolute Auto 1.4 x10*3/uL (2.0-8.3); Neutrophils Percent Auto 59.7 % (45-73); Platelet Count 252 X10*3/uL (160-400); Red Blood Count 3.21 X10*6/uL (4.20-5.50); Red Cell Distribution Width 19.9 % (11.0-16.0); SCAN SMEAR FLAG 1
[2023-04-08 10:42] LABS: White Blood Count 2.3 X10*3/uL (4.8-10.8)
[2023-04-08 11:00] LABS: SLIDE REVIEW VERIFIED
[2023-04-08 11:18] LABS: Alanine Aminotransferase 17 U/L (0-31); Albumin Level 3.9 g/dL (3.5-5.0); Alkaline Phosphatase 78 U/L (39-117); Anion Gap 16 (12-20); Aspartate Amino Transferase 23 U/L (5-31); Bilirubin Total 0.7 mg/dL (0.0-1.0); Blood Urea Nitrogen 10 mg/dL (9-16); Carbon Dioxide 25 mmol/L (22-29); Chloride 106 mmol/L (96-108); Estimated Glomerular Filt Rate > 60; Glucose Random 179 mg/dL (60-115); Potassium 4.3 mmol/L (3.3-5.1); Sodium 143 mmol/L (135-145); Total Protein 6.4 g/dL (6.5-8.0)
== END 2023-04-08 09:59 | disposition home or self-care (01) ==
LOC: HO.LAB 09:58
PROVIDERS: PCP Internal Medicine; Visit Provider Internal Medicine
DX: C50.919 Malignant neoplasm of unspecified site of unspecified female breast (principal)
CPT/HCPCS: 36415; 80053; 85025

== ENCOUNTER 2023-04-15 10:38 | Outpatient (REF) | payer MEDICARE, MEDICAID, SELFPAY ==
[2023-04-15 11:07] LABS: Basophils Percent Auto 0.4 % (0-2); Eosinophils Percent Auto 0.4 % (0-4); Hemoglobin 9.8 g/dl (12.0-16.0); Lymphocytes Percent Auto 44.4 % (20-40); MANUAL DIFF FLAG SCAN; Mean Corpuscular HGB Conc 32.7 g/dl (31.0-35.0); Mean Corpuscular Hemoglobin 32.6 pg (27.0-33.0); Mean Corpuscular Volume 99.7 fL (80.0-98.0); Monocytes Absolute Auto 0.1 X10*3/uL (0.1-1.2); Monocytes Percent Auto 5.8 % (2-11); Neutrophils Absolute Auto 1.1 x10*3/uL (2.0-8.3); Platelet Count 244 X10*3/uL (160-400); Red Blood Count 3.01 X10*6/uL (4.20-5.50); Red Cell Distribution Width 19.4 % (11.0-16.0); SCAN SMEAR FLAG 1
[2023-04-15 11:10] LABS: White Blood Count 2.2 X10*3/uL (4.8-10.8)
[2023-04-15 11:36] LABS: Alanine Aminotransferase 18 U/L (0-31); Albumin Level 3.9 g/dL (3.5-5.0); Alkaline Phosphatase 75 U/L (39-117); Anion Gap 15 (12-20); Aspartate Amino Transferase 24 U/L (5-31); Bilirubin Total 0.5 mg/dL (0.0-1.0); Blood Urea Nitrogen 11 mg/dL (9-16); Carbon Dioxide 25 mmol/L (22-29); Chloride 104 mmol/L (96-108); Estimated Glomerular Filt Rate > 60; Glucose Random 147 mg/dL (60-115); Potassium 4.3 mmol/L (3.3-5.1); Sodium 140 mmol/L (135-145); Total Protein 6.4 g/dL (6.5-8.0)
[2023-04-15 11:46] LABS: SLIDE REVIEW VERIFIED
== END 2023-04-15 10:39 | disposition home or self-care (01) ==
LOC: HO.LAB 10:38
PROVIDERS: PCP Internal Medicine; Visit Provider Internal Medicine
DX: C50.919 Malignant neoplasm of unspecified site of unspecified female breast (principal)
CPT/HCPCS: 36415; 80053; 85025

== ENCOUNTER 2023-04-16 18:27 | Emergency (ER) | payer MEDICARE, MEDICAID, SELFPAY ==
--- NOTE | 2023-04-16 | ECG_ITS ---
Test Reason : WEAKNESS Blood Pressure : / mmHG Vent. Rate : 085 BPM Atrial Rate : 000 BPM P-R Int : 000 ms QRS Dur : 076 ms QT Int : 390 ms P-R-T Axes : 000 014 023 degrees QTc Int : 464 ms Atrial fibrillation Abnormal ECG When compared with ECG of 13-FEB-2023 15:25, QT has shortened Referred By: Generic ED Physician Electronically Signed By:MABLE CRYSTAL MD
--- NOTE | ~2023-04-16 | XR_ITS ---
EXAMINATION: XR CHEST CLINICAL INFORMATION: Shortness of breath COMPARISON: None available. TECHNIQUE: Frontal view of the chest was obtained. FINDINGS: The lungs are well-expanded and clear. Heart size and pulmonary vascularity is normal. There is left central venous port with its tip at the brachiocephalic venous junction. XR/XR chest 1V IMPRESSION: Unremarkable chest examination.
--- NOTE | 2023-04-16 08:38 | ECG_ITS ---
Test Reason : OVERDOSED Blood Pressure : / mmHG Vent. Rate : 107 BPM Atrial Rate : 107 BPM P-R Int : 192 ms QRS Dur : 080 ms QT Int : 338 ms P-R-T Axes : 063 051 064 degrees QTc Int : 451 ms Sinus tachycardia Septal infarct , age undetermined Abnormal ECG When compared with ECG of 16-APR-2023 19:42, Sinus rhythm has replaced Atrial fibrillation Septal infarct is now Present Nonspecific T wave abnormality no longer evident in Inferior leads Referred By: Elijah Blank Electronically Signed By:MABLE CRYSTAL MD
[2023-04-16 18:31] VITALS: BP 148/92; PULSE 104; RESP 20; TEMP 37.1; O2SAT 98; BMI 44.9
[2023-04-16 19:09] LABS: MANUAL DIFF FLAG NO
[2023-04-16 19:10] LABS: Basophils Percent Auto 0.4 % (0-2); Eosinophils Percent Auto 1.2 % (0-4); Hematocrit 31.7 % (37.0-47.0); Hemoglobin 10.2 g/dl (12.0-16.0); Imm Gran Abs Auto 0.01 X10*3/uL (0.00-0.03); Imm Gran Pct Auto 0.4 % (0.0-0.4); Mean Corpuscular HGB Conc 32.2 g/dl (31.0-35.0); Mean Corpuscular Hemoglobin 31.6 pg (27.0-33.0); Mean Corpuscular Volume 98.1 fL (80.0-98.0); Mean Platelet Volume 10.1 fL (9.4-12.3); Monocytes Absolute Auto 0.2 X10*3/uL (0.1-1.2); Monocytes Percent Auto 8.8 % (2-11); Neutrophils Absolute Auto 1.2 x10*3/uL (2.0-8.3); Neutrophils Percent Auto 49.2 % (45-73); Platelet Count 301 X10*3/uL (160-400); Red Blood Count 3.23 X10*6/uL (4.20-5.50); Red Cell Distribution Width 18.9 % (11.0-16.0)
[2023-04-16 19:11] LABS: White Blood Count 2.5 X10*3/uL (4.8-10.8)
[2023-04-16 19:19] VITALS: BP 144/75; PULSE 89; RESP 15; TEMP 36.9; O2SAT 98
[2023-04-16 19:24] LABS: Alanine Aminotransferase 20 U/L (0-31); Albumin Level 3.9 g/dL (3.5-5.0); Alkaline Phosphatase 80 U/L (39-117); Anion Gap 15 (12-20); Aspartate Amino Transferase 26 U/L (5-31); Bilirubin Total 0.4 mg/dL (0.0-1.0); Blood Urea Nitrogen 11 mg/dL (9-16); Calcium 8.9 mg/dL (8.4-10.2); Carbon Dioxide 22 mmol/L (22-29); Chloride 106 mmol/L (96-108); Creatinine Clr Calc Pharmacy 89.8; Estimated Glomerular Filt Rate > 60; Glucose Random 151 mg/dL (60-115); Potassium 3.8 mmol/L (3.3-5.1); Sodium 139 mmol/L (135-145); Total Protein 6.5 g/dL (6.5-8.0)
[2023-04-16 19:25] LABS: Lactic Acid 2.2 mmol/L (0.5-2.0)
--- NOTE | 2023-04-16 19:29 | MHC.EDTECH ---
Patient 2nd sets of blood culture drawn and covid /flu swab collected and sent to lab .
--- NOTE | 2023-04-16 19:30 | PC.NURSE ---
this rn assumed care of pt. Get FERREIRA at bedside to discuss pt care. Nasal swabs obtained and sent to lab at this time.
[2023-04-16] MEDS: oxyCODONE HCl Immed Release 5 MG TABLET PO (19:42)
[2023-04-16] MEDS: 0.9 % Sodium Chloride 1,000 ML 999 ML IV (19:45)
--- NOTE | 2023-04-16 19:47 | PC.NURSE ---
pt medicated per mar, pt tolerated well with water.
[2023-04-16 19:49] LABS: COVID-19 Test Negative (Negative); IDNOW Serial# 08D9AD1C; IDNOW Serial# 152EDE1D; Influenza A Negative (Negative); Influenza B2 Negative (Negative)
[2023-04-16] MEDS: LORazepam 1 MG TABLET PO (20:22)
--- NOTE | 2023-04-16 20:54 | ED_ITS ---
HPI - General Adult General Chief complaint: General Medical Stated complaint: septic? fever, cold/ flu symptoms Time Seen by Provider: 04/16/23 19:18 Source: patient, family (Patient's son) and RN notes reviewed Mode of arrival: ambulatory Limitations: no limitations History of Present Illness HPI narrative: 62-year-old female with past medical history significant for AFib on Eliquis, breast cancer undergoing chemotherapy with Dr. Starkey presents for evaluation of shortness of breath Patient reports that for the last few days she has had congestion, headache runny nose. She states that today she had increasing shortness of breath especially with exertion She reports subjective fevers but never took her temperature. She is did have chemotherapy tomorrow morning Denies any sick contacts Denies any chest pain Related Data Home Medications Medication Instructions Recorded Confirmed ascorbic acid (vitamin C) 500 mg 500 mg PO BID 07/01/21 02/13/23 tablet (Vitamin C) bupropion HCl 150 mg tablet,12 hr 300 mg PO DAILY 07/01/21 02/13/23 sustained-release calcium carbonate 600 mg-vitamin 1 tab PO BID 07/01/21 02/13/23 D3 20 mcg (800 unit) tablet cetirizine 10 mg tablet 10 mg PO DAILY 07/01/21 02/13/23 cyanocobalamin (vitamin B-12) 100 100 mcg PO DAILY 07/01/21 02/13/23 mcg tablet fluoxetine 20 mg capsule 40 mg PO DAILY 07/01/21 02/13/23 furosemide 20 mg tablet 20 mg PO DAILY 07/01/21 02/13/23 gabapentin 600 mg tablet 600 mg PO TID 07/01/21 02/13/23 lorazepam 1 mg tablet 1 mg PO TID PRN Anxiety 07/01/21 02/13/23 docusate sodium 100 mg capsule 100 mg PO DAILY PRN Constipation 12/07/22 02/13/23 magnesium oxide 400 mg (241.3 mg 400 mg PO DAILY 12/07/22 02/13/23 magnesium) tablet mirtazapine 15 mg disintegrating 15 mg PO BEDTIME 12/07/22 02/13/23 tablet oxycodone 5 mg tablet 5 mg PO Q4H severe pain 12/07/22 02/13/23 pantoprazole 40 mg tablet,delayed 40 mg PO DAILY@0630 12/07/22 02/13/23 release Magic Mouthwash 10 ml PO 4-5XD PRN SORES FROM CHEMO 02/13/23 02/13/23 Diphen/Lido/Antacid 1:1:1 240 mL suspension albuterol sulfate 90 mcg/actuation 1 puff inhalation QID PRN 02/13/23 02/13/23 aerosol inhaler (ProAir HFA) Shortness Of Breath Or Wheezing diphenhydramine HCl 12.5 mg/5 mL 25 mg PO BID PRN Allergy Symptoms 02/13/23 02/13/23 oral liquid (Children's Allergy (diphenhydramine)) fluconazole 150 mg tablet 150 mg PO Q3D PRN SORES FROM CHEMO 02/13/23 02/13/23 polyethylene glycol 3350 17 gram 17 g PO DAILY PRN Constipation 02/13/23 02/13/23 oral powder packet (Miralax) sucralfate 1 gram tablet 1 g PO BID 02/13/23 02/13/23 Previous Rx's Medication Instructions Recorded atenolol 100 mg tablet 100 mg PO DAILY #90 tabs 09/15/22 hydrochlorothiazide 12.5 mg tablet 12.5 mg PO DAILY #90 tabs 09/15/22 apixaban 5 mg tablet (Eliquis) 5 mg PO BID #60 tabs 10/13/22 left breast prosthetic #1 ea 01/02/23 mastectomy bra #2 ea 01/02/23 ondansetron 8 mg disintegrating 8 mg PO Q8H PRN Nausea And 01/23/23 tablet Vomiting #30 tabs Wig #1 ea 01/24/23 mastectomy bra (bra, mastectomy) #1 ea 01/24/23 Prosthesis, breast (Breast #1 ea 01/25/23 prosthesis) benzonatate 100 mg capsule 200 mg (2 x 100 mg) PO TID #30 caps 02/18/23 guaifenesin 600 mg tablet, 600 mg PO BID #20 tabs 02/18/23 extended release 12 hr (Mucinex) Shower Chair (Chair, shower) #1 ea 03/01/23 amoxicillin 500 mg capsule 500 mg PO Q8H #20 caps 03/27/23 Magic Mouthwash 10 ml PO TID PRN Mouth Irritation 04/03/23 Diphen/Nystat/Antacid 1:1:1 240 mL #240 mL suspension azithromycin 500 mg tablet 500 mg PO DAILY #5 tabs 04/03/23 Allergies Allergy/AdvReac Type Severity Reaction Status Date / Time latex [LATEX] Allergy Intermediate RASH Verified 04/16/23 18:34 seafood Allergy Intermediate Rash Verified 04/16/23 18:34 Sulfa (Sulfonamide Allergy Intermediate hives Verified 04/16/23 18:34 Antibiotics) sulfamethoxazole Allergy Intermediate HIVES Verified 04/16/23 18:34 [From BACTRIM] trimethoprim [From BACTRIM] Allergy Intermediate HIVES Verified 04/16/23 18:34 valsartan [From DIOVAN] Allergy Intermediate RASH Verified 04/16/23 18:34 Bandage Adhesive Damian Allergy Severe Rash Uncoded 03/14/23 11:10 3/4 SURGICAL TAPE Allergy Severe RASH Uncoded 03/14/23 11:10 tape Allergy Severe Rash Uncoded 03/14/23 11:10 Review of Systems 2 Constitutional: Constitutional: Denies body ache(s), Reports chills, Reports fever(s) and Denies headache(s) Eyes: Eyes: Denies blurry vision ENT: Denies headache(s) and Denies sore throat Cardiovascular: Cardiovascular: Denies chest pain, Reports dyspnea and Reports dyspnea on exertion Respiratory: Respiratory: Reports chest congestion, Reports dyspnea and Reports dyspnea on exertion Gastrointestinal: Gastrointestinal: Denies abdominal pain, Denies nausea and Denies vomiting Musculoskeletal: Musculoskeletal: Denies back pain Integumentary/Breasts: Skin/Breast: Denies rash Neurologic: Denies headache(s) [facility] Past Medical History Medical History (Updated 04/16/23 @ 20:56 by Elijah Blank) 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 Invasive ductal carcinoma of left breast Left breast mass Hypertension Paroxysmal atrial fibrillation Surgical History H/O total mastectomy of left breast (~11/18/22) History of total right knee replacement History of cholecystectomy History of gastric bypass H/O shoulder surgery H/O hemorrhoidectomy History of left knee replacement Status post breast reduction Family History Family History Father COPD (chronic obstructive pulmonary disease) HTN (hypertension) Diabetes Mother COPD (chronic obstructive pulmonary disease) Diabetes HTN (hypertension) Social History Social History Household Members: Children Housing: House Do you presently have visiting nurse or other home services: No Alcohol intake: never Comment: refusing bed alarm Patient Tobacco Use Status: Never used Tobacco Tobacco use type: Cigarette Smoked in Last 30 Days: No Second Hand Smoke Exposure: No Use of substances other than those prescribed or required for medical reasons: No Advance Directives: Yes Advance Directives on File: Yes Advance Directives Date on File: 11/22/22 service: No Current occupational status: employed Physical Exam ED Vital Signs: Vital Signs - 24 hr 04/16/23 18:31 04/16/23 19:19 Temperature 98.8 F 98.4 F Pulse Rate 104 H 89 Respiratory Rate 20 15 Blood Pressure 148/92 H 144/75 H Pulse Oximetry 98 98 Oxygen Delivery Method Room Air Room Air BMI result Body Mass Index 44.9 Const General: comfortable, no acute distress, alert and awake HENMT Head: Yes normocephalic and Yes atraumatic Eyes Eyelids: Yes eyelids normal Conjunctivae: conjunctivae normal Sclerae: sclerae normal Corneas: corneas normal Pupils: Equal, round and reactive pupils present EOM: EOMs intact bilaterally Neck Neck: Yes full ROM Resp Effort & Inspection: normal respiratory effort, able to speak in complete sentences, no audible wheezes and not labored Auscultation: clear to auscultation bilaterally GI Inspection: No distended Palpation (GI): Soft to palpation, not firm, nontender, no guarding and not rigid Skin General skin exam: elasticity normal Neuro Cranial nerves: Yes CN's II-XII intact bilaterally, Yes Equal, round and reactive pupils present and Yes Bilaterally intact EOM present Cognition (Neuro): normal cognition Extrem Other: Moving all extremities well without any obvious deformities Medications Administered Discontinued Medications Generic Name Dose Route Start Last Admin Trade Name Freq PRN Reason Stop Dose Admin Sodium Chloride 1,000 mls @ 999 mls/hr 04/16/23 19:45 04/16/23 19:45 Ns IV 04/16/23 20:45 999 mls/hr .Q1H1M BEV Administration Lorazepam 1 mg 04/16/23 20:16 04/16/23 20:22 Lorazepam 1 Mg Tablet PO 04/16/23 20:17 1 mg ONCE ONE Administration Oxycodone HCl 5 mg 04/16/23 19:34 04/16/23 19:42 Oxycodone Hcl Immed Release 5 Mg Tablet PO 04/16/23 19:35 5 mg ONCE ONE Administration Medical Decision Making Medical Decision Making [facility] Narrative: 62-year-old male presents for evaluation of shortness of breath, respiratory symptoms. She reports subjective fevers. Her vital signs on arrival are stable, she is afebrile. Given her immunocompromised status will get labs including blood cultures, chest x-ray, viral swabs. Differential Diagnosis Differential Diagnoses: The differential diagnosis associated with the presentation includes Weakness Dyspnea Shortness of breath Pneumonia Bronchitis Influenza COVID-19 Admission/Observation Consideration of admission/observation: Escalation of care including admission/observation considered Immunocompromised patient presenting for evaluation of dyspnea on exertion Lab Data [facility] Lab Attestation statement: I reviewed the patient's lab results. Patient has a leukopenia to 2.5 which is actually consistent with her baseline. She has a mild anemia as well with a hemoglobin of 10.2 hematocrit 31.7. No significant electrolyte abnormalities. 04/16/23 19:01 04/16/23 19:01 Labs: Lab Results 04/16/23 04/16/23 Range/Units 19:01 19:28 WBC 2.5 L (4.8-10.8) X10*3/uL RBC 3.23 L (4.20-5.50) X10*6/uL Hgb 10.2 L (12.0-16.0) g/dl Hct 31.7 L (37.0-47.0) % MCV 98.1 H (80.0-98.0) fL MCH 31.6 (27.0-33.0) pg MCHC 32.2 (31.0-35.0) g/dl RDW 18.9 H (11.0-16.0) % Plt Count 301 (160-400) X10*3/uL MPV 10.1 (9.4-12.3) fL Immature Gran % (Auto) 0.4 (0.0-0.4) % Neut % (Auto) 49.2 (45-73) % Lymph % (Auto) 40.0 (20-40) % Cameron % (Auto) 8.8 (2-11) % Eos % (Auto) 1.2 (0-4) % Baso % (Auto) 0.4 (0-2) % Lymph # (Auto) 1.0 L (1.2-4.9) X10*3/uL Cameron # (Auto) 0.2 (0.1-1.2) X10*3/uL Eos # (Auto) 0.0 (0.0-0.4) X10*3/uL Baso # (Auto) 0.0 (0.0-0.2) X10*3/uL Abs Immat Gran (auto) 0.01 (0.00-0.03) X10*3/uL Absolute Neuts (auto) 1.2 L (2.0-8.3) x10*3/uL Absolute Nucleated RBC 0.000 (0.0-0.012) X10*3/uL Nucleated RBC % (auto) 0.0 (0.0-0.2) /100WBC Sodium 139 (135-145) mmol/L Potassium 3.8 (3.3-5.1) mmol/L Chloride 106 (96-108) mmol/L Carbon Dioxide 22 (22-29) mmol/L Anion Gap 15 (12-20) BUN 11 (9-16) mg/dL Creatinine 0.83 (0.5-1.4) mg/dL Estim Creat Clear Calc 89.8 Estimated GFR > 60 Random Glucose 151 H (60-115) mg/dL Lactic Acid 2.2 H* (0.5-2.0) mmol/L Calcium 8.9 (8.4-10.2) mg/dL Total Bilirubin 0.4 (0.0-1.0) mg/dL AST 26 (5-31) U/L ALT 20 (0-31) U/L Alkaline Phosphatase 80 (39-117) U/L Total Protein 6.5 (6.5-8.0) g/dL Albumin 3.9 (3.5-5.0) g/dL COVID-19 (ATA) Negative (Negative) COVID-19 Clin Com See Note Influenza Type A (MISHA) Negative (Negative) Influenza Type B (MISHA) Negative (Negative) Influenza A & B Note See Note Independent Interpretation I performed an independent interpretation of an: EKG (AFib with a rate of 85 beats per minute. No ST segment changes) and Plain X-Ray (No infiltrates) Discharge Plan Discharge Clinical Impression: Weakness, Acute dyspnea Patient Disposition: Home, Self-Care Instructions: Weakness (ED) Additional Instructions: Your workup in the ER today was reassuring. You did not have a fever, your white blood cell count was 2.5. Your chest x-ray was clear You tested negative for influenza and COVID-[address] Starkey who recommends you go to chemotherapy tomorrow if you can make it She did offer a few days off if he felt that you needed it. Prescriptions: No Action atenolol 100 mg tablet 100 mg PO DAILY Qty: 90 3RF hydrochlorothiazide 12.5 mg tablet 12.5 mg PO DAILY Qty: 90 3RF Eliquis 5 mg tablet 5 mg PO BID Qty: 60 5RF diphenhydramine HCl [Children's Allergy (diphenhyd)] 12.5 mg/5 mL liquid 25 mg PO BID PRN (Reason: Allergy Symptoms) sucralfate 1 gram tablet 1 g PO BID albuterol sulfate [ProAir HFA] 90 mcg/actuation Hfa Aerosol Inhaler 1 puff INHALATION QID PRN (Reason: Shortness Of Breath Or Wheezing) fluconazole 150 mg tablet 150 mg PO Q3D PRN (Reason: SORES FROM CHEMO) Magic Mouthwash Diphen/Lido/Antacid 1:1:1 240 mL suspension 10 ml PO 4-5XD PRN (Reason: SORES FROM CHEMO) Rx Instructions: Lidocaine Viscous 2 % 80mL; diphenhydramine 12.5 mg/5 mL 80mL; aluminum-mag hydrox-simeth [id number]-36uj/5mL 80mL polyethylene glycol 3350 [Miralax] 17 gram Powder In Packet 17 g PO DAILY PRN (Reason: Constipation) guaifenesin [Mucinex] 600 mg Tablet Extended Release 12hr 600 mg PO BID Qty: 20 0RF benzonatate 100 mg Capsule 200 mg PO TID Qty: 30 0RF ondansetron 8 mg Tablet,Disintegrating 8 mg PO Q8H PRN (Reason: Nausea And Vomiting) Qty: 30 3RF (DME) bra, mastectomy Crystals Qty: 1 0RF Rx Instructions: As Directed (DME) Wig Kit Qty: 1 0RF Rx Instructions: As Directed (DME) Breast prosthesis Kit Qty: 1 0RF Rx Instructions: As Directed (DME) Chair, shower Misc Qty: 1 0RF Rx Instructions: As Directed amoxicillin 500 mg Capsule 500 mg PO Q8H Qty: 20 0RF azithromycin 500 mg Tablet 500 mg PO DAILY Qty: 5 0RF Magic Mouthwash Diphen/Nystat/Antacid 1:1:1 240 mL Suspension 10 ml PO TID PRN (Reason: Mouth Irritation) Qty: 240 0RF Rx Instructions: nystatin 100,000 unit/mL oral suspension 80 mL; diphenhydramine 12.5 mg/5 mL oral liquid 80 mL; aluminum-mag hydroxide-simethicone 400 mg-400 mg-40 mg/5 mL oral susp 80 mL; Per 240 mL magnesium oxide 400 mg (241.3 mg magnesium) tablet 400 mg PO DAILY pantoprazole 40 mg tablet,delayed release (DR/EC) 40 mg PO DAILY@0630 docusate sodium 100 mg capsule 100 mg PO DAILY PRN (Reason: Constipation) mirtazapine 15 mg tablet,disintegrating 15 mg PO BEDTIME oxycodone 5 mg tablet 5 mg PO Q4H lorazepam 1 mg tablet 1 mg PO TID PRN (Reason: Anxiety) ascorbic acid (vitamin C) [Vitamin C] 500 mg tablet 500 mg PO BID cetirizine 10 mg tablet 10 mg PO DAILY gabapentin 600 mg tablet 600 mg PO TID calcium carbonate-vitamin D3 600 mg-20 mcg (800 unit) tablet 1 tab PO BID cyanocobalamin (vitamin B-12) 100 mcg tablet 100 mcg PO DAILY bupropion HCl 150 mg tablet sustained-release 12 hr 300 mg PO DAILY furosemide 20 mg tablet 20 mg PO DAILY fluoxetine 20 mg capsule 40 mg PO DAILY (DME) mastectomy bra to fit See Rx Instructions .Route .MEDSUPPLY Qty: 2 0RF Rx Instructions: As directed (DME) left breast prosthetic to fit See Rx Instructions .Route .MEDSUPPLY Qty: 1 0RF Rx Instructions: As directed
[2023-04-16 21:07] LABS: Reflex Lactate? Lactic Acid Added
[2023-04-16] MEDS: Gabapentin 600 MG TABLET PO (21:19)
--- NOTE | 2023-04-16 21:25 | MHC.EDTECH ---
RN SAID NOT TO GET REPEATED LACTIC PATIENT WITH FOLLOW UP WITH HER PROVIDER .
== END 2023-04-16 22:03 | disposition home or self-care (01) ==
PROVIDERS: Emergency Provider Internal Medicine; PCP Internal Medicine
DX: I48.91 Unspecified atrial fibrillation (principal); R06.02 Shortness of breath; R51.9 Headache, unspecified; Z11.52 Encounter for screening for COVID-19; Z79.01 Long term (current) use of anticoagulants; Z79.899 Other long term (current) drug therapy
CPT/HCPCS: 71045; 80053; 83605; 85025; 87040; 87502; 87635; 93005; 99284; 99285

== ENCOUNTER → 2023-04-16 19:42 | Outpatient (BNV) | payer MEDICARE, MEDICAID, SELFPAY | PROVIDERS: Emergency Provider Internal Medicine; PCP Internal Medicine; Visit Provider Internal Medicine Cardiovascular Disease | DX: I48.91 Unspecified atrial fibrillation (principal); R00.0 Tachycardia, unspecified; R94.31 Abnormal electrocardiogram [ECG] [EKG] | CPT/HCPCS: 93010 ==

== ENCOUNTER 2023-04-22 10:20 | Outpatient (REF) | payer MEDICARE, MEDICAID, SELFPAY ==
[2023-04-22 11:03] LABS: Eosinophils Percent Auto 0.8 % (0-4); Hematocrit 29.1 % (37.0-47.0); Hemoglobin 9.5 g/dl (12.0-16.0); Imm Gran Abs Auto 0.01 X10*3/uL (0.00-0.03); Imm Gran Pct Auto 0.4 % (0.0-0.4); Lymphocytes Absolute Auto 0.7 X10*3/uL (1.2-4.9); Lymphocytes Percent Auto 27.3 % (20-40); Mean Corpuscular HGB Conc 32.6 g/dl (31.0-35.0); Mean Corpuscular Hemoglobin 32.2 pg (27.0-33.0); Mean Corpuscular Volume 98.6 fL (80.0-98.0); Mean Platelet Volume 10.3 fL (9.4-12.3); Monocytes Absolute Auto 0.1 X10*3/uL (0.1-1.2); Monocytes Percent Auto 4.9 % (2-11); Neutrophils Absolute Auto 1.6 x10*3/uL (2.0-8.3); Neutrophils Percent Auto 66.6 % (45-73); Platelet Count 254 X10*3/uL (160-400); Red Blood Count 2.95 X10*6/uL (4.20-5.50); Red Cell Distribution Width 17.4 % (11.0-16.0); SCAN SMEAR FLAG 1
[2023-04-22 11:04] LABS: White Blood Count 2.5 X10*3/uL (4.8-10.8)
[2023-04-22 11:05] LABS: MANUAL DIFF FLAG NO
[2023-04-22 12:12] LABS: Alanine Aminotransferase 19 U/L (0-31); Albumin Level 3.7 g/dL (3.5-5.0); Alkaline Phosphatase 70 U/L (39-117); Anion Gap 12 (12-20); Aspartate Amino Transferase 23 U/L (5-31); Bilirubin Total 0.5 mg/dL (0.0-1.0); Blood Urea Nitrogen 15 mg/dL (9-16); Calcium 8.6 mg/dL (8.4-10.2); Carbon Dioxide 26 mmol/L (22-29); Chloride 105 mmol/L (96-108); Estimated Glomerular Filt Rate > 60; Glucose Random 150 mg/dL (60-115); Potassium 3.4 mmol/L (3.3-5.1); Sodium 140 mmol/L (135-145); Total Protein 6.2 g/dL (6.5-8.0)
== END 2023-04-22 10:21 | disposition home or self-care (01) ==
LOC: HO.LAB 10:20
PROVIDERS: Visit Provider Internal Medicine
DX: C50.919 Malignant neoplasm of unspecified site of unspecified female breast (principal)
CPT/HCPCS: 36415; 80053; 85025

== ENCOUNTER 2023-04-29 10:40 | Outpatient (REF) | payer MEDICARE, MEDICAID, SELFPAY ==
[2023-04-29 11:08] LABS: Hemoglobin 10.1 g/dl (12.0-16.0); Lymphocytes Absolute Auto 0.9 X10*3/uL (1.2-4.9); Lymphocytes Percent Auto 42.9 % (20-40); Mean Corpuscular HGB Conc 32.6 g/dl (31.0-35.0); Mean Corpuscular Hemoglobin 33.6 pg (27.0-33.0); Mean Platelet Volume 10.1 fL (9.4-12.3); Monocytes Absolute Auto 0.1 X10*3/uL (0.1-1.2); Monocytes Percent Auto 4.9 % (2-11); Neutrophils Absolute Auto 1.1 x10*3/uL (2.0-8.3); Neutrophils Percent Auto 51.2 % (45-73); Platelet Count 262 X10*3/uL (160-400); Red Blood Count 3.01 X10*6/uL (4.20-5.50); Red Cell Distribution Width 16.8 % (11.0-16.0)
[2023-04-29 11:15] LABS: White Blood Count 2.1 X10*3/uL (4.8-10.8)
[2023-04-29 11:33] LABS: Alanine Aminotransferase 22 U/L (0-31); Albumin Level 3.9 g/dL (3.5-5.0); Alkaline Phosphatase 77 U/L (39-117); Anion Gap 14 (12-20); Aspartate Amino Transferase 28 U/L (5-31); Bilirubin Total 0.5 mg/dL (0.0-1.0); Blood Urea Nitrogen 11 mg/dL (9-16); Calcium 9.2 mg/dL (8.4-10.2); Carbon Dioxide 27 mmol/L (22-29); Chloride 104 mmol/L (96-108); Estimated Glomerular Filt Rate > 60; Glucose Random 132 mg/dL (60-115); Potassium 4.7 mmol/L (3.3-5.1); Sodium 140 mmol/L (135-145); Total Protein 6.3 g/dL (6.5-8.0)
== END 2023-04-29 10:41 | disposition home or self-care (01) ==
LOC: HO.LAB 10:40
PROVIDERS: PCP Internal Medicine; Visit Provider Internal Medicine
DX: C50.919 Malignant neoplasm of unspecified site of unspecified female breast (principal)
CPT/HCPCS: 36415; 80053; 85025

== ENCOUNTER 2023-05-06 10:41 | Outpatient (REF) | payer MEDICARE, MEDICAID, SELFPAY ==
[2023-05-06 10:52] LABS: MANUAL DIFF FLAG NO
[2023-05-06 11:45] LABS: Basophils Percent Auto 0.4 % (0-2); Eosinophils Percent Auto 1.4 % (0-4); Hematocrit 28.4 % (37.0-47.0); Hemoglobin 9.2 g/dl (12.0-16.0); Imm Gran Abs Auto 0.01 X10*3/uL (0.00-0.03); Imm Gran Pct Auto 0.4 % (0.0-0.4); Lymphocytes Absolute Auto 1.2 X10*3/uL (1.2-4.9); Lymphocytes Percent Auto 41.8 % (20-40); Mean Corpuscular HGB Conc 32.4 g/dl (31.0-35.0); Mean Corpuscular Hemoglobin 33.6 pg (27.0-33.0); Mean Corpuscular Volume 103.6 fL (80.0-98.0); Mean Platelet Volume 10.8 fL (9.4-12.3); Monocytes Absolute Auto 0.1 X10*3/uL (0.1-1.2); Neutrophils Absolute Auto 1.4 x10*3/uL (2.0-8.3); Platelet Count 231 X10*3/uL (160-400); Red Blood Count 2.74 X10*6/uL (4.20-5.50); Red Cell Distribution Width 16.6 % (11.0-16.0); White Blood Count 2.8 X10*3/uL (4.8-10.8)
[2023-05-06 12:12] LABS: Alanine Aminotransferase 17 U/L (0-31); Albumin Level 3.6 g/dL (3.5-5.0); Alkaline Phosphatase 76 U/L (39-117); Anion Gap 13 (12-20); Aspartate Amino Transferase 22 U/L (5-31); Bilirubin Total 0.4 mg/dL (0.0-1.0); Blood Urea Nitrogen 13 mg/dL (9-16); Calcium 8.6 mg/dL (8.4-10.2); Carbon Dioxide 24 mmol/L (22-29); Chloride 105 mmol/L (96-108); Estimated Glomerular Filt Rate > 60; Glucose Random 105 mg/dL (60-115); Potassium 4.1 mmol/L (3.3-5.1); Sodium 138 mmol/L (135-145); Total Protein 5.9 g/dL (6.5-8.0)
== END 2023-05-06 10:42 | disposition home or self-care (01) ==
LOC: HO.LAB 10:41
PROVIDERS: PCP Internal Medicine; Visit Provider Internal Medicine
DX: C50.912 Malignant neoplasm of unspecified site of left female breast (principal)
CPT/HCPCS: 36415; 80053; 85025

== ENCOUNTER 2023-05-13 10:03 | Outpatient (REF) | payer MEDICARE, MEDICAID, SELFPAY ==
[2023-05-13 10:12] LABS: MANUAL DIFF FLAG NO
[2023-05-13 10:16] LABS: Basophils Percent Auto 0.3 % (0-2); Eosinophils Percent Auto 0.7 % (0-4); Hemoglobin 10.2 g/dl (12.0-16.0); Lymphocytes Absolute Auto 1.4 X10*3/uL (1.2-4.9); Lymphocytes Percent Auto 48.8 % (20-40); Mean Corpuscular HGB Conc 31.9 g/dl (31.0-35.0); Mean Corpuscular Hemoglobin 32.7 pg (27.0-33.0); Mean Corpuscular Volume 102.6 fL (80.0-98.0); Mean Platelet Volume 9.8 fL (9.4-12.3); Monocytes Absolute Auto 0.2 X10*3/uL (0.1-1.2); Monocytes Percent Auto 5.2 % (2-11); Neutrophils Absolute Auto 1.3 x10*3/uL (2.0-8.3); Platelet Count 256 X10*3/uL (160-400); Red Blood Count 3.12 X10*6/uL (4.20-5.50); Red Cell Distribution Width 15.8 % (11.0-16.0); White Blood Count 2.9 X10*3/uL (4.8-10.8)
[2023-05-13 10:34] LABS: Alanine Aminotransferase 17 U/L (0-31); Albumin Level 3.9 g/dL (3.5-5.0); Alkaline Phosphatase 70 U/L (39-117); Anion Gap 14 (12-20); Aspartate Amino Transferase 23 U/L (5-31); Bilirubin Total 0.7 mg/dL (0.0-1.0); Blood Urea Nitrogen 12 mg/dL (9-16); Calcium 9.2 mg/dL (8.4-10.2); Carbon Dioxide 28 mmol/L (22-29); Chloride 104 mmol/L (96-108); Estimated Glomerular Filt Rate > 60; Glucose Random 125 mg/dL (60-115); Potassium 4.6 mmol/L (3.3-5.1); Sodium 141 mmol/L (135-145); Total Protein 6.1 g/dL (6.5-8.0)
== END 2023-05-13 10:04 | disposition home or self-care (01) ==
LOC: HO.LAB 10:03
PROVIDERS: PCP Internal Medicine; Visit Provider Internal Medicine
DX: C50.919 Malignant neoplasm of unspecified site of unspecified female breast (principal)
CPT/HCPCS: 36415; 80053; 85025

== ENCOUNTER 2023-05-20 10:25 | Outpatient (REF) | payer MEDICARE, MEDICAID, SELFPAY ==
[2023-05-20 10:47] LABS: MANUAL DIFF FLAG NO
[2023-05-20 11:43] LABS: Basophils Percent Auto 0.3 % (0-2); Eosinophils Percent Auto 0.5 % (0-4); Hematocrit 32.8 % (37.0-47.0); Hemoglobin 10.5 g/dl (12.0-16.0); Imm Gran Abs Auto 0.01 X10*3/uL (0.00-0.03); Imm Gran Pct Auto 0.3 % (0.0-0.4); Lymphocytes Absolute Auto 1.6 X10*3/uL (1.2-4.9); Lymphocytes Percent Auto 39.2 % (20-40); Mean Corpuscular Hemoglobin 33.1 pg (27.0-33.0); Mean Corpuscular Volume 103.5 fL (80.0-98.0); Mean Platelet Volume 10.7 fL (9.4-12.3); Monocytes Absolute Auto 0.2 X10*3/uL (0.1-1.2); Monocytes Percent Auto 4.8 % (2-11); Neutrophils Absolute Auto 2.2 x10*3/uL (2.0-8.3); Neutrophils Percent Auto 54.9 % (45-73); Platelet Count 323 X10*3/uL (160-400); Red Blood Count 3.17 X10*6/uL (4.20-5.50); Red Cell Distribution Width 15.1 % (11.0-16.0)
[2023-05-20 12:03] LABS: Alanine Aminotransferase 20 U/L (0-31); Albumin Level 3.8 g/dL (3.5-5.0); Alkaline Phosphatase 71 U/L (39-117); Anion Gap 14 (12-20); Aspartate Amino Transferase 25 U/L (5-31); Bilirubin Total 0.5 mg/dL (0.0-1.0); Blood Urea Nitrogen 11 mg/dL (9-16); Carbon Dioxide 27 mmol/L (22-29); Chloride 104 mmol/L (96-108); Estimated Glomerular Filt Rate > 60; Glucose Random 142 mg/dL (60-115); Potassium 3.6 mmol/L (3.3-5.1); Sodium 141 mmol/L (135-145); Total Protein 6.1 g/dL (6.5-8.0)
== END 2023-05-20 10:26 | disposition home or self-care (01) ==
LOC: HO.LAB 10:25
PROVIDERS: PCP Internal Medicine; Visit Provider Internal Medicine
DX: C50.919 Malignant neoplasm of unspecified site of unspecified female breast (principal)
CPT/HCPCS: 36415; 80053; 85025

== ENCOUNTER 2023-05-27 10:44 | Outpatient (REF) | payer MEDICARE, MEDICAID, SELFPAY ==
[2023-05-27 11:28] LABS: Basophils Percent Auto 0.5 % (0-2); Eosinophils Percent Auto 1.1 % (0-4); Hemoglobin 9.9 g/dl (12.0-16.0); Lymphocytes Absolute Auto 0.9 X10*3/uL (1.2-4.9); Lymphocytes Percent Auto 47.1 % (20-40); MANUAL DIFF FLAG SCAN; Mean Corpuscular HGB Conc 31.9 g/dl (31.0-35.0); Mean Corpuscular Hemoglobin 33.4 pg (27.0-33.0); Mean Corpuscular Volume 104.7 fL (80.0-98.0); Mean Platelet Volume 10.4 fL (9.4-12.3); Monocytes Absolute Auto 0.1 X10*3/uL (0.1-1.2); Monocytes Percent Auto 6.3 % (2-11); Neutrophils Absolute Auto 0.9 x10*3/uL (2.0-8.3); Platelet Count 244 X10*3/uL (160-400); Red Blood Count 2.96 X10*6/uL (4.20-5.50); Red Cell Distribution Width 15.5 % (11.0-16.0); SCAN SMEAR FLAG 1
[2023-05-27 11:30] LABS: White Blood Count 1.9 X10*3/uL (4.8-10.8)
[2023-05-27 12:00] LABS: SLIDE REVIEW VERIFIED
[2023-05-27 12:22] LABS: Alanine Aminotransferase 28 U/L (0-31); Albumin Level 3.6 g/dL (3.5-5.0); Alkaline Phosphatase 63 U/L (39-117); Anion Gap 13 (12-20); Aspartate Amino Transferase 35 U/L (5-31); Bilirubin Total 0.5 mg/dL (0.0-1.0); Blood Urea Nitrogen 12 mg/dL (9-16); Calcium 8.8 mg/dL (8.4-10.2); Carbon Dioxide 27 mmol/L (22-29); Chloride 107 mmol/L (96-108); Estimated Glomerular Filt Rate > 60; Glucose Random 133 mg/dL (60-115); Potassium 4.2 mmol/L (3.3-5.1); Sodium 143 mmol/L (135-145); Total Protein 5.9 g/dL (6.5-8.0)
== END 2023-05-27 10:45 | disposition home or self-care (01) ==
LOC: HO.LAB 10:44
PROVIDERS: PCP Internal Medicine; Visit Provider Internal Medicine
DX: Z13.89 Encounter for screening for other disorder (principal)
CPT/HCPCS: 36415; 80053; 85025

== ENCOUNTER 2023-05-27 11:13 | Emergency (ER) | payer MEDICARE, MEDICAID, SELFPAY ==
--- NOTE | ~2023-05-27 | XR_ITS ---
EXAMINATION: XR CHEST CLINICAL INFORMATION: Fever COMPARISON: None available. TECHNIQUE: 2 views of the chest were obtained. FINDINGS: The lungs are well-expanded and clear. Heart size and pulmonary vascularity is normal. There is a left central venous port with its tip in the left brachiocephalic vein. No gross bony abnormality seen. XR/XR chest 2V IMPRESSION: Unremarkable chest exam.
--- NOTE | 2023-05-27 11:24 | ED.FEVER ---
HPI - Fever General Chief Complaint: General Medical Stated Complaint: Fever, shaky Time Seen by Provider: 05/27/23 12:36 Source: patient Mode of arrival: ambulatory History of Present Illness HPI Narrative: 62-year-old female who is currently undergoing chemotherapy for breast cancer and receives it every Monday and then follows with lab work every Monday and presents with concerns regarding subjective fevers, she reports some diarrhea but has continued to drink fluids, she states that she feels weak. Related Data Home Medications Medication Instructions Recorded Confirmed ascorbic acid (vitamin C) 500 mg 500 mg PO BID 07/01/21 02/13/23 tablet (Vitamin C) bupropion HCl 150 mg tablet,12 hr 300 mg PO DAILY 07/01/21 02/13/23 sustained-release calcium carbonate 600 mg-vitamin 1 tab PO BID 07/01/21 02/13/23 D3 20 mcg (800 unit) tablet cetirizine 10 mg tablet 10 mg PO DAILY 07/01/21 02/13/23 cyanocobalamin (vitamin B-12) 100 100 mcg PO DAILY 07/01/21 02/13/23 mcg tablet fluoxetine 20 mg capsule 40 mg PO DAILY 07/01/21 02/13/23 furosemide 20 mg tablet 20 mg PO DAILY 07/01/21 02/13/23 gabapentin 600 mg tablet 600 mg PO TID 07/01/21 02/13/23 lorazepam 1 mg tablet 1 mg PO TID PRN Anxiety 07/01/21 02/13/23 docusate sodium 100 mg capsule 100 mg PO DAILY PRN Constipation 12/07/22 02/13/23 magnesium oxide 400 mg (241.3 mg 400 mg PO DAILY 12/07/22 02/13/23 magnesium) tablet mirtazapine 15 mg disintegrating 15 mg PO BEDTIME 12/07/22 02/13/23 tablet oxycodone 5 mg tablet 5 mg PO Q4H severe pain 12/07/22 02/13/23 pantoprazole 40 mg tablet,delayed 40 mg PO DAILY@0630 12/07/22 02/13/23 release albuterol sulfate 90 mcg/actuation 1 puff inhalation QID PRN 02/13/23 02/13/23 aerosol inhaler (ProAir HFA) Shortness Of Breath Or Wheezing diphenhydramine HCl 12.5 mg/5 mL 25 mg PO BID PRN Allergy Symptoms 02/13/23 02/13/23 oral liquid (Children's Allergy (diphenhydramine)) fluconazole 150 mg tablet 150 mg PO Q3D PRN SORES FROM CHEMO 02/13/23 02/13/23 polyethylene glycol 3350 17 gram 17 g PO DAILY PRN Constipation 02/13/23 02/13/23 oral powder packet (Miralax) sucralfate 1 gram tablet 1 g PO BID 02/13/23 02/13/23 Previous Rx's Medication Instructions Recorded atenolol 100 mg tablet 100 mg PO DAILY #90 tabs 09/15/22 hydrochlorothiazide 12.5 mg tablet 12.5 mg PO DAILY #90 tabs 09/15/22 apixaban 5 mg tablet (Eliquis) 5 mg PO BID #60 tabs 10/13/22 left breast prosthetic #1 ea 01/02/23 mastectomy bra #2 ea 01/02/23 ondansetron 8 mg disintegrating 8 mg PO Q8H PRN Nausea And 01/23/23 tablet Vomiting #30 tabs Wig #1 ea 01/24/23 mastectomy bra (bra, mastectomy) #1 ea 01/24/23 Prosthesis, breast (Breast #1 ea 01/25/23 prosthesis) benzonatate 100 mg capsule 200 mg (2 x 100 mg) PO TID #30 caps 02/18/23 guaifenesin 600 mg tablet, 600 mg PO BID #20 tabs 02/18/23 extended release 12 hr (Mucinex) Shower Chair (Chair, shower) #1 ea 03/01/23 amoxicillin 500 mg capsule 500 mg PO Q8H #20 caps 03/27/23 Magic Mouthwash 10 ml PO TID PRN Mouth Irritation 04/03/23 Diphen/Nystat/Antacid 1:1:1 240 mL #240 mL suspension azithromycin 500 mg tablet 500 mg PO DAILY #5 tabs 04/03/23 Magic Mouthwash 10 ml PO 4-5XD PRN SORES FROM 04/18/23 Diphen/Lido/Antacid 1:1:1 240 mL CHEMO #240 mL suspension Magic Mouthwash 10 ml PO QID #240 mL 04/18/23 Diphen/Lido/Antacid 1:1:1 240 mL suspension loperamide 2 mg capsule 2 mg PO Q6H PRN Diarrhea #30 caps 04/18/23 cefdinir 300 mg capsule 300 mg PO BID 5 days #10 caps 05/27/23 Allergies Allergy/AdvReac Type Severity Reaction Status Date / Time latex [LATEX] Allergy Intermediate RASH Verified 04/16/23 18:34 seafood Allergy Intermediate Rash Verified 04/16/23 18:34 Sulfa (Sulfonamide Allergy Intermediate hives Verified 04/16/23 18:34 Antibiotics) sulfamethoxazole Allergy Intermediate HIVES Verified 04/16/23 18:34 [From BACTRIM] trimethoprim [From BACTRIM] Allergy Intermediate HIVES Verified 04/16/23 18:34 valsartan [From DIOVAN] Allergy Intermediate RASH Verified 04/16/23 18:34 Bandage Adhesive Lewis Allergy Severe Rash Uncoded 03/14/23 11:10 3/4 SURGICAL TAPE Allergy Severe RASH Uncoded 03/14/23 11:10 tape Allergy Severe Rash Uncoded 03/14/23 11:10 Review of Systems Review of Systems: Pertinent positives and negatives as stated in HPI [facility] Past Medical History Source: nursing notes reviewed Medical History (Updated 05/27/23 @ 14:50 by Marti Lutz MD) Hx of fdc use of blood thinners Invasive ductal carcinoma of left breast Left breast mass Hypertension Paroxysmal atrial fibrillation Surgical History H/O total mastectomy of left breast (~11/18/22) History of total right knee replacement History of cholecystectomy History of gastric bypass H/O shoulder surgery H/O hemorrhoidectomy History of left knee replacement Status post breast reduction Family History Family History Father COPD (chronic obstructive pulmonary disease) HTN (hypertension) Diabetes Mother COPD (chronic obstructive pulmonary disease) Diabetes HTN (hypertension) Social History Social History Household Members: Children Housing: House Do you presently have visiting nurse or other home services: No Alcohol intake: never Comment: refusing bed alarm Patient Tobacco Use Status: Never used Tobacco Tobacco use type: Cigarette Second Hand Smoke Exposure: No Advance Directives: Yes Advance Directives on File: Yes Advance Directives Date on File: 11/22/22 service: No Current occupational status: employed Physical Exam Vital Signs: Vital Signs: Last Vital Signs Temp 97.9 F 05/27/23 11:26 Pulse 70 05/27/23 11:26 Resp 18 05/27/23 11:26 Pulse Ox 98 05/27/23 11:26 O2 Del Method Room Air 05/27/23 11:26 BMI result Body Mass Index 44.9 VITAL SIGNS: Reviewed. GENERAL: Well developed, well nourished, in no acute distress. HEAD: Normocephalic/atraumatic EYES: PERRLA, EOMI EARS: Ext canals without abnormality NOSE: Nares patent bilateral OROPHARYNX: no oral lesions noted, posterior pharynx clear NECK: Supple, no adenopathy LUNGS: Normal breath sounds. No adventitious sounds or accessory muscle use. SpO2<98> CARDIOVASCULAR: Regular rate and rhythm without noted murmurs ABDOMEN: Soft, non-tender, non-distended with bowel sounds. MUSCULOSKELETAL: No tenderness, deformities, or effusions noted on gross inspection. EXTREMITIES: No cyanosis, clubbing or edema. SKIN: Inspection of the skin reveals no rashes NEUROLOGIC: Alert and oriented x 4. Strength and sensation to light touch were grossly intact x 4. Course Course Course Narrative: This is a rapid medical exam: Additional HPI, ROS, PE not included below will be deferred to primary provider. Patient is a 62-year-old female with breast cancer, last chemo was Monday, presenting to the emergency department with complaint of weakness, diarrhea, dizziness, fever/chills, son reports Tmax of 100. Took 2 Tylenol around 7am. Had standing labs drawn this am for chemo on Monday, results pending. Sees Dr. Starkey. Plan: labs, UA, xray, viral swabs Medical Decision Making Medical Decision Making MDM Narrative: 62-year-old female with history and clinical presentation, DDX: Neutropenic possible fever although not febrile here in the emergency room, possible UTI/pneumonia, there is no abdominal discomfort. I reviewed all investigations and hematologic indices demonstrate moderate neutropenia with a stable macrocytic anemia and no thrombocytopenia. Coagulation studies demonstrated a INR within normal limits. Chemistry indices do not demonstrated LASHA or electrolyte/liver enzyme derangements. Urinalysis is negative for UTI or hematuria. Viral testing negative for influenza/COVID/RSV. Chest x-ray is negative for infiltrate or venous congestion otherwise my interpretation is in agreement with radiology's impression. 1355: I discussed the case with Dr. Starkey who is in agreement with empiric antibiotics and patient received initial 500 mg of cefuroxime in the emergency room and was discharged with 5 days of continued antibiotics. Patient also received a dose of her Ativan. Patient is otherwise discharged home with instructions to continue with her medications and follow-up with Dr. Starkey as scheduled on Monday for chemotherapy. Differential Diagnosis Differential Diagnoses: The differential diagnosis associated with the presentation includes Please see the discussion above Admission/Observation Consideration of admission/observation: Escalation of care including admission/observation considered Please see the discussion above Consult Healthcare Provider Management of the patient was discussed with: Assembler [employer] Lights Please see the discussion above Lab Data MDM Lab Attestation statement: I reviewed the patient's lab results. Please see the discussion above 05/27/23 12:38 05/27/23 12:38 Labs: Lab Results 05/27/23 05/27/23 Range/Units 12:38 13:53 WBC 1.8 L (4.8-10.8) X10*3/uL RBC 2.97 L (4.20-5.50) X10*6/uL Hgb 9.9 L (12.0-16.0) g/dl Hct 30.8 L (37.0-47.0) % MCV 103.7 H (80.0-98.0) fL MCH 33.3 H (27.0-33.0) pg MCHC 32.1 (31.0-35.0) g/dl RDW 15.5 (11.0-16.0) % Plt Count 237 (160-400) X10*3/uL MPV 10.0 (9.4-12.3) fL Immature Gran % (Auto) 0.0 (0.0-0.4) % Neut % (Auto) 43.7 L (45-73) % Lymph % (Auto) 48.1 H (20-40) % Meagher % (Auto) 6.6 (2-11) % Eos % (Auto) 1.1 (0-4) % Baso % (Auto) 0.5 (0-2) % Lymph # (Auto) 0.9 L (1.2-4.9) X10*3/uL Meagher # (Auto) 0.1 (0.1-1.2) X10*3/uL Eos # (Auto) 0.0 (0.0-0.4) X10*3/uL Baso # (Auto) 0.0 (0.0-0.2) X10*3/uL Abs Immat Gran (auto) 0.00 (0.00-0.03) X10*3/uL Absolute Neuts (auto) 0.8 L (2.0-8.3) x10*3/uL Absolute Nucleated RBC 0.000 (0.0-0.012) X10*3/uL Nucleated RBC % (auto) 0.0 (0.0-0.2) /100WBC PT 13.5 H D (11.1-13.3) SEC INR 1.1 (0.9-1.1) Sodium 141 (135-145) mmol/L Potassium 4.1 (3.3-5.1) mmol/L Chloride 107 (96-108) mmol/L Carbon Dioxide 27 (22-29) mmol/L Anion Gap 11 L (12-20) BUN 12 (9-16) mg/dL Creatinine 0.72 (0.5-1.4) mg/dL Estim Creat Clear Calc 103.6 Estimated GFR > 60 Random Glucose 99 (60-115) mg/dL Lactic Acid 1.5 (0.5-2.0) mmol/L Calcium 8.8 (8.4-10.2) mg/dL Total Bilirubin 0.6 (0.0-1.0) mg/dL AST 36 H (5-31) U/L ALT 22 (0-31) U/L Alkaline Phosphatase 63 (39-117) U/L Total Protein 5.8 L (6.5-8.0) g/dL Albumin 3.6 (3.5-5.0) g/dL Urine Color Yellow Urine Appearance Clear Urine pH 7.5 (5.0-9.0) Ur Specific Manning 1.010 (1.005-1.025) Urine Protein Negative (Neg-Trace) mg/dL Urine Glucose (UA) Negative (Negative) mg/dL Urine Ketones Negative (Negative) mg/dL Urine Blood Negative (Negative) Urine Nitrite Negative (Negative) Ur Leukocyte Esterase Negative (Negative) Influenza Type A (PCR) NEGATIVE (Negative) Influenza Type B (PCR) NEGATIVE (Negative) RSV RNA Qual (PCR) NEGATIVE (Negative) SARS-CoV-2 RNA (RT-PCR) NEGATIVE (Negative) Radiology Impression Discussion of test interpretation with radiology: I have reviewed the radiologist's reading. Radiologist Impression: Please see the discussion above External Record Review External record reviewed: Outpatient record, Prior outpatient labs and Prior outpatient radiology Chronic Conditions Patient?s care impacted by: Hypertension Breast cancer Critical Care Time Critical Care Time Critical Care Time: Yes Total Critical Care Time: 45 Attestation: I personally attest to this time spent taking care of the patient. Discharge Plan Discharge Clinical Impression: Neutropenia, Subjective fever Patient Disposition: Home, Self-Care Instructions: Fever in Adults (ED), Neutropenia (ED) Additional Instructions: 1. Resume all home medications as prescribed. 2. Please complete the entire course of antibiotics as prescribed. 3. Please follow-up with Dr. Starkey as scheduled on Monday. Return to the ER for any worsening symptoms. Prescriptions: New cefdinir 300 mg capsule 300 mg PO BID 5 Days Qty: 10 0RF No Action atenolol 100 mg tablet 100 mg PO DAILY Qty: 90 3RF hydrochlorothiazide 12.5 mg tablet 12.5 mg PO DAILY Qty: 90 3RF Eliquis 5 mg tablet 5 mg PO BID Qty: 60 5RF diphenhydramine HCl [Children's Allergy (diphenhyd)] 12.5 mg/5 mL liquid 25 mg PO BID PRN (Reason: Allergy Symptoms) sucralfate 1 gram tablet 1 g PO BID albuterol sulfate [ProAir HFA] 90 mcg/actuation Hfa Aerosol Inhaler 1 puff INHALATION QID PRN (Reason: Shortness Of Breath Or Wheezing) fluconazole 150 mg tablet 150 mg PO Q3D PRN (Reason: SORES FROM CHEMO) polyethylene glycol 3350 [Miralax] 17 gram Powder In Packet 17 g PO DAILY PRN (Reason: Constipation) guaifenesin [Mucinex] 600 mg Tablet Extended Release 12hr 600 mg PO BID Qty: 20 0RF benzonatate 100 mg Capsule 200 mg PO TID Qty: 30 0RF ondansetron 8 mg Tablet,Disintegrating 8 mg PO Q8H PRN (Reason: Nausea And Vomiting) Qty: 30 3RF (DME) bra, mastectomy Crystals Qty: 1 0RF Rx Instructions: As Directed (DME) Wig Kit Qty: 1 0RF Rx Instructions: As Directed (DME) Breast prosthesis Kit Qty: 1 0RF Rx Instructions: As Directed (DME) Chair, shower Misc Qty: 1 0RF Rx Instructions: As Directed amoxicillin 500 mg Capsule 500 mg PO Q8H Qty: 20 0RF azithromycin 500 mg Tablet 500 mg PO DAILY Qty: 5 0RF Magic Mouthwash Diphen/Nystat/Antacid 1:1:1 240 mL Suspension 10 ml PO TID PRN (Reason: Mouth Irritation) Qty: 240 0RF Rx Instructions: nystatin 100,000 unit/mL oral suspension 80 mL; diphenhydramine 12.5 mg/5 mL oral liquid 80 mL; aluminum-mag hydroxide-simethicone 400 mg-400 mg-40 mg/5 mL oral susp 80 mL; Per 240 mL Magic Mouthwash Diphen/Lido/Antacid 1:1:1 240 mL Suspension 10 ml PO QID Qty: 240 1RF Rx Instructions: Lidocaine Viscous 2 % 80mL; diphenhydramine 12.5 mg/5 mL 80mL; aluminum-mag hydrox-simeth [id number]/5mL 80mL Magic Mouthwash Diphen/Lido/Antacid 1:1:1 240 mL suspension 10 ml PO 4-5XD PRN (Reason: SORES FROM CHEMO) Qty: 240 0RF Rx Instructions: Lidocaine Viscous 2 % 80mL; diphenhydramine 12.5 mg/5 mL 80mL; aluminum-mag hydrox-simeth [id number]/5mL 80mL loperamide 2 mg Capsule 2 mg PO Q6H PRN (Reason: Diarrhea) Qty: 30 2RF magnesium oxide 400 mg (241.3 mg magnesium) tablet 400 mg PO DAILY pantoprazole 40 mg tablet,delayed release (DR/EC) 40 mg PO DAILY@0630 docusate sodium 100 mg capsule 100 mg PO DAILY PRN (Reason: Constipation) mirtazapine 15 mg tablet,disintegrating 15 mg PO BEDTIME oxycodone 5 mg tablet 5 mg PO Q4H lorazepam 1 mg tablet 1 mg PO TID PRN (Reason: Anxiety) ascorbic acid (vitamin C) [Vitamin C] 500 mg tablet 500 mg PO BID cetirizine 10 mg tablet 10 mg PO DAILY gabapentin 600 mg tablet 600 mg PO TID calcium carbonate-vitamin D3 600 mg-20 mcg (800 unit) tablet 1 tab PO BID cyanocobalamin (vitamin B-12) 100 mcg tablet 100 mcg PO DAILY bupropion HCl 150 mg tablet sustained-release 12 hr 300 mg PO DAILY furosemide 20 mg tablet 20 mg PO DAILY fluoxetine 20 mg capsule 40 mg PO DAILY (DME) mastectomy bra to fit See Rx Instructions .Route .MEDSUPPLY Qty: 2 0RF Rx Instructions: As directed (DME) left breast prosthetic to fit See Rx Instructions .Route .MEDSUPPLY Qty: 1 0RF Rx Instructions: As directed Referrals: Cathryn Starkey MD [Physician] -
[2023-05-27 11:26] VITALS: PULSE 70; RESP 18; TEMP 36.6; O2SAT 98; BMI 44.9
[2023-05-27 12:00] VITALS: BP 110/40; PULSE 64; RESP 18; TEMP 36.7; O2SAT 97
[2023-05-27 12:45] LABS: Basophils Percent Auto 0.5 % (0-2); Eosinophils Percent Auto 1.1 % (0-4); Hematocrit 30.8 % (37.0-47.0); Hemoglobin 9.9 g/dl (12.0-16.0); Lymphocytes Absolute Auto 0.9 X10*3/uL (1.2-4.9); Lymphocytes Percent Auto 48.1 % (20-40); MANUAL DIFF FLAG SCAN; Mean Corpuscular HGB Conc 32.1 g/dl (31.0-35.0); Mean Corpuscular Hemoglobin 33.3 pg (27.0-33.0); Mean Corpuscular Volume 103.7 fL (80.0-98.0); Monocytes Absolute Auto 0.1 X10*3/uL (0.1-1.2); Monocytes Percent Auto 6.6 % (2-11); Neutrophils Absolute Auto 0.8 x10*3/uL (2.0-8.3); Neutrophils Percent Auto 43.7 % (45-73); Platelet Count 237 X10*3/uL (160-400); Red Blood Count 2.97 X10*6/uL (4.20-5.50); Red Cell Distribution Width 15.5 % (11.0-16.0); SCAN SMEAR FLAG 1
[2023-05-27 12:46] LABS: White Blood Count 1.8 X10*3/uL (4.8-10.8)
[2023-05-27 12:51] LABS: INTERNATIONAL NORM RATIO 1.1 (0.9-1.1); Prothrombin Time 13.5 SEC (11.1-13.3)
[2023-05-27 13:11] LABS: Lactic Acid 1.5 mmol/L (0.5-2.0)
[2023-05-27 13:14] LABS: Alanine Aminotransferase 22 U/L (0-31); Albumin Level 3.6 g/dL (3.5-5.0); Alkaline Phosphatase 63 U/L (39-117); Anion Gap 11 (12-20); Aspartate Amino Transferase 36 U/L (5-31); Bilirubin Total 0.6 mg/dL (0.0-1.0); Blood Urea Nitrogen 12 mg/dL (9-16); Calcium 8.8 mg/dL (8.4-10.2); Carbon Dioxide 27 mmol/L (22-29); Chloride 107 mmol/L (96-108); Creatinine Clr Calc Pharmacy 103.6; Estimated Glomerular Filt Rate > 60; Glucose Random 99 mg/dL (60-115); Potassium 4.1 mmol/L (3.3-5.1); Sodium 141 mmol/L (135-145); Total Protein 5.8 g/dL (6.5-8.0)
[2023-05-27 13:32] LABS: Influenza A PCR NEGATIVE (Negative); Influenza B PCR NEGATIVE (Negative); Resp Syncy Virus RNA Qual PCR NEGATIVE (Negative); SARS COV2 PCR INHOUSE NEGATIVE (Negative)
[2023-05-27 13:59] LABS: Appearance Urine Clear; Color Urine Yellow; Glucose Urine UA Negative (Negative); Leukocyte Esterase Urine Negative (Negative); Nitrite Urine Negative (Negative); PH 7.5 (5.0-9.0); Urine Blood Negative (Negative); Urine Ketones Negative (Negative); Urine Protein Negative (Neg-Trace)
[2023-05-27 14:00] VITALS: BP 145/70; PULSE 61; RESP 20; TEMP 36.7; O2SAT 98
[2023-05-27] MEDS: LORazepam 1 MG TABLET PO (15:01)
[2023-05-27] MEDS: cefuroxime axetiL 500 MG TABLET PO (15:01)
[2023-05-27 15:18] VITALS: BP 139/73; PULSE 65; RESP 20; TEMP 36.7; O2SAT 96
== END 2023-05-27 15:21 | disposition home or self-care (01) ==
PROVIDERS: Registered Nurse Emergency; Emergency Provider Student in an Organized Health Care Education/Training Program
DX: D70.9 Neutropenia, unspecified (principal); R50.9 Fever, unspecified; C50.919 Malignant neoplasm of unspecified site of unspecified female breast; R19.7 Diarrhea, unspecified; I10 Essential (primary) hypertension; I48.0 Paroxysmal atrial fibrillation; Z79.60 Long term (current) use of unspecified immunomodulators and immunosuppressants; Z79.899 Other long term (current) drug therapy; Z11.52 Encounter for screening for COVID-19; Z20.828 Contact with and (suspected) exposure to other viral communicable diseases
CPT/HCPCS: 0241U; 36415; 71046; 80053; 81003; 83605; 85025; 85610; 87040; 87077; 87205; 99283

== ENCOUNTER 2023-06-03 09:08 | Outpatient (REF) | payer MEDICARE, MEDICAID, SELFPAY ==
[2023-06-03 09:21] LABS: MANUAL DIFF FLAG NO
[2023-06-03 09:24] LABS: Basophils Percent Auto 0.2 % (0-2); Eosinophils Absolute Auto 0.1 X10*3/uL (0.0-0.4); Eosinophils Percent Auto 1.1 % (0-4); Hemoglobin 11.1 g/dl (12.0-16.0); Imm Gran Abs Auto 0.01 X10*3/uL (0.00-0.03); Imm Gran Pct Auto 0.2 % (0.0-0.4); Lymphocytes Absolute Auto 1.7 X10*3/uL (1.2-4.9); Lymphocytes Percent Auto 36.7 % (20-40); Mean Corpuscular HGB Conc 31.7 g/dl (31.0-35.0); Mean Corpuscular Hemoglobin 32.4 pg (27.0-33.0); Mean Platelet Volume 10.1 fL (9.4-12.3); Monocytes Absolute Auto 0.5 X10*3/uL (0.1-1.2); Monocytes Percent Auto 10.7 % (2-11); Neutrophils Absolute Auto 2.3 x10*3/uL (2.0-8.3); Neutrophils Percent Auto 51.1 % (45-73); Platelet Count 285 X10*3/uL (160-400); Red Blood Count 3.43 X10*6/uL (4.20-5.50); White Blood Count 4.6 X10*3/uL (4.8-10.8)
[2023-06-03 09:42] LABS: Alanine Aminotransferase 20 U/L (0-31); Albumin Level 3.7 g/dL (3.5-5.0); Alkaline Phosphatase 79 U/L (39-117); Anion Gap 14 (12-20); Aspartate Amino Transferase 23 U/L (5-31); Bilirubin Total 0.5 mg/dL (0.0-1.0); Blood Urea Nitrogen 11 mg/dL (9-16); Calcium 9.1 mg/dL (8.4-10.2); Carbon Dioxide 24 mmol/L (22-29); Chloride 108 mmol/L (96-108); Estimated Glomerular Filt Rate > 60; Glucose Random 155 mg/dL (60-115); Potassium 4.1 mmol/L (3.3-5.1); Sodium 142 mmol/L (135-145); Total Protein 6.2 g/dL (6.5-8.0)
== END 2023-06-03 09:09 | disposition home or self-care (01) ==
LOC: HO.LAB 09:08
PROVIDERS: Visit Provider Internal Medicine
DX: C50.919 Malignant neoplasm of unspecified site of unspecified female breast (principal)
CPT/HCPCS: 36415; 80053; 85025

== ENCOUNTER 2023-06-29 12:31 | Outpatient (AMB) | payer MEDICARE, MEDICAID, SELFPAY ==
[2023-06-29 13:00] VITALS: BP 114/70; PULSE 75
--- NOTE | 2023-06-29 13:00 | A.OFFVIS_ITS ---
Intake Vital Signs 06/29/23 13:00 Height 5 ft 5.5 in BP 114/70 Blood Pressure Location Rt brachial Position Sitting Pulse 75 Pulse Source Monitor Intake Visit Reasons: 9 MON FUP PER DC Glove Sewer Required: No Allergies latex [LATEX] Allergy (Intermediate, Verified 06/29/23 13:02) RASH seafood Allergy (Intermediate, Verified 06/29/23 13:02) Rash Sulfa (Sulfonamide Antibiotics) Allergy (Intermediate, Verified 06/29/23 13:02) hives sulfamethoxazole [From BACTRIM] Allergy (Intermediate, Verified 06/29/23 13:02) HIVES trimethoprim [From BACTRIM] Allergy (Intermediate, Verified 06/29/23 13:02) HIVES valsartan [From DIOVAN] Allergy (Intermediate, Verified 06/29/23 13:02) RASH Bandage Adhesive [place] 3/4 Allergy (Severe, Uncoded 06/29/23 13:02) Rash SURGICAL TAPE Allergy (Severe, Uncoded 06/29/23 13:02) RASH tape Allergy (Severe, Uncoded 06/29/23 13:02) Rash Medication List - Last Reconciled 06/29/23 by GABE Green albuterol sulfate 90 mcg/actuation (ProAir HFA) 1 puff inhalation QID PRN apixaban (Eliquis) 5 mg PO BID ascorbic acid (vitamin C) (Vitamin C) 500 mg PO BID atenolol 100 mg PO DAILY bupropion HCl SR 300 mg PO DAILY calcium carbonate-vitamin D3 600 mg-20 mcg (800 unit) 1 tab PO BID cetirizine 10 mg PO DAILY cyanocobalamin (vitamin B-12) 100 mcg PO DAILY diphenhydramine HCl (Children's Allergy (diphenhydramine)) 25 mg PO BID PRN docusate sodium 100 mg PO DAILY PRN fluoxetine 40 mg PO DAILY furosemide 20 mg PO DAILY gabapentin 600 mg PO TID guaifenesin ER (Mucinex) 600 mg PO BID hydrochlorothiazide 12.5 mg PO DAILY [left breast prosthetic As directed] loperamide 2 mg PO Q6H PRN lorazepam 1 mg PO TID PRN Magic Mouthwash Diphen/Lido/Antacid 1:1:1 10 mL PO 4-5XD PRN Magic Mouthwash Diphen/Lido/Antacid 1:1:1 10 mL PO QID Magic Mouthwash Diphen/Nystat/Antacid 1:1:1 10 mL PO TID PRN magnesium oxide 400 mg PO DAILY mastectomy bra (bra, mastectomy) As Directed [mastectomy bra As directed] mirtazapine 15 mg PO BEDTIME ondansetron 8 mg PO Q8H PRN oxycodone 5 mg PO Q4H pantoprazole 40 mg PO DAILY@0630 polyethylene glycol 3350 (Miralax) 17 grams PO DAILY PRN polymyxin B sulf-trimethoprim 10,000 unit- 1 mg/mL 1 drp ophthalmic (eye) Q3H Prosthesis, breast (Breast prosthesis) As Directed Shower Chair (Chair, shower) As Directed sucralfate 1 g PO BID Wig As Directed HPI 9 MON FUP PER DC HPI Details Ya is a 63-year-old female with past medical history of hypertension, morbid obesity, paroxysmal atrial fibrillation who was diagnosed with breast cancer last summer and underwent a left mastectomy and is now undergoing chemotherapy. She now presents for cardiology follow-up. Today she reports she has not had any cardiac issues since her last visit in September. She does not feel heart palpitations. She does have left chest wall discomfort from her surgery. No other types of chest discomfort. No concerning shortness of breath, lightheadedness, presyncope, syncope, falls. She does have generalized weakness. No PND, orthopnea or leg edema. She has generalized fatigue and some weakness from her chemotherapy. She tells me she has 1 more treatment to go then things will be re-evaluated. Following with Dr. Starkey. [facility], [facility] Medical History Hx of correction use of blood thinners Invasive ductal carcinoma of left breast Left breast mass Hypertension Paroxysmal atrial fibrillation Surgical History H/O total mastectomy of left breast (~11/18/22) History of total right knee replacement History of cholecystectomy History of gastric bypass H/O shoulder surgery H/O hemorrhoidectomy History of left knee replacement Status post breast reduction Family History Father COPD (chronic obstructive pulmonary disease) HTN (hypertension) Diabetes Mother COPD (chronic obstructive pulmonary disease) Diabetes HTN (hypertension) Social History Household Members: Children Housing: House Do you presently have visiting nurse or other home services: No Alcohol intake: never Comment: refusing bed alarm Patient Tobacco Use Status: Never used Tobacco Tobacco use type: Cigarette Second Hand Smoke Exposure: No Advance Directives Date on File: 11/22/22 service: No Current occupational status: employed Female Reproductive History Menstrual Age of Menarche: 10 Review of Systems Const All systems reviewed & are unremarkable except as noted in HPI and below Reports lethargy and Reports malaise ENT Denies dizziness Card Denies chest pain, Denies chest pain at rest, Denies chest pain with activity, Denies rapid heart rate, Denies pedal edema, Denies edema, Denies leg edema, Denies lightheadedness, Denies palpitations, Denies dyspnea, Reports dyspnea on exertion and Denies orthopnea Resp Denies cough, Denies dyspnea and Reports dyspnea on exertion GI Denies hematochezia and Denies change in stool character Musc Denies abnormal gait, Denies limited range of motion, Denies muscle cramps, Denies muscle weakness, Denies numbness, Denies radiating pain into limb, Denies stiffness and Denies tingling Neuro Denies abnormal gait, Denies dizziness, Denies numbness and Denies tingling Endo Denies palpitations Physical Exam Vital Signs: Last Vital Signs Pulse 75 06/29/23 13:00 BP 114/70 06/29/23 13:00 Const Other: chronically ill appearing. Loss of hair with chemotherapy. General: comfortable and no acute distress Orientation/consciousness: patient oriented x3 Neck Neck: Yes normal visual inspection and Yes no JVD Carotids: normal carotid upstroke Chest Other: s/p left mastectomy Resp Effort & Inspection: normal respiratory effort Auscultation: clear to auscultation bilaterally, no rales, no rhonchi and no wheezes Cardio Jugular venous distension: no JVD Rate: regular rate Rhythm: regular rhythm Heart sounds: S1 normal heart sound present, S2 normal heart sound present, no murmurs and no rubs Neuro General: patient oriented x3 Extrem General: Yes normal to inspection and No no pedal edema Psych Appearance: grossly normal Mental Status: mental status grossly normal Speech and movement: Normal speech and movement present Assessment & Plan Assessment & Plan (1) Paroxysmal atrial fibrillation: Code(s): I48.0 - Paroxysmal atrial fibrillation Plan: History of paroxysmal atrial fibrillation. Patient denies feeling heart palpitations. EKG done 01/25/2010/06/2022 did show atrial fibrillation. EKG done 04/16/2023 showed sinus tach, rate 107. Nuclear stress test done 05/16/2016 showed normal myocardial perfusion imaging. An echocardiogram was done prior to the start of her chemotherapy on 12/29/2022 showing EF 60-65%, left atrium mildly dilated. She continues on atenolol for heart rate control. She is on Eliquis for anticoagulation. She does have mild anemia but no signs of bleeding. Labs done 06/03/2023 showed hematocrit 35. Chads Vasc score of 2. Continue current management with atenolol and Eliquis. Cardiology followup in 6 months, sooner if needed (2) Hypertension: Code(s): I10 - Essential (primary) hypertension Plan: Well controlled presently. No med changes made. (3) Morbid obesity: Code(s): E66.01 - Morbid (severe) obesity due to excess calories Plan: She wants to work on weight loss however wants to wait until her chemotherapy has completed. Plan Chart review, documentation, interview and assessment Coding Level of Care Code Est Pt Level 4 (96901) Diagnoses Paroxysmal atrial fibrillation I48.0 Hypertension I10 Morbid obesity E66.01 Time Spent (min) 30
== END 2023-06-29 13:31 | disposition home or self-care (01) ==
PROVIDERS: PCP Internal Medicine; Visit Provider Nurse Practitioner Family
DX: I48.0 Paroxysmal atrial fibrillation (principal); I10 Essential (primary) hypertension; E66.01 Morbid (severe) obesity due to excess calories
CPT/HCPCS: 99214

== ENCOUNTER → 2023-06-29 12:31 | Outpatient (BNVA) | payer MEDICARE, MEDICAID, SELFPAY | PROVIDERS: PCP Internal Medicine; Visit Provider Nurse Practitioner Family | DX: I48.0 Paroxysmal atrial fibrillation (principal); I10 Essential (primary) hypertension; Z79.01 Long term (current) use of anticoagulants; E66.01 Morbid (severe) obesity due to excess calories | CPT/HCPCS: 99212 ==

== ENCOUNTER 2023-07-20 08:55 | Outpatient (AMB) | payer MEDICARE, MEDICAID, SELFPAY ==
--- NOTE | 2023-07-20 08:57 | MHC.OFFVIS ---
Vital Signs 07/20/23 08:57 Height 5 ft 5.5 in BMI Reason not done Patient refused/unable Intake Visit Reasons: 6 month s/p left mastectomy, port in place Intake Note: This patient presents for a six month follow-up breast examination assessment, port in place. Patient c/o; reports no complaints. Environmental Health Technician Required: No Accompanied by: Self / Same As Patient Allergies latex [LATEX] Allergy (Intermediate, Verified 07/20/23 08:58) RASH seafood Allergy (Intermediate, Verified 07/20/23 08:58) Rash Sulfa (Sulfonamide Antibiotics) Allergy (Intermediate, Verified 07/20/23 08:58) hives sulfamethoxazole [From BACTRIM] Allergy (Intermediate, Verified 07/20/23 08:58) HIVES trimethoprim [From BACTRIM] Allergy (Intermediate, Verified 07/20/23 08:58) HIVES valsartan [From DIOVAN] Allergy (Intermediate, Verified 07/20/23 08:58) RASH Bandage Adhesive Kleberg 3/4 Allergy (Severe, Uncoded 07/20/23 08:58) Rash SURGICAL TAPE Allergy (Severe, Uncoded 07/20/23 08:58) RASH tape Allergy (Severe, Uncoded 07/20/23 08:58) Rash Medication List - Last Reconciled 07/20/23 by Henok Shultz MD albuterol sulfate 90 mcg/actuation (ProAir HFA) 1 puff inhalation QID PRN apixaban (Eliquis) 5 mg PO BID ascorbic acid (vitamin C) (Vitamin C) 500 mg PO BID atenolol 100 mg PO DAILY bupropion HCl SR 300 mg PO DAILY calcium carbonate-vitamin D3 600 mg-20 mcg (800 unit) 1 tab PO BID cetirizine 10 mg PO DAILY cyanocobalamin (vitamin B-12) 100 mcg PO DAILY diphenhydramine HCl (Children's Allergy (diphenhydramine)) 25 mg PO BID PRN docusate sodium 100 mg PO DAILY PRN fluoxetine 40 mg PO DAILY furosemide 20 mg PO DAILY gabapentin 600 mg PO TID guaifenesin ER (Mucinex) 600 mg PO BID hydrochlorothiazide 12.5 mg PO DAILY [left breast prosthetic As directed] loperamide 2 mg PO Q6H PRN lorazepam 1 mg PO TID PRN Magic Mouthwash Diphen/Lido/Antacid 1:1:1 10 mL PO 4-5XD PRN Magic Mouthwash Diphen/Lido/Antacid 1:1:1 10 mL PO QID Magic Mouthwash Diphen/Nystat/Antacid 1:1:1 10 mL PO TID PRN magnesium oxide 400 mg PO DAILY mastectomy bra (bra, mastectomy) As Directed [mastectomy bra As directed] mirtazapine 15 mg PO BEDTIME ondansetron 8 mg PO Q8H PRN oxycodone 5 mg PO Q4H pantoprazole 40 mg PO DAILY@0630 polyethylene glycol 3350 (Miralax) 17 grams PO DAILY PRN polymyxin B sulf-trimethoprim 10,000 unit- 1 mg/mL 1 drp ophthalmic (eye) Q3H Prosthesis, breast (Breast prosthesis) As Directed Shower Chair (Chair, shower) As Directed sucralfate 1 g PO BID Wig As Directed HPI HPI 6 month s/p left mastectomy, port in place: Details: She had undergone left breast mastectomy and sentinel biopsy for invasive ductal cancer on 11/18/2022. Her path report showed an invasive ductal cancer, T2 N0 with lymphovascular invasion. She has completed chemotherapy with Dr. Starkey. She feels well overall. She says she had a rough time with chemotherapy but was able to get through this She denies any problems with her mastectomy site. She does admit to chronic pain on the contralateral breast. [facility] Medical History (Updated 07/20/23 @ 09:31 by Henok Shultz MD) History of breast cancer Hx of usp use of blood thinners Invasive ductal carcinoma of left breast Left breast mass Hypertension Paroxysmal atrial fibrillation Surgical History H/O total mastectomy of left breast (~11/18/22) History of total right knee replacement History of cholecystectomy History of gastric bypass H/O shoulder surgery H/O hemorrhoidectomy History of left knee replacement Status post breast reduction Family History Father COPD (chronic obstructive pulmonary disease) HTN (hypertension) Diabetes Mother COPD (chronic obstructive pulmonary disease) Diabetes HTN (hypertension) Social History Household Members: Children Housing: House Do you presently have visiting nurse or other home services: No Alcohol intake: never Comment: refusing bed alarm Patient Tobacco Use Status: Never used Tobacco Tobacco use type: Cigarette Second Hand Smoke Exposure: No Advance Directives Date on File: 11/22/22 service: No Current occupational status: employed Female Reproductive History Menstrual Age of Menarche: 10 Review of Systems Const Denies chills and Denies fever(s) Card Denies chest pain, Denies dyspnea and Reports dyspnea on exertion Resp Denies cough, Denies dyspnea and Reports dyspnea on exertion GI Denies hematochezia and Denies change in bowel habits Denies hematuria Musc Reports back pain and Reports limited range of motion Neuro Denies focal weakness and Denies convulsions Psych Denies depression and Denies mood swings Physical Exam Const Other: Appears obese General: comfortable and no acute distress Chest Other: Mastectomy site well healed, no palpable masses on the chest wall, no palpable right breast mass, no axillary lymphadenopathy Resp Effort & Inspection: normal respiratory effort Cardio Rate: regular rate Assessment & Plan Assessment & Plan (1) History of breast cancer: Code(s): Z85.3 - Personal history of malignant neoplasm of breast Category: Medical Plan: She had a T2 N0 invasive ductal carcinoma on the left. She is status post mastectomy. She is completed chemotherapy She seemed to be doing well overall. Examination does not reveal any mass on the chest wall or the right breast I have reminded her to continue with the regular screening mammograms for the right breast. I will see her again in the office in about 6 months to examine her for surveillance. She also should continue to follow up with Oncology. Coding Level of Care Code Est Pt Level 3 (59078) Diagnoses History of breast cancer Z85.3
== END 2023-07-20 09:30 | disposition home or self-care (01) ==
PROVIDERS: PCP Internal Medicine; Visit Provider Surgery
DX: Z85.3 Personal history of malignant neoplasm of breast (principal)
CPT/HCPCS: 99213

== ENCOUNTER → 2023-07-20 08:55 | Outpatient (BNVA) | payer MEDICARE, MEDICAID, SELFPAY | PROVIDERS: PCP Internal Medicine; Visit Provider Surgery | DX: Z85.3 Personal history of malignant neoplasm of breast (principal) | CPT/HCPCS: 99212 ==

== ENCOUNTER 2023-08-07 10:31 | Outpatient (REF) | payer MEDICARE, MEDICAID, SELFPAY ==
--- NOTE | ~2023-08-07 | MM_ITS ---
EXAMINATION: MM DIAGNOSTIC DIGITAL BREAST TOMOSYNTHESIS, RIGHT US BREAST LIMITED, RIGHT MAMMOGRAPHY: CLINICAL INFORMATION: Diffuse right breast pain. Patient has undergone prior recent left mastectomy in 2022 for invasive ductal carcinoma, grade 3. COMPARISON: Mammography: 10/25/2022, 09/26/2022, 06/28/2021, and dating back to 2016. TECHNIQUE: Digital right breast tomosynthesis is performed in both the craniocaudal and mediolateral oblique views along with computer-aided detection (CAD). Synthesized 2D images are generated from the tomosynthesis. A second CC medial and MLO view were also submitted. A full-field right 90 degree ML view was submitted. FINDINGS: The breasts are almost entirely fatty (ACR BI-RADS breast composition Category a). Predominantly fatty breast tissue. There are a few scattered benign type calcifications. A subtle linear density in the anterior lateral right breast at 10:00 is consistent with a previously seen benign intramammary node. Otherwise, there are no suspicious masses, suspicious grouped calcifications, or areas of architectural distortion in the right breast. The parenchymal pattern is stable from numerous prior exams. There is no skin or axillary abnormality. There is no mammographic abnormality to account for the diffuse right breast pain. ULTRASOUND: CLINICAL INFORMATION: Diffuse right breast pain. COMPARISON: Bilateral breast ultrasound 10/25/2022. TECHNIQUE: Targeted sonographic evaluation entire right breast was performed using a high frequency linear transducer. Selected archived documentation. FINDINGS: RIGHT BREAST: There is probably fatty breast tissue. There is no suspicious mass, abnormal shadowing, cystic abnormality, or architectural distortion. There is no ultrasonographic explanation for diffuse right breast pain. MM/MM tomosynthesis diagnostic RT IMPRESSION: There are no findings suspicious for malignancy in the right breast. There is no mammographic or sonographic correlate to explain the presence of diffuse right breast pain. Recommend clinical management and follow-up. Otherwise, recommend resuming routine annual screening mammography of the right breast. OVERALL ASSESSMENT: Mammography: BI-RADS 2 - Benign Findings Ultrasound: BI-RADS 2 - Benign Findings RECOMMENDATION: 1. Patient should be managed based on the clinical impression. 2. Otherwise, routine annual screening mammography. This patient's information was entered into a reminder system with a target due date for their next mammogram.
== END 2023-08-07 10:32 | disposition home or self-care (01) ==
LOC: HO.MAMMO 10:31
PROVIDERS: PCP Internal Medicine; Visit Provider Surgery
DX: N64.4 Mastodynia (principal)
CPT/HCPCS: 76642; 77061; 77065

== ENCOUNTER → 2023-08-07 11:00 | Outpatient (BNV) | payer MEDICARE, MEDICAID, SELFPAY | PROVIDERS: PCP Internal Medicine; Visit Provider Radiology Diagnostic Radiology | DX: N64.4 Mastodynia (principal) | CPT/HCPCS: 76642; 77065; G0279 ==

== ENCOUNTER → 2023-08-11 12:16 | Outpatient (REF) | payer MEDICARE, MEDICAID, SELFPAY ==
--- NOTE | 2023-08-11 12:20 | CA_ITS ---
Transthoracic Echocardiogram Patient (Last, First, Middle): Ya Rizzo, Gender: Female Date of : 1960 Age: 63 Procedure Date: 08/11/2023 Procedure Type: Transthoracic Echocardiogram Location: OP Height: 165.1 cm Weight: 122.47 kg BSA: 2.25 m2 Heart Rate: 103 bpm BP: 118 / 68 mmHg [employer]ault Worker: SB Referring MD: Kristie Bright MANAGER [employer] [place] Symptoms: C50.912 - Malignant neoplasm of unspecified site of left female breast Study Quality: Adequate ECG Rhythm: Arrhythmia Conclusions: - Normal left ventricular size and systolic function. There is mildly increased left ventricular wall thickness. The visually estimated ejection fraction is between 60-65%. - Normal right ventricular cavity size. There is low normal right ventricular systolic function. - Reduced GLS -10.4 %. Findings Left Ventricle Normal left ventricular size and systolic function. There is mildly increased left ventricular wall thickness. The visually estimated ejection fraction is between 60-65%. There is no evidence of regional wall motion abnormalities. Right Ventricle Normal right ventricular cavity size. There is low normal right ventricular systolic function. Venous The inferior vena cava is normal in size and collapses greater than 50% with inspiration. Pericardium/Pleural There is no evidence of pericardial effusion. Prior Study Comparison No significant change compared to prior study dated: 12/29/2022. Measurements 2D Linear Measurements IVSd: 1.07 0.6-0.9/0.6-1.0 cm LVIDd: 3.99 3.9-5.3/4.2-5.9 cm LVIDd Index: 1.77 2.4-3.2/2.2-3.1 cm/m2 LVIDs: 2.75 2.0-3.6 cm LVPWd: 0.95 0.7-1.1 cm LV Mass: 160.15 67-162/88-224 g LV Mass Index: 71.18 43-95/49-115 g/m2 LVOT Diam: 2.00 3.0+(-)1.3 cm 2D Systolic Function EF 4C: 66.70 >55% EF 2C: 57.80 >55% EF BiP: 58.90 >55% Mitral Valve MV Pk E: 0.74 E'Medial: 8.59 E/E' Med: 8.60 LVOT LVOT Pk Darryl: 0.90 LVOT Mn Darryl: 0.63 LVOT VTI: 0.17 LVOT Pk Grad: 3.00 LVOT Mn Grad: 2.00 LVOT Diam: 2.00 LVOT Area: 3.14 Diastolic Function MV Pk E: 0.74 E'Medial: 8.59 E/E' Med: 8.60 Tricuspid Valve RA Press: 3.00 Updated in Other Vendor System with Status of Final Bryce Juarez MD electronically signed on 08/14/2023 6:11:37 PM with status of Final
== END ==
LOC: HO.CARD 12:16
PROVIDERS: PCP Internal Medicine; Visit Provider Nurse Practitioner Family
DX: Z85.3 Personal history of malignant neoplasm of breast (principal); Z92.21 Personal history of antineoplastic chemotherapy
CPT/HCPCS: 93308; 93356

== ENCOUNTER → 2023-08-11 12:20 | Outpatient (BNV) | payer MEDICARE, MEDICAID, SELFPAY | PROVIDERS: PCP Internal Medicine; Visit Provider Internal Medicine Cardiovascular Disease | DX: Z08 Encounter for follow-up examination after completed treatment for malignant neoplasm (principal); C50.912 Malignant neoplasm of unspecified site of left female breast; Z92.21 Personal history of antineoplastic chemotherapy; R93.1 Abnormal findings on diagnostic imaging of heart and coronary circulation | CPT/HCPCS: 93308; 93356 ==

== ENCOUNTER 2023-08-20 18:49 | Emergency (ER) | payer MEDICARE, MEDICAID, SELFPAY ==
--- NOTE | ~2023-08-20 | CT_ITS ---
EXAMINATION: CT ANGIOGRAM OF THE CHEST WITH AND WITHOUT CONTRAST (CT PULMONARY ANGIOGRAM FOR PE) CLINICAL INFORMATION: Reason for Exam Chest tightness history of breast cancer?pe COMPARISON: None available. TECHNIQUE: Prior to contrast administration, noncontrast localization images were obtained. Subsequently, multidetector volumetric imaging was performed from the thoracic inlet to below the diaphragms following the administration of 80 mL Omnipaque 350 intravenous contrast. No contrast reaction reported Sagittal, coronal, and MIP oblique sagittal reformatted images were obtained on the CT workstation, uploaded to PACS, and reviewed. This CT examination was performed using dose optimization techniques as appropriate, variously including the following: *Automated exposure control *Adjustment of mA and/or kV according to patient size (this includes techniques or standardized protocols for targeted exams where dose is matched to indication/reason for exam; i.e. extremities or head) *Use of iterative reconstruction technique Total exam dose-length product 488 mGy-cm FINDINGS: QUALITY OF STUDY/CONTRAST BOLUS: Suboptimal. PULMONARY ARTERIES: No central pulmonary embolus is seen. However, there is inadequate evaluation of the segmental and subsegmental vessels due to suboptimal bolus timing, and therefore emboli at these levels cannot be excluded. THORACIC AORTA: No aneurysm or dissection. LUNG: No regions of consolidation bilaterally. There is a nonspecific 4 mm left lower lobe nodule on image [id number] posteriorly. PLEURA: No pleural effusion or pneumothorax. MEDIASTINUM: Visualized thyroid gland is grossly unremarkable. There are subcentimeter mediastinal lymph nodes within the range of normal variation. Cardiac size is within normal limits; no pericardial effusion. Right IJ port catheter tip in the region of the upper SVC. No evidence of septal bowing or right heart strain. CORONARY ARTERY CALCIFICATION: None visualized on this study. CHEST WALL/AXILLA: No axillary or internal mammary lymphadenopathy. Status post left mastectomy. OSSEOUS STRUCTURES: Multilevel degenerative endplate changes in the spine. UPPER ABDOMEN: Suture lines are present along the stomach. Status post cholecystectomy. No reflux of contrast into the hepatic veins to suggest elevated right heart pressures. CT/CT angio chest PE protocol IMPRESSION: 1. No central pulmonary embolus identified. However, there is inadequate evaluation of the segmental and subsegmental vessels due to suboptimal bolus timing, and therefore emboli at these levels cannot be excluded. 2. Nonspecific 4 mm left lower lobe lung nodule. Attention on follow-up is recommended. VTE: indeterminate.
--- NOTE | ~2023-08-20 | US_ITS ---
EXAMINATION: US VENOUS WITH DOPPLER UPPER EXTREMITY, LEFT CLINICAL INFORMATION: Left upper extremity pain. COMPARISON: None available. TECHNIQUE: Ultrasound of the upper extremity is performed using compression sonography and color and pulse Doppler flow with assessment of augmentation of flow. There is also imaging and Doppler assessment of the jugular and subclavian veins. Spectral analysis with color-flow imaging is performed. FINDINGS: Respiratory variation, normal compression, and augmented flow are noted throughout the upper extremity including the axillary, brachial, cephalic, basilic and radial veins. There is normal flow in the internal jugular and subclavian veins. There is a port in place which appears patent. There is no visible deep or superficial thrombophlebitis. If the patient's symptoms progress, a followup ultrasound in 5 -7 days might be of value to exclude proximal propagation from a nonvisualized distal arm vein. US/US venous duplex UE LT IMPRESSION: No DVT demonstrated in the left upper extremity.
--- NOTE | 2023-08-20 18:51 | ECG_ITS ---
Test Reason : CHEST PAIM Blood Pressure : / mmHG Vent. Rate : 083 BPM Atrial Rate : 083 BPM P-R Int : 152 ms QRS Dur : 076 ms QT Int : 378 ms P-R-T Axes : 024 003 019 degrees QTc Int : 444 ms Normal sinus rhythm Normal ECG When compared with ECG of 16-APR-2023 19:52, Criteria for Septal infarct are no longer Present Nonspecific T wave abnormality now evident in Inferior leads Nonspecific T wave abnormality no longer evident in Lateral leads Referred By: Generic ED Physician Electronically Signed By:MABLE CRYSTAL MD
[2023-08-20 19:15] VITALS: BP 107/82; PULSE 84; RESP 18; TEMP 36.6; O2SAT 93; BMI 44.9
[2023-08-20 20:35] LABS: Appearance Urine Clear; Color Urine Yellow; Glucose Urine UA Negative (Negative); Leukocyte Esterase Urine Moderate (2+) (Negative); Nitrite Urine Negative (Negative); UMIC TRIGGER UACC YES; Urine Blood Negative (Negative); Urine Ketones Negative (Negative); Urine Protein Negative (Neg-Trace)
[2023-08-20 20:39] LABS: Bacteria Urine None Seen (None Seen); Hyaline Casts Urine 0-2 /LPF (0-2); RBC Urine 0-2 /HPF (0-2); Squamous Epithelial Cell Urine 0-2 /HPF (0-2); UACC Culture Trigger YES
[2023-08-20 21:49] LABS: MANUAL DIFF FLAG NO
[2023-08-20 21:50] LABS: Basophils Percent Auto 0.2 % (0-2); Eosinophils Absolute Auto 0.1 X10*3/uL (0.0-0.4); Eosinophils Percent Auto 1.1 % (0-4); Hematocrit 40.2 % (37.0-47.0); Hemoglobin 12.7 g/dl (12.0-16.0); Mean Corpuscular HGB Conc 31.6 g/dl (31.0-35.0); Mean Corpuscular Hemoglobin 28.1 pg (27.0-33.0); Mean Corpuscular Volume 88.9 fL (80.0-98.0); Mean Platelet Volume 9.8 fL (9.4-12.3); Monocytes Absolute Auto 0.5 X10*3/uL (0.1-1.2); Monocytes Percent Auto 6.9 % (2-11); Neutrophils Percent Auto 60.8 % (45-73); Platelet Count 247 X10*3/uL (160-400); Red Blood Count 4.52 X10*6/uL (4.20-5.50); Red Cell Distribution Width 14.9 % (11.0-16.0); White Blood Count 6.5 X10*3/uL (4.8-10.8)
[2023-08-20 21:55] LABS: INTERNATIONAL NORM RATIO 1.1 (0.9-1.1); Prothrombin Time 13.7 SEC (11.1-13.3)
[2023-08-20 22:07] LABS: Alanine Aminotransferase 18 U/L (0-31); Alkaline Phosphatase 98 U/L (39-117); Anion Gap 17 (12-20); Aspartate Amino Transferase 25 U/L (5-31); Bilirubin Total 0.4 mg/dL (0.0-1.0); Blood Urea Nitrogen 15 mg/dL (9-16); Calcium 9.4 mg/dL (8.4-10.2); Carbon Dioxide 25 mmol/L (22-29); Chloride 102 mmol/L (96-108); Creatinine Clr Calc Pharmacy 82.7; Estimated Glomerular Filt Rate > 60; Glucose Random 105 mg/dL (60-115); Potassium 3.5 mmol/L (3.3-5.1); Sodium 140 mmol/L (135-145); Total Protein 7.1 g/dL (6.5-8.0)
[2023-08-20 22:14] LABS: Troponin-I High Sensitivity 4.8 ng/L (<3.5-17.0)
[2023-08-21 00:06] VITALS: BP 112/48; PULSE 67; RESP 16; TEMP 36.4; O2SAT 97
--- NOTE | 2023-08-21 00:09 | MHC.EDTECH ---
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
--- NOTE | 2023-08-21 00:23 | ED.CHESTPAIN ---
HPI - Chest Pain General Chief Complaint: Chest Pain Stated Complaint: Chest pain Time Seen by Provider: 08/21/23 00:23 Source: patient Mode of arrival: ambulatory Limitations: no limitations History of Present Illness ED Provider: yulissa HUSAIN narrative: Patient is 63 years old with history of breast cancer status post left mastectomy has a port in left subclavian vein for last 6 months noticed pain at the area of the port since yesterday radiating to the neck with tender R EJV no shortness of breath no diaphoresis patient is on Eliquis for atrial fibrillation patient's was sent by her oncologist to rule out venous thrombosis patient does have catheter in left IJ but she feels that is more prominent and tender at this time patient pain started after patient received chemotherapy Related Data Home Medications ?Medication ?Instructions ?Recorded ?Confirmed ascorbic acid (vitamin C) 500 mg 500 mg PO BID 07/01/21 07/20/23 tablet (Vitamin C) bupropion HCl 150 mg tablet,12 hr 300 mg PO DAILY 07/01/21 07/20/23 sustained-release calcium carbonate 600 mg-vitamin 1 tab PO BID 07/01/21 07/20/23 D3 20 mcg (800 unit) tablet cetirizine 10 mg tablet 10 mg PO DAILY 07/01/21 07/20/23 cyanocobalamin (vitamin B-12) 100 100 mcg PO DAILY 07/01/21 07/20/23 mcg tablet fluoxetine 20 mg capsule 40 mg PO DAILY 07/01/21 07/20/23 furosemide 20 mg tablet 20 mg PO DAILY 07/01/21 07/20/23 gabapentin 600 mg tablet 600 mg PO TID 07/01/21 07/20/23 lorazepam 1 mg tablet 1 mg PO TID PRN Anxiety 07/01/21 07/20/23 docusate sodium 100 mg capsule 100 mg PO DAILY PRN Constipation 12/07/22 07/20/23 magnesium oxide 400 mg (241.3 mg 400 mg PO DAILY 12/07/22 07/20/23 magnesium) tablet mirtazapine 15 mg disintegrating 15 mg PO BEDTIME 12/07/22 07/20/23 tablet oxycodone 5 mg tablet 5 mg PO Q4H severe pain 12/07/22 07/20/23 pantoprazole 40 mg tablet,delayed 40 mg PO DAILY@0630 12/07/22 07/20/23 release albuterol sulfate 90 mcg/actuation 1 puff inhalation QID PRN 02/13/23 07/20/23 aerosol inhaler (ProAir HFA) Shortness Of Breath Or Wheezing diphenhydramine HCl 12.5 mg/5 mL 25 mg PO BID PRN Allergy Symptoms 02/13/23 07/20/23 oral liquid (Children's Allergy (diphenhydramine)) polyethylene glycol 3350 17 gram 17 g PO DAILY PRN Constipation 02/13/23 07/20/23 oral powder packet (Miralax) sucralfate 1 gram tablet 1 g PO BID 02/13/23 07/20/23 Previous Rx's ?Medication ?Instructions ?Recorded atenolol 100 mg tablet 100 mg PO DAILY #90 tabs 09/15/22 hydrochlorothiazide 12.5 mg tablet 12.5 mg PO DAILY #90 tabs 09/15/22 apixaban 5 mg tablet (Eliquis) 5 mg PO BID #60 tabs 10/13/22 left breast prosthetic #1 ea 01/02/23 mastectomy bra #2 ea 01/02/23 ondansetron 8 mg disintegrating 8 mg PO Q8H PRN Nausea And 01/23/23 tablet Vomiting #30 tabs Wig #1 ea 01/24/23 mastectomy bra (bra, mastectomy) #1 ea 01/24/23 Prosthesis, breast (Breast #1 ea 01/25/23 prosthesis) guaifenesin 600 mg tablet, 600 mg PO BID #20 tabs 02/18/23 extended release 12 hr (Mucinex) Shower Chair (Chair, shower) #1 ea 03/01/23 Magic Mouthwash 10 ml PO TID PRN Mouth Irritation 04/03/23 Diphen/Nystat/Antacid 1:1:1 240 mL #240 mL suspension Magic Mouthwash 10 ml PO 4-5XD PRN SORES FROM 04/18/23 Diphen/Lido/Antacid 1:1:1 240 mL CHEMO #240 mL suspension loperamide 2 mg capsule 2 mg PO Q6H PRN Diarrhea #30 caps 04/18/23 polymyxin B sulfate 10,000 1 drp ophthalmic (eye) Q3H #20 mL 05/29/23 unit-trimethoprim 1 mg/mL eye drops Magic Mouthwash 10 ml PO QID #240 mL 06/06/23 Diphen/Lido/Antacid 1:1:1 240 mL suspension Allergies Allergy/AdvReac Type Severity Reaction Status Date / Time latex [LATEX] Allergy Intermediate RASH Verified 08/20/23 19:19 seafood Allergy Intermediate Rash Verified 08/20/23 19:19 Sulfa (Sulfonamide Allergy Intermediate hives Verified 08/20/23 19:19 Antibiotics) sulfamethoxazole Allergy Intermediate HIVES Verified 08/20/23 19:19 [From BACTRIM] trimethoprim [From BACTRIM] Allergy Intermediate HIVES Verified 08/20/23 19:19 valsartan [From DIOVAN] Allergy Intermediate RASH Verified 08/20/23 19:19 Bandage Adhesive Hortense Allergy Severe Rash Uncoded 07/20/23 08:58 3/4 SURGICAL TAPE Allergy Severe RASH Uncoded 07/20/23 08:58 tape Allergy Severe Rash Uncoded 07/20/23 08:58 Review of Systems Review of Systems: Yes all other systems are reviewed and are negative PMFSH Past Medical History Medical History Breast pain, right History of breast cancer Hx of detention use of blood thinners Invasive ductal carcinoma of left breast Left breast mass Hypertension Paroxysmal atrial fibrillation Surgical History H/O total mastectomy of left breast (~11/18/22) History of total right knee replacement History of cholecystectomy History of gastric bypass H/O shoulder surgery H/O hemorrhoidectomy History of left knee replacement Status post breast reduction Family History Family History Father COPD (chronic obstructive pulmonary disease) HTN (hypertension) Diabetes Mother COPD (chronic obstructive pulmonary disease) Diabetes HTN (hypertension) Social History Social History Household Members: Children Housing: House Do you presently have visiting nurse or other home services: No Alcohol intake: never Comment: refusing bed alarm Patient Tobacco Use Status: Never used Tobacco Tobacco use type: Cigarette Second Hand Smoke Exposure: No Advance Directives: Yes Advance Directives on File: Yes Advance Directives Date on File: 11/22/22 Do you have a plan to hurt others: No Plan service: No Current occupational status: employed Physical Exam Vital Signs: Vital Signs: Last Vital Signs Temp 97.4 F 08/21/23 06:28 Pulse 74 08/21/23 06:28 Resp 16 08/21/23 06:28 BP 119/49 L 08/21/23 06:28 Pulse Ox 94 08/21/23 06:28 O2 Del Method Room Air 08/21/23 06:28 BMI result Body Mass Index 44.9 Appearance: Alert. Oriented X3. No acute distress. Eyes: No pallor or icterus ENT: Pharynx normal. Oral Mucosa moist Neck: Normal inspection. Neck supple. CVS: Normal heart rate and rhythm. Pulses normal. Port in place with local tenderness, no erythema or signs of infection, tender L external jugular vein Respiratory: No respiratory distress. Equal air entry bilateral, no wheezing/rales/rhonchi Abdomen: Soft and nontender. Bowel sounds are present, no mass palpable, Skin: Skin warm and dry. Normal skin color. Normal skin turgor. Extremities: + lower extremity edema. No calf tenderness Neuro: Oriented X 3. Medications Administered Discontinued Medications Generic Name Dose Route Start Last Admin Trade Name Freq PRN Reason Stop Dose Admin Iohexol 80 ml 08/21/23 01:41 08/21/23 01:41 Iohexol 350 Mg/Ml 100 Ml Infus..Btl IV 08/21/23 01:42 80 ml ONCE ONE Administration Lorazepam 1 mg 08/21/23 00:34 08/21/23 01:07 Lorazepam 1 Mg Tablet PO 08/21/23 00:35 1 mg ONCE ONE Administration Oxycodone HCl 10 mg 08/21/23 00:34 08/21/23 01:06 Oxycodone Hcl Immed Release 5 Mg Tablet PO 08/21/23 00:35 10 mg ONCE ONE Administration Oxycodone HCl 5 mg 08/21/23 05:54 08/21/23 05:57 Oxycodone Hcl Immed Release 5 Mg Tablet PO 08/21/23 05:55 5 mg ONCE ONE Administration Medical Decision Making Medical Decision Making [facility] Narrative: Patient with tenderness of left IJ at the site where has Port-A-Cath catheter CTA chest done with negative for PE bedside ultrasound done by myself showed catheter in right placed no blood clot was noticed will get official ultrasound to rule out thrombus in IJ Patient is signed out to Dr. Collins pending ultrasound report Differential Diagnosis Differential Diagnoses: The differential diagnosis associated with the presentation includes IJ thrombus/large vein thrombus/PE Admission/Observation Consideration of admission/observation: Escalation of care including admission/observation considered Lab Data MDM Lab Attestation statement: I reviewed the patient's lab results. 08/20/23 21:45 08/20/23 21:45 Labs: Lab Results 08/20/23 08/20/23 08/21/23 Range/Units 20:26 21:45 01:21 WBC 6.5 (4.8-10.8) X10*3/uL RBC 4.52 D (4.20-5.50) X10*6/uL Hgb 12.7 D (12.0-16.0) g/dl Hct 40.2 (37.0-47.0) % MCV 88.9 (80.0-98.0) fL MCH 28.1 (27.0-33.0) pg MCHC 31.6 (31.0-35.0) g/dl RDW 14.9 (11.0-16.0) % Plt Count 247 (160-400) X10*3/uL MPV 9.8 (9.4-12.3) fL Immature Gran % (Auto) 0.0 (0.0-0.4) % Neut % (Auto) 60.8 (45-73) % Lymph % (Auto) 31.0 (20-40) % [place] % (Auto) 6.9 (2-11) % Eos % (Auto) 1.1 (0-4) % Baso % (Auto) 0.2 (0-2) % Lymph # (Auto) 2.0 (1.2-4.9) X10*3/uL [place] # (Auto) 0.5 (0.1-1.2) X10*3/uL Eos # (Auto) 0.1 (0.0-0.4) X10*3/uL Baso # (Auto) 0.0 (0.0-0.2) X10*3/uL Abs Immat Gran (auto) 0.00 (0.00-0.03) X10*3/uL Absolute Neuts (auto) 4.0 (2.0-8.3) x10*3/uL Absolute Nucleated RBC 0.000 (0.0-0.012) X10*3/uL Nucleated RBC % (auto) 0.0 (0.0-0.2) /100WBC PT 13.7 H (11.1-13.3) SEC INR 1.1 (0.9-1.1) APTT 32.1 (26.0-36.8) SEC D-Dimer High Sensitivty 150 NG/ML Sodium 140 (135-145) mmol/L Potassium 3.5 (3.3-5.1) mmol/L Chloride 102 (96-108) mmol/L Carbon Dioxide 25 (22-29) mmol/L Anion Gap 17 (12-20) BUN 15 (9-16) mg/dL Creatinine 0.89 (0.5-1.4) mg/dL Estim Creat Clear Calc 82.7 Estimated GFR > 60 Random Glucose 105 (60-115) mg/dL Calcium 9.4 (8.4-10.2) mg/dL Total Bilirubin 0.4 (0.0-1.0) mg/dL AST 25 (5-31) U/L ALT 18 (0-31) U/L Alkaline Phosphatase 98 (39-117) U/L Troponin I High Sens 4.8 D 3.8 (<3.5-17.0) ng/L Total Protein 7.1 (6.5-8.0) g/dL Albumin 4.0 (3.5-5.0) g/dL Urine Color Yellow Urine Appearance Clear Urine pH 7.0 (5.0-9.0) Ur Specific [place] 1.010 (1.005-1.025) Urine Protein Negative (Neg-Trace) mg/dL Urine Glucose (UA) Negative (Negative) mg/dL Urine Ketones Negative (Negative) mg/dL Urine Blood Negative (Negative) Urine Nitrite Negative (Negative) Ur Leukocyte Esterase Moderate (2+) H (Negative) Urine RBC 0-2 (0-2) /HPF Urine WBC 6-10 H (0-5) /HPF Ur Squamous Epith Cells 0-2 (0-2) /HPF Urine Bacteria None Seen (None Seen) Hyaline Casts 0-2 (0-2) /LPF Independent Interpretation I performed an independent interpretation of an: EKG Interpretation: Normal sinus rhythm heart rate 83 beats per minute normal interval normal axis nonspecific STT wave changes no acute ST-T ischemia Radiology Impression Discussion of test interpretation with radiology: I have reviewed the radiologist's reading. Radiologist Impression: CT/CT angio chest PE protocol IMPRESSION: 1. No central pulmonary embolus identified. However, there is inadequate evaluation of the segmental and subsegmental vessels due to suboptimal bolus timing, and therefore emboli at these levels cannot be excluded. 2. Nonspecific 4 mm left lower lobe lung nodule. Attention on follow-up is recommended. VTE: indeterminate. External Record Review External record reviewed: Inpatient record and Prior outpatient labs Discharge Plan Discharge Clinical Impression: Thrombophlebitis following injection or infusion Patient Disposition: Still a Patient Prescriptions: No Action atenolol 100 mg tablet 100 mg PO DAILY Qty: 90 3RF hydrochlorothiazide 12.5 mg tablet 12.5 mg PO DAILY Qty: 90 3RF Eliquis 5 mg tablet 5 mg PO BID Qty: 60 5RF diphenhydramine HCl [Children's Allergy (diphenhyd)] 12.5 mg/5 mL liquid 25 mg PO BID PRN (Reason: Allergy Symptoms) sucralfate 1 gram tablet 1 g PO BID albuterol sulfate [ProAir HFA] 90 mcg/actuation Hfa Aerosol Inhaler 1 puff INHALATION QID PRN (Reason: Shortness Of Breath Or Wheezing) polyethylene glycol 3350 [Miralax] 17 gram Powder In Packet 17 g PO DAILY PRN (Reason: Constipation) guaifenesin [Mucinex] 600 mg Tablet Extended Release 12hr 600 mg PO BID Qty: 20 0RF ondansetron 8 mg Tablet,Disintegrating 8 mg PO Q8H PRN (Reason: Nausea And Vomiting) Qty: 30 3RF (DME) bra, mastectomy Crystals Qty: 1 0RF Rx Instructions: As Directed (DME) Wig Kit Qty: 1 0RF Rx Instructions: As Directed (DME) Breast prosthesis Kit Qty: 1 0RF Rx Instructions: As Directed (DME) Chair, shower Misc Qty: 1 0RF Rx Instructions: As Directed Magic Mouthwash Diphen/Nystat/Antacid 1:1:1 240 mL Suspension 10 ml PO TID PRN (Reason: Mouth Irritation) Qty: 240 0RF Rx Instructions: nystatin 100,000 unit/mL oral suspension 80 mL; diphenhydramine 12.5 mg/5 mL oral liquid 80 mL; aluminum-mag hydroxide-simethicone 400 mg-400 mg-40 mg/5 mL oral susp 80 mL; Per 240 mL Magic Mouthwash Diphen/Lido/Antacid 1:1:1 240 mL suspension 10 ml PO 4-5XD PRN (Reason: SORES FROM CHEMO) Qty: 240 0RF Rx Instructions: Lidocaine Viscous 2 % 80mL; diphenhydramine 12.5 mg/5 mL 80mL; aluminum-mag hydrox-simeth [id number]/5mL 80mL loperamide 2 mg Capsule 2 mg PO Q6H PRN (Reason: Diarrhea) Qty: 30 2RF polymyxin B sulf-trimethoprim 10,000 unit- 1 mg/mL Drops 1 drp OPHTHALMIC (EYE) Q3H Qty: 20 0RF Rx Instructions: while awake; do not exceed 6 doses in 24 hours Magic Mouthwash Diphen/Lido/Antacid 1:1:1 240 mL Suspension 10 ml PO QID Qty: 240 1RF Rx Instructions: Lidocaine Viscous 2 % 80mL; diphenhydramine 12.5 mg/5 mL 80mL; aluminum-mag hydrox-simeth [id number]/5mL 80mL magnesium oxide 400 mg (241.3 mg magnesium) tablet 400 mg PO DAILY pantoprazole 40 mg tablet,delayed release (DR/EC) 40 mg PO DAILY@0630 docusate sodium 100 mg capsule 100 mg PO DAILY PRN (Reason: Constipation) mirtazapine 15 mg tablet,disintegrating 15 mg PO BEDTIME oxycodone 5 mg tablet 5 mg PO Q4H lorazepam 1 mg tablet 1 mg PO TID PRN (Reason: Anxiety) ascorbic acid (vitamin C) [Vitamin C] 500 mg tablet 500 mg PO BID cetirizine 10 mg tablet 10 mg PO DAILY gabapentin 600 mg tablet 600 mg PO TID calcium carbonate-vitamin D3 600 mg-20 mcg (800 unit) tablet 1 tab PO BID cyanocobalamin (vitamin B-12) 100 mcg tablet 100 mcg PO DAILY bupropion HCl 150 mg tablet sustained-release 12 hr 300 mg PO DAILY furosemide 20 mg tablet 20 mg PO DAILY fluoxetine 20 mg capsule 40 mg PO DAILY (DME) mastectomy bra to fit See Rx Instructions .Route .MEDSUPPLY Qty: 2 0RF Rx Instructions: As directed (DME) left breast prosthetic to fit See Rx Instructions .Route .MEDSUPPLY Qty: 1 0RF Rx Instructions: As directed Stand Alone Forms: Work/School Release Print Language: Tajik
[2023-08-21 00:35] LABS: D Dimer High Sensitivity 150 NG/ML
[2023-08-21 00:36] LABS: Partial Thromboplastin Time 32.1 SEC (26.0-36.8)
[2023-08-21] MEDS: oxyCODONE HCl Immed Release 5 MG TABLET 10 MG PO (01:06)
[2023-08-21] MEDS: LORazepam 1 MG TABLET PO (01:07)
--- NOTE | 2023-08-21 01:40 | PC.NURSE ---
20g RAC. pt back from CT. pt eating at this time. feeling less pain and anxiety after phlebotomist medical lab assistant
[2023-08-21] MEDS: iohexoL 350 MG/ML 100 ML INFUS..BTL 80 ML IV (01:41)
[2023-08-21 01:47] LABS: Troponin-I High Sensitivity 3.8 ng/L (<3.5-17.0)
[2023-08-21 02:26] VITALS: BP 111/40; PULSE 76; RESP 16; TEMP 36.3; O2SAT 95
[2023-08-21 04:00] VITALS: BP 136/74; PULSE 71; RESP 16; TEMP 36.1; O2SAT 95
[2023-08-21] MEDS: oxyCODONE HCl Immed Release 5 MG TABLET PO (05:57)
--- NOTE | 2023-08-21 06:15 | PC.NURSE ---
pt resting comfortably in bed, son at bedside. awaiting US in AM. aware of plan of care. call gladis w/in reach. no needs at this time
[2023-08-21 06:28] VITALS: BP 119/49; PULSE 74; RESP 16; TEMP 36.3; O2SAT 94
--- NOTE | 2023-08-21 07:52 | PC.NURSE ---
off unit at ultrasound
--- NOTE | 2023-08-21 08:25 | PC.NURSE ---
back from ultrasound, patient removed own IV, restless in room
--- NOTE | 2023-08-21 08:36 | PC.NURSE ---
refusing to wait for results of ultrasound, patient ambulating independently with steady gait, speaking in full clear sentences - left w/out signing paperwork
== END 2023-08-21 08:36 | disposition left against medical advice (07) ==
PROVIDERS: Emergency Provider Internal Medicine
DX: I80.8 Phlebitis and thrombophlebitis of other sites (principal); T80.1XXA Vascular complications following infusion, transfusion and therapeutic injection, initial encounter; Y82.8 Other medical devices associated with adverse incidents; Y92.9 Unspecified place or not applicable; I48.0 Paroxysmal atrial fibrillation; M54.2 Cervicalgia; I10 Essential (primary) hypertension; Z85.3 Personal history of malignant neoplasm of breast; Z79.01 Long term (current) use of anticoagulants; Z79.899 Other long term (current) drug therapy
CPT/HCPCS: 36415; 71275; 80053; 81001; 84484; 85025; 85379; 85610; 85730; 87086; 93005; 93971; 99284; Q9967

== ENCOUNTER → 2023-08-20 18:51 | Outpatient (BNV) | payer MEDICARE, MEDICAID, SELFPAY | PROVIDERS: Emergency Provider Internal Medicine; Visit Provider Internal Medicine Cardiovascular Disease | DX: R07.9 Chest pain, unspecified (principal) | CPT/HCPCS: 93010 ==

== ENCOUNTER 2023-12-19 12:42 | Outpatient (AMB) | payer MEDICARE, MEDICAID, SELFPAY ==
[2023-12-19 12:54] VITALS: BP 140/80; PULSE 78
--- NOTE | 2023-12-19 12:54 | A.OFFVIS_ITS ---
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 Accompanied by: Self / Same As Patient Allergies latex [LATEX] Allergy (Intermediate, Verified 10/02/23 09:15) RASH seafood Allergy (Intermediate, Verified 10/02/23 09:15) Rash Sulfa (Sulfonamide Antibiotics) Allergy (Intermediate, Verified 10/02/23 09:15) hives sulfamethoxazole [From BACTRIM] Allergy (Intermediate, Verified 10/02/23 09:15) HIVES trimethoprim [From BACTRIM] Allergy (Intermediate, Verified 10/02/23 09:15) HIVES valsartan [From DIOVAN] Allergy (Intermediate, Verified 10/02/23 09:15) RASH Bandage Adhesive Damian 3/4 Allergy (Severe, Uncoded 10/02/23 09:15) Rash SURGICAL TAPE Allergy (Severe, Uncoded 10/02/23 09:15) RASH tape Allergy (Severe, Uncoded 10/02/23 09:15) Rash Medication List - Last Reconciled 12/19/23 by GABE Green albuterol sulfate 90 mcg/actuation (ProAir HFA) 1 puff inhalation QID PRN amoxicillin 500 mg PO Q8H apixaban (Eliquis) 5 mg PO BID ascorbic acid (vitamin C) (Vitamin C) 500 mg PO BID atenolol 100 mg PO DAILY bupropion HCl SR 300 mg PO DAILY calcium carbonate-vitamin D3 600 mg-20 mcg (800 unit) 1 tab PO BID cetirizine 10 mg PO DAILY cyanocobalamin (vitamin B-12) 100 mcg PO DAILY diphenhydramine HCl (Children's Allergy (diphenhydramine)) 25 mg PO BID PRN docusate sodium 100 mg PO DAILY PRN fluoxetine 40 mg PO DAILY furosemide 20 mg PO DAILY gabapentin 600 mg PO TID guaifenesin ER (Mucinex) 600 mg PO BID hydrochlorothiazide 12.5 mg PO DAILY [left breast prosthetic As directed] loperamide 2 mg PO Q6H PRN lorazepam 1 mg PO TID PRN Magic Mouthwash Diphen/Lido/Antacid 1:1:1 10 mL PO 4-5XD PRN magnesium oxide 400 mg PO DAILY mastectomy bra (bra, mastectomy) As Directed [mastectomy bra As directed] metronidazole 500 mg PO Q8H mirtazapine 15 mg PO BEDTIME ondansetron 8 mg PO Q8H PRN oxycodone 5 mg PO Q4H pantoprazole 40 mg PO DAILY@0630 polyethylene glycol 3350 (Miralax) 17 grams PO DAILY PRN polymyxin B sulf-trimethoprim 10,000 unit- 1 mg/mL 1 drp ophthalmic (eye) Q3H Prosthesis, breast (Breast prosthesis) As Directed Shower Chair (Chair, shower) As Directed sucralfate 1 g PO BID Wig As Directed HPI HPI 6mth f/up: Details: Ya is a 63-year-old female with past medical history of hypertension, morbid obesity, paroxysmal atrial fibrillation who was diagnosed with breast cancer summer 2022 and has undergone a left mastectomy and has completed chemotherapy. She now presents for cardiology follow-up. Her last prior visit to our office was 06/29/2023.. Today she reports she had been doing okay but in the last few weeks she has noticed increased weakness, fatigue and diaphoresis. She did have an issue with to infected teeth and had then pulled. She completed a course of antibiotics. She has not had any known fevers or other signs of illness. She denies shortness of breath, cough, PND, orthopnea. She has no chest discomfort at rest or with activity. She is not noticing heart palpitations, presyncope, syncope, falls. She tells me she maintains good hydration. She has been doing only light activities. Following with Dr. Starkey for Oncology. 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 Invasive ductal carcinoma of left breast Left breast mass Hypertension Paroxysmal atrial fibrillation Surgical History H/O total mastectomy of left breast (~11/18/22) History of total right knee replacement History of cholecystectomy History of gastric bypass H/O shoulder surgery H/O hemorrhoidectomy History of left knee replacement Status post breast reduction Family History Father COPD (chronic obstructive pulmonary disease) HTN (hypertension) Diabetes Mother COPD (chronic obstructive pulmonary disease) Diabetes HTN (hypertension) Social History Household Members: Children Housing: House Do you presently have visiting nurse or other home services: No Alcohol intake: never Comment: refusing bed alarm Patient Tobacco Use Status: Never used Tobacco Tobacco use type: Cigarette Second Hand Smoke Exposure: No Advance Directives Date on File: 11/22/22 service: No Current occupational status: employed Female Reproductive History Menstrual Age of Menarche: 10 Review of Systems Const Details: diaphoretic All systems reviewed & are unremarkable except as noted in HPI and below Denies chills, Denies fatigue, Denies fever(s), Denies frequent falls, Reports malaise, Reports weakness, Denies weight gain and Denies weight loss ENT Denies dizziness Card Denies chest pain, Denies leg edema, Denies lightheadedness, Denies palpitations, Denies dyspnea and Denies dyspnea on exertion Resp Denies cough, Denies dyspnea and Denies dyspnea on exertion GI Denies hematochezia Musc Denies abnormal gait, Denies muscle weakness, Denies numbness, Denies radiating pain into limb and Denies tingling Neuro Denies abnormal gait, Denies dizziness, Denies frequent falls, Denies numbness, Denies tingling and Reports weakness Endo Denies fatigue and Denies palpitations Physical Exam Vital Signs: Last Vital Signs Pulse 78 12/19/23 12:54 BP 140/80 H 12/19/23 12:54 Const Other: pale, diaphoretic. Morbidly obese General: cooperative, well developed, alert and awake; No acute distress Nutritional Appearance: obese Orientation/consciousness: patient oriented x3 Neck Neck: Yes normal visual inspection and Yes no JVD Carotids: normal carotid upstroke Chest Other: s/p left mastectomy Resp Effort & Inspection: normal respiratory effort Auscultation: clear to auscultation bilaterally, no rales, no rhonchi and no wheezes Cardio Jugular venous distension: no JVD Rate: regular rate Rhythm: abnormal rhythm Heart sounds: S1 normal heart sound present, S2 normal heart sound present, no murmurs and no rubs Skin Other: pale skin color, damp Neuro General: patient oriented x3 Extrem General: Yes normal to inspection and No no pedal edema Psych Appearance: grossly normal Mental Status: mental status grossly normal Speech and movement: Normal speech and movement present Office Procedures EKG Details: Today, read by me, atrial fibrillation, rate 90, QTC 469 millisecond [id number], Complete Assessment & Plan Assessment & Plan (1) Weakness: Code(s): R53.1 - Weakness Category: Medical Plan: Report of increasing weakness in the last few weeks with fatigue and diaphoresis. She did have 2 teeth removed a few weeks ago due to infection and tells me she did take a course of antibiotics. She is not having any mouth discomfort at this time. She denies having any known fevers. She did have lab work on 12/04/23 which did not show any acute abnormalities. On exam today she is noted to be quite pale, diaphoretic, ill-appearing. Recommended ER evaluation and she declines. EKG done in the office is showing atrial fibrillation, rate 90, QTC 469 milliseconds. She has known paroxysmal atrial fi brillation and reports compliance with her atenolol and Eliquis. Vital signs checked and she is not orthostatic on examination. Blood pressure/pulse sitting 132/88, 84. Blood pressure/pulse standing 140/82, 92. She reports being well hydrated. She is agreeable to get labs, will recheck CBC, CMP and TSH. Will forward this note to her oncologist and PCP for review. Instructed on emergency care she continues to have concerning symptoms. Informed her that she may have some type of infection, lab abnormality. Will update an echocardiogram to assess EF and wall motion. Plan to call her with results. (2) Paroxysmal atrial fibrillation: Code(s): I48.0 - Paroxysmal atrial fibrillation Category: Medical Plan: History of paroxysmal atrial fibrillation. Patient denies feeling heart palpitations. EKG done 04/16/2023 showed sinus tach, rate 107. Nuclear stress test done 05/16/2016 showed normal myocardial perfusion imaging. An echocardiogram was done prior to the start of her chemotherapy on 12/29/2022 showing EF 60-65%, left atrium mildly dilated. EKG done today showing atrial fibrillation, rate 90. She continues on atenolol for heart rate control. She is on Eliquis for anticoagulation. Recent labs show no anemia. She denies any signs of bleeding. Will be updating labs as above. Chads Vasc score of 2. Continue current management with atenolol and Eliquis. Cardiology followup in 2-3 months, sooner if needed (3) Hypertension: Code(s): I10 - Essential (primary) hypertension Category: Medical Plan: Well controlled presently. No med changes made. (4) Morbid obesity: Code(s): E66.01 - Morbid (severe) obesity due to excess calories Category: Medical Plan: Has not had any significant weight loss in recent months. Plan Chart review, documentation, interview and assessment Orders: Orders Comprehensive Met. Panel Today I48.0 - Paroxysmal atrial fibrillation TSH reflex Free T4 Today R53.1 - Weakness Complete Blood Count Auto Diff Today R53.1 - Weakness CA echo transthoracic complete Today I48.0 - Paroxysmal atrial fibrillation Coding Level of Care Code Est Pt Level 4 (38818) Diagnoses Weakness R53.1 Paroxysmal atrial fibrillation I48.0 Hypertension I10 Morbid obesity E66.01 CPT Codes EKG - CPT: [id number], Complete ([id number]) Time Spent (min) 30
== END 2023-12-19 13:36 | disposition home or self-care (01) ==
PROVIDERS: PCP Internal Medicine; Visit Provider Nurse Practitioner Family
DX: R53.1 Weakness (principal); I48.0 Paroxysmal atrial fibrillation; I10 Essential (primary) hypertension; E66.01 Morbid (severe) obesity due to excess calories
CPT/HCPCS: 93010; 99214

== ENCOUNTER → 2023-12-19 12:42 | Outpatient (BNVA) | payer MEDICARE, MEDICAID, SELFPAY | PROVIDERS: PCP Internal Medicine; Visit Provider Nurse Practitioner Family | DX: I48.0 Paroxysmal atrial fibrillation (principal); I10 Essential (primary) hypertension; R53.1 Weakness; E66.01 Morbid (severe) obesity due to excess calories | CPT/HCPCS: 93005; 99212 ==

== ENCOUNTER 2023-12-20 10:23 | Outpatient (REF) | payer MEDICARE, MEDICAID, SELFPAY ==
[2023-12-20 14:44] LABS: MANUAL DIFF FLAG NO
[2023-12-20 14:49] LABS: Basophils Percent Auto 0.2 % (0-2); Eosinophils Percent Auto 0.9 % (0-4); Hematocrit 37.1 % (37.0-47.0); Hemoglobin 11.4 g/dl (12.0-16.0); Imm Gran Abs Auto 0.01 X10*3/uL (0.00-0.03); Imm Gran Pct Auto 0.2 % (0.0-0.4); Lymphocytes Absolute Auto 1.4 X10*3/uL (1.2-4.9); Lymphocytes Percent Auto 31.2 % (20-40); Mean Corpuscular HGB Conc 30.7 g/dl (31.0-35.0); Mean Corpuscular Hemoglobin 26.8 pg (27.0-33.0); Mean Corpuscular Volume 87.3 fL (80.0-98.0); Mean Platelet Volume 10.1 fL (9.4-12.3); Monocytes Absolute Auto 0.3 X10*3/uL (0.1-1.2); Monocytes Percent Auto 6.5 % (2-11); Neutrophils Absolute Auto 2.7 x10*3/uL (2.0-8.3); Platelet Count 280 X10*3/uL (160-400); Red Blood Count 4.25 X10*6/uL (4.20-5.50); Red Cell Distribution Width 14.6 % (11.0-16.0); White Blood Count 4.5 X10*3/uL (4.8-10.8)
[2023-12-20 15:02] LABS: Alanine Aminotransferase 18 U/L (0-31); Albumin Level 3.8 g/dL (3.5-5.0); Alkaline Phosphatase 82 U/L (39-117); Anion Gap 14 (12-20); Aspartate Amino Transferase 23 U/L (5-31); Bilirubin Total 0.5 mg/dL (0.0-1.0); Blood Urea Nitrogen 10 mg/dL (9-16); Carbon Dioxide 30 mmol/L (22-29); Chloride 103 mmol/L (96-108); Estimated Glomerular Filt Rate > 60; Glucose Random 127 mg/dL (60-115); Potassium 3.6 mmol/L (3.3-5.1); Sodium 143 mmol/L (135-145); Total Protein 6.6 g/dL (6.5-8.0)
[2023-12-20 15:22] LABS: TSH reflex Free T4 0.56 uIU/mL (0.32-4.0)
== END 2023-12-20 10:24 | disposition home or self-care (01) ==
LOC: HO.CHCLDS 10:23
PROVIDERS: Nurse Practitioner Family; Visit Provider Internal Medicine
DX: I48.0 Paroxysmal atrial fibrillation (principal); R53.1 Weakness; E77.8 Other disorders of glycoprotein metabolism
CPT/HCPCS: 36415; 80053; 84443; 85025

== ENCOUNTER → 2024-01-09 13:50 | Outpatient (REF) | payer MEDICARE, MEDICAID, SELFPAY ==
--- NOTE | 2024-01-09 13:52 | CA_ITS ---
Transthoracic Echocardiogram Patient (Last, First, Middle): Ya Rizzo, Gender: Female Date of : 1960 Age: 63 Procedure Date: 01/09/2024 Procedure Type: Transthoracic Echocardiogram Location: OP Height: 165.1 cm Weight: 122.47 kg BSA: 2.25 m2 Heart Rate: bpm BP: 130 / 86 mmHg Entry Level Software Engineer: CYNTHIA Referring MD: Kristie Bright FACILITIES OPERATIONS TECHNICIANCharlotte Symptoms: I48.0 - Paroxysmal atrial fibrillation Study Quality: Adequate ECG Rhythm: Sinus Conclusions: - The left ventricular systolic function is normal. The calculated ejection fraction is 63% by biplane method. - No obvious valvular pathology seen on this study. Findings Left Ventricle Normal left ventricular cavity size. There is normal left ventricular wall thickness. The left ventricular systolic function is normal. The calculated ejection fraction is 63% by biplane method. There is no evidence of regional wall motion abnormalities. Diastolic function is normal for age. LV peak GLS -20.5% (normal). Right Ventricle Normal right ventricular cavity size and systolic function. Atria The left atrium is mildly dilated. The right atrium is normal in size. Aortic Valve There is a normal trileaflet aortic valve. There is no aortic valve stenosis. There is no aortic valve regurgitation. Mitral Valve The mitral valve appears normal. There is trace mitral valve regurgitation. There is no mitral valve stenosis. Pulmonic Valve The pulmonic valve is likely normal. Tricuspid Valve There is mild tricuspid valve regurgitation. There is no evidence of pulmonary hypertension. Great Vessels The asc aorta and aortic arch are normal in size. Venous The inferior vena cava is normal in size and collapses greater than 50% with inspiration. Pericardium/Pleural Prominent epicardial adipose tissue noted. There is no evidence of pericardial effusion. Prior Study Comparison No significant change compared to prior study dated: 08/11/2023. (GLS lower in prior study, but unclear accuracy). Recommendations, Care & Conclusions No obvious valvular pathology seen on this study. Measurements 2D Linear Measurements IVSd: 0.89 0.6-0.9/0.6-1.0 cm LVIDd: 4.83 3.9-5.3/4.2-5.9 cm LVIDd Index: 2.15 2.4-3.2/2.2-3.1 cm/m2 LVIDs: 2.99 2.0-3.6 cm LVPWd: 0.94 0.7-1.1 cm LA Diam: 4.30 2.7-3.8/3.0-4.0 cm LAIDs Index: 1.91 1.5-2.3 cm/m2 LV Mass: 189.76 67-162/88-224 g LV Mass Index: 84.34 43-95/49-115 g/m2 LVOT Diam: 2.00 3.0+(-)1.3 cm 2D Systolic Function EF 4C: 63.70 >55% EF 2C: 62.60 >55% EF BiP: 62.80 >55% Mitral Valve MV Pk E: 0.97 MV PK A: 0.52 MV Decel Time: 206.00 E/A: 1.90 E'Lateral: 11.20 E'Medial: 7.40 E/E' Med: 13.10 E/E' Lat: 8.70 PHT: 60.00 MVA PHT: 3.67 Decel [place]: 4.72 Aortic Valve AoV Pk Darryl: 1.48 AoV Mn Darryl: 0.97 AoV VTI: 0.34 AoV Pk Grad: 9.00 Aov Mn Grad: 4.00 TAMIA Cont.VTI: 2.44 LVOT LVOT Pk Darryl: 1.05 LVOT Mn Darryl: 0.75 LVOT VTI: 0.26 LVOT Pk Grad: 4.00 LVOT Mn Grad: 2.00 LVOT Diam: 2.00 LVOT Area: 3.14 Diastolic Function MV Pk E: 0.97 MV Pk A: 0.52 E/A: 1.90 E'Medial: 7.40 E/E' Med: 13.10 E' Laterial: 11.20 E/E' Lat: 8.70 Right Ventricle TAPSE (mm): 23.50 TVS' Darryl: 12.80 Tricuspid Valve TR Pk Darryl: 2.49 TR Pk Grad: 25.00 RA Press: 3.00 RVSP: 28.00 Great Vessels Aorta Sinus of Valsalva: 3.48 2.0-3.[address] [place]: 2.53 1.7-3.4 cm Ao Asc: 3.20 2.1-3.4 cm Ao Arch: 3.10 Updated in Other Vendor System with Status of Final Raheel Montiel MD electronically signed on 01/09/2024 4:22:00 PM with status of Final
== END ==
LOC: HO.CARD 13:50
PROVIDERS: PCP Internal Medicine; Visit Provider Nurse Practitioner Family
DX: I48.0 Paroxysmal atrial fibrillation (principal)
CPT/HCPCS: 93306; 93356

== ENCOUNTER → 2024-01-09 13:52 | Outpatient (BNV) | payer MEDICARE, MEDICAID, SELFPAY | PROVIDERS: PCP Internal Medicine; Visit Provider Internal Medicine | DX: I36.1 Nonrheumatic tricuspid (valve) insufficiency (principal) | CPT/HCPCS: 93306; 93356 ==

== ENCOUNTER 2024-02-05 14:42 | Outpatient (AMB) | payer MEDICARE, MEDICAID, SELFPAY ==
--- NOTE | 2024-02-05 14:58 | MHC.OFFVIS ---
Vital Signs 02/05/24 15:06 Height 5 ft 5.5 in Weight 293 lb BMI 48.0 Intake Visit Reasons: 6 month s/p left mastectomy, port in place Intake Note: This patient presents for 6 month follow-up breast exam. Pt c/o; reports no complaints. Mica Builder Required: No Accompanied by: Son Allergies latex [LATEX] Allergy (Intermediate, Verified 02/05/24 15:07) RASH seafood Allergy (Intermediate, Verified 02/05/24 15:07) Rash Sulfa (Sulfonamide Antibiotics) Allergy (Intermediate, Verified 02/05/24 15:07) hives sulfamethoxazole [From BACTRIM] Allergy (Intermediate, Verified 02/05/24 15:07) HIVES trimethoprim [From BACTRIM] Allergy (Intermediate, Verified 02/05/24 15:07) HIVES valsartan [From DIOVAN] Allergy (Intermediate, Verified 02/05/24 15:07) RASH Bandage Adhesive Republic 3/4 Allergy (Severe, Uncoded 02/05/24 15:07) Rash SURGICAL TAPE Allergy (Severe, Uncoded 02/05/24 15:07) RASH tape Allergy (Severe, Uncoded 02/05/24 15:07) Rash Medication List - Last Reconciled 02/05/24 by Henok Shultz MD albuterol sulfate 90 mcg/actuation (ProAir HFA) 1 puff inhalation QID PRN amoxicillin 500 mg PO Q8H apixaban (Eliquis) 5 mg PO BID ascorbic acid (vitamin C) (Vitamin C) 500 mg PO BID atenolol 100 mg PO DAILY bupropion HCl SR 300 mg PO DAILY calcium carbonate-vitamin D3 600 mg-20 mcg (800 unit) 1 tab PO BID cetirizine 10 mg PO DAILY cyanocobalamin (vitamin B-12) 100 mcg PO DAILY diphenhydramine HCl (Children's Allergy (diphenhydramine)) 25 mg PO BID PRN docusate sodium 100 mg PO DAILY PRN fluoxetine 40 mg PO DAILY furosemide 20 mg PO DAILY gabapentin 600 mg PO TID guaifenesin ER (Mucinex) 600 mg PO BID hydrochlorothiazide 12.5 mg PO DAILY [left breast prosthetic As directed] loperamide 2 mg PO Q6H PRN lorazepam 1 mg PO TID PRN Magic Mouthwash Diphen/Lido/Antacid 1:1:1 10 mL PO 4-5XD PRN magnesium oxide 400 mg PO DAILY mastectomy bra (bra, mastectomy) As Directed [mastectomy bra As directed] metronidazole 500 mg PO Q8H mirtazapine 15 mg PO BEDTIME ondansetron 8 mg PO Q8H PRN oxycodone 5 mg PO Q4H pantoprazole 40 mg PO DAILY@0630 polyethylene glycol 3350 (Miralax) 17 grams PO DAILY PRN polymyxin B sulf-trimethoprim 10,000 unit- 1 mg/mL 1 drp ophthalmic (eye) Q3H Prosthesis, breast (Breast prosthesis) As Directed Shower Chair (Chair, shower) As Directed sucralfate 1 g PO BID Wig As Directed HPI HPI 6 month s/p left mastectomy, port in place: Details: She had undergone left breast mastectomy and sentinel biopsy for invasive ductal cancer on 11/18/2022. Her path report showed an invasive ductal cancer, T2 N0 with lymphovascular invasion. She has completed chemotherapy with Dr. Starkey. Her last mammogram for right breast was done last Jul, 2023 and this was unremarkable. She denies any new complaints. She says she feels well overall. [facility] Medical History Breast pain, right History of breast cancer Hx of intermediate use of blood thinners Invasive ductal carcinoma of left breast Left breast mass Hypertension Paroxysmal atrial fibrillation Surgical History H/O total mastectomy of left breast (~11/18/22) History of total right knee replacement History of cholecystectomy History of gastric bypass H/O shoulder surgery H/O hemorrhoidectomy History of left knee replacement Status post breast reduction Family History Father COPD (chronic obstructive pulmonary disease) HTN (hypertension) Diabetes Mother COPD (chronic obstructive pulmonary disease) Diabetes HTN (hypertension) Social History Household Members: Children Housing: House Do you presently have visiting nurse or other home services: No Alcohol intake: never Comment: refusing bed alarm Patient Tobacco Use Status: Never used Tobacco Tobacco use type: Cigarette Second Hand Smoke Exposure: No Advance Directives Date on File: 09/05/23 service: No Current occupational status: employed Female Reproductive History Menstrual Age of Menarche: 10 Review of Systems Const Denies chills and Denies fever(s) Card Denies chest pain and Reports dyspnea on exertion Resp Denies cough and Reports dyspnea on exertion GI Denies abdominal pain Physical Exam Const General: comfortable and no acute distress Chest Other: Mastectomy site on the left with no palpable chest wall masses, no axillary lymphadenopathy, no palpable mass on the right breast Resp Effort & Inspection: normal respiratory effort GI Palpation (GI): Soft to palpation, not firm and nontender Assessment & Plan Assessment & Plan (1) History of breast cancer: Code(s): Z85.3 - Personal history of malignant neoplasm of breast Category: Medical Plan: She is status post left breast mastectomy and sentinel node biopsy for triple negative breast cancer, T2 N0. She has completed chemotherapy with Dr. Starkey She is doing well currently. There were no palpable breast masses. There is no palpable mass on the chest wall on the mastectomy site. There were no palpable lymph nodes in the axillae. Her last mammogram for the right breast is unremarkable. I reminded her to continue to do yearly screening mammograms She is to follow up as well with Dr. Starkey regularly. I will see her in the office in about 6 months. Coding Level of Care Code Est Pt Level 3 (19016) Complex EM visit Add On G2211 Diagnoses History of breast cancer Z85.3
[2024-02-05 15:06] VITALS: BMI 48.0
== END 2024-02-05 15:24 | disposition home or self-care (01) ==
PROVIDERS: PCP Internal Medicine; Visit Provider Surgery
DX: Z85.3 Personal history of malignant neoplasm of breast (principal)
CPT/HCPCS: 99213; G2211

== ENCOUNTER → 2024-02-05 14:42 | Outpatient (BNVA) | payer MEDICARE, MEDICAID, SELFPAY | PROVIDERS: PCP Internal Medicine; Visit Provider Surgery | DX: Z90.12 Acquired absence of left breast and nipple (principal); Z85.3 Personal history of malignant neoplasm of breast; Z96.89 Presence of other specified functional implants | CPT/HCPCS: 99212 ==

== ENCOUNTER 2024-02-22 14:56 | Outpatient (AMB) | payer MEDICARE, MEDICAID, SELFPAY ==
[2024-02-22 14:58] VITALS: BP 152/82; PULSE 68
--- NOTE | 2024-02-22 14:58 | MHC.OFFVIS ---
Vital Signs 02/22/24 14:58 Height 5 ft 5.5 in BMI Reason not done Patient refused/unable BP 152/82 H Blood Pressure Location Rt brachial Position Sitting Pulse 68 Pulse Source Pulse Oximeter Intake Visit Reasons: 2mth f/u Sustainability Specialist Required: No Senior Financial Analyst: Senior Financial Analyst Present Allergies latex [LATEX] Allergy (Intermediate, Verified 02/22/24 15:00) RASH seafood Allergy (Intermediate, Verified 02/22/24 15:00) Rash Sulfa (Sulfonamide Antibiotics) Allergy (Intermediate, Verified 02/22/24 15:00) hives sulfamethoxazole [From BACTRIM] Allergy (Intermediate, Verified 02/22/24 15:00) HIVES trimethoprim [From BACTRIM] Allergy (Intermediate, Verified 02/22/24 15:00) HIVES valsartan [From DIOVAN] Allergy (Intermediate, Verified 02/22/24 15:00) RASH Bandage Adhesive Damian 3/4 Allergy (Severe, Uncoded 02/22/24 15:00) Rash SURGICAL TAPE Allergy (Severe, Uncoded 02/22/24 15:00) RASH tape Allergy (Severe, Uncoded 02/22/24 15:00) Rash Medication List - Last Reconciled 02/22/24 by GABE Green albuterol sulfate 90 mcg/actuation (ProAir HFA) 1 puff inhalation QID PRN apixaban (Eliquis) 5 mg PO BID ascorbic acid (vitamin C) (Vitamin C) 500 mg PO BID atenolol 100 mg PO DAILY bupropion HCl SR 300 mg PO DAILY calcium carbonate-vitamin D3 600 mg-20 mcg (800 unit) 1 tab PO BID cetirizine 10 mg PO DAILY cyanocobalamin (vitamin B-12) 100 mcg PO DAILY diphenhydramine HCl (Children's Allergy (diphenhydramine)) 25 mg PO BID PRN docusate sodium 100 mg PO DAILY PRN fluoxetine 40 mg PO DAILY furosemide 20 mg PO DAILY gabapentin 600 mg PO TID guaifenesin ER (Mucinex) 600 mg PO BID hydrochlorothiazide 12.5 mg PO DAILY [left breast prosthetic As directed] loperamide 2 mg PO Q6H PRN lorazepam 1 mg PO TID PRN magnesium oxide 400 mg PO DAILY mastectomy bra (bra, mastectomy) As Directed [mastectomy bra As directed] mirtazapine 15 mg PO BEDTIME ondansetron 8 mg PO Q8H PRN oxycodone 5 mg PO Q4H pantoprazole 40 mg PO DAILY@0630 polyethylene glycol 3350 (Miralax) 17 grams PO DAILY PRN polymyxin B sulf-trimethoprim 10,000 unit- 1 mg/mL 1 drp ophthalmic (eye) Q3H Prosthesis, breast (Breast prosthesis) As Directed Shower Chair (Chair, shower) As Directed sucralfate 1 g PO BID Wig As Directed HPI HPI 2mth f/u: Details: Ya is a 63-year-old female with past medical history of hypertension, morbid obesity, paroxysmal atrial fibrillation who was diagnosed with breast cancer summer 2022 and has undergone a left mastectomy and has completed chemotherapy. She now presents for cardiology follow-up. Today she reports she had been doing much better overall since her last visit here in December. Her weakness and fatigue has improved. She is no longer having issues with diaphoresis. She is going to start an exercise program. She denies shortness of breath, PND, orthopnea. She has no chest discomfort at rest or with activity. She is not noticing heart palpitations, presyncope, syncope, falls. Following with Dr. Starkey for Oncology. Son is present. [facility] Medical History Breast pain, right History of breast cancer Hx of mcfp use of blood thinners Invasive ductal carcinoma of left breast Left breast mass Hypertension Paroxysmal atrial fibrillation Surgical History H/O total mastectomy of left breast (~11/18/22) History of total right knee replacement History of cholecystectomy History of gastric bypass H/O shoulder surgery H/O hemorrhoidectomy History of left knee replacement Status post breast reduction Family History Father COPD (chronic obstructive pulmonary disease) HTN (hypertension) Diabetes Mother COPD (chronic obstructive pulmonary disease) Diabetes HTN (hypertension) Social History Household Members: Children Housing: House Do you presently have visiting nurse or other home services: No Alcohol intake: never Comment: refusing bed alarm Patient Tobacco Use Status: Never used Tobacco Tobacco use type: Cigarette Second Hand Smoke Exposure: No Advance Directives Date on File: 11/22/22 service: No Current occupational status: employed Female Reproductive History Menstrual Age of Menarche: 10 Review of Systems Const All systems reviewed & are unremarkable except as noted in HPI and below Reports weight gain ENT Denies dizziness Card Denies chest pain, Denies chest pain at rest, Denies chest pain with activity, Denies rapid heart rate, Denies pedal edema, Denies edema, Denies leg edema, Denies lightheadedness, Denies palpitations, Denies dyspnea, Denies dyspnea on exertion and Denies orthopnea Resp Denies cough, Denies dyspnea and Denies dyspnea on exertion GI Denies hematochezia and Denies change in stool character Musc Denies abnormal gait, Denies limited range of motion, Denies muscle cramps, Denies muscle weakness, Denies numbness, Denies radiating pain into limb, Denies stiffness and Denies tingling Neuro Denies abnormal gait, Denies dizziness, Denies numbness and Denies tingling Endo Denies palpitations Physical Exam Vital Signs: Last Vital Signs Pulse 68 02/22/24 14:58 BP 152/82 H 02/22/24 14:58 Const Other: obese General: cooperative, healthy appearing, comfortable and no acute distress Orientation/consciousness: patient oriented x3 Neck Neck: Yes normal visual inspection Resp Effort & Inspection: normal respiratory effort Auscultation: clear to auscultation bilaterally, no crackles, no rales, no rhonchi and no wheezes Cardio Jugular venous distension: no JVD Rate: regular rate Rhythm: regular rhythm Heart sounds: S1 normal heart sound present, S2 normal heart sound present, no murmurs and no rubs Neuro General: patient oriented x3 Extrem General: Yes normal to inspection, No no pedal edema and No calf tenderness Psych Appearance: grossly normal Mental Status: mental status grossly normal Speech and movement: Normal speech and movement present Assessment & Plan Assessment & Plan (1) Paroxysmal atrial fibrillation: Code(s): I48.0 - Paroxysmal atrial fibrillation Category: Medical Plan: History of paroxysmal atrial fibrillation. EKG 08/20/2023 shows normal sinus rhythm, rate 83. Nuclear stress test done 05/16/2016 showed normal myocardial perfusion imaging. An echocardiogram was done prior to the start of her chemotherapy on 12/29/2022 showing EF 60-65%, left atrium mildly dilated. EKG done last visit, 12/19/2023 showed atrial fibrillation, rate 90. She was not feeling well at that time with weakness and fatigue but declined ER evaluation. She was continued on atenolol for heart rate control and Eliquis for anticoagulation. Today she reports feeling well with no heart palpitations. Pulse is very regular on examination, clinically sinus rhythm. Continue current management with atenolol and Eliquis. Cardiology followup in 6 months, sooner if needed (2) Hypertension: Code(s): I10 - Essential (primary) hypertension Category: Medical Plan: Blood pressure elevated at 152/82. Her med list includes atenolol, hydrochlorothiazide and Lasix. She has a history of having a rash with Diovan in the past. Will avoid the use of Akira/Arb due to potential for allergy. Will have her stop hydrochlorothiazide and add amlodipine 5 mg daily. She was on amlodipine in the past but it was stopped for unclear reason. No allergy or adverse reaction is listed. She has follow-up with oncology next month and blood pressure will be checked at that time. (3) Morbid obesity: Code(s): E66.01 - Morbid (severe) obesity due to excess calories Category: Medical Plan: She has been gaining weight and is unclear why. She is going to start an exercise program. Plan Chart review, documentation, interview and assessment Medications: New amlodipine Stop HCTZ Start Amlodipine 5 mg daily for BP control 5 mg PO DAILY 30 tabs 5RF Discontinued hydrochlorothiazide Discontinued Reason: Doctor's Order 12.5 mg PO DAILY 90 tabs 3RF Coding Level of Care Code Est Pt Level 4 (97847) Complex EM visit Add On G2211 Diagnoses Paroxysmal atrial fibrillation I48.0 Hypertension I10 Morbid obesity E66.01 Time Spent (min) 28
--- OUTSIDE RECORDS SUMMARY | 2024-02-28 04:10 | XMS_ITS | Clinical Summary ---
Author Organization [facility] Address [address] [place] [address] Phone Care Team Providers Care Shift Supervisor Name Role Phone [facility] Unavailable Unavailable Reason for Visit and Chief Complaint Post Op Visit/Follow Up Plan of Treatment 1. Active range of motion right elbow. 2. Nonweightbearing right upper extremity. 3. Encouraged motion right shoulder. 4. No lifting with right upper extremity more than a cup of coffee. 5. Return to office in 1 month. - Last Documented On 12/08/2020 9:52AM ; [facility] Pending Tests Order Diagnosis Results Due Ordering Damien rust Follow Up - Appointment 1 Month Disp fx of olecran pro w intartic extn r ulna, 7thD 12/08/20 Joseph Fair MD Last Documented On 9:52AM ; [facility] Assessments Includes: Assessments from this encounter No Assessments Recorded Medical Equipment - Implanted Devices Includes: Current Devices No Medical Equipment Recorded Medications Administered Includes: Administered Medications from this encounter No Administered Medications Recorded Results Includes: Results discussed during this encounter No Results Recorded For Specified Dates History of Present Illness Includes: History of Present Illness from this encounter HPI The patient is a 60-year-old female. She injured her right elbow on November 01, 2020. On November 02, 2020 she underwent open reduction internal fixation of a right olecranon fracture using an olecranon locking plate. On 11/04/2020 she underwent radial head replacement. She is here today for follow-up. Its been a month since the surgery. Social History No Social History Recorded - Smoking Status Unknown Medical History Includes: Medical History addressed during this encounter No Medical History Recorded Family History Includes: Family History addressed during this encounter No Family History Recorded Review of Systems Includes: Review of Systems from this encounter 1. Status post open reduction internal fixation of right olecranon fracture with a locking plate. 2. Status post right radial head replacement. 3. History of a right total knee dislocation and popliteal artery injury Mental Status Includes: Mental Status from this encounter No Mental Status Recorded Functional Status Includes: Functional Status from this encounter No Functional Status Recorded Physical Exam Includes: Physical Exam from this encounter Encounters Encounter Provider Location Date Check-In Time Check-Out Time Diagnosis Post Op Visit/Follow Up Joseph Fair MD [facility] 12/09/19 21 9:00AM 9:48AM Insurance Includes: Active Insurance Policies Plan Name Member ID Group # Subscriber Relationship Effect irving Dates 1 - Medicare Part B of [place] [id number] John Bean 2 - [facility] [id number] John Bean Clinical Notes Includes: Clinical Notes from this encounter No Clinical Notes Recorded
--- OUTSIDE RECORDS SUMMARY | 2024-02-28 04:10 | XMS_ITS ---
Care Plan - [facility] Created on: February 28, 2024 John Rizzo : 1960 Sex: Female Author Organization [facility] Address [address] [place] [address] Phone Care Team Providers Care Highway Engineering Technician Name Role Phone [facility] Unavailable Unavailable
--- OUTSIDE RECORDS SUMMARY | 2024-02-28 04:10 | XMS_ITS | Clinical Summary ---
Author Organization [facility] Address [address] [place] [address] Phone Care Team Providers Care Bookkeeper Name Role Phone [facility] Unavailable [phone] Reason for Visit and Chief Complaint Established Patient Plan of Treatment Pending Tests Order Diagnosis Results Due Ordering P barrera Follow Up - Appointment 1 Year Unspecif ied fracture of upper end of right radius, sequela 12/28/21 Félix Adler MD Last Documented On 9:33AM ; [facility] Assessments Includes: Assessments from this encounter No Assessments Recorded Medical Equipment - Implanted Devices Includes: Current Devices No Medical Equipment Recorded Medications Administered Includes: Administered Medications from this encounter No Administered Medications Recorded Vital Signs Includes: Vital Signs from this encounter Vital Name 12/28/2021 09:02A Blood Pressure Sitting (mmHg) 144/83 Pulse Rate-Sitting (bpm) 69 Temp-Temporal 97.1 Height (in) 65 Weight (lb) 275 Body Mass Index (kg/m2) 45.8 Body Surface Area (m2) 2.3 Oxygen Saturation (%) 96 Last Documented: On 12/28/2021 9:02AM ; [facility] Results Includes: Results discussed during this encounter No Results Recorded For Specified Dates History of Present Illness Includes: History of Present Illness from this encounter No History of Present Illness Recorded Social History No Social History Recorded - Smoking Status Unknown Medical History Includes: Medical History addressed during this encounter No Medical History Recorded Family History Includes: Family History addressed during this encounter No Family History Recorded Review of Systems Includes: Review of Systems from this encounter No Review of Systems Recorded Mental Status Includes: Mental Status from this encounter No Mental Status Recorded Functional Status Includes: Functional Status from this encounter No Functional Status Recorded Physical Exam Includes: Physical Exam from this encounter Encounters Encounter Provider Location Date Check-In Time Check-Out Time Diagnosis Established Patient Félix Adler MD [facility] 12/29/19 22 9:40AM 9:38AM Insurance Includes: Active Insurance Policies Plan Name Member ID Group # Subscriber Relationship Effect irving Dates 1 - Medicare Part B [facility] [id number] John Bean 2 - [facility] [id number] John Bean Clinical Notes Includes: Clinical Notes from this encounter No Clinical Notes Recorded
--- OUTSIDE RECORDS SUMMARY | 2024-02-28 04:10 | XMS_ITS | Clinical Summary ---
Author Organization [facility] Address [address] [place] [address] Phone Care Team Providers Care Drop Wire Stringer Name Role Phone [facility] Unavailable [phone] Reason for Visit and Chief Complaint Post Op Visit/Follow Up Plan of Treatment Pending Tests Order Diagnosis Results Due Ordering P barrera Follow Up - Appointment PRN Disp fx of medial condyle of right femur, init for clos fx 02/27/20 Larry López PA-C Last Documented On 0 11:14AM ; [facility] Assessments Includes: Assessments from this encounter No [...] Exam Includes: Physical Exam from this encounter No Physical Exam Recorded Encounters Encounter Provider Location Date Check-In Time Check-Out Time Diagnosis Post Op Visit/Follow Up Larry López PA-C [facility] 02/27/20 20 9:09AM 11:13AM Insurance Includes: Active Insurance Policies Plan Name Member ID Group # Subscriber Relationship Effect irving Dates 1 - Medicare Part B of [place] [id number] John Rizzo Self 2 - [facility] [id number] John M Matthias Self Clinical Notes Includes: Clinical Notes from this encounter No Clinical Notes Recorded
--- OUTSIDE RECORDS SUMMARY | 2024-02-28 04:10 | XMS_ITS ---
Author Organization [facility] Address [address] [facility] [place] [address] Care Team Providers Care Director Of Mechanical Engineering Name Role Phone Rylie Ball [facility] [phone] ALLERGIES, ADVERSE REACTIONS, ALERTS Substance Code Code System Type Reaction Severity Status Start Date End Date Ragweed RxNorm Other substance allergy () 1 sulfa RxNorm Other substance allergy () 1 Latex products RxNorm Other substance allergy () 1 Diovan 798045 RxNorm Other substance allergy () 1 MEDICATIONS Medication Code Code System Start Date Stop Date Route Dosage Directions Fill Instructions Augmentin 178078 RxNorm 022 022 oral 1 Replens RxNorm 05/29/19 22 022 vaginal 1 Ativan RxNorm 12/16/19 22 Augmentin 511707 RxNorm 03/29/19 23 023 oral 1 Augmentin 661489 RxNorm 07/06/19 23 023 oral 1 Augmentin 687421 RxNorm 3 023 oral 1 lorazepam RxNorm 12/11/19 22 amoxicillin 654306 RxNorm 2 022 oral 1 Lasix RxNorm 05/07/19 22 acetaminophen 485978 RxNorm 07/06/19 23 023 oral 2 benzonatate 537191 RxNorm 12/16/19 22 022 oral 1 atenolol RxNorm 05/07/19 22 Pyridium 9867827 RxNorm 05/07/19 22 022 oral 1 Zithromax Z-El 849877 RxNorm 3 07/27/19 23 oral 2 Diflucan 189533 RxNorm 022 2021 oral 1 Diflucan 398764 RxNorm 03/29/19 023 oral 1 Diflucan 719891 RxNorm 07/06/19 23 023 oral 1 Diflucan 775417 RxNorm 3 04/24/19 oral 1 Wellbutrin SR RxNorm 05/07/19 Macrobid 265647 RxNorm 05/07/19 022 oral 1 Macrobid 351764 RxNorm 11/01/19 oral 1 amoxicillin 109782 RxNorm 06/02/19 022 oral 1 doxycycline monohydrate 0762511 RxNorm 12/11/19 022 oral 1 amoxicillin-pot clavulanate 198647 RxNorm 10/14/19 oral 1 Eliquis RxNorm 3 Flonase Allergy Relief 6158573 RxNorm 3 nasal 2 PROBLEMS Problem Name Code Code System Start Date End Date Stat Anxiety disorder (F41.9) 84975008 [facility] 06/01/2021 Inactive Depression (F32.9) 10831409 [facility] 06/01/2021 I nactive Hypertension (I10) 43588053 [facility] 06/01/2021 I nactive Acute vaginitis (N76.0) 53701141 [facility] 05/28/2021 Inactive Dysuria (R30.0) [facility] 06/01/2021 Inac tive Sinusitis, acute (J01.90) 64910590 [facility] 2021 Inactive Contact with and (suspected) exposure to COVID-19 (Z20.822) [facility] 06/28/2021 Inactive Cough, unspecified (R05.9) [facility] 06/28/2021 Inactive Hypertension 28064622 [facility] 12/10/2021 Active Anxiety disorder 00553790 [facility] 12/10/2021 Act irving Depression 59141104 [facility] 12/10/2021 Active COVID-19, Screening Encounte r (Z11.52) 628467547 [facility] 12/10/2021 Inactive COVID-19, confirmed by labor atory testing (U07.1) 268815070 [facility] 12/10/2021 Inactive Urinary Tract Infection (N39.0) 48151895 [facility] 01/11/20 22 Inactive Frequency of micturition (R35.0) [facility] 022 Inactive Dysuria 69231412 [facility] 04/23/2022 Active Urinary Tract Infection 19422173 [facility] 04/23/2022 Resolved Viral infection, unspecified 29065119 [facility] 07/21/2022 Resolved Other fatigue (R53.83) [facility] 03/31/2022 Inactive Sinusitis, acute 79399073 [facility] 07/05/2022 Res olved Atrial fibrillation 41516789 [facility] 07/21/2022 Active COVID-19 condition, post acu te infection 4447172092 [facility] 07/21/2022 Active COVID-19, Screening Encounter 094299249 [facility] 07/21/2022 Resolved Dysuria 74378163 [facility] 10/31/2022 Active ENCOUNTERS Encounter Diagnosis Code Code System Date Stat us Dysuria 65656703 [facility] 10/31/2022 Active IMMUNIZATIONS * None VITAL SIGNS Code Code System Vitals Name Date Value and Un its 8462-4 [facility] Blood Pressure-Diastolic 10/31/2022 84 mmHg 8480-6 [facility] Blood Pressure-Systolic 10/31/2022 1 48 mmHg 8867-4 [facility] Heart Rate 10/31/2022 78 /min 9279-1 [facility] Respiratory Rate 10/31/2022 16 /min 8310-5 [facility] Body Temperature 10/31/2022 98.6 F 64562-6 [facility] Oxygen Saturation 10/31/2022 97 % SOCIAL HISTORY * None PROCEDURES * None RESULTS Test Code Code System Description Result Value Date Ref erence Range [facility] Glucose Negative 10/31/2022 [facility] Bilirubin Negative 10/31/2022 [facility] Ketone Negative 10/31/2022 [facility] Specific [place] 1.05828 10/31/2022 [facility] Blood Negative 10/31/2022 [facility] pH 6.09652 10/31/2022 [facility] Protein Negative 10/31/2022 [facility] Urobilinogen 0.96460 E.U./dL 10/31/2022 [facility] Nitrite Negative 10/31/2022 [facility] Leukocytes Trace 10/31/2022 [facility] Color Yellow 10/31/2022 [facility] Clarity Clear 10/31/2022 630-4 [facility] CULTURE, URINE, ROUTINE SEE NOTE 10/31/2022 MEDICAL EQUIPMENT * Patient has no history of implantable devices ASSESSMENT * None TREATMENT PLAN Type Description Date MEDICATION Take 100 mg capsule 10/31/2022 APPOINTMENT If not feeling asuncion r in 3 day(s), please see your primary care physician. If you do not have a primary care physician, please return to this clinic. 10/31/2022 Labs Tests Test Name Code Code System Date Urinalysis, automated, without microscopy 37227 CPT 10/31/2022 CULTURE, URINE, ROUTINE 87166;73974 CPT 10/31 GOALS * None HEALTH CONCERNS * No Health Concerns FUNCTIONAL AND COGNITIVE STATUS * None CONSULTATION NOTES * None DISCHARGE SUMMARY NOTES * None HISTORY AND PHYSICAL NOTES * Reason for visit - [facility]'s Lunch Block Override IMAGING NOTES * None LABORATORY REPORT NARRATIVE NOTES * None PATHOLOGY REPORT NARRATIVE NOTES * None PROGRESS NOTES * None
--- OUTSIDE RECORDS SUMMARY | 2024-02-28 04:10 | XMS_ITS | Clinical Summary ---
Author Organization [facility] Address [address] [place] [address] Phone Care Team Providers Care Glove Turner And Former Automatic Name Role Phone [facility] Unavailable Unavailable Reason for Visit and Chief Complaint Post Op Visit/Follow Up Plan of Treatment 1. Continue ambulating with full weight on both lower extremities. 2. May follow-up with Dr. Howard Snow at [facility] if she develops problems with the left total knee replacement. 3. Begin active range of motion right elbow. 4. Patient given a sling. 5. May remove the sling periodically to perform range of motion exercises. 6. Return to office in 2 weeks 7. Nonweightbearing right upper extremity. 8. Should not lift anything more than a cup of coffee with the right upper extremity. - Last Documented On 11/16/2020 11:31AM ; [facility] Pending Tests Order Diagnosis Results Due Ordering Damien rust Follow Up - Appointment 2 Weeks Unspecif ied fracture of upper end of right radius, sequela 11/16/20 Joseph Fair MD Last Documented On 11:31AM ; [facility] Assessments Includes: Assessments from this encounter No [...] encounter HPI The patient is a 60-year-old anxious female. She fell on November 01, 2020. She sustained a closed displaced fracture involving the right olecranon. She also fractured the right radial neck. On 11/02/2020 she underwent open reduction internal fixation of the right olecranon fracture. A locking plate was used. She was taken back to the operating room on 11/04/2020 where she underwent a right radial head replacement. Of note, the patient had an old injury to her left knee. She has a left total knee replacement That was performed by Dr. Snow She sustained a dislocation of the left total knee and injured her left popliteal artery. She had a bypass procedure to restore blood flow to the left lower leg back in January 2020. She also had an external fixator placed across the left total knee replacement. The external fixator has since been removed. She has a remarkably stable left knee at this point in time. She is ambulating with full weight on the left leg without any assistive devices. Social History No Social History Recorded - Smoking Status Unknown Medical History Includes: Medical History addressed during this encounter No Medical History Recorded Family History Includes: Family History addressed during this encounter No Family History Recorded Review of Systems Includes: Review of Systems from this encounter 1. 2 weeks status post open reduction internal fixation of right olecranon fracture along with a right radial head replacement. 2. Serious old injury to left total knee replacement with dislocation of TKR along with popliteal artery injury in the past. Mental Status Includes: Mental Status from this encounter No Mental Status Recorded Functional Status Includes: Functional Status from this encounter No Functional Status Recorded Physical Exam Includes: Physical Exam from this encounter Encounters Encounter Provider Location Date Check-In Time Check-Out Time Diagnosis Post Op Visit/Follow Up Joseph Fair MD [facility] 11/17/19 21 9:00AM 10:07AM Insurance Includes: Active Insurance Policies Plan Name Member ID Group # Subscriber Relationship Effect irving Dates 1 - Medicare Part [place] of [place] [id number] John Bean 2 - [facility] [id number] John Bean Clinical Notes Includes: Clinical Notes from this encounter No Clinical Notes Recorded
--- OUTSIDE RECORDS SUMMARY | 2024-02-28 04:10 | XMS_ITS ---
Author Organization [facility] Address [address] [place] [address] Phone Care Team Providers Care Manager Unit Name Role Phone [facility] Unavailable [phone] Plan of Treatment No Plan of Treatment Recorded Assessments Includes: Assessments for all patient encounters No Assessments Recorded Medical Equipment - Implanted Devices Includes: Current and historical Devices No Medical Equipment Recorded Medications Administered Includes: Administered Medications in patient's chart No Administered Medications Recorded Results Includes: Results from 02/27/2023 through 02/28/2024 No Results Recorded For Specified Dates History of Present Illness History of Present Illness not supported for this document type No History of Present Illness Recorded Social History No Social History Recorded - Smoking Status Unknown Medical History Includes: Medical History in patient's chart No Medical History Recorded Family History Includes: Family History in patient's chart No Family History Recorded Review of Systems Review of Systems not supported for this document type No Review of Systems Recorded Mental Status No Mental Status Recorded Functional Status No Functional Status Recorded Physical Exam Physical Exam not supported for this document type No Physical Exam Recorded Insurance Includes: Active Insurance Policies Plan Name Member ID Group # Subscriber Relationship Effect irving Dates 1 - Medicare Part B [facility] [id number] John Bean 2 - [facility] [id number] John Bean Clinical Notes Includes: Signed Clinical Notes starting from 02/27/2022 No Clinical Notes Recorded
--- OUTSIDE RECORDS SUMMARY | 2024-02-28 04:10 | XMS_ITS ---
Author Organization [facility] Address [address] [place] [address] Care Team Providers Care Sorting Machine Attendant Name Role Phone Rylie Ball [facility] [phone] ALLERGIES, ADVERSE REACTIONS, ALERTS Substance Code Code System Type Reaction Severity Status Start Date End Date sulfa RxNorm Other substance allergy () 1 Diovan 794384 RxNorm Other substance allergy () 1 Latex products RxNorm Other substance allergy () 1 Ragweed RxNorm Other substance allergy () 1 MEDICATIONS Medication Code Code System Start Date Stop Date Route Dosage Directions Fill Instructions Augmentin 574991 RxNorm 022 022 oral 1 Replens RxNorm 05/29/19 22 022 vaginal 1 Ativan RxNorm 12/16/19 22 Augmentin 711858 RxNorm 03/29/19 23 023 oral 1 Augmentin 100022 RxNorm 07/06/19 23 023 oral 1 Augmentin 288148 RxNorm 3 023 oral 1 lorazepam RxNorm 12/11/19 22 amoxicillin 406243 RxNorm 2 022 oral 1 Lasix RxNorm 05/07/19 22 acetaminophen 795052 RxNorm 07/06/19 23 023 oral 2 benzonatate 112649 RxNorm 12/16/19 22 022 oral 1 atenolol RxNorm 05/07/19 22 Pyridium 1020344 RxNorm 05/07/19 22 022 oral 1 Zithromax Z-El 970952 RxNorm 3 07/27/19 23 oral 2 Diflucan 336199 RxNorm 022 2021 oral 1 Diflucan 944554 RxNorm 03/29/19 023 oral 1 Diflucan 365247 RxNorm 07/06/19 23 023 oral 1 Diflucan 115938 RxNorm 3 04/24/19 oral 1 Wellbutrin SR RxNorm 05/07/19 Macrobid 122644 RxNorm 05/07/19 022 oral 1 Macrobid 182684 RxNorm 11/01/19 oral 1 amoxicillin 492565 RxNorm 06/02/19 022 oral 1 doxycycline monohydrate 0455146 RxNorm 12/11/19 022 oral 1 amoxicillin-pot clavulanate 656009 RxNorm 10/14/19 oral 1 Eliquis RxNorm 3 Flonase Allergy Relief 3054551 RxNorm 3 nasal 2 PROBLEMS Problem Name Code Code System Start Date End Date Stat Anxiety disorder (F41.9) 89879816 [facility] 06/01/2021 Inactive Depression (F32.9) 93732051 [facility] 06/01/2021 I nactive Hypertension (I10) 61869194 [facility] 06/01/2021 I nactive Acute vaginitis (N76.0) 76157233 [facility] 05/28/2021 Inactive Dysuria (R30.0) [facility] 06/01/2021 Inac tive Sinusitis, acute (J01.90) 79690691 [facility] 2021 Inactive Contact with and (suspected) exposure to COVID-19 (Z20.822) [facility] 06/28/2021 Inactive Cough, unspecified (R05.9) [facility] 06/28/2021 Inactive Hypertension 04384887 [facility] 12/10/2021 Active Anxiety disorder 32820187 [facility] 12/10/2021 Act irving Depression 02815025 [facility] 12/10/2021 Active COVID-19, Screening Encounte r (Z11.52) 705336957 [facility] 12/10/2021 Inactive COVID-19, confirmed by labor atory testing (U07.1) 935838777 [facility] 12/10/2021 Inactive Urinary Tract Infection (N39.0) 98784929 [facility] 01/11/20 22 Inactive Frequency of micturition (R35.0) [facility] 022 Inactive Dysuria 71261024 [facility] 04/23/2022 Active Urinary Tract Infection 39646807 [facility] 04/23/2022 Resolved Viral infection, unspecified 68155262 [facility] 07/21/2022 Resolved Other fatigue (R53.83) [facility] 03/31/2022 Inactive Sinusitis, acute 71252324 [facility] 07/05/2022 Res olved Atrial fibrillation 51734532 [facility] 07/21/2022 Active COVID-19 condition, post acu te infection 9965416113 [facility] 07/21/2022 Active COVID-19, Screening Encounter 319942103 [facility] 07/21/2022 Resolved Dysuria 09365770 [facility] 10/31/2022 Active ENCOUNTERS Encounter Diagnosis Code Code System Date Stat us Dysuria 96143191 [facility] 10/14/2023 Active IMMUNIZATIONS * None VITAL SIGNS Code Code System Vitals Name Date Value and Un its 8462-4 [facility] Blood Pressure-Diastolic 10/14/2023 86 mmHg 8480-6 [facility] Blood Pressure-Systolic 10/14/2023 1 26 mmHg 8867-4 [facility] Heart Rate 10/14/2023 81 /min 9279-1 [facility] Respiratory Rate 10/14/2023 16 /min 8310-5 [facility] Body Temperature 10/14/2023 97.6 F 13800-0 [facility] Oxygen Saturation 10/14/2023 95 % SOCIAL HISTORY * None PROCEDURES * None RESULTS Test Code Code System Description Result Value Date Ref erence Range [facility] Glucose Negative 10/14/2023 [facility] Bilirubin Negative 10/14/2023 [facility] Ketone Negative 10/14/2023 [facility] Specific [place] 1.95405 10/14/2023 [facility] Blood Negative 10/14/2023 [facility] pH 7.10488 10/14/2023 [facility] Protein Negative 10/14/2023 [facility] Urobilinogen 0.72961 E.U./dL 10/14/2023 [facility] Nitrite Negative 10/14/2023 [facility] Leukocytes Trace 10/14/2023 [facility] Color Yellow 10/14/2023 [facility] Clarity Clear 10/14/2023 630-4 [facility] Urine Culture, Routine Final report 10/14/2023 [facility] Result 1 Results Receive d - See Detailed Notes 10/14/2023 MEDICAL EQUIPMENT * Patient has no history of implantable devices ASSESSMENT * None TREATMENT PLAN Type Description Date MEDICATION Take 875-125 mg tablet 10/14/2023 ORDERS You have a sinus inf ection. The vast majority of sinus infections are viral and need time to resolve with the help of over the counter medications to reduce symptoms. ANTIBIOTIC ARE NOT PRESCRIBED ROUTINELY FOR SINUS INFECTIONS OF LESS THAN 2 WEEKS DURATION THEY ARE NOT INDICATED AND ARE NOT HELPFUL. If it has been determined that your infection is bacterial and would respond therefore to antibiotic treatment, take the antibiotic as prescribed. You should know that there is a lag time in response to the antibiotic when treating a sinus infection. It may be 3-5 days until you feel improvement in your symptoms. Failure to respond to the antibiotic provides confirmation that your symptoms are likely viral and will resolve on their own with time.Use over the counter Flonase until symptoms are resolved. You should also use over the counter Xlear or OceanMist Nasal Saline to irrigate the sinuses. You should do this a few times daily and again before bed. Take Tylenol and/or Motrin as needed for facial pain/fever. If you develop any severe headache, vomiting, neck stiffness, visual disturbance, or any other new, concerning symptoms please go directly to the nearest ER. Your in office urinalysis did not indicate any urinary tract infection but we sent your urine for further evaluation and we will call you with the results of the urine culture and sensitivity in 2 to 3 days. However, if urine culture confirms an infection the Augmentin you have been prescribed for your sinus infection may in fact treat your urinary tract infection should you have onr based on the urine culture. 10/14/2023 APPOINTMENT If not feeling asuncion r in 3 day(s), please see your primary care physician. If you do not have a primary care physician, please return to this clinic. 10/14/2023 Labs Tests Test Name Code Code System Date Clinitek Urinalysis, automated, without microscopy 810 03 CPT 10/14/2023 Urine Culture, Routine 01964 [facility] 2023 GOALS * None HEALTH CONCERNS * No Health Concerns FUNCTIONAL AND COGNITIVE STATUS * None CONSULTATION NOTES * None DISCHARGE SUMMARY NOTES * None HISTORY AND PHYSICAL NOTES * Reason for visit - Illness IMAGING NOTES * None LABORATORY REPORT NARRATIVE NOTES * None PATHOLOGY REPORT NARRATIVE NOTES * None PROGRESS NOTES * None
--- OUTSIDE RECORDS SUMMARY | 2024-02-28 04:10 | XMS_ITS | Continuity of Care Document ---
Author Organization [facility] Address [address] [facility] [address] [place] [address] Insurance Providers Payer Plan Claims Address Claims Phone Policy Number Group Number Relation Employer Guarantor Name Guarantor Guarantor Address Guarantor Phone [employer] [address] [place] [address] tel:[phone] Self Ya Rizzo 1960 [address] [place] [address] MASSA CHUSE TTS MEDIC ARE [facility] [address], [place] [address] tel:[phone] Self Ya Rizzo 1960 [address] [place] [address] MEDIC AID [facility] [address], [place] [address] tel:[phone] Self Ya Rizzo 1960 [address] [place] [address] Problems Unknown Problems Results Test Value / Unit Interpretation Reference Ran ge Lab Report [email or web address] Allergies, adverse reactions, alerts No known allergies and adverse reactions Medications No administered medications reported Vital Signs No vital signs reported Social History No smoking Hx information available
--- OUTSIDE RECORDS SUMMARY | 2024-02-28 04:11 | XMS_ITS | Clinical Summary ---
Author Organization Unknown Care Team Providers Care Cuff Setter Lockstitch Name Role Phone MONE SHEA, NAIN Unavailable Unavailkameron GODFREY RN, PAULA Unavailable Unavailable MARTIR PT, FITZ Unavailable Unavailable SPAFFORD OT, VIELKA Unavailable Unavailable [facility], ADALBERTO Unavailable Unavailable [facility], CHI Unavailable Unavailable KENZIE LAN ENGINEER, KASH Unavailable Unavailable CONDINO BALDEMAR/PLATT, RUBEN Unavailable Unav ailable Payers Payer Name Policy Type Policy Number Effective Date Expira tion Date MEDICARE.NGS.PDGM [id number] Problems Condition Name Condition Details Condition Category Status Onset Date Resolution Date Last Treatment Date Treating Clinician Comments DISP FX OF NECK OF R RADIUS, SUBS FOR CLOS FX W ROUTN HEAL Active 11-05 00:00: 00 UNSP FX LOWER END OF R ULNA, SUBS FOR CLOS FX W ROUTN HEAL Active 11-05 00:00: 00 UNSP FX LOWER END OF R HUMERUS, SUBS FOR FX W ROUTN HEAL Active 11-05 00:00: 00 OTHER CHRONIC PAIN Active 03-20 00:00: 00 UNSPECIFIED ATRIAL FIBRILLATION Active 03-20 00:00: 00 ESSENTIAL (PRIMARY) HYPERTENSION Active 03-20 00:00: 00 MAJOR DEPRESSIVE DISORDER, SINGLE EPISODE, UNSPECIFIED Active 03-20 00:00: 00 ANXIETY DISORDER, UNSPECIFIED Active 03-20 00:00: 00 OTHER SEASONAL ALLERGIC RHINITIS Active 03-20 00:00: 00 GASTRO-ESOPH AGEAL REFLUX DISEASE WITHOUT ESOPHAGITIS Active 03-20 00:00: 00 MORBID (SEVERE) OBESITY DUE TO EXCESS CALORIES Active 03-20 00:00: 00 HISTORY OF FALLING Active 03-20 00:00: 00 BARIATRIC SURGERY STATUS Active 03-20 00:00: 00 SKILLED NURSING (CURRENT) USE OF OPIATE ANALGESIC Active 03-20 00:00: 00 OTHER SKILLED NURSING (CURRENT) DRUG THERAPY Active 03-20 00:00: 00 DISP FX OF OLECRAN PRO W/O INTARTIC EXTN R YONNA, 7THD Active 11-16 00:00: 00 Allergies, Adverse Reactions, Alerts Allergy Name Allergy Type Status Severity Reaction(s) Onset Date Inactive Date Treating Clinician Comments VALSARTAN Propensity to adverse reactions Active 11-11 16:58: 50 SULFA ANITBIOTICS Propensity to adverse reactions Active 11-11 16:59: 29 ALL FISH Propensity to adverse reactions Active 11-11 16:59: 39 TRIMOX Propensity to adverse reactions Active 11-11 17:01: 13 Medications Ordered Medication Name Filled Medication Name Start Date Stop Date Current Medication? Ordering Clinician Indication Dosage Frequency Signature (SIG) Comments Components Ativan 1 mg tablet 11-11 00:00: 00 Yes [id number] ANXIETY 1 tablet EVERY 8 HOURS 1 tablet EVERY 8 HOURS (route: oral) Med Classific ation: Central Nervous System Agents Colace 100 mg capsule 11-11 00:00: 00 Yes [id number] CONSTIPATIO N 1 capsule 2 TIMES DAILY 1 capsule 2 TIMES DAILY (route: oral) Med Classific ation: Gastroint estinal Therapy Agents cyanocobala min (vit B-12) 100 mcg tablet 11-11 00:00: 00 Yes [id number] NUTRITION 1 tablet DAILY 1 tablet DAILY (route: oral) Med Classific ation: Electroly te Balance-N utritiona l Products fluticasone propionate 50 mcg/actuati on nasal spray,suspe nsion 11-11 00:00: 00 Yes [id number] ALLERGIES 2 spray DAILY 2 spray DAILY (route: nasal) Med Classific ation: Respirato ry Therapy Agents furosemide 20 mg tablet 11-11 00:00: 00 Yes [id number] EDEMA 1 tablet 2 TIMES DAILY 1 tablet 2 TIMES DAILY (route: oral) Med Classific ation: Cardiovas cular Therapy Agents multivitami n tablet 11-11 00:00: 00 Yes [id number] NUTRITION 1 tablet DAILY 1 tablet DAILY (route: oral) Med Classific ation: Electroly te Balance-N utritiona l Products oxycodone 20 mg tablet 11-11 00:00: 00 Yes [id number] PAIN 1 tablet EVERY 4 HOURS 1 tablet EVERY 4 HOURS (route: oral) Med Classific ation: Analgesic , Anti-infl ammatory or Antipyret ic pantoprazol e 40 mg tablet,chuyita yed release 11-11 00:00: 00 Yes [id number] GERD 1 tablet DAILY 1 tablet DAILY (route: oral) Med Classific ation: Gastroint estinal Therapy Agents ProAir HFA 90 mcg/actuati on aerosol inhaler 11-11 00:00: 00 Yes [id number] SOB 2 puff EVERY 4 HOURS 2 puff EVERY 4 HOURS (route: inhalation ) Med Classific ation: Respirato ry Therapy Agents Tylenol Extra Strength 500 mg tablet 11-11 00:00: 00 Yes [id number] PAIN 2 tablet 3 TIMES DAILY 2 tablet 3 TIMES DAILY (route: oral) Med Classific ation: Analgesic , Anti-infl ammatory or Antipyret ic Zyrtec 10 mg capsule 11-11 00:00: 00 Yes [id number] ALLERGIES 1 capsule BEDTIME 1 capsule BEDTIME (route: oral) Med Classific ation: Respirato ry Therapy Agents atenolol 100 mg tablet 11-11 00:00: 00 Yes [id number] HTN 1 tablet DAILY 1 tablet DAILY (route: oral) Med Classific ation: Cardiovas cular Therapy Agents bupropion HCl SR 150 mg tablet,12 hr sustained-r elease 11-11 00:00: 00 Yes [id number] DEPRESSION 2 tablet DAILY 2 tablet DAILY (route: oral) Med Classific ation: Central Nervous System Agents Calcium 600 + D(3) 600 mg (1,500 mg)-200 unit tablet 11-11 00:00: 00 Yes [id number] NUTRITION 1 tablet DAILY 1 tablet DAILY (route: oral) Med Classific ation: Electroly te Balance-N utritiona l Products gabapentin 800 mg tablet 11-11 00:00: 00 Yes [id number] NERVE PAIN 1 tablet 3 TIMES DAILY 1 tablet 3 TIMES DAILY (route: oral) Med Classific ation: Central Nervous System Agents hydrochloro thiazide 12.5 mg capsule 11-11 00:00: 00 Yes [id number] EDEMA 1 capsule DAILY 1 capsule DAILY (route: oral) Med Classific ation: Cardiovas cular Therapy Agents Pradaxa 150 mg capsule 11-11 00:00: 00 Yes [id number] BLOOD THINNER 1 capsule 2 TIMES DAILY 1 capsule 2 TIMES DAILY (route: oral) Med Classific ation: Hematolog ical Agents sucralfate 1 gram tablet 11-11 00:00: 00 Yes [id number] GERD 1 tablet 2 TIMES DAILY 1 tablet 2 TIMES DAILY (route: oral) Med Classific ation: Gastroint estinal Therapy Agents mirtazapine 15 mg tablet 11-24 00:00: 00 Yes [id number] DEPRESSION 1 tablet BEDTIME 1 tablet BEDTIME (route: oral) Med Classific ation: Central Nervous System Agents VITAMIN C ORAL 11-07 00:00: 00 12-07 00:00 :00 No 500 mg1 TABLET TWICE A DAY 500 mg1 TABLET TWICE A DAY (route: ) Alternate Route: BY MOUTH . Med Classific ation: ELECTROLY TE BALANCE-N UTRITIONA L PRODUCTS CODEINE-GUA IFENESIN ORAL 2017-0311 00:00: 00 12-30 00:00 :00 No 10-100 mg/5 mL10 MILLILI TERS EVERY 4 HOURS NEEDED 10-100 mg/5 mL10 MILLILITER S EVERY 4 HOURS NEEDED (route: ) Alternate Route: BY MOUTH . Med Classific ation: RESPIRATO RY THERAPY AGENTS TIZANIDINE ORAL 2017-03 0-05 00:00: 00 02-10 00:00 :00 No 2 mg1 TABLET 2 TIMES EVERY DAY NEEDED NOT TO EXCEED 3 DOSES IN 24 HOURS 2 mg1 TABLET 2 TIMES EVERY DAY NEEDED NOT TO EXCEED 3 DOSES IN 24 HOURS (route: ) Alternate Route: BY ORAL ROUTE. Med Classific ation: LOCOMOTOR SYSTEM AMLODIPINE ORAL 12-16 00:00: 00 02-11 00:00 :00 No 10 mg1 TABLET ONCE A DAY 10 mg1 TABLET ONCE A DAY (route: ) Alternate Route: BY MOUTH. Med Classific ation: CARDIOVAS CULAR THERAPY AGENTS DIAZEPAM ORAL 11-24 00:00: 00 11-26 00:00 :00 No 10 mg1 TABLET AT BEDTIME 10 mg1 TABLET AT BEDTIME (route: ) Alternate Route: BY MOUTH . Med Classific ation: CENTRAL NERVOUS SYSTEM AGENTS METHOCARBAM OL ORAL 8-25 00:00: 00 11-21 00:00 :00 No 500 mg1 TABLET THREE TIMES A DAY NEEDED 500 mg1 TABLET THREE TIMES A DAY NEEDED (route: ) Alternate Route: BY MOUTH . Med Classific ation: LOCOMOTOR SYSTEM CHILDREN'S SILAPAP ORAL 8- 00:00: 00 11-21 00:00 :00 No 160 mg/5 mL EVERY 6 HOURS NEEDED 160 mg/5 mL EVERY 6 HOURS NEEDED (route: ) Alternate Route: 10MLS BY MOUTH . Med Classific ation: ANALGESIC , ANTI-INFL AMMATORY OR ANTIPYRET IC CETIRIZINE ORAL 2017-03 0-18 00:00: 00 02-09 13:11 :00 No 10 mg1 TABLET EVERY DAY 10 mg1 TABLET EVERY DAY (route: ) Alternate Route: BY MOUTH. Med Classific ation: RESPIRATO RY THERAPY AGENTS CETIRIZINE ORAL 11-27 00:00: 00 12-27 00:00 :00 No 10 mg1 TABLET EVERY DAY 10 mg1 TABLET EVERY DAY (route: ) Alternate Route: BY MOUTH . Med Classific ation: RESPIRATO RY THERAPY AGENTS BUPROPION HCL ORAL 17 00:00: 00 01-03 00:00 :00 No 150 mg2 TABLETS EVERY DAY 150 mg2 TABLETS EVERY DAY (route: ) Alternate Route: BY MOUTH . Med Classific ation: CENTRAL NERVOUS SYSTEM AGENTS MIRTAZAPINE ORAL 9-05 00:00: 00 02-10 00:00 :00 No 7.5 mg1 TABLET EVERYDAY AT BEDTIME 7.5 mg1 TABLET EVERYDAY AT BEDTIME (route: ) Alternate Route: BY MOUTH. Med Classific ation: CENTRAL NERVOUS SYSTEM AGENTS LEVOFLOXACI N ORAL 2017-03 0-03 00:00: 00 12-27 00:00 :00 No 500 mg1 TABLET EVERY DAY FOR 7 DAYS 500 mg1 TABLET EVERY DAY FOR 7 DAYS (route: ) Alternate Route: BY MOUTH . Med Classific ation: ANTI-INFE CTIVE AGENTS CALCIUM CARBONATE-V ITAMIN D3 ORAL 11-25 00:00: 00 12-25 00:00 :00 No 600 mg(1,50 0mg) -800 unit1 TABLET TWICE A DAY 600 mg(1,500mg ) -800 unit1 TABLET TWICE A DAY (route: ) Alternate Route: BY MOUTH . Med Classific ation: ELECTROLY TE BALANCE-N UTRITIONA L PRODUCTS PREMARIN VAGINAL 2017-03 00:00: 00 02-10 00:00 :00 No 0.625 mg/gram TWICE 0.625 mg/gram TWICE (route: ) Alternate Route: INSERT 1/2 APPLICATO RFUL BY VAGINAL ROUTE. Med Classific ation: VAGINAL PRODUCTS NITROFURANT OIN MONOHYDRATE /MACROCRYST ALS ORAL 2017-03 00:00: 00 01-02 00:00 :00 No 100 mg1 CAPSULE EVERY 12 HOURS 100 mg1 CAPSULE EVERY 12 HOURS (route: ) Alternate Route: BY MOUTH . Med Classific ation: ANTI-INFE CTIVE AGENTS Vital Signs Vital Name Observation Time Observation Value Commen ts Temperature 2020-12-30 14:57:00.000 97.5 [degF] Temperature 2020-12-09 11:41:00.000 96.4 [degF] Temperature 2020-12-08 14:52:00.000 97.2 [degF] Temperature 2020-11-30 20:44:00.000 97.6 [degF] Temperature 2020-11-24 13:07:00.000 97 [degF] Temperature 2020-11-24 12:53:00.000 97.2 [degF] Temperature 2020-11-17 14:06:46.000 97.2 [degF] Temperature 2020-11-16 16:00:00.000 97.3 [degF] Temperature 2020-11-12 14:06:00.000 97.7 [degF] Temperature 2020-11-11 14:39:52.000 97.8 [degF] Height 2020-11-11 14:40:37.000 65 [in_us] Pulse 2020-12-30 14:57:00.000 69 /min Pulse 2020-12-09 11:41:00.000 74 /min Pulse 2020-12-08 14:52:00.000 74 /min Pulse 2020-11-30 20:44:00.000 54 /min Pulse 2020-11-24 13:07:00.000 68 /min Pulse 2020-11-24 12:53:00.000 80 /min Pulse 2020-11-17 14:07:43.000 68 /min Pulse 2020-11-16 16:00:00.000 73 /min Pulse 2020-11-12 14:06:00.000 70 /min Pulse 2020-11-11 14:40:02.000 78 /min O2 Saturation (%) 2020-12-30 14:57:00.000 97 % O2 Saturation (%) 2020-12-09 11:42:00.000 96 % O2 Saturation (%) 2020-11-24 13:07:00.000 97 % O2 Saturation (%) 2020-11-17 14:07:31.000 98 % O2 Saturation (%) 2020-11-16 16:00:00.000 97 % O2 Saturation (%) 2020-11-11 14:41:05.000 99 % Respirations 2020-12-30 14:57:00.000 18 /min Respirations 2020-12-09 11:41:00.000 18 /min Respirations 2020-12-08 14:52:00.000 18 /min Respirations 2020-11-30 20:44:00.000 16 /min Respirations 2020-11-24 13:07:00.000 18 /min Respirations 2020-11-24 12:53:00.000 18 /min Respirations 2020-11-17 14:07:14.000 18 /min Respirations 2020-11-17 14:07:04.000 18 /min Respirations 2020-11-16 16:00:00.000 18 /min Respirations 2020-11-12 14:06:00.000 18 /min Respirations 2020-11-11 14:40:08.000 18 /min Weight (lbs) 2020-11-11 14:40:47.000 270 [lb_av] Systolic Blood Pressure 2020-12-30 14:57:00.000 118 mm [Hg] Systolic Blood Pressure 2020-12-09 11:41:00.000 124 mm [Hg] Systolic Blood Pressure 2020-11-30 20:44:00.000 130 mm [Hg] Systolic Blood Pressure 2020-11-24 13:07:00.000 138 mm [Hg] Systolic Blood Pressure 2020-11-17 14:11:15.000 132 mm [Hg] Systolic Blood Pressure 2020-11-16 16:00:00.000 142 mm [Hg] Systolic Blood Pressure 2020-11-12 14:06:00.000 138 mm [Hg] Systolic Blood Pressure 2020-11-11 14:40:25.000 130 mm [Hg] Diastolic Blood Pressure 2020-12-30 14:57:00.000 76 mm [Hg] Diastolic Blood Pressure 2020-12-09 11:41:00.000 74 mm [Hg] Diastolic Blood Pressure 2020-11-30 20:44:00.000 74 mm [Hg] Diastolic Blood Pressure 2020-11-24 13:07:00.000 70 mm [Hg] Diastolic Blood Pressure 2020-11-17 14:11:15.000 76 mm [Hg] Diastolic Blood Pressure 2020-11-16 16:00:00.000 80 mm [Hg] Diastolic Blood Pressure 2020-11-12 14:06:00.000 88 mm [Hg] Diastolic Blood Pressure 2020-11-11 14:40:25.000 70 mm [Hg] Plan of Treatment Planned Activity Planned Date Details Comments Future Scheduled Test SKILLED NU RSE TO ASSESS, EVALUATE, AND DEVELOP AN INDIVIDUALIZED PLAN OF CARE. AGENCY MAY ACCEPT ORDERS FROM CONSULTING PHYSICIANS PCP SURGEON SN TO OBSERVE/ASSESS RISK FOR FALLS AND INSTRUCT IN FALL PREVENTION, HOME SAFETY, MEDICATION MANAGEMENT, INFECTION PREVENTION, AND NUTRITION MANAGEMENT. SN MAY PERFORM O2 SATURATION LEVEL ON ADMISSION AND PRN FOR SOB TO ASSESS PATIENT, WITH NOTIFICATION TO THE PHYSICIAN IF SATURATION IS 90% IN THE ABSENCE OF MORE SPECIFIC PARAMETERS FROM THE PHYSICIAN. AGENCY MAY PERFORM A RESUMPTION OF CARE VISIT FOLLOWING ANY HOSPITAL ADMISSION. SKILLED NURSE TO ASSESS/EVALUATE CO-MORBID CONDITIONS AND ANY NEW CONDITIONS THAT PRESENT THEMSELVES DURING THIS EPISODE TO IDENTIFY CHANGES AND INTERVENE TO MINIMIZE COMPLICATIONS. [code = SKILLED NURSE TO ASSESS, EVALUATE, AND DEVELOP AN INDIVIDUALIZED PLAN OF CARE. AGENCY MAY ACCEPT ORDERS FROM CONSULTING PHYSICIANS PCP SURGEON SN TO OBSERVE/ASSESS RISK FOR FALLS AND INSTRUCT IN FALL PREVENTION, HOME SAFETY, MEDICATION MANAGEMENT, INFECTION PREVENTION, AND NUTRITION MANAGEMENT. SN MAY PERFORM O2 SATURATION LEVEL ON ADMISSION AND PRN FOR SOB TO ASSESS PATIENT, WITH NOTIFICATION TO THE PHYSICIAN IF SATURATION IS 90% IN THE ABSENCE OF MORE SPECIFIC PARAMETERS FROM THE PHYSICIAN. AGENCY MAY PERFORM A RESUMPTION OF CARE VISIT FOLLOWING ANY HOSPITAL ADMISSION. SKILLED NURSE TO ASSESS/EVALUATE CO-MORBID CONDITIONS AND ANY NEW CONDITIONS THAT PRESENT THEMSELVES DURING THIS EPISODE TO IDENTIFY CHANGES AND INTERVENE TO MINIMIZE COMPLICATIONS.] Future Scheduled Test MEDICATION MANAGEMENT; SKILLED NURSE TO REVIEW MEDICATIONS FOR INTERACTIONS, EFFECTIVENESS OF DRUG THERAPY, AND SIGNS/SYMPTOMS OF ADVERSE REACTIONS. MAY INSTRUCT AND REINFORCE MEDICATION TEACHING RELATED TO THE USE OF MEDICATIONS, DOSAGE, FREQUENCY, PURPOSE, SIDE EFFECTS, AND TO REPORT COMPLICATIONS. [code = MEDICATION MANAGEMENT; SKILLED NURSE TO REVIEW MEDICATIONS FOR INTERACTIONS, EFFECTIVENESS OF DRUG THERAPY, AND SIGNS/SYMPTOMS OF ADVERSE REACTIONS. MAY INSTRUCT AND REINFORCE MEDICATION TEACHING RELATED TO THE USE OF MEDICATIONS, DOSAGE, FREQUENCY, PURPOSE, SIDE EFFECTS, AND TO REPORT COMPLICATIONS.] Future Scheduled Test RISK FOR H OSPITALIZATION; SKILLED NURSE TO INSTRUCT PATIENT/CAREGIVER ON RISK FOR HOSPITALIZATION, TEACH SIGNS AND SYMPTOMS THAT PUT PATIENT AT RISK, WHEN TO NOTIFY NURSE OF COMPLICATIONS/DECLINE, AND WHEN TO CALL 911. SKILLED NURSE TO INSTRUCT PATIENT/CAREGIVER ON: SIGNS AND SYMPTOMS TO BE ON ALERT FOR EARLY INTERVENTION, PRIOR TO NEEDING EMERGENCY SERVICES CALL [facility] NURSE TO KEEP ORDER EXPEDITER SYMPTOM REPORT FOR VISIBLE REFERENCE NOTIFY SKILLED NURSE/PHYSICIAN FOR DECLINE IN STATS WHEN AND HOW TO CALL HOME HEALTH AGENCY FACILITATE PHYSICIAN FOLLOW UP APPOINTMENT IDENTIFY SOCIOECONOMIC CONCERNS AND MAKE APPROPRIATE REFERRAL NEEDED [code = RISK FOR HOSPITALIZATION; SKILLED NURSE TO INSTRUCT PATIENT/CAREGIVER ON RISK FOR HOSPITALIZATION, TEACH SIGNS AND SYMPTOMS THAT PUT PATIENT AT RISK, WHEN TO NOTIFY NURSE OF COMPLICATIONS/DECLINE, AND WHEN TO CALL 911. SKILLED NURSE TO INSTRUCT PATIENT/CAREGIVER ON: SIGNS AND SYMPTOMS TO BE ON ALERT FOR EARLY INTERVENTION, PRIOR TO NEEDING EMERGENCY SERVICES CALL [facility] NURSE TO KEEP ORDER EXPEDITER SYMPTOM REPORT FOR VISIBLE REFERENCE NOTIFY SKILLED NURSE/PHYSICIAN FOR DECLINE IN STATS WHEN AND HOW TO CALL HOME HEALTH AGENCY FACILITATE PHYSICIAN FOLLOW UP APPOINTMENT IDENTIFY SOCIOECONOMIC CONCERNS AND MAKE APPROPRIATE REFERRAL NEEDED] Future Scheduled Test PAIN MANAG EMENT; SKILLED NURSE TO OBSERVE, ASSESS, AND PROVIDE EDUCATION ON PAIN MANAGEMENT TECHNIQUES. [code = PAIN MANAGEMENT; SKILLED NURSE TO OBSERVE, ASSESS, AND PROVIDE EDUCATION ON PAIN MANAGEMENT TECHNIQUES.] Future Scheduled Test FALL REDUC TION MANAGEMENT; NURSING TO PROVIDE SKILLED ASSESSMENT, EDUCATION, AND INTERVENTION TO IDENTIFY FALL RISK FACTORS SUCH MEDICATIONS THAT MAY CAUSE DIZZINESS, CHRONIC DISEASES, PSYCHOLOGICAL FACTORS, AND EMPOWER/EDUCATE PATIENT/CAREGIVER TO MINIMIZE FALL RISK. [code = FALL REDUCTION MANAGEMENT; NURSING TO PROVIDE SKILLED ASSESSMENT, EDUCATION, AND INTERVENTION TO IDENTIFY FALL RISK FACTORS SUCH MEDICATIONS THAT MAY CAUSE DIZZINESS, CHRONIC DISEASES, PSYCHOLOGICAL FACTORS, AND EMPOWER/EDUCATE PATIENT/CAREGIVER TO MINIMIZE FALL RISK.] Future Scheduled Test OCCUPATION AL THERAPIST TO EVALUATE FOR ADLS [code = OCCUPATIONAL THERAPIST TO EVALUATE FOR ADLS] Future Scheduled Test PT EVALUAT ION PERFORMED. NO ADDITIONAL VISITS REQUIRED. PROVIDED SKILLED INTERVENTION INCLUDING STRENGTH, MOBILITY AND HOME SAFETY ASSESSMENT [code = PT EVALUATION PERFORMED. NO ADDITIONAL VISITS REQUIRED. PROVIDED SKILLED INTERVENTION INCLUDING STRENGTH, MOBILITY AND HOME SAFETY ASSESSMENT ] Goal 2021-01-08 Patient Goal - TO HEAL FAST Goal Provider Goal - A PLAN OF CARE WILL BE ESTABLISHED THAT MEETS THE PATIENTS NEEDS. PATIENT WILL DEMONSTRATE OXYGEN SATURATION WITHIN NORMAL LIMITS OR PATIENTS OPTIMAL LEVEL ESTABLISHED BY THE PHYSICIAN THROUGHOUT CARE. CHANGES TO CO-MORBID CONDITIONS AND ANY NEW CONDITIONS WILL BE IDENTIFIED AND REPORTED TO THE PHYSICIAN. Goal Provider Goal - PATIENT/CAREGIVER TO VERBALIZE, AND CONSISTENTLY DEMONSTRATE EFFECTIVE, SAFE MANAGEMENT OF MEDICATION INCLUDING KNOWLEDGE OF EFFECTIVENESS, POTENTIAL SIDE EFFECTS AND DRUG REACTIONS AND WHEN TO CONTACT THE APPROPRIATE CARE PROVIDER. PATIENT/CAREGIVER WILL BE ABLE TO VERBALIZE UNDERSTANDING OF MEDICATION REGIMEN AND ACCURATELY TAKE MEDICATIONS PRESCRIBED WITHOUT ADVERSE EFFECTS BY 01/09/2021 Goal Provider Goal - PATIENT/CAREGIVER WILL VERBALIZE UNDERSTANDING OF SIGNS AND SYMPTOMS THAT PUT THE PATIENT AT RISK FOR HOSPITALIZATION, WHEN TO NOTIFY SN OF COMPLICATIONS/DECLINE AND WHEN TO CALL 911. Goal Provider Goal - PATIENT / CAREGIVER WILL VERBALIZE / DEMONSTRATE UNDERSTANDING OF PAIN CONTROL MEASURES BY 01/07/2021 Goal Provider Goal - PATIENT/CAREGIVER ABLE TO IDENTIFY FALL RISK FACTORS AND IMPLEMENT STRATEGIES TO MINIMIZE FALL RISK. PATIENT/CAREGIVER WILL VERBALIZE/DEMONSTRATE AN ABILITY TO ADHERE TO FALL REDUCTION SELF MANAGEMENT AND LIFE-STYLE CHANGES AT DISCHARGE. PERSONAL GOAL(S) STATED BY PATIENT/CAREGIVER WILL BE MET BY 01/07/2021 Goal Provider Goal - Goal Provider Goal - Goal Provider Goal - Reason for Visit INDEPENDENT WITH USE OF ASSISTIVE DEVICE Encounters Start Date/Time End Date/Time Encounter Type Admission Type Attending [facility] Care Department Encounter ID Discharge Date Discharge Status Discharge Condition Discharge Reason Percent Goals Met 2020-11-11 00:00:00 2021-01-08 00:00:00 Outpatient [facility] [id number] 2021-01-08 00:00:00 DISCHARGE TO HOME OR SELF CARE INDEPENDEN T WITH USE OF ASSISTIVE DEVICE HH OR [facility]- GOALS MET 50.00
--- OUTSIDE RECORDS SUMMARY | 2024-02-28 04:11 | XMS_ITS ---
Author Organization [facility] Address [address] [place] [address] Care Team Providers Care Galvanizer Name Role Phone Rylie Ball [facility] [phone] ALLERGIES, ADVERSE REACTIONS, ALERTS Substance Code Code System Type Reaction Severity Status Start Date End Date Ragweed RxNorm Other substance allergy () 1 sulfa RxNorm Other substance allergy () 1 Latex products RxNorm Other substance allergy () 1 Diovan 415100 RxNorm Other substance allergy () 1 MEDICATIONS Medication Code Code System Start Date Stop Date Route Dosage Directions Fill Instructions Augmentin 789353 RxNorm 022 022 oral 1 Replens RxNorm 05/29/19 22 022 vaginal 1 Ativan RxNorm 12/16/19 22 Augmentin 117480 RxNorm 03/29/19 23 023 oral 1 Augmentin 883853 RxNorm 07/06/19 23 023 oral 1 Augmentin 075990 RxNorm 3 023 oral 1 lorazepam RxNorm 12/11/19 22 amoxicillin 816475 RxNorm 2 022 oral 1 Lasix RxNorm 05/07/19 22 acetaminophen 134619 RxNorm 07/06/19 23 023 oral 2 benzonatate 794243 RxNorm 12/16/19 22 022 oral 1 atenolol RxNorm 05/07/19 22 Pyridium 0079218 RxNorm 05/07/19 22 022 oral 1 Zithromax Z-El 649907 RxNorm 3 07/27/19 23 oral 2 Diflucan 600743 RxNorm 022 2021 oral 1 Diflucan 685308 RxNorm 03/29/19 023 oral 1 Diflucan 892595 RxNorm 07/06/19 23 023 oral 1 Diflucan 298055 RxNorm 3 04/24/19 oral 1 Wellbutrin SR RxNorm 05/07/19 Macrobid 734074 RxNorm 05/07/19 022 oral 1 Macrobid 128399 RxNorm 11/01/19 oral 1 amoxicillin 275370 RxNorm 06/02/19 022 oral 1 doxycycline monohydrate 0907789 RxNorm 12/11/19 022 oral 1 amoxicillin-pot clavulanate 616082 RxNorm 10/14/19 oral 1 Eliquis RxNorm 3 Flonase Allergy Relief 0118235 RxNorm 3 nasal 2 PROBLEMS Problem Name Code Code System Start Date End Date Stat Anxiety disorder (F41.9) 24167894 [facility] 06/01/2021 Inactive Depression (F32.9) 92771752 [facility] 06/01/2021 I nactive Hypertension (I10) 02282606 [facility] 06/01/2021 I nactive Acute vaginitis (N76.0) 02230581 [facility] 05/28/2021 Inactive Dysuria (R30.0) [facility] 06/01/2021 Inac tive Sinusitis, acute (J01.90) 20962224 [facility] 2021 Inactive Contact with and (suspected) exposure to COVID-19 (Z20.822) [facility] 06/28/2021 Inactive Cough, unspecified (R05.9) [facility] 06/28/2021 Inactive Hypertension 85201756 [facility] 12/10/2021 Active Anxiety disorder 26124548 [facility] 12/10/2021 Act irving Depression 44888942 [facility] 12/10/2021 Active COVID-19, Screening Encounte r (Z11.52) 249791908 [facility] 12/10/2021 Inactive COVID-19, confirmed by labor atory testing (U07.1) 512670777 [facility] 12/10/2021 Inactive Urinary Tract Infection (N39.0) 24109112 [facility] 01/11/20 22 Inactive Frequency of micturition (R35.0) [facility] 022 Inactive Dysuria 97523548 [facility] 04/23/2022 Active Urinary Tract Infection 26025009 [facility] 04/23/2022 Resolved Viral infection, unspecified 62478555 [facility] 07/21/2022 Resolved Other fatigue (R53.83) [facility] 03/31/2022 Inactive Sinusitis, acute 97213598 [facility] 07/05/2022 Res olved Atrial fibrillation 97794869 [facility] 07/21/2022 Active COVID-19 condition, post acu te infection 5742183292 [facility] 07/21/2022 Active COVID-19, Screening Encounter 902378360 [facility] 07/21/2022 Resolved Dysuria 44228207 [facility] 10/31/2022 Active ENCOUNTERS Encounter Diagnosis Code Code System Date Stat us Dysuria 45311356 [facility] 10/31/2022 Active IMMUNIZATIONS * None VITAL SIGNS Code Code System Vitals Name Date Value and Un its 8462-4 [facility] Blood Pressure-Diastolic 10/31/2022 84 mmHg 8480-6 [facility] Blood Pressure-Systolic 10/31/2022 1 48 mmHg 8867-4 inc Heart Rate 10/31/2022 78 /min 9279-1 [facility] Respiratory Rate 10/31/2022 16 /min 8310-5 inc Body Temperature 10/31/2022 98.6 F 12292-7 inc Oxygen Saturation 10/31/2022 97 % SOCIAL HISTORY * None PROCEDURES * None RESULTS Test Code Code System Description Result Value Date Ref erence Range [facility] Glucose Negative 10/31/2022 [facility] Bilirubin Negative 10/31/2022 [facility] Ketone Negative 10/31/2022 [facility] Specific [place] 1.55345 10/31/2022 [facility] Blood Negative 10/31/2022 [facility] pH 6.90590 10/31/2022 [facility] Protein Negative 10/31/2022 [facility] Urobilinogen 0.93232 E.U./dL 10/31/2022 [facility] Nitrite Negative 10/31/2022 [facility] [...] Code System Date Urinalysis, automated, without microscopy 36886 CPT 10/31/2022 CULTURE, URINE, ROUTINE 88269;54098 CPT 10/31 GOALS * None HEALTH CONCERNS [...]
--- OUTSIDE RECORDS SUMMARY | 2024-02-28 04:11 | XMS_ITS ---
Author Organization [facility] Address [address] [place] [address] Care Team Providers Care Power Brake Rebuilder Name Role Phone Rylie Ball [facility] [phone] ALLERGIES, ADVERSE REACTIONS, ALERTS Substance Code Code System Type Reaction Severity Status Start Date End Date Diovan 150453 RxNorm Other substance allergy () 1 sulfa RxNorm Other substance allergy () 1 Latex products RxNorm Other substance allergy () 1 Ragweed RxNorm Other substance allergy () 1 MEDICATIONS Medication Code Code System Start Date Stop Date Route Dosage Directions Fill Instructions Augmentin 720076 RxNorm 022 022 oral 1 Replens RxNorm 05/29/19 22 022 vaginal 1 Ativan RxNorm 12/16/19 22 Augmentin 680448 RxNorm 03/29/19 23 023 oral 1 Augmentin 129041 RxNorm 07/06/19 23 023 oral 1 Augmentin 810912 RxNorm 3 023 oral 1 lorazepam RxNorm 12/11/19 22 amoxicillin 535506 RxNorm 2 022 oral 1 Lasix RxNorm 05/07/19 22 acetaminophen 238480 RxNorm 07/06/19 23 023 oral 2 benzonatate 610666 RxNorm 12/16/19 22 022 oral 1 atenolol RxNorm 05/07/19 22 Pyridium 4034230 RxNorm 05/07/19 22 022 oral 1 Zithromax Z-El 040211 RxNorm 3 07/27/19 23 oral 2 Diflucan 744626 RxNorm 022 2021 oral 1 Diflucan 511969 RxNorm 03/29/19 023 oral 1 Diflucan 302019 RxNorm 07/06/19 23 023 oral 1 Diflucan 848895 RxNorm 3 04/24/19 oral 1 Wellbutrin SR RxNorm 05/07/19 Macrobid 822885 RxNorm 05/07/19 022 oral 1 Macrobid 196996 RxNorm 11/01/19 oral 1 amoxicillin 738361 RxNorm 06/02/19 022 oral 1 doxycycline monohydrate 3872317 RxNorm 12/11/19 022 oral 1 amoxicillin-pot clavulanate 195364 RxNorm 10/14/19 oral 1 Eliquis RxNorm 3 Flonase Allergy Relief 3339396 RxNorm 3 nasal 2 PROBLEMS Problem Name Code Code System Start Date End Date Stat Anxiety disorder (F41.9) 78821221 [facility] 06/01/2021 Inactive Depression (F32.9) 45634073 [facility] 06/01/2021 I nactive Hypertension (I10) 47489224 [facility] 06/01/2021 I nactive Acute vaginitis (N76.0) 86476125 [facility] 05/28/2021 Inactive Dysuria (R30.0) [facility] 06/01/2021 Inac tive Sinusitis, acute (J01.90) 54115764 [facility] 2021 Inactive Contact with and (suspected) exposure to COVID-19 (Z20.822) [facility] 06/28/2021 Inactive Cough, unspecified (R05.9) [facility] 06/28/2021 Inactive Hypertension 80795929 [facility] 12/10/2021 Active Anxiety disorder 15415457 [facility] 12/10/2021 Act irving Depression 70882296 [facility] 12/10/2021 Active COVID-19, Screening Encounte r (Z11.52) 627275620 [facility] 12/10/2021 Inactive COVID-19, confirmed by labor atory testing (U07.1) 383018171 [facility] 12/10/2021 Inactive Urinary Tract Infection (N39.0) 02101226 [facility] 01/11/20 22 Inactive Frequency of micturition (R35.0) [facility] 022 Inactive Dysuria 18268347 [facility] 04/23/2022 Active Urinary Tract Infection 41796993 [facility] 04/23/2022 Resolved Viral infection, unspecified 91915503 [facility] 07/21/2022 Resolved Other fatigue (R53.83) [facility] 03/31/2022 Inactive Sinusitis, acute 03388050 [facility] 07/05/2022 Res olved Atrial fibrillation 94792657 [facility] 07/21/2022 Active COVID-19 condition, post acu te infection 7508335738 [facility] 07/21/2022 Active COVID-19, Screening Encounter 224659957 [facility] 07/21/2022 Resolved Dysuria 70609330 [facility] 10/31/2022 Active ENCOUNTERS Encounter Diagnosis Code Code System Date Stat us Dysuria 04998418 [facility] 10/14/2023 Active IMMUNIZATIONS * None VITAL SIGNS Code Code System Vitals Name Date Value and Un its 8462-4 [facility] Blood Pressure-Diastolic 10/14/2023 86 mmHg 8480-6 [facility] Blood Pressure-Systolic 10/14/2023 1 26 mmHg 8867-4 [facility] Heart Rate 10/14/2023 81 /min 9279-1 [facility] Respiratory Rate 10/14/2023 16 /min 8310-5 [facility] Body Temperature 10/14/2023 97.6 F 07749-2 [facility] Oxygen Saturation 10/14/2023 95 % SOCIAL HISTORY * None PROCEDURES * None RESULTS Test Code Code System Description Result Value Date Ref erence Range [facility] Glucose Negative 10/14/2023 [facility] Bilirubin Negative 10/14/2023 [facility] Ketone Negative 10/14/2023 [facility] Specific [place] 1.08931 10/14/2023 [facility] Blood Negative 10/14/2023 [facility] pH 7.29702 10/14/2023 [facility] Protein Negative 10/14/2023 [facility] Urobilinogen 0.39771 E.U./dL 10/14/2023 [facility] Nitrite Negative 10/14/2023 [facility] Leukocytes Trace 10/14/2023 [facility] Color Yellow 10/14/2023 [facility] Clarity Clear 10/14/2023 630-4 [facility] Urine Culture, Routine Final report 10/14/2023 [facility] Result 1 Results Receive d - See [...] 810 03 CPT 10/14/2023 Urine Culture, Routine 07299 [facility] 2023 GOALS * None HEALTH CONCERNS * No Health Concerns FUNCTIONAL AND COGNITIVE STATUS * None CONSULTATION NOTES * None DISCHARGE SUMMARY NOTES * None HISTORY AND PHYSICAL NOTES * Reason for visit - Illness IMAGING NOTES * None LABORATORY REPORT NARRATIVE NOTES * None PATHOLOGY REPORT NARRATIVE NOTES * None PROGRESS NOTES * None
--- OUTSIDE RECORDS SUMMARY | 2024-02-28 04:11 | XMS_ITS | Clinical Summary ---
Author Organization Unknown Care Team Providers Care Ring Rolling Machine Operator Name Role Phone MONE SHEA, NAIN Unavailable Unavailkameron GODFREY RN, PAULA Unavailable Unavailable MARTIR PT, FITZ Unavailable Unavailable SPAFFORD OT, VIELKA Unavailable Unavailable AUSTEN LAMINATING MACHINE TENDER, ADALBERTO Unavailable Unavailable SCHRADER LAMINATING MACHINE TENDER, CHI Unavailable Unavailable KENZIE DOOR PATCHER, KASH Unavailable Unavailable CONDINO BALDEMAR/PLATT, RUBEN Unavailable Unav ailable Payers Payer Name Policy Type Policy Number Effective Date Expira tion Date MEDICARE.NGS.PDGM [id number] Problems Condition Name Condition Details Condition Category [...] BARIATRIC SURGERY STATUS Active 03-20 00:00: 00 [facility] (CURRENT) USE OF OPIATE ANALGESIC Active 03-20 00:00: 00 OTHER [facility] (CURRENT) DRUG THERAPY Active 03-20 00:00: 00 [...] 1 mg tablet 11-11 00:00: 00 Yes [id number] ANXIETY 1 tablet EVERY 8 HOURS 1 tablet EVERY 8 HOURS (route: oral) Med Classific ation: Central Nervous System Agents Colace 100 mg capsule 11-11 00:00: 00 Yes [id number] CONSTIPATIO N 1 capsule 2 TIMES DAILY 1 capsule 2 TIMES DAILY (route: oral) Med Classific ation: Gastroint estinal Therapy Agents cyanocobala min (vit B-12) 100 mcg tablet 11-11 00:00: 00 Yes [id number] NUTRITION 1 tablet DAILY 1 tablet DAILY (route: oral) Med Classific ation: Electroly te Balance-N utritiona l Products fluticasone propionate 50 mcg/actuati on nasal spray,suspe nsion 11-11 00:00: 00 Yes [id number] ALLERGIES 2 spray DAILY 2 spray DAILY (route: nasal) Med Classific ation: Respirato ry Therapy Agents furosemide 20 mg tablet 11-11 00:00: 00 Yes [id number] EDEMA 1 tablet 2 TIMES DAILY 1 tablet 2 TIMES DAILY (route: oral) Med Classific ation: Cardiovas cular Therapy Agents multivitami n tablet 11-11 00:00: 00 Yes [id number] NUTRITION 1 tablet DAILY 1 tablet DAILY (route: oral) Med Classific ation: Electroly te Balance-N utritiona l Products oxycodone 20 mg tablet 11-11 00:00: 00 Yes [id number] PAIN 1 tablet EVERY 4 HOURS 1 tablet EVERY 4 HOURS (route: oral) Med Classific ation: Analgesic , Anti-infl ammatory or Antipyret ic pantoprazol e 40 mg tablet,chuyita yed release 11-11 00:00: 00 Yes [id number] GERD 1 tablet DAILY 1 tablet DAILY (route: oral) Med Classific ation: Gastroint estinal Therapy Agents ProAir HFA 90 mcg/actuati on aerosol inhaler 11-11 00:00: 00 Yes [id number] SOB 2 puff EVERY 4 HOURS 2 puff EVERY 4 HOURS (route: inhalation ) Med Classific ation: Respirato ry Therapy Agents Tylenol Extra Strength 500 mg tablet 11-11 00:00: 00 Yes [id number] PAIN 2 tablet 3 TIMES DAILY 2 tablet 3 TIMES DAILY (route: oral) Med Classific ation: Analgesic , Anti-infl ammatory or Antipyret ic Zyrtec 10 mg capsule 11-11 00:00: 00 Yes [id number] ALLERGIES 1 capsule BEDTIME 1 capsule BEDTIME (route: oral) Med Classific ation: Respirato ry Therapy Agents atenolol 100 mg tablet 11-11 00:00: 00 Yes [id number] HTN 1 tablet DAILY 1 tablet DAILY (route: oral) Med Classific ation: Cardiovas cular Therapy Agents bupropion HCl SR 150 mg tablet,12 hr sustained-r elease 11-11 00:00: 00 Yes [id number] DEPRESSION 2 tablet DAILY 2 tablet DAILY (route: oral) Med Classific ation: Central Nervous System Agents Calcium 600 + D(3) 600 mg (1,500 mg)-200 unit tablet 11-11 00:00: 00 Yes [id number] NUTRITION 1 tablet DAILY 1 tablet DAILY (route: oral) Med Classific ation: Electroly te Balance-N utritiona l Products gabapentin 800 mg tablet 11-11 00:00: 00 Yes [id number] NERVE PAIN 1 tablet 3 TIMES DAILY 1 tablet 3 TIMES DAILY (route: oral) Med Classific ation: Central Nervous System Agents hydrochloro thiazide 12.5 mg capsule 11-11 00:00: 00 Yes [id number] EDEMA 1 capsule DAILY 1 capsule DAILY (route: oral) Med Classific ation: Cardiovas cular Therapy Agents Pradaxa 150 mg capsule 11-11 00:00: 00 Yes [id number] BLOOD THINNER 1 capsule 2 TIMES DAILY 1 capsule 2 TIMES DAILY (route: oral) Med Classific ation: Hematolog ical Agents sucralfate 1 gram tablet 11-11 00:00: 00 Yes [id number] GERD 1 tablet 2 TIMES DAILY 1 tablet 2 TIMES DAILY (route: oral) Med Classific ation: Gastroint estinal Therapy Agents mirtazapine 15 mg tablet 11-24 00:00: 00 Yes [id number] DEPRESSION 1 tablet BEDTIME 1 tablet BEDTIME [...] EMERGENCY SERVICES CALL [facility] NURSE TO KEEP SLOT OPERATIONS MANAGER SYMPTOM REPORT FOR VISIBLE REFERENCE NOTIFY SKILLED [...] EMERGENCY SERVICES CALL [facility] NURSE TO KEEP SLOT OPERATIONS MANAGER SYMPTOM REPORT FOR VISIBLE REFERENCE NOTIFY SKILLED [...] End Date/Time Encounter Type Admission Type Attending [facility] Care Department Encounter ID Discharge Date Discharge Status Discharge Condition Discharge Reason Percent Goals Met 2020-11-11 00:00:00 2021-01-08 00:00:00 Outpatient PAULA PINA [facility] [id number] 2021-01-08 00:00:00 DISCHARGE TO HOME OR SELF CARE INDEPENDEN T WITH USE OF ASSISTIVE DEVICE HH OR PAL- GOALS MET 50.00
== END 2024-02-22 15:24 | disposition home or self-care (01) ==
PROVIDERS: PCP Internal Medicine; Visit Provider Nurse Practitioner Family
DX: I48.0 Paroxysmal atrial fibrillation (principal); I10 Essential (primary) hypertension; E66.01 Morbid (severe) obesity due to excess calories
CPT/HCPCS: 99214; G2211

== ENCOUNTER → 2024-02-22 14:56 | Outpatient (BNVA) | payer MEDICARE, MEDICAID, SELFPAY | PROVIDERS: PCP Internal Medicine; Visit Provider Nurse Practitioner Family | DX: I10 Essential (primary) hypertension (principal); I48.0 Paroxysmal atrial fibrillation; E66.01 Morbid (severe) obesity due to excess calories | CPT/HCPCS: 99212 ==

== ENCOUNTER 2024-08-29 15:06 | Outpatient (AMB) | payer MEDICARE, MEDICAID, SELFPAY ==
[2024-08-29 15:11] VITALS: BP 130/72; PULSE 76; BMI 49.3
--- NOTE | 2024-08-29 15:11 | MHC.OFFVIS ---
Vital Signs 08/29/24 15:11 Height 5 ft 5.5 in Weight 301 lb 2.423 oz BMI 49.3 BP 130/72 Blood Pressure Location Rt brachial Position Sitting Pulse 76 Pulse Source Pulse Oximeter Intake Visit Reasons: 6m follow up Culture Manager Required: No Nursing Program Manager: Nursing Program Manager Present Allergies latex [LATEX] Allergy (Intermediate, Verified 08/29/24 15:14) RASH seafood Allergy (Intermediate, Verified 08/29/24 15:14) Rash Sulfa (Sulfonamide Antibiotics) Allergy (Intermediate, Verified 08/29/24 15:14) hives sulfamethoxazole [From BACTRIM] Allergy (Intermediate, Verified 08/29/24 15:14) HIVES trimethoprim [From BACTRIM] Allergy (Intermediate, Verified 08/29/24 15:14) HIVES valsartan [From DIOVAN] Allergy (Intermediate, Verified 08/29/24 15:14) RASH Bandage Adhesive Morrow 3/4 Allergy (Severe, Uncoded 08/29/24 15:14) Rash SURGICAL TAPE Allergy (Severe, Uncoded 08/29/24 15:14) RASH tape Allergy (Severe, Uncoded 08/29/24 15:14) Rash Medication List - Last Reconciled 08/29/24 by GABE Green acetaminophen ER 650 mg PO Q8H PRN albuterol sulfate 90 mcg/actuation (ProAir HFA) 1 puff inhalation QID PRN amlodipine 5 mg PO DAILY apixaban (Eliquis) 5 mg PO BID ascorbic acid (vitamin C) (Vitamin C) 500 mg PO BID atenolol 100 mg PO DAILY bupropion HCl SR 300 mg PO DAILY calcium carbonate-vitamin D3 600 mg-20 mcg (800 unit) 1 tab PO BID cetirizine-pseudoephedrine 5-120 mg ER (Zyrtec-D) 1 tab PO Q12H PRN 15 days diphenhydramine HCl (Children's Allergy (diphenhydramine)) 25 mg PO BID PRN docusate sodium 100 mg PO DAILY PRN fluoxetine 40 mg PO DAILY furosemide 20 mg PO DAILY gabapentin 600 mg PO TID guaifenesin ER (Mucinex) 600 mg PO BID [left breast prosthetic As directed] loperamide 2 mg PO Q6H PRN lorazepam 1 mg PO TID PRN magnesium oxide 400 mg PO DAILY mastectomy bra (bra, mastectomy) As Directed [mastectomy bra As directed] mirtazapine 15 mg PO BEDTIME ondansetron 8 mg PO Q8H PRN oxycodone 5 mg PO Q4H pantoprazole 40 mg PO DAILY@0630 polyethylene glycol 3350 (Miralax) 17 grams PO DAILY PRN polymyxin B sulf-trimethoprim 10,000 unit- 1 mg/mL 1 drp ophthalmic (eye) Q3H Prosthesis, breast (Breast prosthesis) As Directed Shower Chair (Chair, shower) As Directed sucralfate 1 g PO BID vitamin B complex 1 tab PO DAILY Wig As Directed HPI HPI 6m follow up: Details: Ya is a 64-year-old female with past medical history of hypertension, morbid obesity, paroxysmal atrial fibrillation who was diagnosed with breast cancer summer 2022 and has undergone a left mastectomy and has completed chemotherapy. She presents for cardiology follow-up. Today she reports she had been doing well overall since her last visit in February. She is upset about her weight as she has been echo icing and trying to lose weight without success. She does report some shortness of breath and wheezing at times which she relates to allergies. She is requesting an albuterol inhaler. She denies PND, orthopnea, edema. She has no chest discomfort at rest or with activity. She is not noticing heart palpitations, no presyncope, syncope, falls. Following with Dr. Starkey for Oncology. Taking meds as directed and no bleeding issues. Son is present. [facility] Medical History Breast pain, right History of breast cancer Hx of correction use of blood thinners Invasive ductal carcinoma of left breast Left breast mass Hypertension Paroxysmal atrial fibrillation Surgical History H/O total mastectomy of left breast (~11/18/22) History of total right knee replacement History of cholecystectomy History of gastric bypass H/O shoulder surgery H/O hemorrhoidectomy History of left knee replacement Status post breast reduction Family History Father COPD (chronic obstructive pulmonary disease) HTN (hypertension) Diabetes Mother COPD (chronic obstructive pulmonary disease) Diabetes HTN (hypertension) Social History Household Members: Children Housing: House Do you presently have visiting nurse or other home services: No Alcohol intake: never Comment: refusing bed alarm Patient Tobacco Use Status: Never used Tobacco Tobacco use type: Cigarette Second Hand Smoke Exposure: No Advance Directives Date on File: 11/22/22 service: No Current occupational status: employed Female Reproductive History Menstrual Age of Menarche: 10 Review of Systems Const All systems reviewed & are unremarkable except as noted in HPI and below Reports weight gain ENT Denies dizziness Card Denies chest pain, Denies chest pain at rest, Denies chest pain with activity, Denies rapid heart rate, Denies pedal edema, Denies edema, Denies leg edema, Denies lightheadedness, Denies palpitations, Denies dyspnea, Denies dyspnea on exertion and Denies orthopnea Resp Denies cough, Denies dyspnea and Denies dyspnea on exertion GI Denies hematochezia and Denies change in stool character Musc Denies abnormal gait, Denies limited range of motion, Denies muscle cramps, Denies muscle weakness, Denies numbness, Denies radiating pain into limb, Denies stiffness and Denies tingling Neuro Denies abnormal gait, Denies dizziness, Denies numbness and Denies tingling Endo Denies palpitations Physical Exam Vital Signs: Last Vital Signs Pulse 76 08/29/24 15:11 BP 130/72 08/29/24 15:11 BMI result Body Mass Index 49.3 Const General: cooperative, healthy appearing, comfortable and no acute distress Orientation/consciousness: patient oriented x3 HEENT Head: Yes normal to inspection Eyes Sclerae: sclerae normal Neck Neck: Yes normal visual inspection and Yes no JVD Carotids: normal carotid upstroke Chest Chest palpation & inspection: normal inspection of the chest Resp Effort & Inspection: normal respiratory effort Auscultation: clear to auscultation bilaterally, no crackles, no rales, no rhonchi and no wheezes Cardio Jugular venous distension: no JVD Rate: regular rate Rhythm: regular rhythm Heart sounds: S1 normal heart sound present, S2 normal heart sound present, no gallops, no murmurs and no rubs Peripheral pulses: Peripheral pulses 2+ throughout GI Inspection: Yes normal to inspection Skin General skin exam: no rashes or lesions noted Neuro General: patient oriented x3 Extrem General: Yes normal to inspection, No no pedal edema and No calf tenderness Psych Appearance: grossly normal Mental Status: mental status grossly normal Speech and movement: Normal speech and movement present Office Procedures EKG Details: Today read by me, normal sinus rhythm, voltage criteria for LVH, inferior Q-wave, rate 76 QTC 450 [id number], Complete Assessment & Plan Assessment & Plan (1) Paroxysmal atrial fibrillation: Code(s): I48.0 - Paroxysmal atrial fibrillation Category: Medical Plan: History of paroxysmal atrial fibrillation, currently suppressed and treated with atenolol for heart rate control. She is on Eliquis for anticoagulation. EKG done today showed sinus rhythm, rate 76. Cardiac testing includes Nuclear stress test done 05/16/2016 showed normal myocardial perfusion imaging. Last echo 01/09/2024 showed EF 63%, left atrium mildly dilated. Continue current med management. Cardiology follow-up 6 months, sooner if needed. (2) Hypertension: Code(s): I10 - Essential (primary) hypertension Category: Medical Plan: Blood pressure goal less than 130/80. Blood pressure controlled today at 130/72. Continue amlodipine, atenolol, Lasix. She has a history of having a rash with Diovan in the past. Low-salt diet reviewed. (3) Morbid obesity: Code(s): E66.01 - Morbid (severe) obesity due to excess calories Category: Medical Plan: Morbidly obese with BMI 49.3. She has been working on exercise program. Discussed dietary changes and ongoing exercise. She may benefit from referral to bariatric program. (4) Shortness of breath: Code(s): R06.02 - Shortness of breath Category: Medical Plan: Patient reports intermittent shortness of breath and wheezing. No wheezes noted on examination. She is requesting albuterol inhaler. Will send this note to her PCP for review. Plan Chart review, documentation, interview and assessment Coding Level of Care Code Est Pt Level 4 (14946) Complex EM visit Add On G2211 Diagnoses Paroxysmal atrial fibrillation I48.0 Hypertension I10 Morbid obesity E66.01 Shortness of breath R06.02 CPT Codes EKG - CPT: 78636-Huhzjloyegozfqlhb, Complete ([id number]) Time Spent (min) 28
--- OUTSIDE RECORDS SUMMARY | 2024-08-29 17:45 | XMS_ITS | Encounter Summary ---
Author Organization [employer] Address [address] [place] [address] Care Team Providers Care Corrugator Operator Name Role Phone Ayan Perdomo MD Primary Care Provider [phone] Encounter Details Date Type Department Care Team (Late st Contact Info) Description 05/13/2024 Orders Only [facility] [address] [place] [address] Ayan Perdomo MD [address] [place], [place] [id number] Severe obesity (CMS/HCC) (Primary Dx) Social History Tobacco Use Types Packs/Day Years Used Date Smoking Tobacco: Never Passive Smoke Exposure: Never Smokeless Tobacco: Never Alcohol Use Standard Drinks/Week Comments Never 0 (1 standard drink = 0.6 oz pur e alcohol) Depression Answer Date Recorded Patient Health Questionnaire-9 Score 1 10/05/2023 Patient Health Questionnaire-9 Score 1 10/05/2023 Last PHQ-9: Questionnaire Data Not on file 0 10/05/2023 Housing Stability Answer Date Recorded What is your housing situation today? I have teresa ochoa 08/23/[address] you li ve. Do you have problems with any of the following? None of the above 08/23/2023 Food Insecurity Answer Date Recorded Within the past 12 months, y ou worried that your food would run out before you got money to buy more: Never True 08/23/2023 Within the past 12 months,th e food you bought just didn't last and you didn't have enough money to get more: Never True 07/2023 Transportation Answer Date Recorded In the past 12 months, has l ack of transportation kept you from medical appts, meetings, work or from getting things needed for daily living? No 08/23/2023 Utilities Answer Date Recorded In the past 12 months, has t he electric, gas, oil or water company threatened to shut off services in your home? No 08/23/2023 Depression Answer Date Recorded Patient Health Questionnaire-2 Score 0 10/05/2023 Comments Unknown Sex and Gender Information Value Date Recorded Sex Assigned at Female 01/17/2022 10:21 AM EDT Legal Sex Female 10:21 AM EDT Gender Identity Female 01/17/2022 10:21 AM EDT Sexual Orientation Straight 01/17/2022 10 :21 AM EDT documented as of this encounter Plan of Treatment Upcoming Encounters Date Type Department Care Team ([facility] st Contact Info) Description 09/16/2024 2:00 PM EDT Telemedicine [facility] [address] [place] [address] Sun Rueda RN [address] [place] [address] documented as of this encounter Visit Diagnoses Diagnosis Severe obesity (CMS/HCC)- Primary Morbid obesity documented in this encounter Additional Health Concerns Assessment Noted Time PHQ-9 Depression Total Score: 1 10/05/19 24 9:57 AM EDT documented as of this encounter Care Teams Corrugator Operator Relationship Specialty Start Date End Date Ayan Perdomo MD [address] [place] [address] PCP - General Internal Medicine 03/20/18 documented as of this encounter
== END 2024-08-29 15:47 | disposition home or self-care (01) ==
LOC: HO.HCS 15:07
PROVIDERS: PCP Internal Medicine; Visit Provider Nurse Practitioner Family
DX: I48.0 Paroxysmal atrial fibrillation (principal)
CPT/HCPCS: 93010; 99214; G2211

== ENCOUNTER → 2024-08-29 15:06 | Outpatient (BNVA) | payer MEDICARE, MEDICAID, SELFPAY | PROVIDERS: PCP Internal Medicine; Visit Provider Nurse Practitioner Family | DX: I48.0 Paroxysmal atrial fibrillation (principal); I10 Essential (primary) hypertension; R06.02 Shortness of breath; E66.01 Morbid (severe) obesity due to excess calories; Z68.42 Body mass index [BMI] 45.0-49.9, adult; R94.31 Abnormal electrocardiogram [ECG] [EKG] | CPT/HCPCS: 93005; 99212 ==

== ENCOUNTER 2024-08-30 14:06 | Outpatient (REF) | payer MEDICARE, MEDICAID, SELFPAY ==
--- OUTSIDE RECORDS SUMMARY | 2024-08-30 14:08 | XMS_ITS | Encounter Summary ---
Author Organization [employer] Address [address] [place] [address] Care Team Providers Care Portfolio Manager Name Role Phone Ayan Perdomo MD Primary Care Provider [phone] Encounter Details Date Type Department Care Team (Late st Contact Info) Description 05/13/2024 Orders Only [facility] [address] [place] [address] Ayan Perdomo MD [address] [place], [place] [phone] Severe obesity (CMS/HCC) (Primary Dx) Social History [...] Upcoming Encounters Date Type Department Care Team ([facility] st Contact Info) Description 09/16/2024 2:00 PM EDT Telemedicine [facility] [address] [place] [address] Sun Rueda RN [address] [place] [address] documented as of this encounter Visit Diagnoses Diagnosis Severe obesity (CMS/HCC)- Primary Morbid obesity documented in this encounter Additional Health Concerns Assessment Noted Time PHQ-9 Depression Total Score: 1 10/05/19 24 9:57 AM EDT documented as of this encounter Care Teams Portfolio Manager Relationship Specialty Start Date End Date Ayan Perdomo MD [address] [place] [address] PCP - General Internal Medicine 03/20/18 documented as of this encounter
== END 2024-08-30 14:07 | disposition home or self-care (01) ==
LOC: HO.MAMMO 14:06
PROVIDERS: Absent Provider Surgery; PCP Internal Medicine; Visit Provider Internal Medicine
DX: Z12.31 Encounter for screening mammogram for malignant neoplasm of breast (principal)
CPT/HCPCS: 77063; 77067

== ENCOUNTER → 2024-08-30 14:30 | Outpatient (BNV) | payer MEDICARE, MEDICAID, SELFPAY | PROVIDERS: Absent Provider Surgery; PCP Internal Medicine; Visit Provider Internal Medicine | DX: Z12.31 Encounter for screening mammogram for malignant neoplasm of breast (principal) | CPT/HCPCS: 77063; 77067 ==

== ENCOUNTER 2024-11-02 18:19 | Emergency (ER) | payer MEDICARE, MEDICAID, SELFPAY ==
--- NOTE | ~2024-11-02 | CT_ITS ---
CLINICAL HISTORY: dizzines CT head without contrast Comparison: CT/SR - CT HEAD WITHOUT IV CONTRAST - 02/13/23 15:59 EST Findings: No intra-axial mass, midline shift, hydrocephalus, or acute hemorrhage. Diffuse atrophy. The visualized paranasal sinuses and mastoid air cells are normal. The orbits are within normal limits. There is no acute fracture. IMPRESSION: 1. No acute intracranial findings. This document has been electronically signed by: Juan Gordon DO on 11/02/2024 23:00:05
--- NOTE | ~2024-11-02 | XR_ITS ---
CLINICAL HISTORY: cough 1 view chest x-ray Comparison: CT/SR - CT CHEST ANGIOGRAPHY WITH IV CONTRAST - 08/21/23 01:[address] - CT CHEST ANGIOGRAPHY WITH IV CONTRAST - 08/21/23 00:59 EDT CR/SR - XR CHEST 2 VIEWS - 05/27/23 11:59 EST Findings: Low lung volumes accentuate the cardiac silhouette. Questionable opacity in the left lung base which may be due to overlapping densities. Recommend repeat chest x-ray with improved respiratory volumes. Unchanged appearance of the right hemidiaphragm and right diaphragmatic sulcus. Normal size heart. Left chest Port-A-Cath tip over the superior vena cava No acute fracture. IMPRESSION: Questionable opacity in the left lung base which may be due to overlapping densities. Recommend repeat chest x-ray with improved respiratory volumes. This document has been electronically signed by: Juan Gordon DO on 11/02/2024 22:50:34
--- NOTE | 2024-11-02 18:26 | ECG_ITS ---
Test Reason : CP Blood Pressure : */* mmHG Vent. Rate : 103 BPM Atrial Rate : * BPM P-R Int : * ms QRS Dur : 74 ms QT Int : 342 ms P-R-T Axes : * 17 10 degrees QTcB Int : 448 ms Atrial fibrillation with rapid ventricular response Nonspecific ST abnormality Abnormal ECG When compared with ECG of 20-Aug-2023 18:54, Atrial fibrillation has replaced Sinus rhythm Referred By: Generic ED Physician Electronically Signed By: Bryce Juarez
[2024-11-02 19:01] VITALS: BP 118/74; PULSE 82; RESP 20; TEMP 36.4; O2SAT 95; BMI 46.3
--- NOTE | 2024-11-02 19:02 | ED_ITS ---
HPI - General Adult General Chief complaint: Dizziness Stated complaint: fever,dizziness hx of afib Time Seen by Provider: 11/02/24 21:05 Source: patient, family, EMS and old records reviewed Mode of arrival: EMS Limitations: other (patient very upset it was hard to interview her but son helped a lot) History of Present Illness ED Provider: MICHAEL HUSAIN narrative: 64 yo female with chronic pain on oxycodone, anxiety, breast cancer s/p chemo and surgery with Dulala last session of chemo in june, obesity, HTN, afib on eliquis she comes in today with 1 week of symptoms on and off sudden dizziness that has caused her to fall x 2. Son found her on the floor at one point - no prolonged downtime no injury no LOC. She states she feels unsafe walking. She feels diffusely weak. No n/v/d. She has on and off sharp chest pains R chest and L breast but no cough, fevers. She has had a harder time making urine. No recent change in meds. Dizziness happens at rest and standing MD complaint: dizziness, weakness Onset (ago): week(s) (1) Location: head Radiation: non-radiation Severity: moderate Relieving factors: none Exacerbating factors: movement Associated symptoms: weakness Treatments prior to arrival: none Related Data Home Medications ?Medication ?Instructions ?Recorded ?Confirmed ascorbic acid (vitamin C) 500 mg 500 mg PO BID 2 11/03/24 tablet (Vitamin C) bupropion HCl 150 mg tablet,12 hr 300 mg PO DAILY 06/1811/03/24 sustained-release calcium 600 mg (as 1 tab PO BID 07/01/21 carbonate)-vitamin D3 20 mcg (800 unit) tablet fluoxetine 20 mg capsule 40 mg PO DAILY 07/01/2110/18 furosemide 20 mg tablet 20 mg PO DAILY 07/01/2108/18 gabapentin 600 mg tablet 600 mg PO TID 07/01/2111/03 lorazepam 1 mg tablet 1 mg PO TID PRN Anxiety 06/1811/03/24 docusate sodium 100 mg capsule 100 mg PO DAILY PRN Con stipation 12/07/22 11/03/24 magnesium oxide 400 mg (241.3 mg 400 mg PO DAILY 12/0711/03/24 magnesium) tablet mirtazapine 15 mg disintegrating 15 mg PO BEDTIME 11/1911/03/24 tablet oxycodone 5 mg tablet 5 mg PO Q4H severe pain 11/1911/03/24 pantoprazole 40 mg tablet,delayed 40 mg PO DAILY@0630 12/07/22 11/03/24 release albuterol sulfate 90 mcg/actuation 1 puff inhalation Q ID PRN 02/13/23 11/03/24 aerosol inhaler (ProAir HFA) Shortness Of Breath Or Wh eezing diphenhydramine HCl 12.5 mg/5 mL 25 mg PO BID PRN Jose rgy Symptoms 02/13/23 11/03/24 oral liquid (Children's Allergy (diphenhydramine)) polyethylene glycol 3350 17 gram 17 g PO DAILY PRN Con stipation 02/13/23 11/03/24 oral powder packet (Miralax) sucralfate 1 gram tablet 1 g PO BID 02/13/23 11/03/24 acetaminophen 650 mg 650 mg PO Q8H PRN Pain (Scal e 08/29/24 11/03/24 tablet,extended release Score 1-3) Previous Rx's ?Medication ?Instructions ?Recorded apixaban 5 mg tablet (Eliquis) 5 mg PO BID #60 tabs left breast prosthetic #1 ea 01/02/23 mastectomy bra #2 ea 01/02/23 ondansetron 8 mg disintegrating 8 mg PO Q8H PRN Nausea And 01/23/23 tablet Vomiting #30 tabs Wig #1 ea 01/24/23 mastectomy bra (bra, mastectomy) #1 ea 01/24/23 Prosthesis, breast (Breast #1 ea 01/25/23 prosthesis) guaifenesin 600 mg tablet, 600 mg PO BID #20 tabs 05/12 extended release 12 hr (Mucinex) Shower Chair (Chair, shower) #1 ea 03/01/23 loperamide 2 mg capsule 2 mg PO Q6H PRN Diarrhea #30 caps 04/18/23 polymyxin B sulfate 10,000 1 drp ophthalmic (eye) Q3H #20 mL 09/10/23 unit-trimethoprim 1 mg/mL eye drops cetirizine 5 mg-pseudoephedrine ER 1 tab PO Q12H PRN C ongestion 15 04/22/24 120 mg tablet,extended days #30 tabs release,12hr (Zyrtec-D) amlodipine 5 mg tablet 5 mg PO DAILY #90 tabs 05/21 atenolol 100 mg tablet 100 mg PO DAILY #90 tabs 10/11 vitamin B complex 1 tab PO DAILY #90 tabs 06/11 Allergies Allergy/AdvReac Type Severity Reaction Status Date / Time latex (LATEX) Allergy Intermediate RASH Verified 11/02/24 19:05 seafood Allergy Intermediate Rash Verified 11/02/24 19:05 Sulfa (Sulfonamide Allergy Intermediate hives Verified 11/02/24 19:05 Antibiotics) sulfamethoxazole (From Allergy Intermediate HIVES Verified 11/02/24 19:05 BACTRIM) trimethoprim (From BACTRIM) Allergy Intermediate HIVES Verified 11/02/24 19:05 valsartan (From DIOVAN) Allergy Intermediate RASH Verified 11/02/24 19:05 Bandage Adhesive Damian Allergy Severe Rash Uncoded 11/02/24 19:05 3/4 SURGICAL TAPE Allergy Severe RASH Uncoded 11/02/24 19:05 tape Allergy Severe Rash Uncoded 11/02/24 19:05 Review of Systems 2 Review of Systems: Constitutional : No Fever, No Chills, No Fatigue ENT/Mouth : No sore throat, No Rhinorrhea Eyes: No Eye Pain, No Swelling, No Redness Cardiovascular : pos Chest Pain, No SOB, No Dyspnea on Exertion Respiratory : No Cough, No Sputum Gastrointestinal : No Nausea, No Vomiting, No Diarrhea, No abdominal Pain Genitourinary : No Dysuria, No Urinary Frequency, No Hematuria, Musculoskeletal : No joint pain, No Myalgias, No Joint Swelling Skin : No Skin Lesions, No rash Neuro : pos Weakness, No Numbness, pos Dizziness, no Headache All other systems reviewed and are negative PMFSH Past Medical History Attestation statement: The following information was validated with the patient. 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 Invasive ductal carcinoma of left breast Left breast mass Hypertension Paroxysmal atrial fibrillation Surgical History H/O total mastectomy of left breast (~11/18/22) History of total right knee replacement History of cholecystectomy History of gastric bypass H/O shoulder surgery H/O hemorrhoidectomy History of left knee replacement Status post breast reduction Family History Family History Father COPD (chronic obstructive pulmonary disease) HTN (hypertension) Diabetes Mother COPD (chronic obstructive pulmonary disease) Diabetes HTN (hypertension) Social History Social History Household Members: Children Housing: House Do you presently have visiting nurse or other home services: No Alcohol intake: never Comment: refusing bed alarm Patient Tobacco Use Status: Never used Tobacco Tobacco use type: Cigarette Smoked in Last 30 Days: No Second Hand Smoke Exposure: No Use of substances other than those prescribed or required for medical reasons: No Advance Directives: Yes Advance Directives on File: Yes Advance Directives Date on File: 11/22/22 service: No Current occupational status: employed Physical Exam ED Vital Signs: Vital Signs - 24 hr 11/02/24 19:01 11/02/24 21:11 11/02/24 21:18 Temperature 97.6 F 97.7 F Pulse Rate 82 77 76 Respiratory Rate 20 18 Blood Pressure 118/74 172/86 H 156/76 H Pulse Oximetry 95 97 Oxygen Delivery Method Room Air Room Air 11/02/24 21:19 11/02/24 21:22 11/03/24 08:22 Temperature Pulse Rate 85 94 81 Respiratory Rate Blood Pressure 138/101 H 161/89 H 138/68 Pulse Oximetry Oxygen Delivery Method 11/03/24 08:23 11/03/24 11:38 Temperature 97.9 F Pulse Rate 81 Respiratory Rate 14 Blood Pressure 138/68 117/57 L Pulse Oximetry 95 Oxygen Delivery Method Room Air BMI result Body Mass Index 46.3 Appearance: Alert. Oriented X3. No acute distress. very anxious and at times upset with conversation Eyes: Pupils equal, round and reactive to light. ENT: Pharynx normal. Neck: Normal inspection. Neck supple. CVS: Normal heart rate and rhythm. Pulses normal. Respiratory: No respiratory distress. Breath sounds normal. Abdomen: Soft and nontender. Skin: Skin warm and dry. Normal skin color. Normal skin turgor. Extremities: No lower extremity edema. No calf ttp Neuro: Oriented X 3. No motor deficit. No sensory deficit. CN2-12 intact Course Course Course Narrative: Dinah Gonsalez EPIC TRAINER 11/02 1901 This is a rapid medical exam. Deferred additional HPI, ROS, PE to primary provider. 64 yo female with PMH of afib on AC therapy, HTN, breast cancer in remission here with complaints of dizziness x 1 week worsened with position changes. Will obtain labs, EKG, UA VSS 11/03/2024 0835 Melony Spaulding PA-C ---> Observation continues. Case management and physical therapy evaluations pending. 11/03/2024 1157 Melony Spaulding PA-C ---> Patient evaluated by case management. Patient declined rehab services and requested to be sent home with home services. Observation care revealed the the patient does no] meet medical necessity for hospitalization. Final disposition discussed with the patient. Patient completed observation care at 1155am on 11/03/2024 total time spent in observation care was 11 hours and 33 minutes. Medications Administered Generic Name Dose Route Start Last Admin Trade Name Star PRN Reason Stop Dose Admin Amlodipine Besylate 5 mg 11/03/24 09:00 11/03/24 08:23 Amlodipine Besylate 5 Mg Tablet PO 5 mg DAILY BEV Administration Protocol Apixaban 5 mg 11/03/24 09:00 11/03/24 08:23 Apixaban 5 Mg Tablet PO 5 mg BID BEV Administration Ascorbic Acid 500 mg 11/03/24 09:00 11/03/24 08:23 Ascorbic Acid 500 Mg Tablet PO 500 mg BID BEV Administration Atenolol 100 mg 11/03/24 09:00 11/03/24 08:22 Atenolol 100 Mg Tablet PO 100 mg DAILY BEV Administration Protocol Bupropion HCl 300 mg 11/03/24 09:00 11/03/24 08:22 Bupropion Hcl Xl 300 Mg Tab.Er.24h PO 300 mg DAILY BEV Administration Calcium Carbonate/Cholecalciferol 250 mg 11/03/24 09:00 11/03/24 08:23 Calcium + Vitamin D 250 Mg Tablet PO 250 mg BID BEV Administration Fluoxetine HCl 40 mg 11/03/24 09:00 11/03/24 08:22 Fluoxetine Hcl 20 Mg Capsule PO 40 mg DAILY BEV Administration Gabapentin 600 mg 11/03/24 02:10 11/03/24 08:22 Gabapentin 600 Mg Tablet PO 600 mg TID BEV Administration Lorazepam 1 mg 11/03/24 02:04 11/03/24 03:00 Lorazepam 1 Mg Tablet PO 1 mg TID PRN Administration Anxiety Magnesium Oxide 400 mg 11/03/24 09:00 11/03/24 08:22 Magnesium Oxide 400 Mg Tablet PO 400 mg DAILY BEV Administration Mirtazapine 15 mg 11/03/24 02:10 11/03/24 03:00 Mirtazapine 15 Mg Tablet PO 15 mg BEDTIME BEV Administration Multivitamins/Vitamin C 1 tab 11/03/24 09:00 11/03/24 08:23 Multivitamin Tablet PO 1 tab DAILY BEV Administration Omeprazole 20 mg 11/03/24 06:30 11/03/24 07:00 Omeprazole 20 Mg Capsule. PO 20 mg DAILY@0630 BEV Administration Oxycodone HCl 5 mg 11/03/24 02:30 11/03/24 09:51 Oxycodone Hcl Immed Release 5 Mg Tablet PO 5 mg Q4H BEV Administration Sucralfate 1 gm 11/03/24 07:30 11/03/24 08:23 Sucralfate 1 Gm Tablet PO 1 gm BIDAC BEV Administration Discontinued Medications Generic Name Dose Route Start Last Admin Trade Name Freq PRN Reason Stop Dose Admin Lorazepam 1 mg 11/02/24 21:46 11/02/24 22:04 Lorazepam 1 Mg Tablet PO 11/02/24 21:47 1 mg ONCE ONE Administration Oxycodone HCl 5 mg 11/02/24 21:46 11/02/24 22:05 Oxycodone Hcl Immed Release 5 Mg Tablet PO 11/02/24 21:47 5 mg ONCE ONE Administration Medical Decision Making Medical Decision Making [facility] Narrative: 64 yo female with chronic pain on oxycodone, anxiety, breast cancer s/p chemo and surgery with Dulala last session of chemo in june, obesity, HTN, afib on eliquis now with 1 week of dizziness on and off without known precipitating event on arrival to room she states she needs her ativan and oxycodone which I will order. She is very hard to interview but the son is very helpful I think she is just anxious to be here. At this time labs, CT head, CXR, ortho VS, if negative work up plan to offer PT/CM Differential Diagnosis Differential Diagnoses: The differential diagnosis associated with the presentation includes dehydration, anemia, stroke, ICH, urinary pathology, orthostatics Admission/Observation Consideration of admission/observation: Escalation of care including admission/observation considered physician observation started at 1221am patient has been having falls at home which is concerning given her eliquis use. I have no abnormality in the work up here she is able to ambulate and has no ataxia Lab Data [facility] Lab Attestation statement: I reviewed the patient's lab results. reassuring 11/02/24 19:46 11/02/24 19:46 Labs: Lab Results 11/02/24 11/02/24 11/02/24 Range/Units 19:46 22:49 23:55 WBC 5.9 (4.8-10.8) X10*3/uL RBC 4.59 (4.20-5.50) X10*6/uL Hgb 11.9 L (12.0-16.0) g/dl Hct 38.0 (37.0-47.0) % MCV 82.8 (80.0-98.0) fL MCH 25.9 L (27.0-33.0) pg MCHC 31.3 (31.0-35.0) g/dl RDW 15.0 (11.0-16.0) % Plt Count 244 (160-400) X10*3/uL MPV 9.8 (9.4-12.3) fL Immature Gran % (Auto) 0.2 (0.0-0.4) % Neut % (Auto) 52.4 (45-73) % Lymph % (Auto) 37.9 (20-40) % [place] % (Auto) 7.7 (2-11) % Eos % (Auto) 1.5 (0-4) % Baso % (Auto) 0.3 (0-2) % Lymph # (Auto) 2.3 (1.2-4.9) X10*3/uL [place] # (Auto) 0.5 (0.1-1.2) X10*3/uL Eos # (Auto) 0.1 (0.0-0.4) X10*3/uL Baso # (Auto) 0.0 (0.0-0.2) X10*3/uL Abs Immat Gran (auto) 0.01 (0.00-0.03) X10*3/uL Absolute Neuts (auto) 3.1 (2.0-8.3) x10*3/uL Absolute Nucleated RBC 0.000 (0.0-0.012) X10*3/uL Nucleated RBC % (auto) 0.0 (0.0-0.2) /100WBC Sodium 142 (135-145) mmol/L Potassium 4.2 (3.3-5.1) mmol/L Chloride 106 (96-108) mmol/L Carbon Dioxide 24 (22-29) mmol/L Anion Gap 16 (12-20) BUN 8 L (9-16) mg/dL Creatinine 0.90 (0.5-1.4) mg/dL Estim Creat Clear Calc 85.1 Estimated GFR > 60 Random Glucose 116 H (60-115) mg/dL Calcium 8.8 (8.4-10.2) mg/dL Total Bilirubin 0.4 (0.0-1.0) mg/dL Direct Bilirubin 0.2 (0.0-0.5) mg/dL AST 26 (5-31) U/L ALT 18 (0-31) U/L Alkaline Phosphatase 84 (39-117) U/L Troponin I High Sens < 2.7 (<3.5-17.0) ng/L Total Protein 6.7 (6.5-8.0) g/dL Albumin 3.9 (3.5-5.0) g/dL Urine Color Yellow Urine Appearance Clear Urine pH 6.5 (5.0-9.0) Ur Specific [place] 1.010 (1.005-1.025) Urine Protein Negative (Neg-Trace) mg/dL Urine Glucose (UA) Negative (Negative) mg/dL Urine Ketones Negative (Negative) mg/dL Urine Blood Negative (Negative) Urine Nitrite Negative (Negative) Ur Leukocyte Esterase Small (1+) H (Negative) Urine RBC 0-2 (0-2) /HPF Urine WBC 0-5 (0-5) /HPF Ur Squamous Epith Cells 6-10 (0-2) /HPF Urine Bacteria None Seen (None Seen) Hyaline Casts 0-2 (0-2) /LPF Influenza Type A (PCR) NEGATIVE (Negative) Influenza Type B (PCR) NEGATIVE (Negative) RSV RNA Qual (PCR) NEGATIVE (Negative) SARS-CoV-2 RNA (RT-PCR) NEGATIVE (Negative) 11/03/24 Range/Units 01:10 WBC (4.8-10.8) X10*3/uL RBC (4.20-5.50) X10*6/uL Hgb (12.0-16.0) g/dl Hct (37.0-47.0) % MCV (80.0-98.0) fL MCH (27.0-33.0) pg MCHC (31.0-35.0) g/dl RDW (11.0-16.0) % Plt Count (160-400) X10*3/uL MPV (9.4-12.3) fL Immature Gran % (Auto) (0.0-0.4) % Neut % (Auto) (45-73) % Lymph % (Auto) (20-40) % [place] % (Auto) (2-11) % Eos % (Auto) (0-4) % Baso % (Auto) (0-2) % Lymph # (Auto) (1.2-4.9) X10*3/uL [place] # (Auto) (0.1-1.2) X10*3/uL Eos # (Auto) (0.0-0.4) X10*3/uL Baso # (Auto) (0.0-0.2) X10*3/uL Abs Immat Gran (auto) (0.00-0.03) X10*3/uL Absolute Neuts (auto) (2.0-8.3) x10*3/uL Absolute Nucleated RBC (0.0-0.012) X10*3/uL Nucleated RBC % (auto) (0.0-0.2) /100WBC Sodium (135-145) mmol/L Potassium (3.3-5.1) mmol/L Chloride (96-108) mmol/L Carbon Dioxide (22-29) mmol/L Anion Gap (12-20) BUN (9-16) mg/dL Creatinine (0.5-1.4) mg/dL Estim Creat Clear Calc Estimated GFR Random Glucose (60-115) mg/dL Calcium (8.4-10.2) mg/dL Total Bilirubin (0.0-1.0) mg/dL Direct Bilirubin (0.0-0.5) mg/dL AST (5-31) U/L ALT (0-31) U/L Alkaline Phosphatase (39-117) U/L Troponin I High Sens < 2.7 (<3.5-17.0) ng/L Total Protein (6.5-8.0) g/dL Albumin (3.5-5.0) g/dL Urine Color Urine Appearance Urine pH (5.0-9.0) Ur Specific [place] (1.005-1.025) Urine Protein (Neg-Trace) mg/dL Urine Glucose (UA) (Negative) mg/dL Urine Ketones (Negative) mg/dL Urine Blood (Negative) Urine Nitrite (Negative) Ur Leukocyte Esterase (Negative) Urine RBC (0-2) /HPF Urine WBC (0-5) /HPF Ur Squamous Epith Cells (0-2) /HPF Urine Bacteria (None Seen) Hyaline Casts (0-2) /LPF Influenza Type A (PCR) (Negative) Influenza Type B (PCR) (Negative) RSV RNA Qual (PCR) (Negative) SARS-CoV-2 RNA (RT-PCR) (Negative) Independent Interpretation I performed an independent interpretation of an: EKG, Plain X-Ray (normal no concern for URI given lack of symptoms and clinical no pneumonia) and CT Scan (normal ) Interpretation: Rate: 103 Rhythm: afib [place]: normal Normal QRS complex. ST T wave : normal flat t waves ant leads, no EMMANUELLE qTC: 448 prior studies: no acute ischemia The study has been interpreted contemporaneously by me. . Radiology Impression Discussion of test interpretation with radiology: I have reviewed the radiologist's reading. Independent Historian Clinical information obtained from an independent historian. History obtained from or confirmed by: Other (son) External Record Review External record reviewed: Inpatient record and Outpatient record Discharge Plan Discharge Clinical Impression: Dizziness Patient Disposition: Home, Self-Care Instructions: Dizziness (ED) Additional Instructions: You have declined rehab placement but have accepted outpatient / home services which out case management team has started the process of you setting up. IF you are prescribed home medications and/or you are taking over the counter medications at home - it is very important you continue to do so as prescribed / directed unless told otherwise. Follow up with your primary care provider. Return to the emergency department immediately if your symptoms worsen or if you develop any numbness, tingling, dizziness, shortness of breath, difficulty breathing, chest pain, blurry vision, loss of vision, nausea, vomiting, abdominal pain, fever, chills, back pain, or any other complaints. Please see the information below about our Patient Portal. If you are not yet enrolled in the [facility] Patient Portal, you will receive an enrollment email invitation following your visit to any [facility] [place] [place] care setting. You may also self-enroll in the Patient Portal by visiting our website: [email or web address] The following information is required to access the Patient Portal: - Your [facility] [place] [place] Medical Record Number - Your personal home email address (must match what is in your electronic medical record, Registration staff can assist with this) - Name - Date of Capabilities of the Patient Portal: - Message some providers - View upcoming appointments - Access your health summary, medical history, and visit history - View current conditions and allergies - View procedure and lab results - View your medications, including guidelines, side effects, and precautions - Complete pre-appointment questionnaires requested by your provider - Ready summary reports of your office visits and procedures To access the Patient Portal Mobile Nik[employer], follow these directions: - Search [employer] in the Nikki Store or Google Play Store - Download the Nikki - Search for [facility] - Enter your login/password Prescriptions: No Action Eliquis 5 mg tablet 5 mg PO BID Qty: 60 5RF polymyxin B sulf-trimethoprim 10,000 unit- 1 mg/mL Drops 1 drp OPHTHALMIC (EYE) Q3H Qty: 20 0RF Rx Instructions: while awake; do not exceed 6 doses in 24 hours amlodipine 5 mg tablet 5 mg PO DAILY Qty: 90 3RF atenolol 100 mg tablet 100 mg PO DAILY Qty: 90 3RF diphenhydramine HCl [Children's Allergy (diphenhyd)] 12.5 mg/5 mL liquid 25 mg PO BID PRN (Reason: Allergy Symptoms) sucralfate 1 gram tablet 1 g PO BID albuterol sulfate [ProAir HFA] 90 mcg/actuation Hfa Aerosol Inhaler 1 puff INHALATION QID PRN (Reason: Shortness Of Breath Or Wheezing) polyethylene glycol 3350 [Miralax] 17 gram Powder In Packet 17 g PO DAILY PRN (Reason: Constipation) guaifenesin [Mucinex] 600 mg Tablet Extended Release 12hr 600 mg PO BID Qty: 20 0RF ondansetron 8 mg Tablet,Disintegrating 8 mg PO Q8H PRN (Reason: Nausea And Vomiting) Qty: 30 3RF (DME) bra, mastectomy Crystals Qty: 1 0RF Rx Instructions: As Directed (DME) Wig Kit Qty: 1 0RF Rx Instructions: As Directed (DME) Breast prosthesis Kit Qty: 1 0RF Rx Instructions: As Directed (DME) Chair, shower Misc Qty: 1 0RF Rx Instructions: As Directed loperamide 2 mg Capsule 2 mg PO Q6H PRN (Reason: Diarrhea) Qty: 30 2RF cetirizine-pseudoephedrine [Zyrtec-D] 5-120 mg Tablet Extended Release 12 Hr 1 tab PO Q12H PRN (Reason: Congestion) 15 Days Qty: 30 0RF vitamin B complex Tablet 1 tab PO DAILY Qty: 90 2RF magnesium oxide 400 mg (241.3 mg magnesium) tablet 400 mg PO DAILY pantoprazole 40 mg tablet,delayed release (DR/EC) 40 mg PO DAILY@0630 docusate sodium 100 mg capsule 100 mg PO DAILY PRN (Reason: Constipation) mirtazapine 15 mg tablet,disintegrating 15 mg PO BEDTIME oxycodone 5 mg tablet 5 mg PO Q4H lorazepam 1 mg tablet 1 mg PO TID PRN (Reason: Anxiety) ascorbic acid (vitamin C) [Vitamin C] 500 mg tablet 500 mg PO BID gabapentin 600 mg tablet 600 mg PO TID calcium carbonate-vitamin D3 600 mg-20 mcg (800 unit) tablet 1 tab PO BID bupropion HCl 150 mg tablet sustained-release 12 hr 300 mg PO DAILY furosemide 20 mg tablet 20 mg PO DAILY fluoxetine 20 mg capsule 40 mg PO DAILY (DME) mastectomy bra to fit See Rx Instructions .Route .MEDSUPPLY Qty: 2 0RF Rx Instructions: As directed (DME) left breast prosthetic to fit See Rx Instructions .Route .MEDSUPPLY Qty: 1 0RF Rx Instructions: As directed acetaminophen 650 mg tablet extended release 650 mg PO Q8H PRN (Reason: Pain (Scale Score 1-3)) Referrals: Ayan Perdomo MD [Primary Care Provider, Medical] Print Language: Latvian
[2024-11-02 19:54] LABS: MANUAL DIFF FLAG NO
[2024-11-02 19:55] LABS: Hematocrit 38.0 % (37.0-47.0); Hemoglobin 11.9 g/dl (12.0-16.0); Imm Gran Abs Auto 0.01 X10*3/uL (0.00-0.03); Imm Gran Pct Auto 0.2 % (0.0-0.4); Lymphocytes Absolute Auto 2.3 X10*3/uL (1.2-4.9); Mean Corpuscular HGB Conc 31.3 g/dl (31.0-35.0); Mean Corpuscular Hemoglobin 25.9 pg (27.0-33.0); Mean Corpuscular Volume 82.8 fL (80.0-98.0); NRBC Abs Auto 0.000 X10*3/uL (0.0-0.012); NRBC Pct Auto 0.0 /100WBC (0.0-0.2); Platelet Count 244 X10*3/uL (160-400); Red Blood Count 4.59 X10*6/uL (4.20-5.50); White Blood Count 5.9 X10*3/uL (4.8-10.8)
[2024-11-02 20:08] LABS: Alanine Aminotransferase 18 U/L (0-31); Albumin Level 3.9 g/dL (3.5-5.0); Alkaline Phosphatase 84 U/L (39-117); Anion Gap 16 (12-20); Aspartate Amino Transferase 26 U/L (5-31); Blood Urea Nitrogen 8 mg/dL (9-16); Calcium 8.8 mg/dL (8.4-10.2); Carbon Dioxide 24 mmol/L (22-29); Chloride 106 mmol/L (96-108); Creatinine Clr Calc Pharmacy 85.1; Estimated Glomerular Filt Rate > 60; Potassium 4.2 mmol/L (3.3-5.1); Sodium 142 mmol/L (135-145); Total Protein 6.7 g/dL (6.5-8.0)
[2024-11-02 20:15] LABS: Troponin-I High Sensitivity < 2.7 ng/L (<3.5-17.0)
[2024-11-02 21:11] VITALS: BP 172/86; PULSE 77; RESP 18; TEMP 36.5; O2SAT 97
[2024-11-02 21:18] VITALS: BP 156/76; PULSE 76
[2024-11-02 21:19] VITALS: BP 138/101; PULSE 85
[2024-11-02 21:22] VITALS: BP 161/89; PULSE 94
--- NOTE | 2024-11-02 21:32 | PC.NURSE ---
Pt c/o 1 week of progressive dizziness, fell x 2, and 1 time son stated he found her on the floor and was found incontinent. Son also reports pt isnt sleeping and increasing anxiety.
[2024-11-02] MEDS: oxyCODONE HCl Immed Release 5 MG TABLET PO (22:05)
[2024-11-02 23:30] LABS: Resp Syncy Virus RNA Qual PCR NEGATIVE (Negative); SARS COV2 PCR INHOUSE NEGATIVE (Negative)
[2024-11-03 00:07] LABS: Appearance Urine Clear; Glucose Urine UA Negative (Negative); PH 6.5 (5.0-9.0); Specific Gravity - Urine 1.010 (1.005-1.025); UMIC TRIGGER UACC YES
--- NOTE | 2024-11-03 00:18 | PC.NURSE ---
pt is refusing blood draw, troponin was hemolyzed. pt states blood can only be drawn by specific tech and that tech is currently unavailable. pt continues to refuse.
[2024-11-03 00:19] LABS: UACC Culture Trigger YES
[2024-11-03 01:36] LABS: Troponin-I High Sensitivity < 2.7 ng/L (<3.5-17.0)
[2024-11-03] MEDS: oxyCODONE HCl Immed Release 5 MG TABLET PO ×3 (03:00→09:51)
[2024-11-03 08:22] VITALS: BP 138/68; PULSE 81
[2024-11-03] MEDS: buPROPion HCl XL 300 MG TAB.ER.24H PO (08:22)
[2024-11-03 08:23] VITALS: BP 138/68
[2024-11-03] MEDS: Calcium + Vitamin D 250 MG TABLET PO (08:23)
[2024-11-03 11:38] VITALS: BP 117/57; PULSE 81; RESP 14; TEMP 36.6; O2SAT 95
--- NOTE | 2024-11-03 12:05 | MHC.CM.PN ---
CM RECEIVED ED CM CONSULT. CM MET WITH PT AT [facility] IN ED. PT LIVES WITH SON AND HAS MANUFACTURING LEAD HRS VIA [employer] (12.5 HRS/WK) PT IS FUNCTIONALLY INDEPENDENT. + HCP ON FILE AND VERIFIED. PCP Jose SHORE AT [facility] DP: PT DOES NOT WANT TO WAIT FOR P.T. EVAL IN AM, WOULD LIKE TO GO HOME WITH SERVICES. PROVIDER UPDATED AND REFERRAL MADE TO [facility] (PT'S FIRST CHOICE) MESSAGE LEFT FOR SON TO P/U PT WHEN ABLE.
[2024-11-03 12:29] VITALS: BP 117/57; PULSE 81; RESP 14; TEMP 36.6; O2SAT 95
== END 2024-11-03 12:31 | disposition home or self-care (01) ==
PROVIDERS: Nurse Practitioner Family; Emergency Provider Emergency Medicine; PCP Internal Medicine
DX: R42 Dizziness and giddiness (principal); R50.9 Fever, unspecified; R07.89 Other chest pain; R94.31 Abnormal electrocardiogram [ECG] [EKG]; I10 Essential (primary) hypertension; Z79.899 Other long term (current) drug therapy; Z03.818 Encounter for observation for suspected exposure to other biological agents ruled out
CPT/HCPCS: 36415; 70450; 71045; 80048; 80076; 81001; 81003; 84484; 85025; 87086; 87637; 93005; 99285

== ENCOUNTER → 2024-11-02 18:26 | Outpatient (BNV) | payer MEDICARE, MEDICAID, SELFPAY | PROVIDERS: Emergency Provider Emergency Medicine; PCP Internal Medicine; Visit Provider Internal Medicine Cardiovascular Disease | DX: I48.91 Unspecified atrial fibrillation (principal) | CPT/HCPCS: 93010 ==

== ENCOUNTER → 2024-11-02 21:33 | Outpatient (BNV) | payer MEDICARE, MEDICAID, SELFPAY | PROVIDERS: Emergency Provider Emergency Medicine; PCP Internal Medicine; Visit Provider Family Medicine | DX: R42 Dizziness and giddiness (principal) | CPT/HCPCS: 70450; 71045 ==

== ENCOUNTER 2024-11-21 09:58 | Outpatient (REF) | payer MEDICARE, MEDICAID, SELFPAY ==
--- NOTE | ~2024-11-21 | XR_ITS ---
EXAMINATION: XR CHEST CLINICAL INFORMATION: Opacity left lung base, follow-up COMPARISON: November 02, 2024 TECHNIQUE: 2 views of the chest were obtained. FINDINGS: Left-sided Port-A-Cath enters the internal jugular vein and terminates near the junction of the left internal jugular vein and superior vena cava. It is slightly withdrawn when compared to the prior. Lungs are clear and well aerated. Heart size is within normal limits. The aorta is tortuous. There is no pleural effusion. 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 There is narrowing of bilateral subacromial spaces. XR/XR chest 2V IMPRESSION: No acute disease. Port-A-Cath tip has migrated proximally into the junction of the left internal jugular vein and superior vena cava. Narrowing of bilateral subacromial spaces could result in impingement. 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 Electronically signed by: Ricky Rai MD 11/21/2024 10:25 AM EDT
--- OUTSIDE RECORDS SUMMARY | 2024-11-21 09:15 | XMS_ITS | Encounter Summary ---
Author Organization [employer] Address [address] [place] [address] [place] [address] Care Team Providers Care Defense Analyst Name Role Phone Ayan Perdomo MD Primary Care Provider [phone] Reason for Referral * Consultation (Routine) - Pending Review Specialty Diagnoses / Procedures Referred By López lee Referred To Contact Physical Therapy Diagnoses Recurrent left knee instability Ayan Perdomo MD [address] [place] [address] Phone: tel: fax: Referral ID Status Reason Start Date Expiration Date Visits Requested Visits Authorized [id number] Pending Review Specialty Services Required 11/21/2024 11/21/2025 1 1 * Consultation (Routine) - Authorized Specialty Diagnoses / Procedures Referred By López lee Referred To Contact Nutrition Diagnoses Severe obesity (BMI >= 40) (CMS/[facility]) Ayan Perdomo MD [address] [place] [address] Phone: tel: fax: Referral ID Status Reason Start Date Expiration Date Visits Requested Visits Authorized [id number] Authorized Consult and Treat 11/21/2024 11/21/2025 1 1 Encounter Details Date Type Department Care Team (Latest Contact Info) Description 11/21/2024 9:15 AM EDT Office Visit [facility] MED & PEDS [address] [place] [address] Ayan Perdomo MD [address] [place] [phone] Opacity of lung on imaging study (Primary Dx); Severe obesity (BMI >= 40) (CMS/HCC); Recurrent left knee instability; Anxiety; Dietary counseling; Exercise counseling; Class 3 severe obesity due to excess calories with serious comorbidity and body mass index (BMI) of 45.0 to 49.9 in adult; Chronic pain syndrome; Primary osteoarthritis of left knee Social History Tobacco Use Types Packs/Day Years [...] AM EDT documented as of this encounter Last Filed Vital Signs Vital Sign Reading Time Taken Comments Blood Pressure 141/75 11/21/2024 9:14 AM EDT Pulse 85 11/21/2024 9:14 AM EDT Temperature 36.8 C (98.2 F) 11/21/2024 9:14 AM EDT Respiratory Rate 20 11/21/2024 9:14 AM EDT Oxygen Saturation 94% 11/21/2024 9:14 AM EDT Inhaled Oxygen Concentration - - Weight 133 kg (294 lb) 11/21/2024 9:14 AM EDT Height 167.6 cm (5' 6 ) 11/21/2024 9:14 AM EDT Body Mass Index 47.45 11/21/2024 9:14 AM EDT documented in this encounter Plan of Treatment Upcoming Encounters Date Type Department Care Team (Late st Contact Info) Description 12/10/2024 10:15 AM EDT Office Visit [facility] MED & PEDS [address] [place] [address] Ayan Perdomo MD [address] [place] [address] 02/03/2025 2:00 PM EST Telemedicine [facility] MED & PEDS [address] [place] [address] Sun Rueda RN [address] [place] [address] Scheduled Referrals Name Type Priority Associated Diagnoses Orde r Schedule Referral to Nutrition Therapy Outpatient Referral Routine Severe obesity (BMI >= 40) (CMS/HCC) Expected: 11/21/2024 (Approximate), Expires: 11/21/2025 Referral to Physical Therapy Outpatient Referral Routine Recurrent left knee instability Expected: 11/21/2024 (Approximate), Expires: 11/21/2025 documented as of this encounter Procedures Procedure Name Priority Date/Time Associated Diagnosis Comments XR CHEST 2 VIEWS Routine 11/21/2024 10:0 8 AM EDT Opacity of lung on imaging study documented in this encounter Results * XR Chest 2 Views (11/21/2024 10:08 AM EDT) Anatomical Region Laterality Modality Chest Radiographic Re ging 11/21/2024 10:0 8 AM EDT Narrative 11/21/2024 10:28 AM EDT [address] [address] XRay Report Signed Patient: Ya Rizzo MR#: [id number] : 1960 Acct:[id number] Age/Sex: 64 / F ADM Date: 11/21/24 Loc: [facility] Attending Dr: Ayan Perdomo MD Ordering Physician: Ayan Perdomo MD Date of Service: 11/21/24 Procedure(s): XR chest 2V Accession Number(s): [id number] cc: Ayan Perdomo MD Reason for Exam: Opacity left lung base EXAMINATION: XR CHEST CLINICAL INFORMATION: Opacity left lung base, follow-up COMPARISON: November 02, 2024 TECHNIQUE: 2 views of the chest were obtained. FINDINGS: Left-sided Port-A-Cath enters the internal jugular vein and terminates near the junction of the left internal jugular vein and superior vena cava. It is slightly withdrawn when compared to the prior. Lungs are clear and well aerated. Heart size is within normal limits. The aorta is tortuous. There is no pleural effusion. 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 There is narrowing of bilateral subacromial spaces. XR/XR chest 2V IMPRESSION: No acute disease. Port-A-Cath tip has migrated proximally into the junction of the left internal jugular vein and superior vena cava. Narrowing of bilateral subacromial spaces could result in impingement. 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 Electronically signed by: Ricky Rai MD 11/21/2024 10:25 AM EDT Dictated By: Ricky Rai MD Signed By: <Electronically signed by Ricky Rai MD in [place]> 11/21/24 1025 DD/ 1008 TD/TT: 11/21/24 1019 Director Of Flight Operations: Procedure Note Donotjonhinterpreter, Image - 11/21/[address] [address] XRay Report Signed Patient: Renetta Rizzo#: [id number] : 9Acct:[id number] Age/Sex: 64 / FADM Date: 11/21/24 Loc: [facility] Attending Dr: Ayan Perdomo MD Ordering Physician: Ayan Perdomo MD Date of Service: 11/21/24 Procedure(s): XR chest 2V Accession Number(s): [id number] cc: Ayan Perdomo MD Reason for Exam: Opacity left lung base EXAMINATION: XR CHEST CLINICAL INFORMATION: Opacity left lung base, follow-up COMPARISON: November 02, 2024 TECHNIQUE: 2 views of the chest were obtained. FINDINGS: Left-sided Port-A-Cath enters the internal jugular vein and terminates near the junction of the left internal jugular vein and superior vena cava. It is slightly withdrawn when compared to the prior. Lungs are clear and well aerated. Heart size is within normal limits. The aorta is tortuous. There is no pleural effusion. 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 There is narrowing of bilateral subacromial spaces. XR/XR chest 2V IMPRESSION: No acute disease. Port-A-Cath tip has migrated proximally into the junction of the left internal jugular vein and superior vena cava. Narrowing of bilateral subacromial spaces could result in impingement. 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 Electronically signed by: Ricky Rai MD 11/21/2024 10:25 AM EDT Dictated By: Ricky Rai MD Signed By: <Electronically signed by Ricky Rai MD in [place]> 11/21/24 1025 DD/ 1008 TD/TT: 11/21/24 1019 Director Of Flight Operations: Ayan Perdomo MD IMG XR PROCEDURES Final Res ult documented in this encounter Visit Diagnoses Diagnosis Opacity of lung on imaging study- Primary Severe obesity (BMI >= 40) (CMS/HCC) Recurrent left knee instability Anxiety Anxiety state, unspecified Dietary counseling Dietary surveillance and counseling Exercise counseling Class 3 severe obesity due to excess calories with serious comorbidity and body mass index (BMI) of 45.0 to 49.9 in adult Chronic pain syndrome Primary osteoarthritis of left knee documented in this encounter Additional Health Concerns Assessment Noted Time PHQ-9 Depression Total Score: 1 10/05/19 24 9:57 AM EDT documented as of this encounter Care Teams Defense Analyst Relationship Specialty Start Date End Date Ayan Perdomo MD [address] [place] [id number] PCP - General Internal Medicine 03/20/18 Bernice HOGUE 11/06/24 documented as of this encounter
--- OUTSIDE RECORDS SUMMARY | 2024-11-21 11:03 | XMS_ITS | Encounter Summary ---
Author Organization [employer] Address [address] [facility] [address] [place] [address] Care Team Providers Care Slurry Control Operator Helper Name Role Phone Ayan Perdomo MD Primary Care Provider [phone] Reason for Visit * Reason Comments Med Refill Encounter Details Date Type Department Care Team (Late st Contact Info) Description 04/30/2024 Refill [facility] [address] [place] [address] Ayan Perdomo MD [address] [place] [address] Social History Tobacco Use Types Packs/Day Years [...] Description 12/10/2024 10:15 AM EDT Office Visit [facility] MED & PEDS [address] [place] [address] Ayan Perdomo MD [address] [place] [address] 02/03/2025 2:00 PM EST Telemedicine [facility] MED & PEDS [address] [place] [address] Sun Rueda, MATT [address] [place] [address] documented as of this encounter Visit Diagnoses Not on filedocumented in this encounter Additional Health Concerns Assessment Noted Time PHQ-9 Depression Total Score: 1 10/05/19 24 9:57 AM EDT documented as of this encounter Care Teams Slurry Control Operator Helper Relationship Specialty Start Date End Date Ayan Perdomo MD [address] [place] [address] PCP - General Internal Medicine 03/20/18 Bernice HOGUE 11/06/24 documented as of this encounter
--- OUTSIDE RECORDS SUMMARY | 2024-11-21 11:03 | XMS_ITS | Encounter Summary ---
Author Organization [employer] Address [address] [facility] [address] [place] [address] Care Team Providers Care Therapeutic Assistant Name Role Phone Ayan Perdomo MD Primary Care Provider [phone] Reason for Visit * Reason Onset Date Comments Med Refill 05/13/2024 Medication Question 05/13/2024 Encounter Details Date Type Department Care Team ([facility] st Contact Info) Description 05/13/2024 Telephone [facility] MED & PEDS [address] [place] [address] Ayan Perdomo MD [address] [place] [address] Med Refill; Medication Question Social History Tobacco Use Types Packs/Day Years [...] AM EDT documented as of this encounter Miscellaneous Notes * Telephone Encounter - Carrol Atkisn - 05/13/2024 1:03 PM EST Tc from pt requesting med refill and an increase for medication Semaglutide- Weight Management (Wegovy) solution auto-injector. Pharmacy: [facility] - [place], [place] - [address] [place] [address] documented in this encounter Plan of Treatment Upcoming Encounters Date Type Department Care Team ([facility] st Contact Info) Description 12/10/2024 10:15 AM EDT Office Visit [facility] MED & PEDS [address] [place] [address] Ayan Perdomo MD [address] [place] [address] 02/03/2025 2:00 PM EST Telemedicine [facility] MED & PEDS [address] [place] [address] Sun Rueda RN [address] [place] [address] documented as of this encounter Visit Diagnoses Not on filedocumented in this encounter Additional Health Concerns Assessment Noted Time PHQ-9 Depression Total Score: 1 10/05/19 24 9:57 AM EDT documented as of this encounter Care Teams Therapeutic Assistant Relationship Specialty Start Date End Date Ayan Perdomo MD [address] [place] [phone] PCP - General Internal Medicine 03/20/18 Bernice HOGUE 11/06/24 documented as of this encounter
--- OUTSIDE RECORDS SUMMARY | 2024-11-21 11:03 | XMS_ITS | Clinical Summary ---
Author Organization [address] [facility] Address [address] [place] [address] Phone Care Team Providers Care Oyster Preparer Name Role Phone Ayan Perdomo MD Primary Care Provider [phone] Allergies Active Allergy Reactions Criticality Noted Date Comments Fish Containing Products 06/22/2020 Latex 06/16/2016 Nsaids (Non-Steroidal Anti-I nflammatory Drug) 06/22/2020 Sulfa (Sulfonamide Antibiotics) 0407/2020 Sulfamethoxazole-Trimethoprim 2016 Valsartan 06/16/2016 Medications methylPREDNISolone (MEDROL) 4 mg tablet Take 6 tabs orally the first day, second day to take 5 tabs, third day take 4 tabs, fourth day take 3 tabs, fifth day take 2 tab, and 1 tab on the 6th day. 4 Active apixaban (Eliquis) 5 mg tablet Take 1 Tablet by mouth 2 Times Daily. 3 Active buPROPion SR (WELLBUTRIN SR) 150 mg 12 hr tablet TAKE 2 TABLETS BY MOUTH EVERY DAY 2 Active amoxicillin-clavul anate (AUGMENTIN) 875-125 mg per tablet TAKE 1 TABLET BY MOUTH TWICE A DAY FOR 7 DAYS 3 Active ketoconazole (NIZORAL) 2 % shampoo USE 3 TIMES WEEKLY SHAMPOO & FACE WASH DIRECTED 1 Active albuterol HFA (PROAIR HFA ; PROVENTIL HFA ; VENTOLIN HFA) 90 mcg/actuation inhaler Inhale 2 Puffs into the lungs every 4 hours as needed. Active ascorbic acid (VITAMIN C) 500 mg tablet Take 500 mg by mouth daily. Active atenoloL (TENORMIN) 50 mg tablet Take 2 Tablets by mouth daily. Active bisacodyL (Dulcolax, bisacodyl,) 5 mg EC tablet Take 5 mg by mouth daily as needed. Active calcium carbonate-vitamin D3 500 mg-3.125 mcg (125 unit) tablet per tabelt Take 1 tablet by mouth 2 times daily. Active cetirizine (ZyrTEC) 10 mg tablet Take 10 mg by mouth daily. Active cyanocobalamin-cob amamide 5,000-100 mcg lozenge Take by mouth. Act irving DOCUSATE CALCIUM ORAL Take by mouth. Activ e gabapentin (NEURONTIN) 400 mg capsule Take 400 mg by mouth 3 times daily. Active hydroCHLOROthiazid e (HYDRODIURIL) 25 mg tablet Take 25 mg by mouth daily. Active LORazepam (ATIVAN) 1 mg tablet Take 1 mg by mouth every 6 hours as needed. Active mirtazapine (REMERON) 15 mg tablet Take 15 mg by mouth at bedtime. Active ondansetron ODT (ZOFRAN-ODT) 4 mg disintegrating tablet Take 4 mg by mouth every 8 hours as needed. Active oxyCODONE (ROXICODONE) 15 mg immediate release tablet Take 15 mg by mouth every 4 hours as needed. Active pantoprazole (PROTONIX) 40 mg EC tablet Take 40 mg by mouth daily. Active senna (SENOKOT) 8.6 mg tablet Take by mouth. A ctive sucralfate (CARAFATE) 1 gram tablet Take 1 g by mouth 4 times daily. Active tretinoin (RETIN-A) 0.025 % cream APPLY SMALL AMOUNT EVERY DAY AT BEDTIME 0 Active acetaminophen (TYLENOL) 500 mg tablet TAKE 1 TAB BY MOUTH EVERY 6 HOURS NEEDED FOR PAIN FOR UP TO 10 DAYS. 9 Active fluorouraciL (EFUDEX) 5 % cream Apply to affected area daily or bid for 4 weeks 9 Active hydrocortisone 2.5 % cream Apply bid x 5-7 days 7 Active Wegovy 0.5 mg/0.5 mL injection pen ADMINISTER 0.5 MG UNDER THE SKIN 1 TIME A WEEK Active amLODIPine (NORVASC) 5 mg tablet TAKE 1 TABLET BY MOUTH DAILY STOP HCTZ START AMLODIPINE 5 MG DAILY FOR BP CONTROL Active Active Problems Problem Noted Date Diagnosed Date Atrial fibrillation ([facility] V24, [facility] V28) 0 06/22/2020 Thrombosis of left popliteal artery ([facility] V24, [facility] V28) 06/22/2020 Actinic keratoses 07/08/2016 Encounters Date Type Department Care Team Description 10/31/2024 5:15 PM EDT - 10/31/2024 10:30 PM EDT Emergency [facility] Emergency [address] [place] [address] Discharge Disposition: Home or Self Care from Last 3 Months Surgical History Surgery Date Site/Laterality Comments OTHER SURGICAL HISTORY 02/06/2020 Left PROCEDURE: ND IN-SITU VEIN BYP POP-TIBL PRONEAL; COMMENT: Dr. Barragan Social History Tobacco Use Types Packs/Day Years Used Date Smoking Tobacco: Former Smokeless Tobacco: Never Comments Unknown Sex and Gender Information Value Date Recorded Sex Assigned at Not on file Legal Sex Female 5:25 AM EST Gender Identity Not on file Sexual Orientation Not on file Obstetrics History Last Filed Vital Signs Vital Sign Reading Time Taken Comments Blood Pressure 156/83 10/31/2024 9:20 PM EDT Pulse 69 10/31/2024 9:20 PM EDT Temperature 36.4 C (97.5 F) 10/31/2024 9:20 PM EDT Respiratory Rate 20 10/31/2024 9:20 PM EDT Oxygen Saturation 98% 10/31/2024 9:20 PM EDT Inhaled Oxygen Concentration - - Weight 136 kg (300 lb) 10/31/2024 5:25 PM EDT Height 162.6 cm (5' 4 ) 10/31/2024 5:25 PM EDT Body Mass Index 51.49 10/31/2024 5:25 PM EDT Plan of Treatment Upcoming Encounters Date Type Department Care Team (Late st Contact Info) Description 04/28/2025 12:00 PM EST Ancillary Procedure [facility] [address] [place] [phone] 05/30/2025 3:00 PM EDT Office Visit [facility] [place] [address] [place] [address] Dayton Barragan MD [address] [place] [address] Health Maintenance Due Date Last Done Comments Breast Cancer Screening 1960 Zoster Vaccines (1 of 2) 1977 Pneumococcal Vaccine: 50+ Years (1 of 1 - PCV) 2008 RSV Immunization Adult Patients (1 - Risk 60-74 years 1-dose series) 2018 DTaP,Tdap,and Td Vaccines (2 - Td or Tdap) 06/09/2021 06/10/2011 Colorectal Cancer Screening: Colonoscopy 02/26/2022 Hepatitis C Screening 02/26/2022 Medicare Annual Wellness Visit 02/26/2022 Osteoporosis Screening (Bone Density Screening) 02/26/2022 Social Influencers of Health Screening 02/26/2022 Falls Risk Assessment 06/25/2023 Depression Screening 03/20/2024 COVID-19 Vaccine ( - 2024-2 6 season) 2024 03/08/2021, 05/11/2020, 04/19/2020 Influenza Vaccine (#1) 2024 12/02/2013 Hypertension/CHF/CAD Annual BMP Blood Test 10/31/2025 10/31/2024, 11/02/1999 Cholesterol Screening (Lipid Panel) 01/25/2027 01/25/2022, 11/02/1999 MMR Vaccines Aged Out 09/12/2011, 08/09/2011 No longer eligible based on patient's age to complete this topic Hepatitis B Vaccines Completed 12/13/2011, 09/12/2011, 08/09/2011 HIB Vaccines Aged Out No longer eligi ble based on patient's age to complete this topic HPV Vaccines Aged Out No longer eligi ble based on patient's age to complete this topic Hepatitis A Vaccines Aged Out No long er eligible based on patient's age to complete this topic IPV Vaccines Aged Out No longer eligi ble based on patient's age to complete this topic Meningococcal ACWY Vaccine Aged Out N o longer eligible based on patient's age to complete this topic Meningococcal B Vaccine Aged Out No l onger eligible based on patient's age to complete this topic RSV Immunization Patients Under 20 months Aged Out No longer eligible b ased on patient's age to complete this topic Varicella Vaccines Aged Out No longer eligible based on patient's age to complete this topic Procedures Procedure Name Priority Date/Time Associated Diagnosis Comments ECG ANNOTATED 11/01/2024 CBC WITH AUTO DIFFERENTIAL STAT 10/31/2024 5:26 PM EDT B-TYPE NATRIURETIC PEPTIDE STAT 10/31/2024 5:26 PM EDT MAGNESIUM STAT 10/31/2024 5:26 PM EDT LIPASE STAT 10/31/2024 5:26 PM EDT COMPREHENSIVE METABOLIC PANEL STAT 10/31/2024 5:26 PM EDT CBC AND DIFFERENTIAL STAT 10/31/2024 5:26 PM EDT TROPONIN I HIGH SENSITIVITY Timed 10/31/2024 5:26 PM EDT ECG 12-LEAD STAT 10/31/2024 5:20 PM EDT LIPID PANEL Routine 11/02/1999 from Last 3 Months or Most Recently Relevant to Health Maintenance Results * ECG-Annotated (11/01/2024) us Provider Onbase MD ECG ORDERABLES Final Result * Troponin I high sensitivity (10/31/2024 5:26 PM EDT) High Sensitivity Troponin I 5 <=54 ng/L LAB CHEMISTRY METHOD 10/31/2024 6:34 PM EDT [facility] Blood Venous blood specimen / Unknown Venipuncture / Unknown 10/31/2024 5:26 PM EDT 10/31/2024 5:46 PM EDT Narrative [facility] - 10/31/2024 6:34 PM EDT High levels of biotin in samples may falsely decrease hsTroponin values. Use caution when interpreting hsTroponin results in patients taking biotin who exhibit renal impairment (eGFR <60) or in patients taking more than 20 mg/day of biotin. us Roland Molina MD LAB BLOOD ORDERABLES Final Resul t [facility] [address] [place] [address], * (ABNORMAL) CBC auto differential (10/31/2024 5:26 PM EDT) WBC 5.3 4.8 - 10.8 K/mcL LAB HEMETOLOGY METHOD 10/31/2024 6:06 PM EDT [facility] RBC 4.40 3.80 - 4.80 M/mcL LAB HEMETOLOGY METHOD 10/31/2024 6:06 PM EDT [facility] Hemoglobin 11.2(L) 11.5 - 16.0 g/dL LAB HEMETOLOGY METHOD 10/31/2024 6:06 PM EDT [facility] Hematocrit 37.3 35.0 - 47.0 % LAB HEMETOLOGY METHOD 10/31/2024 6:[facility] MCV 85.0 79.0 - 98.0 FL LAB HEMETOLOGY METHOD 10/31/2024 6:06 PM EDT [facility] MCH 25.5(L) 27.0 - 32.0 pcg LAB HEMETOLOGY METHOD 10/31/2024 6:06 PM [facility] MCHC 30.0(L) 32.0 - 37.0 g/dL LAB HEMETOLOGY METHOD 10/31/2024 6:06 PM [facility] RDW 14.9 11.0 - 15.0 % LAB HEMETOLOGY METHOD 10/31/2024 6:06 PM [facility] Platelets 237 130 - 400 K/mcL LAB HEMETOLOGY METHOD 10/31/2024 6:06 PM [facility] MPV 9.9 7.0 - 11.0 FL LAB HEMETOLOGY METHOD 10/31/2024 6:06 PM [facility] NRBC 0.0 <1.0 % LAB HEMETOLOGY METHOD 10/31/2024 6:06 PM [facility] NRBC Absolute 0.00 <0.10 K/mcL LAB HEMETOLOGY METHOD 10/31/2024 6:06 PM [facility] Neutrophils Relative 48.3 % LAB HEMETOLOGY METHOD 10/31/2024 6:06 PM [facility] Lymphocytes Relative 42.4 % LAB HEMETOLOGY METHOD 10/31/2024 6:06 PM [facility] Monocytes Relative 6.8 % LAB HEMETOLOGY METHOD 10/31/2024 6:06 PM [facility] Eosinophils Relative 2.1 % LAB HEMETOLOGY METHOD 10/31/2024 6:06 PM [facility] Basophils Relative 0.2 % LAB HEMETOLOGY METHOD 10/31/2024 6:06 PM [facility] Immature Granulocytes Relative 0.2 % LAB HEMETOLOGY METHOD 10/31/2024 6:06 PM [facility] Neutrophils Absolute 2.55 1.50 - 7.00 K/mcL LAB HEMETOLOGY METHOD 10/31/2024 6:06 PM [facility] Lymphocytes Absolute 2.24 1.00 - 5.00 K/mcL LAB HEMETOLOGY METHOD 10/31/2024 6:06 PM [facility] Monocytes Absolute 0.36 0.20 - 1.00 K/mcL LAB HEMETOLOGY METHOD 10/31/2024 6:06 PM EDT [facility] Eosinophils Absolute 0.11 0.00 - 0.50 K/mcL LAB HEMETOLOGY METHOD 10/31/2024 6:06 PM EDT [facility] Basophils Absolute 0.01 0.00 - 0.20 K/[facility] LAB HEMETOLOGY METHOD 10/31/2024 6:06 PM EDT [facility] Immature Granulocytes Absolute 0.01 0.00 - 0.03 K/[facility] LAB HEMETOLOGY METHOD 10/31/2024 6:06 PM EDT [facility] Blood Venous blood specimen / Unknown Venipuncture / Unknown 10/31/2024 5:26 PM EDT 10/31/2024 5:46 PM EDT Roland Molina MD LAB BLOOD ORDERABLES Final Resul t Performing Organization Address City/[facility]/ZIP Co de Phone Number [facility] [address] [place] [address], [place] [phone] * (ABNORMAL) B-type natriuretic peptide (10/31/2024 5:26 PM EDT) BNP 209(H) <=100 pcg/mL LAB CHEMISTRY METHOD 10/31/2024 6:55 PM EDT [facility] Blood Venous blood specimen / Unknown Venipuncture / Unknown 10/31/2024 5:26 PM EDT 10/31/2024 5:46 PM EDT us Roland Molina MD LAB BLOOD ORDERABLES Final Resul t [facility] [address] [place] [address], [place] [phone] * Magnesium (10/31/2024 5:26 PM EDT) Magnesium 2.3 1.9 - 2.6 mg/dL LAB CHEMISTRY METHOD 10/31/2024 6:51 PM EDT [facility] Blood Venous blood specimen / Unknown Venipuncture / Unknown 10/31/2024 5:26 PM EDT 10/31/2024 5:46 PM EDT us Roland Molina MD LAB BLOOD ORDERABLES Final Resul t Performing Organization Address City/[facility]/ZIP Co de Phone Number [facility] [address] [place] [address], [place] [phone] * Lipase (10/31/2024 5:26 PM EDT) Lipase 25 13 - 75 unit/L LAB CHEMISTRY METHOD 10/31/2024 6:51 PM EDT [facility] Blood Venous blood specimen / Unknown Venipuncture / Unknown 10/31/2024 5:26 PM EDT 10/31/2024 5:46 PM EDT us Roland Molina MD LAB BLOOD ORDERABLES Final Resul t Performing Organization Address [facility]/ZIP Co de Phone Number [facility] [address] [place] [address], [place] [phone] * Comprehensive metabolic panel (10/31/2024 5:26 PM EDT) Sodium 139 133 - 145 mmol/L LAB CHEMISTRY METHOD 10/31/2024 6:51 PM EDT [facility] Potassium 4.3 3.5 - 5.5 mmol/L LAB CHEMISTRY METHOD 10/31/2024 6:51 PM EDT [facility] Chloride 107 96 - 110 mmol/L LAB CHEMISTRY METHOD 10/31/2024 6:51 PM EDT [facility] CO2 27 21 - 32 mmol/L LAB CHEMISTRY METHOD 10/31/2024 6:51 PM EDT [facility] Anion Gap 5 3 - 11 LAB CHEMISTRY METHOD 10/31/2024 6:51 PM [facility] Glucose 79 70 - 100 mg/dL LAB CHEMISTRY METHOD 10/31/2024 6:51 PM [facility] BUN 10 5 - 25 mg/dL LAB CHEMISTRY METHOD 10/31/2024 6:51 PM [facility] Creatinine 0.92 0.50 - 1.10 mg/dL LAB CHEMISTRY METHOD 10/31/2024 6:51 PM [facility] eGFR 69 >=60 mL/min/1. 73m2 LAB CHEMISTRY METHOD 10/31/2024 6:51 PM [facility] Comment:Calculation based on the Chronic Kidney Disease Epidemiology Collaboration (CKD-EPI) equation refit without adjustment for race. BUN/Creatinine Ratio 10.9 LAB CHEMISTRY METHOD 10/31/2024 6:51 PM [facility] Calcium 9.1 8.5 - 10.5 mg/dL LAB CHEMISTRY METHOD 10/31/2024 6:51 PM [facility] AST (SGOT) 23 10 - 42 unit/L LAB CHEMISTRY METHOD 10/31/2024 6:51 PM [facility] ALT (SGPT) 23 10 - 60 unit/L LAB CHEMISTRY METHOD 10/31/2024 6:51 PM [facility] Alkaline Phosphatase 88 42 - 121 unit/L LAB CHEMISTRY METHOD 10/31/2024 6:51 PM [facility] Total Protein 6.4 6.0 - 8.0 g/dL LAB CHEMISTRY METHOD 10/31/2024 6:51 PM [facility] Albumin 3.6 3.2 - 5.0 g/dL LAB CHEMISTRY METHOD 10/31/2024 6:51 PM [facility] Total Bilirubin 0.5 0.0 - 1.4 mg/dL LAB CHEMISTRY METHOD 10/31/2024 6:51 PM [facility] Blood Venous blood specimen / Unknown Venipuncture / Unknown 10/31/2024 5:26 PM EDT 10/31/2024 5:46 PM EDT Roland Molina MD LAB BLOOD ORDERABLES Final Resul t [facility] [address] [place] [address], * ECG 12 lead (10/31/2024 5:20 PM EDT) Ventricular Rate ECG 69 BPM GEMUSE Atrial Rate 69 BPM GEMUSE P-R Interval 164 ms GEMUSE QRS Duration 76 ms GEMUSE Q-T Interval 398 ms GEMUSE QTc 426 ms GEMUSE P Wave [place] 47 degrees GEMUSE R [place] 29 degrees GEMUSE T [place] 30 degrees GEMUSE ECG Interpretation Normal sinus rhythm When compared with ECG of 10-NOV-2023 19:22, No significant change was found Confirmed by TERRI PEREZ ([id number]) on 10/31/2024 7:59:49 PM GEMUSE 10/31/2024 5:20 PM EDT 10/31/2024 7:59 PM EDT Roland Molina MD ECG ORDERABLES Final Result Performing Organization Address City/[facility] Co de Phone Number GEMUSE * (ABNORMAL) Lipid panel (11/02/1999) LDL/HDL Ratio 5(A) 1 - 4 Triglycerides 177(A) 10 - 160 mg/dL Cholesterol 224 10 - 240 mg/dL HDL 49 32 - 96 mg/dL LDL Cholesterol 140 62 - 185 mg/dL Blood Venous blood specimen / Unknown Historical Provider LAB BLOOD ORDERABLES Leah l Result from Last 3 Months or Most Recently Relevant to Health Maintenance Insurance [place] - [place] Advance Directives Documents on File Type Date Recorded Patient Ice Guard Skating Rink Expl anation Health Care Decision (hx) 02/07/2020 AD ZAMORA DIRECTIVE Health Care Decision (hx) 02/07/2020 AD ZAMORA DIRECTIVE Health Care Decision (hx) 02/07/2020 AD ZAMORA DIRECTIVE Health Care Decision (hx) 02/07/2020 AD ZAMORA DIRECTIVE Health Care Decision (hx) 02/07/2020 AD ZAMORA DIRECTIVE Health Care Decision (hx) 02/07/2020 AD ZAMORA DIRECTIVE Health Care Decision (hx) 02/07/2020 AD ZAMORA DIRECTIVE Health Care Decision (hx) 02/07/2020 AD ZAMORA DIRECTIVE Health Care Decision (hx) 02/07/2020 AD ZAMORA DIRECTIVE Health Care Decision (hx) 02/07/2020 AD ZAMORA DIRECTIVE Care Teams Oyster Preparer Relationship Specialty Start Date End Date Ayan Perdomo MD [address] [place] [phone] PCP - General Internal Medicine 06/04/24
--- OUTSIDE RECORDS SUMMARY | 2024-11-21 11:03 | XMS_ITS | Encounter Summary ---
Author Organization [employer] Address [address] [facility] 7 [place] [address] Care Team Providers Care Back Stayer Name Role Phone Ayan Perdomo MD Primary Care Provider [phone] Reason for Visit * Reason Onset Date Comments Med Refill 04/12/2024 Encounter Details Date Type Department Care Team ([facility] st Contact Info) Description 04/12/2024 Telephone [facility] [address] [place] [address] Ayan Perdomo MD [address] [place] [address] Med Refill Social History Tobacco Use Types Packs/Day Years [...] encounter Miscellaneous Notes * Telephone Encounter - Trice Macias - 04/12/2024 9:31 AM EST TC from pt requesting medication refill. Medications needing refill : oxyCODONE (Roxicodone) 5 MG immediate release tablet To be sent to: [id number] [place] [id number] AT [facility] documented in this encounter Plan of Treatment Upcoming Encounters Date Type Department Care Team ([facility] st Contact Info) Description 12/10/2024 10:15 AM EDT Office Visit [facility] [address] [place] [address] Ayan Perdomo MD [address] [place] [address] 02/03/2025 2:00 PM EST Telemedicine [facility] [address] [place] [address] Sun Rueda RN [address] [place] [address] documented as of this encounter Visit Diagnoses Diagnosis Chronic pain syndrome documented in this encounter Additional Health Concerns Assessment Noted Time PHQ-9 Depression Total Score: 1 10/05/19 9:57 AM EDT documented as of this encounter Care Teams Back Stayer Relationship Specialty Start Date End Date Beauzile, Thevenin, MD [address] [place] [address] PCP - General Internal Medicine 03/20/18 Bernice HOGUE 11/06/24 documented as of this encounter
--- OUTSIDE RECORDS SUMMARY | 2024-11-21 11:03 | XMS_ITS | Clinical Summary ---
Author Organization [facility] Address [address] [place] [address] Care Team Providers Care Brick Chimney Builder Name Role Phone Unavailable Primary Care Provider Unavailabl e Social History Tobacco Use Types Packs/Day Years Used Date Smoking Tobacco: Never Assessed Sex and Gender Information Value Date Recorded Sex Assigned at Not on file Gender Identity Not on file Sexual Orientation Not on file Plan of Treatment Not on file
--- OUTSIDE RECORDS SUMMARY | 2024-11-21 11:03 | XMS_ITS | Encounter Summary ---
Author Organization [employer] Address [address] [facility] 7[address] [place] [address] Care Team Providers Care Central Supply Technician Supervisor Name Role Phone Ayan Perdomo MD Primary Care Provider [phone] Encounter Details Date Type Department Care Team (Late st Contact Info) Description 05/13/2024 Orders Only [facility] [address] [place] [address] Ayan Perdomo MD [address] [place], [place] [phone] Severe obesity (CMS/HCC) (Primary Dx) Social History [...] Description 12/10/2024 10:15 AM EDT Office Visit [facility] [address] [place] [address] Ayan Perdomo MD [address] [place] [address] 02/03/2025 2:00 PM EST Telemedicine [facility] [address] [place] [address] Sun Rueda RN [address] [place] [address] documented as of this encounter Visit Diagnoses Diagnosis Severe obesity (CMS/HCC)- Primary Morbid obesity documented in this encounter Additional Health Concerns Assessment Noted Time PHQ-9 Depression Total Score: 1 10/05/19 24 9:57 AM EDT documented as of this encounter Care Teams Central Supply Technician Supervisor Relationship Specialty Start Date End Date Ayan Perdomo MD [address] [place] [address] PCP - General Internal Medicine 03/20/18 Bernice HOGUE 11/06/24 documented as of this encounter
--- OUTSIDE RECORDS SUMMARY | 2024-11-21 11:03 | XMS_ITS | Encounter Summary ---
Author Organization [employer] Address [address] [facility] 7t [place] [address] Care Team Providers Care Composing Machine Operator Name Role Phone Ayan Perdomo MD Primary Care Provider [phone] Reason for Visit * Reason Comments Med Refill Encounter Details Date Type Department Care Team (Late st Contact Info) Description 04/26/2024 Refill [facility] [address] [place] [address] Ayan Perdomo MD [address] [place] [address] Social History Tobacco Use Types Packs/Day Years [...] Description 12/10/2024 10:15 AM EDT Office Visit [facility] [address] [place] [address] Ayan Perdomo MD [address] [place] [address] 02/03/2025 2:00 PM EST Telemedicine [facility] [address] [place] [address] Sun Rueda, MATT [address] [place] [address] documented as of this encounter Visit Diagnoses Not on filedocumented in this encounter Additional Health Concerns Assessment Noted Time PHQ-9 Depression Total Score: 1 10/05/19 24 9:57 AM EDT documented as of this encounter Care Teams Composing Machine Operator Relationship Specialty Start Date End Date Ayan Perdomo MD [address] [place] [address] PCP - General Internal Medicine 03/20/18 Bernice HOGUE 11/06/24 documented as of this encounter
--- OUTSIDE RECORDS SUMMARY | 2024-11-21 11:04 | XMS_ITS | Encounter Summary ---
Author Organization [employer] Address [address] [place] [address] Care Team Providers Care Medical Staff Services Manager Name Role Phone Ayan Perdomo MD Primary Care Provider [phone] Reason for Visit * Reason Onset Date Comments Med Refill 07/05/2024 Encounter Details Date Type Department Care Team ([facility] st Contact Info) Description 07/05/2024 Telephone [facility] [address] [place] [address] Ayan Perdomo MD [address] [place] [address] Med Refill Social History Tobacco Use Types [...] encounter Miscellaneous Notes * Telephone Encounter - Bang Calvert - 07/05/2024 9:04 AM EDT TC from pt requesting medication refill. Medications needing refill : oxyCODONE (Roxicodone) 5 MG immediate release tablet To be sent to: [id number] [place], [place] - [address] AT [facility] documented in this encounter Plan of Treatment Upcoming Encounters Date Type Department Care Team (Late st Contact Info) Description 12/10/2024 10:15 AM EDT Office Visit [facility] [address] [place] [address] Ayan Perdomo MD [address] [place] [address] 02/03/2025 2:00 PM EST Telemedicine [facility] [address] [place] [address] Sun Rueda RN [address] [place] [address] documented as of this encounter Visit Diagnoses Not on filedocumented in this encounter Additional Health Concerns Assessment Noted Time PHQ-9 Depression Total Score: 1 10/05/19 24 9:57 AM EDT documented as of this encounter Care Teams Medical Staff Services Manager Relationship Specialty Start Date End Date Ayan Perdomo MD [address] [place] [id number] PCP - General Internal Medicine 03/20/18 Bernice HOGUE 11/06/24 documented as of this encounter
--- OUTSIDE RECORDS SUMMARY | 2024-11-21 11:04 | XMS_ITS | Clinical Summary ---
Author Organization [employer] Address [address] [facility] [address] [place] [address] Care Team Providers Care Lead Etl Developer Name Role Phone Ayan Perdomo MD Primary Care Provider [phone] Allergies No known active allergies Medications pantoprazole (ProtoNix) 40 MG EC tablet TAKE 1 TABLET BY MOUTH EVERY DAY 90 tablet 1 023 Active atenolol (Tenormin) 100 MG tablet Take 1 tablet by mouth at bed time. 022 Active hydroCHLOROthiaz herminia (HYDRODiuril) 12.5 MG tablet Take 1 tablet by mouth at bed time. 022 Active Probiotic, Lactobacillus, capsule take 1 capsule by buccal route every day 019 Active Multiple Vitamins-Mineral s (Daily Vitamin Formula+Minerals ) tablet Take 1 tablet by mouth at bed time. 022 Active naloxone (Narcan) 4 mg/0.1 mL nasal spray Administer 0.1 mL into affected nostril(s). 022 Active cetirizine (ZyrTEC) 10 MG tabletIndication s:Allergy, subsequent encounter TAKE 1 TABLET BY MOUTH EVERY DAY 90 tablet 1 023 Active Nutritional Supplements (Ensure Active High Protein) liquidIndication s:Hypoproteinemi a (CMS/HCC) 1 can 3 times a day 90 mL 11 024 Active oxymetazoline (Afrin Nasal [place]) 0.05 % nasal spray spray 2 spray by intranasal route 2 times every day in each nostril in the morning and evening for 3 days 30 mL 024 Active Multiple Vitamin (Multi-Vitamin) tablet Take 1 tablet by mouth in the morning. 30 tablet 11 024 Active pseudoephedrine (Sudafed) 30 MG tabletIndication s:Upper respiratory tract infection, unspecified type Take 1 tablet (30 mg) by mouth every 4 (four) hours if needed for congestion for up to 10 days. 30 tablet 024 Active Elastic Bandages & Supports (GNP Hinge Knee Brace) miscIndications: Primary osteoarthritis of left knee 1 Units Once per day. To use daily for knee pain w/ instability. 1 each 024 Active FLUoxetine (PROzac) 20 MG capsuleIndicatio ns:Anxiety,Other depression TAKE 2 CAPSULES (40 MG) BY MOUTH IN THE MORNING. 180 capsule 3 024 Active amoxicillin (Amoxil) 500 MG tabletIndication s:Encounter for prophylactic surgery 2 g 30 to 60 minutes before procedure 4 tablet 024 Active gabapentin (Neurontin) 600 MG tabletIndication s:Chronic pain syndrome TAKE 1 TABLET BY MOUTH 3 TIMES DAILY. 90 tablet 11 024 Active magnesium oxide (Mag-Ox) 400 (240 Mg) MG tabletIndication s:H/O bariatric surgery TAKE 1 TABLET BY MOUTH EVERY DAY 90 tablet 3 024 Active acetaminophen (Tylenol 8 Hour) 650 MG ER tablet Take 1 tablet (650 mg) by mouth every 8 (eight) hours if needed for mild pain. TAKE 1 TABLET BY MOUTH EVERY 8 HOURS NEEDED *SWALLOW WHOLE WITH WATER-DON'T BREAK/CRUSH/CHEW * 90 tablet 5 024 Active Calcium 600+D3 600-20 MG-MCG tablet TAKE 1 TABLET BY MOUTH EVERY DAY IN THE MORNING 90 tablet 3 024 Active cetirizine (ZyrTEC) 10 MG tablet TAKE 1 TABLET BY MOUTH EVERY DAY IN THE MORNING 90 tablet 3 024 Active cyanocobalamin (Vitamin B-12) 100 MCG tablet TAKE 1 TABLET BY MOUTH EVERY DAY 90 tablet 3 025 Active Ascorbic Acid (vitamin C) 500 MG tablet TAKE 1 TABLET BY MOUTH TWICE A DAY 180 tablet 1 025 Active Ascorbic Acid (vitamin C) 500 MG tablet Take 1 tablet (500 mg) by mouth 2 times daily. 180 tablet 1 025 Active furosemide (Lasix) 20 MG tabletIndication s:Essential hypertension TAKE 1 TABLET BY MOUTH EVERY DAY IN THE MORNING 90 tablet 1 025 Active albuterol (ProAir HFA) 108 (90 Base) MCG/ACT inhaler INHALE 2 PUFFS BUY MOUTH EVERY 4 TO 6 HOURS NEEDED 18 g 3 025 Active fluticasone (Flonase) 50 MCG/ACT nasal spray Administer 1-2 sprays into each nostril Once per day. Shake gently. Before first use, prime pump. After use, clean tip and replace cap. 48 g 025 2025 Active buPROPion SR (Wellbutrin SR) 150 MG 12 hr tabletIndication s:Other depression TAKE 2 TABLETS BY MOUTH EVERY DAY 180 tablet 3 025 Active pantoprazole (ProtoNix) 40 MG EC tabletIndication s:Gastroesophage al reflux disease without esophagitis TAKE 1 TABLET BY MOUTH BEFORE BREAKFAST. DO NOT CRUSH, CHEW OR SPLIT. 90 tablet 3 025 Active Eliquis 5 MG tablet TAKE 1 TABLET BY MOUTH TWICE A DAY 180 tablet 1 025 Active docusate sodium (Colace) 100 MG capsuleIndicatio ns:Drug-induced constipation TAKE 1 CAPSULE (100 MG) BY MOUTH DAILY IN THE MORNING 90 capsule 3 025 Active Semaglutide-Weig ht Management (Wegovy) 1.7 MG/0.75ML solution auto-injectorInd ications:Severe obesity (CMS/HCC) INJECT ONE PEN (=1.7 MG) SUBCUTANEOUSLY ONCE A WEEK 3 mL 2 025 Active oxyCODONE (Roxicodone) 5 MG immediate release tabletIndication s:Chronic pain syndrome Take 1 tablet (5 mg) by mouth every 4 (four) hours if needed for severe pain. 126 tablet 025 Active sucralfate (Carafate) 1 g tablet TAKE 1 TABLET BY ORAL ROUTE 2 TIMES EVERY DAY ON AN EMPTY STOMACH 1 HOUR BEFORE MEALS AND AT BEDTIME 60 tablet 5 025 Active LORazepam (Ativan) 1 MG tabletIndication s:Anxiety Take 1 tablet (1 mg) by mouth every 8 (eight) hours if needed for anxiety. Do not start before November 04, 2024. 84 tablet 025 2024 Active oxyCODONE (Roxicodone) 5 MG immediate release tabletIndication s:Chronic pain syndrome Take 1 tablet (5 mg) by mouth every 4 (four) hours if needed for severe pain. 126 tablet Active Semaglutide-Weig ht Management (Wegovy) 2.4 MG/0.75ML solution auto-injectorInd ications:Severe obesity (BMI >= 40) (CMS/[facility]) Inject 0.75 mL (2.4 mg) under the skin 1 (one) time per week. 2 mL 3 Active mirtazapine (Remeron) 7.5 MG tabletIndication s:Anxiety Take 1 tablet (7.5 mg) by mouth at bedtime. Dose decreased from 15 mg to 7.5 mg at bedtime 30 tablet 025 2024 Active sucralfate (Carafate) 1 g tablet TAKE 1 TABLET BY ORAL ROUTE 2 TIMES EVERY DAY ON AN EMPTY STOMACH 1 HOUR BEFORE MEALS AND AT BEDTIME 60 tablet 5 024 2024 Discontinued mirtazapine (Remeron Lilia-Tab) 15 MG disintegrating tabletIndication s:Gastroesophage al reflux disease without esophagitis TAKE 1 TABLET BY MOUTH EVERYDAY AT BEDTIME 90 tablet 3 025 2024 Discontinued(D ose adjustment) oxyCODONE (Roxicodone) 5 MG immediate release tabletIndication s:Chronic pain syndrome Take 1 tablet (5 mg) by mouth every 4 (four) hours if needed for severe pain. 126 tablet 025 2024 Discontinued(R eorder (will not trigger notification to Pharmacy)) LORazepam (Ativan) 1 MG tabletIndication s:Anxiety Take 1 tablet (1 mg) by mouth every 8 (eight) hours if needed for anxiety. Do not start before October 07, 2024. 84 tablet 025 2024 Discontinued(R eorder (will not trigger notification to Pharmacy)) Active Problems Problem Noted Date Diagnosed Date Long-term current use of opiate analgesic 2024 Hypoproteinemia 09/29/2023 Anxiety 08/22/2022 Osteoarthritis 08/22/2022 Mixed anxiety depressive disorder 08/22/2022 Severe obesity 08/22/2022 Assessment & Plan (08/01/2023 1:59 PM EDT): Patient previously on ozempic for weight loss, it had macarena be held due to breast cancer diagnosis. She refers restarted the therapy about 6 weeks ago, no reported side effects, she is off chemotherapy and in remission, will send PA to continue therapy Other fatigue 03/31/2022 Small bowel obstruction 01/21/2018 Paroxysmal atrial fibrillation 10/10/2017 Chronic pain syndrome 11/29/2016 Full thickness rotator cuff tear 04/12/2016 Obstructive sleep apnea syndrome 02/23/2016 Basal cell carcinoma of skin 12/10/2013 Bradycardia 12/10/2013 Hypertension 12/10/2013 Encounters Date Type Department Care Team Description 11/21/2024 9:15 AM EDT Office Visit [facility] [address] [place] [address] Ayan Perdomo MD Opacity of lung on imaging study (Primary Dx); Severe obesity (BMI >= 40) (CMS/HCC); Recurrent left knee instability; Anxiety; Dietary counseling; Exercise counseling; Class 3 severe obesity due to excess calories with serious comorbidity and body mass index (BMI) of 45.0 to 49.9 in adult; Chronic pain syndrome; Primary osteoarthritis of left knee 11/21/2024 Travel 11/20/2024 Telephone [facility] [address] [place] [address] Ayan Perdomo MD Chart Prep 11/19/2024 Telephone [facility] [address] [place] [address] Ayan Perdomo MD fyi 11/19/2024 Telephone [facility] [address] [place] [address] Ayan Perdomo MD Medication Question 11/13/2024 10:00 AM EDT Clinical Support [facility] [address] [place] [address] Sun Rueda RN Chronic pain syndrome 11/13/2024 Travel 11/12/2024 Telephone [facility] [address] [place] [address] Ayan Perdomo MD Record Request 11/05/2024 Refill [facility] [address] [place] [address] Sun Rueda RN Chronic pain syndrome 11/05/2024 Telephone [facility] [address] [place] [id number] Ayan Perdomo MD Med Refill 11/04/2024 Telephone [facility] [address] [place] [address] Ayan Perdomo MD Chart Prep 11/03/2024 Orders Only GENERIC EXTERNAL DATA DEPARTMENT Provider, Generic External Data 11/02/2024 Orders Only GENERIC EXTERNAL DATA DEPARTMENT Provider, Generic External Data 11/01/2024 Telephone [facility] [address] [place] [address] Ayan Perdomo MD ER Follow-up 11/01/2024 Refill [facility] [address] [place] [phone] Ayan Perdomo MD [facility] 11/01/2024 Orders Only [facility] [address] [place] [address] Seema Llamas MD 10/30/2024 Refill [facility] [address] [place] [address] Ayan Perdomo MD 10/28/2024 Telephone [facility] [address] [place] [address] Ayan Perdomo MD Appointment Request 10/16/2024 Refill [facility] [address] [place] [address] Ayan Perdomo MD Chronic pain syndrome 10/12/2024 Refill [facility] [address] [place] [address] Ayan Perdomo MD Severe obesity (CMS/HCC) 10/02/2024 Refill [facility] [address] [place] [address] Ayan Perdomo MD Anxiety 09/23/2024 Telephone [facility] [address] [place] [address] Ayan Perdomo MD Med Refill 09/23/2024 Refill [facility] [address] [place] [address] Ayan Perdomo MD Chronic pain syndrome 09/19/2024 Refill [facility] [address] [place] [address] Ayan Perdomo MD Drug-induced constipation 09/19/2024 Refill [facility] [address] [place] [address] César Davenport MD Severe obesity ([facility]) 09/16/2024 2:00 PM EDT Telemedicine [facility] [address] [place] [address] Sun Rueda RN Chronic pain syndrome 09/16/2024 Travel 09/09/2024 Refill [facility] [address] [place] [address] Ayan Perdomo MD Anxiety 09/02/2024 Refill [facility] [address] [place] [address] Ayan Perdomo MD Chronic pain syndrome 08/30/2024 Orders Only [facility] [address] [place] [address] Ayan Perdomo MD from Last 3 Months Immunizations Immunization Administration Dates Next Due Hep B, adult 12/13/2011,09/12/2011,08/09/2011 Influenza, IIV3, injectable 12/02/2013 Influenza, seasonal, injecta ble, preservative free 12/02/2013 MMR 09/12/2011,08/09/2011 Tdap 06/10/2011 Family History Medical History Relation Name Comments Skin cancer Father Atrial fibrillation Mother Diabetes type II Mother Hypertension Mother Relation Name Status Comments Father Mother Social History Tobacco Use Types Packs/Day Years Used Date Smoking Tobacco: Never Passive Smoke Exposure: Never Smokeless Tobacco: Never Tobacco Cessation:Counseling Given: Not Answered Alcohol Use Standard Drinks/Week Comments Never 0 [...] Orientation Straight 01/17/2022 10 :21 AM EDT Last Filed Vital Signs Vital Sign Reading [...] Mass Index 47.45 11/21/2024 9:14 AM EDT Plan of Treatment Upcoming Encounters Date Type Department Care Team (Late st Contact Info) Description 12/10/2024 10:15 AM EDT Office Visit [facility] [address] [place] [address] Ayan Perdomo MD [address] [place] [address] 02/03/2025 2:00 PM EST Telemedicine [facility] [address] [place] [address] Sun Rueda RN [address] [place] [address] Health Maintenance Due Date Last Done Comments CT Colonography 1960 FIT DNA/Cologuard 1960 FIT 1960 FOBT 1960 Sigmoidoscopy 1960 Derm Melanoma Skin Check 1960 Hepatitis C Screening 1976 Pneumococcal Vaccine: 50+ Years (1 of 2 - PCV) 1977 Zoster Vaccines (1 of 2) 1977 RSV Patients and Patients Aged 60 years or older (1 - Risk 60-74 years 1-dose series) 2018 DTaP/Tdap/Td Vaccines (2 - Td or Tdap) 06/09/2021 06/10/2011 Dental Oral Exam 04/01/2023 09/28/2022, , 03/04/2019, Additional history exists Dental Prophylaxis 04/01/2023 09/28/2022, 0 07/22/2021, 01/14/2021, Additional history exists Dental X-Ray: Bitewings 09/30/2023 09/29/19, 01/14/2021, 03/04/2019, Additional history exists Colonoscopy 10/04/2023 10/03/2018 Colorectal Cancer Screening 10/04/2023 Dental X-Ray: Full Mouth 03/24/2024 022, 09/06/2017, 06/27/2014 SDOH Screening 08/22/2024 08/23/2023 Depression Screening 10/04/2024 10/05/2023, 10/05/19 24 COVID-19 Vaccine ( season) 2024 03/08/2021, 05/11/2020, 04/19/2020 Influenza Vaccine (#1) 2024 12/02/2013, 2013 Alcohol/Substance Use Screening 04/17/2025 04/17/2024 Tobacco Screening 11/21/2025 11/21/2024 Lipid Panel 01/25/2027 01/25/2022, 10/22/2020 Hepatitis B Vaccines Completed 12/13/2011, 09/12/2011, 08/09/2011 Cervical Cancer Screening Discontinued HPV/Cotest Discontinued 03/19/2019 HIB Vaccines Aged Out No longer eligi [...] patient's age to complete this topic Meningococcal Vaccine Aged Out No denae jocelin eligible based on patient's age to complete this topic Pap Smear Discontinued RSV under 20 months Aged Out No longe r eligible based on patient's age to complete this topic Rotavirus Vaccines Aged Out No longer eligible based on patient's age to complete this topic Procedures Procedure Name Priority Date/Time Associated Diagnosis Comments XR CHEST 2 VIEWS Routine 11/21/2024 10:0 8 AM EDT Opacity of lung on imaging study POCT VEE-14 URINE DRUG SCREEN Routine 11/13/2024 10:42 AM EDT Chronic pain syndrome HIGH SENSITIVITY TROPONIN I Routine 11/03/2024 1:10 AM EDT URINALYSIS, COMPLETE, WITH REFLEX TO CULTURE Routine 11/02/2024 11:55 PM EDT CULTURE, URINE, ROUTINE Routine 11/02/2024 11:[address] HEAD WO CONTRAST Routine 11/02/2024 1 1:00 PM EDT XR CHEST 1 VIEW Routine 11/02/2024 10:50 PM EDT SARS COV2/INFLUENZA A/B AND RSV RNA QL NAAT Routine 11/02/2024 10:49 PM EDT HIGH SENSITIVITY TROPONIN I Routine 11/02/2024 7:46 PM EDT BASIC METABOLIC PANEL Routine 11/02/2024 7:46 PM EDT HEPATIC FUNCTION PANEL Routine 7:46 PM EDT CBC WITH AUTO DIFFERENTIAL Routine 11/02/2024 7:46 PM EDT ECG 12-LEAD Routine 10/31/2024 9:04 AM EDT BI MAMMOGRAM SCREENING TOMOSYNTHESIS RIGHT Routine 08/30/2024 2:10 PM EDT PROPHYLAXIS - ADULT Routine 09/28/2022 1 0:00 AM EDT BITEWINGS - 4 RADIOGRAPHIC IMAGES Routine 09/28/2022 10:00 AM EDT PERIODIC ORAL EVALUATION - ESTABLISHED PATIENT Routine 09/28/2022 9:45 AM EDT LIPID PANEL, STANDARD Routine 01/25/2022 9:36 AM EST PANORAMIC RADIOGRAPHIC IMAGE Routine 03/23/2021 12:00 AM EST ZZZ HISTORICAL HPV MRNA E6/E7 Routine 03/19/2019 8:47 AM EST HM COLONOSCOPY Routine 10/03/2018 from Last 3 Months or Most Recently Relevant to Health Maintenance Results * XR Chest 2 Views (11/21/2024 10:08 AM EDT) Anatomical Region Laterality Modality Chest Radiographic Re ging 11/21/2024 10:0 8 AM EDT Narrative 11/21/2024 10:28 AM EDT [address] [address] XRay Report Signed Patient: Ya Rizzo MR#: [id number] : 1960 Acct:[id number] Age/Sex: 64 / F ADM Date: 11/21/24 Loc: R[facility] Attending Dr: Ayan Perdomo MD Ordering Physician: Ayan Perdomo MD Date of Service: 11/21/24 Procedure(s): XR chest 2V Accession Number(s): [id number] cc: Ayan Perdomo MD Reason for Exam: [...] 11/21/24 1025 DD/ 1008 TD/TT: 11/21/24 1019 Office Electrician: Procedure Note Donotuseinterpreter, Image - 11/21/[address] [address] XRay Report Signed Patient: Renetta Rizzo#: [id number] : 9Acct:[id number] Age/Sex: 64 / FADM Date: 11/21/24 Loc: R[facility] Attending Dr: Ayan Perdomo MD Ordering Physician: Ayan Perdomo MD Date of Service: 11/21/24 Procedure(s): XR chest 2V Accession Number(s): [id number] cc: Ayan Perdomo MD Reason for Exam: [...] 11/21/24 1025 DD/ 1008 TD/TT: 11/21/24 1019 Office Electrician: us Ayan Perdomo MD IMG XR PROCEDURES Final Res ult * (ABNORMAL) POCT VEE-14 Urine Drug Screen (11/13/2024 10:42 AM EDT) [facility] THC Negative Negative Cocaine Screen, Urine Negative Negative Opiate Screen, Urine Negative Negative Methamphetamine Screen Urine Negative Negative Amphetamine Screen, Urine Negative Negative Benzodiazepines Screen, Urine Positive(A) Negative Barbiturate Screen, Urine Negative Negative Methadone Screen, Urine Negative Negative Buprenophine Screen, Urine Negative Negative TCA, Urine Negative Negative MDMA Urine Negative Negative ng/mL Oxycodone Screen, Urine Positive(A) Negative Phencyclidine (PCP), Urine Negative Negative Propoxyphene, Urine Negative Negative Fentanyl, Urine Negative Negative Urine Urine specimen obtained by clean catch procedure / Unknown 11/13/2024 10:42 AM EDT Narrative Sun Rueda RN - 11/13/2024 10:42 AM EDT Internal Pass Control Lot# [id number] Exp: 01-17-26 us Ayan Perdomo MD POINT OF CARE TEST ENTER/ED IT ORDERABLES Final Result * High Sensitivity Troponin I (11/03/2024 1:10 AM EDT) Only the most recent of2 resultswithin the time period is included. [facility] TROPONIN I HIGH SENSITIVITY <2.7 <3.5 - 17.0 ng/L [facility] Comment:The Munoz high sens itivity Troponin-I results should beused in conjunction with other diagnostic information suchas ECG, clinical observations and information, and patientsymptoms to aid in the diagnosis of AK. 11/03/2024 1:10 AM EDT 11/03/2024 1:12 AM EDT us Generic External Data Provider LAB BLOOD ORDERAB LES Final Result [facility] [address] [place] [phone] * (ABNORMAL) Urinalysis, Complete, with Reflex to Culture (11/02/2024 11:55 PM EDT) Color Urine Yellow [facility] Appearance Urine Clear [facility] PH 6.5 5.0 - 9.0 [facility] Glucose Urine UA Negative Negative mg/dL [facility] Urine Blood Negative Negative [facility] Specific [place] - Urine 1.010 1.005 - 1.025 [facility] Urine Protein Negative Neg-Trace mg/dL [facility] Urine Ketones Negative Negative mg/dL [facility] Nitrite Urine Negative Negative [facility] Leukocyte Esterase Urine Small (1+)(A) Negative [facility] RBC Urine 0-2 0 - 2 /HPF [facility] Urine WBC 0-5 0 - 5 /HPF [facility] Urine Squamous Epithelial Cell 6-10 0 - 2 /HPF [facility] Urine Bacteria None Seen None Seen [facility] Hyaline Casts, Urine 0-2 0 - 2 /LPF [facility] 11/02/2024 11:5 5 PM EDT 11/02/2024 11:59 PM EDT Narrative [facility] - 11/03/2024 12:20 AM EDT [id number], Clean Catch us Generic External Data Provider LAB URINE ORDERAB LES Final Result [facility] [address] [place] [phone] * Culture, Urine, Routine (11/02/2024 11:55 PM EDT) Urine Urine specimen obtained by clean catch procedure / Unknown 11/02/2024 11:55 PM EDT 11/03/2024 12:21 AM EDT Comment:UACC Narrative [facility] - 11/04/2024 11:40 AM EDT Urine Culture Report Result Urine Culture 10,000 to 50,000 cfu/ml Urine Culture Mixed bacterial danny characteristic of Urine Culture urogenital contamination. Specimen Source: Urine clean catch us Generic External Data Provider LAB MICROBIOLOGY - GENERAL ORDERABLES Final Result [facility] [address] [place] [address] [phone] * CT Head w/o Contrast (11/02/2024 11:00 PM EDT) Anatomical Region Laterality Modality Head, Neck Computed Tomogra phy 11/02/2024 11:0 0 PM EDT Narrative 11/02/2024 11:01 PM EDT [place] [address] CT Scan Report Signed Patient: Ya Rizzo MR#: [id number] : 1960 Acct:[id number] Age/Sex: 64 / F ADM Date: 11/02/24 Loc: HO.ED Attending Dr: Ordering Physician: Zoya Boyce DO Date of Service: 11/02/24 Procedure(s): CT head/brain wo IV con Accession Number(s): [id number] cc: Ayan Perdomo MD; Zoya Boyce DO Report Number: [id number]: Total DLP = 745.00 mGy-cm CLINICAL HISTORY: dizzines CT head without contrast Comparison: CT/SR - CT HEAD WITHOUT IV CONTRAST - 02/13/23 15:59 EST Findings: No intra-axial mass, midline shift, hydrocephalus, or acute hemorrhage. Diffuse atrophy. The visualized paranasal sinuses and mastoid air cells are normal. The orbits are within normal limits. There is no acute fracture. IMPRESSION: 1. No acute intracranial findings. This document has been electronically signed by: Juan Gordon DO on 11/02/2024 23:00:05 Dictated By: Juan Gordon DO Signed By: <Electronically signed by Juan Gordon DO in OV> 11/02/242300 DD/ 99 TD/TT: 11/02/242299 Office Electrician: Procedure Note Donkyleeinterpreter, Image - 11/02/[address] [place] [address] [address] Scan Report Signed Patient: Zahra RizzoR#: [id number] : 1960cct:[id number] Age/Sex: 64 / FADM Date: 11/02/24 Loc: HO.ED Attending Dr: Ordering Physician: Zoya Boyce DO Date of Service: 11/02/24 Procedure(s): CT head/brain wo IV con Accession Number(s): [id number] cc: Ayan Perdomo MD; Zoya Boyce DO Report Number: [id number]: Total DLP = 745.00 mGy-cm CLINICAL HISTORY: dizzines CT head without contrast Comparison: CT/SR - CT HEAD WITHOUT IV CONTRAST - 02/13/23 15:59 EST Findings: No intra-axial mass, midline shift, hydrocephalus, or acute hemorrhage. Diffuse atrophy. The visualized paranasal sinuses and mastoid air cells are normal. The orbits are within normal limits. There is no acute fracture. IMPRESSION: 1. No acute intracranial findings. This document has been electronically signed by: Juan Gordon DO on 11/02/2024 23:00:05 Dictated By: Juan Gordon DO Signed By: <Electronically signed by Juan Gordon DO in OV> 11/02/242300 DD/ 99 TD/TT: 11/02/242299 Office Electrician: [facility] External Provider IMG CT PROCEDURES Final Result * XR Chest 1 View (11/02/2024 10:50 PM EDT) Anatomical Region Laterality Modality Chest Radiographic Re ging 11/02/2024 10:5 0 PM EDT Narrative 11/02/2024 10:51 PM EDT [address] [address] XRay Report Signed Patient: Ya Rizzo MR#: [id number] : 1960 Acct:[id number] Age/Sex: 64 / F ADM Date: 11/02/24 Loc: HO.ED Attending Dr: Ordering Physician: Zoya Boyce DO Date of Service: 11/02/24 Procedure(s): XR chest 1V Accession Number(s): [id number] cc: Ayan Perdomo MD; Zoya Boyce DO CLINICAL HISTORY: cough 1 view chest x-ray Comparison: CT/SR - CT CHEST ANGIOGRAPHY WITH IV CONTRAST - 08/21/23 01:[address] - CT CHEST ANGIOGRAPHY WITH IV CONTRAST - 08/21/23 00:59 EDT CR/SR - XR CHEST 2 VIEWS - 05/27/23 11:59 EST Findings: Low lung volumes accentuate the cardiac silhouette. Questionable opacity in the left lung base which may be due to overlapping densities. Recommend repeat chest x-ray with improved respiratory volumes. Unchanged appearance of the right hemidiaphragm and right diaphragmatic sulcus. Normal size heart. Left chest Port-A-Cath tip over the superior vena cava No acute fracture. IMPRESSION: Questionable opacity in the left lung base which may be due to overlapping densities. Recommend repeat chest x-ray with improved respiratory volumes. This document has been electronically signed by: Juan Gordon DO on 11/02/2024 22:50:34 Dictated By: Juan Gordon DO Signed By: <Electronically signed by Juan Gordon DO in OV> 11/02/242250 DD/ 49 TD/TT: 11/02/242249 Office Electrician: Procedure Note Donotuseinterpreter, Image - 11/02/2024 [place] [address] XRay Report Signed Patient: Renetta Rizzo#: [id number] : 9Acct:[id number] Age/Sex: 64 / FADM Date: 11/02/24 Loc: HO.ED Attending Dr: Ordering Physician: Zoya Boyce DO Date of Service: 11/02/24 Procedure(s): XR chest 1V Accession Number(s): [id number] cc: Ayan Perdomo MD; Zoya Boyce DO CLINICAL HISTORY: cough 1 view chest x-ray Comparison: CT/SR - CT CHEST ANGIOGRAPHY WITH IV CONTRAST - 08/21/23 01:[address] - CT CHEST ANGIOGRAPHY WITH IV CONTRAST - 08/21/23 00:59 EDT CR/SR - XR CHEST 2 VIEWS - 05/27/23 11:59 EST Findings: Low lung volumes accentuate the cardiac silhouette. Questionable opacity in the left lung base which may be due to overlapping densities. Recommend repeat chest x-ray with improved respiratory volumes. Unchanged appearance of the right hemidiaphragm and right diaphragmatic sulcus. Normal size heart. Left chest Port-A-Cath tip over the superior vena cava No acute fracture. IMPRESSION: Questionable opacity in the left lung base which may be due to overlapping densities. Recommend repeat chest x-ray with improved respiratory volumes. This document has been electronically signed by: Juan Gordon DO on 11/02/2024 22:50:34 Dictated By: Juan Gordon DO Signed By: <Electronically signed by Juan Godron DO in OV> 11/02/242250 DD/ 49 TD/TT: 11/02/242249 Office Electrician: [facility] External Provider IMG XR PROCEDURES Final Result * SARS-CoV-2 RNA, Influenza A/B, and RSV RNA, Ql NAAT (11/02/2024 10:49 PM EDT) Influenza A PCR NEGATIVE Negative [facility] Influenza B PCR NEGATIVE Negative [facility] Resp Syncy Virus RNA Qual PCR NEGATIVE Negative [facility] SARS COV2 PCR NEGATIVE Negative [facility] Comment:All test results mus t be correlated with clinical findings.Negative results do not preclude SARS-CoV2, influenza Avirus, influenza B virus and/or RSV infectionand should not be used as the sole basis for treatment orother patient management decisions. Negative results must becombined with clinical observations, patient history, andepidemiological information.This test has not been evaluated for monitoring treatment ofinfection.This test has been authorized by the FDA under an EmergencyUse Authorization (EUA) for use by authorized laboratories.Testing performed on the [address] GeneXpert utilizingreal-time RT-PCR.All SARS CoV2 and positive influenza A/B results arereported to [facility]. 11/02/2024 10:4 9 PM EDT 11/02/2024 10:52 PM EDT us Generic External Data Provider LAB MICROBIOLOGY - GENERAL ORDERABLES Final Result [facility] [address] [place] [address] [phone] * (ABNORMAL) CBC auto differential (11/02/2024 7:46 PM EDT) White Blood Count 5.9 4.8 - 10.8 X10*3/uL [facility] Red Blood Count 4.59 4.20 - 5.50 X10*6/uL [facility] Hemoglobin 11.9(L) 12.0 - 16.0 g/dl [facility] Hematocrit 38.0 37.0 - 47.0 % [facility] Mean Corpuscular Volume 82.8 80.0 - 98.0 fL [facility] Mean Corpuscular Hemoglobin 25.9(L) 27.0 - 33.0 pg [facility] Mean Corpuscular HGB Conc 31.3 31.0 - 35.0 g/dl [facility] Red Cell Distribution Width 15.0 11.0 - 16.0 % [facility] Platelet Count 244 160 - 400 X10*3/uL [facility] Mean Platelet Volume 9.8 9.4 - 12.3 fL [facility] Neutrophils Percent Auto 52.4 45 - 73 % [facility] Imm Gran Pct Auto 0.2 0.0 - 0.4 % [facility] Lymphocytes Percent Auto 37.9 20 - 40 % [facility] Monocytes Percent Auto 7.7 2 - 11 % [facility] Eosinophils Percent Auto 1.5 0 - 4 % [facility] Basophils Percent Auto 0.3 0 - 2 % [facility] NRBC Pct Auto 0.0 0.0 - 0.2 /100WBC [facility] Neutrophils Absolute Auto 3.1 2.0 - 8.3 x10*3/uL [facility] Imm Gran Abs Auto 0.01 0.00 - 0.03 X10*3/uL [facility] Lymphocytes Absolute Auto 2.3 1.2 - 4.9 X10*3/uL [facility] Monocytes Absolute Auto 0.5 0.1 - 1.2 X10*3/uL [facility] Eosinophils Absolute Auto 0.1 0.0 - 0.4 X10*3/uL [facility] Basophils Absolute Auto 0.0 0.0 - 0.2 X10*3/uL [facility] NRBC Abs Auto 0.000 0.0 - 0.012 X10*3/uL [facility] 11/02/2024 7:46 PM EDT 11/02/2024 7:52 PM EDT Generic External Data Provider LAB BLOOD ORDERAB LES Final Result Performing Organization Address [facility] Co de Phone Number [facility] [address] [place] [phone] * Hepatic Function Panel (11/02/2024 7:46 PM EDT) Bilirubin, Total 0.4 0.0 - 1.0 mg/dL [facility] Bilirubin, Direct 0.2 0.0 - 0.5 mg/dL [facility] Aspartate Amino Transferase 26 5 - 31 U/L [facility] Alanine Aminotransferase 18 0 - 31 U/L [facility] Total Protein 6.7 6.5 - 8.0 g/dL [facility] Albumin Level 3.9 3.5 - 5.0 g/dL [facility] Alkaline Phosphatase 84 39 - 117 U/L [facility] 11/02/2024 7:46 PM EDT 11/02/2024 7:52 PM EDT us Generic External Data Provider LAB BLOOD ORDERAB LES Final Result Performing Organization Address [facility]/ZIP Co de Phone Number [facility] [address] [place] [phone] * (ABNORMAL) Basic Metabolic Panel (11/02/2024 7:46 PM EDT) Sodium 142 135 - 145 mmol/L [facility] Potassium 4.2 3.3 - 5.1 mmol/L [facility] Chloride 106 96 - 108 mmol/L [facility] Carbon Dioxide 24 22 - 29 mmol/L [facility] Anion Gap 16 12 - 20 [facility] Urea Nitrogen (BUN) 8(L) 9 - 16 mg/dL [facility] Creatinine, Serum 0.90 0.5 - 1.4 mg/dL [facility] Creatinine Clr Calc Pharmacy 85.1 [facility] Comment:Provided height and weight: 167.64 cm,130.2 kg.eGFR (calculated from the MDRD study equation) and eCrCl(calculated from the Cockcroft-Gault equation) are based ondifferent parameters and may not yield comparable results.If eCrCl result is absurd, please check patient'sheight/weight. Estimated Glomerular Filt Rate >60 [facility] Comment:Chronic Kidney Disea se: Estimated GFR < 60 mL/min/1.82i3Uxpaeb Kidney Disease: Estimated GFR < 15 mL/min/1.73m2 Glucose 116(H) 60 - 115 mg/dL [facility] Calcium 8.8 8.4 - 10.2 mg/dL [facility] 11/02/2024 7:46 PM EDT 11/02/2024 7:52 PM EDT us Generic External Data Provider LAB BLOOD ORDERAB LES Final Result [facility] [address] [place] [address] [phone] * ECG 12 lead (10/31/2024 9:04 AM EDT) us Historical Provider ECG ORDERABLES Final Res ult * BI Mammogram Screening Tomosynthesis Right (08/30/2024 2:10 PM EDT) Anatomical Region Laterality Modality Breast Right Mammography 08/30/2024 2:10 PM EDT Narrative 09/07/2024 8:36 PM EDT [facility] [address] [place] [address] Mammography Report Signed Patient: Ya Rizzo MR#: [id number] : 1960 Acct:[id number] Age/Sex: 64 / F ADM Date: 08/30/24 Loc: HO.MAMMO Attending Dr: Ayan Perdomo MD Ordering Physician: Ayan Perdomo MD Results: 1 Negative Date of Service: 08/30/24 Follow Up: 1 Year From [facility] Mammogram Procedure(s): MM tomosynthesis screening RT Accession Number(s): [id number] cc: Ayan Perdomo MD EXAMINATION: MM SCREENING DIGITAL BREAST TOMOSYNTHESIS, RIGHT CLINICAL INFORMATION: Screening. Asymptomatic. History of left breast cancer status post mastectomy 2022 for invasive ductal carcinoma. COMPARISON: Mammography: This study is compared with prior exams dating back to TECHNIQUE: Digital breast tomosynthesis is performed in both the craniocaudal and mediolateral oblique views along with computer-aided detection (CAD). Synthesized 2D images are generated from the tomosynthesis. FINDINGS: There are scattered areas of fibroglandular density (ACR BI-RADS breast composition Category b). There are no significant masses, abnormal calcifications, or other abnormalities. MM/MM tomosynthesis screening RT IMPRESSION: No mammographic evidence of malignancy. ASSESSMENT: BI-RADS BI-RADS 1 - Negative RECOMMENDATION: Routine annual mammography screening. 1 year F/U This examination should not preclude the clinical evaluation of a suspicious palpable abnormality. This patient's information was entered into a reminder system with a target due date for their next mammogram. Electronically signed by: Raina Olivo DO 09/07/2024 08:33 PM EDT Dictated By: Raina Olivo DO Signed By: <Electronically signed by Raina Olivo DO in OV> 09/07/242032 DD/ 1410 TD/TT: 08/30/24 1425 Office Electrician: Procedure Note Donotuseinterpreter, Image - 09/07/2024 [facility] [address] [place] [address] Mammography Report Signed Patient: Renetta Rizzo#: [id number] : 9Acct:[id number] Age/Sex: 64 / FADM Date: 08/30/24 Loc: HO.MAMMO Attending Dr: Ayan Perdomo MD Ordering Physician: Ayan Perdomo MDResults: 1 Negative Date of Service: 08/30/24Follow Up: 1 Year From Orig inal Mammogram Procedure(s): MM tomosynthesis screening RT Accession Number(s): [id number] cc: Ayan Perdomo MD EXAMINATION: MM SCREENING DIGITAL BREAST TOMOSYNTHESIS, RIGHT CLINICAL INFORMATION: Screening. Asymptomatic. History of left breast cancer status post mastectomy 2022 for invasive ductal carcinoma. COMPARISON: Mammography: This study is compared with prior exams dating back to TECHNIQUE: Digital breast tomosynthesis is performed in both the craniocaudal and mediolateral oblique views along with computer-aided detection (CAD). Synthesized 2D images are generated from the tomosynthesis. FINDINGS: There are scattered areas of fibroglandular density (ACR BI-RADS breast composition Category b). There are no significant masses, abnormal calcifications, or other abnormalities. MM/MM tomosynthesis screening RT IMPRESSION: No mammographic evidence of malignancy. ASSESSMENT: BI-RADS BI-RADS 1 - Negative RECOMMENDATION: Routine annual mammography screening. 1 year F/U This examination should not preclude the clinical evaluation of a suspicious palpable abnormality. This patient's information was entered into a reminder system with a target due date for their next mammogram. Electronically signed by: Raina Olivo DO 09/07/2024 08:33 PM EDT Dictated By: Raina Olivo DO Signed By: <Electronically signed by Raina Olivo DO in OV> 09/07/242032 DD/ 1410 TD/TT: 08/30/24 1425 Office Electrician: us Ayan Perdomo MD IMG BI PROCEDURES Edited Re sult - Final * (ABNORMAL) LIPID PANEL, STANDARD (01/25/2022 9:36 AM EST) Pathologist [facility] Chol/HDLC Ratio 3.3 <5.0 (calc) [facility] Cholesterol, Total 179 <200 mg/dL [facility] HDL Cholesterol 54 > OR = 50 mg/dL [facility] LDL Cholesterol 100(H) mg/dL (calc) [facility] Comment: Reference range: <100 Desirable range <100 mg/dL for primary prevention; <70 mg/dL for patients with CHD or diabetic patients with > or = 2 CHD risk factors. LDL-C is now calculated using the Saeid-Adi calculation, which is a validated novel method providing better accuracy than the Friedewald equation in the estimation of LDL-C. Saeid SS et al. TREVON. 2013;310(88): 2447-5935 (http://education.Sarsys/faq/TXR798) Non-HDL Cholesterol 125 <130 mg/dL (calc) [facility] Comment: For patients with diabetes plus 1 major ASCVD risk factor, treating to a non-HDL-C goal of <100 mg/dL (LDL-C of <70 mg/dL) is considered a therapeutic option. Triglycerides 151(H) <150 mg/dL [facility] 01/25/2022 9:36 AM EST us Ayan Perdomo MD LAB BLOOD ORDERABLES Final Result [facility] * HPV mRNA E6/E7 (03/19/2019 8:47 AM EST) Pathologist [facility] HPV mRNA E6/E7 Not Detected NOT DETECTED [facility] Comment: This test was performed using the APTIMA(R) HPV Assay ([employer] This assay detects E6/E7 viral messenger RNA (mRNA) from 14 high-risk HPV types (16,18,31,33,35,39,45,51, 52,56,58,59,66,68). For additional information please refer to: http://education.Basic6.bodaplanes/faq/KVR890v9 (This link is being provided for informational/ educational purposes only.) The analytical performance characteristics of this assay have been determined by [employer] [place], [place]. The modifications have not been cleared or approved by the FDA. This assay has been validated pursuant to the CLIA regulations and is used for clinical purposes. Test Performed by [employer], [employer] [place], [address] [place] [address] Larry Macias M.D., Ph.D., Director of Laboratories , CLIA [id number] Please note: Effective 11/30/2015, HPV testing will be performed using [employer]'s APTIMA test which targets mRNA. Detecting mRNA instead of DNA, as in older methods, offers significant improvements in specificity. 03/19/2019 8:47 AM EST Palma Dillon CNM HISTORICAL/NON ORDERABLE LABS Final Result [facility] [address] * Colonoscopy (10/03/2018) Colonoscopy Normal Normal Narrative KirstenAura sher - 10/03/2018 Recommended 5 year follow up Historical Provider MD HEALTH MAINTENANCE Final Result from Last 3 Months or Most Recently Relevant to Health Maintenance Insurance MEDICARE [facility] STANDARD DENTAL-[facility] MEDICAID STAND ADULT Care Teams Lead Etl Developer Relationship Specialty Start Date End Date Ayan Perdomo MD [address] [place] [phone] PCP - General Internal Medicine 03/20/18 [place] HOGUE 11/06/24
--- OUTSIDE RECORDS SUMMARY | 2024-11-21 11:04 | XMS_ITS | Continuity of Care Document ---
Author Organization [employer] Address [address] [facility] [address] [place] [address] Insurance Providers Payer Plan Claims Address Claims Phone Policy Number Group Number Relation Employer Guarantor Name Guarantor Guarantor Address Guarantor Phone MEDIC ARE.N [employer] [address] [place] [address] tel:[phone] Self Ya Rizzo 1960 [address] [place] [address] MASSA CHUSE TTS MEDIC ARE [facility] [address], [place] [address] tel:[phone] Self Ya Rizzo 1960 [address] [place] [address] MEDIC AID [place] [address], [place] [address] tel:[phone] Self Ya Rizzo 1960 [address] [place] [address] Problems Unknown Problems Results Test Value / Unit Interpretation Reference Ran ge Lab Report Ya Rizzo.pdf Lab Report Ya Rizzo.pdf Allergies, adverse reactions, alerts No known allergies and adverse reactions Medications No administered medications reported Vital Signs No vital signs reported Social History No smoking Hx information available
--- OUTSIDE RECORDS SUMMARY | 2024-11-21 11:04 | XMS_ITS | Encounter Summary ---
Author Organization [employer] Address [address] [facility] 7 [place] [address] Care Team Providers Care Childrens Club Attendant Name Role Phone Ayan Perdomo MD Primary Care Provider [phone] Reason for Visit * Reason Onset Date Comments Appointment Request 09/29/2023 Encounter Details Date Type Department Care Team ([facility] st Contact Info) Description 09/29/2023 Telephone [facility] [address] [place] [address] Ayan Perdomo MD [address] [place] [address] Appointment Request Social History Tobacco Use Types Packs/Day Years Used Date Smoking Tobacco: Never Passive Smoke Exposure: Never Smokeless Tobacco: Never Alcohol Use Standard Drinks/Week Comments Never 0 (1 standard drink = 0.6 oz pur e alcohol) Housing Stability Answer Date Recorded What is your housing situation today? I have teresa don 08/23/[address] you li [...] the past 12 months, has t he [employer], [employer], oil or water company threatened to shut off services in your home? No 08/23/2023 Comments Unknown Sex and Gender Information Value Date Recorded Sex Assigned at Female 01/17/2022 10:21 AM EDT Legal Sex Female 10:21 AM EDT Gender Identity Female 01/17/2022 10:21 AM EDT Sexual Orientation Straight 01/17/2022 10 :21 AM EDT documented as of this encounter Miscellaneous Notes * Telephone Encounter - Lilia Rand - 09/29/2023 11:06 AM EDT Tc from pt requesting a televist with PCP pt stated have multiple concerns, please contact pt for clarifications. Pt stated Dr Perdomo told her she can be double booked. documented in this encounter Plan of Treatment Upcoming Encounters Date Type Department Care Team (Late st Contact Info) Description 12/10/2024 10:15 AM EDT Office Visit [facility] [address] [place] [address] Ayan Perdomo MD [address] [place] [address] 02/03/2025 2:00 PM EST Telemedicine [facility] [address] [place] [address] Sun Rueda, MATT [address] [place] [address] documented as of this encounter Visit Diagnoses Not on filedocumented in this encounter Care Teams Childrens Club Attendant Relationship Specialty Start Date End Date Ayan Perdomo MD [address] [place] [address] PCP - General Internal Medicine 03/20/18 [place] HOGUE 11/06/24 documented as of this encounter
--- OUTSIDE RECORDS SUMMARY | 2024-11-21 11:04 | XMS_ITS | Encounter Summary ---
Author Organization [employer] Address [address] [facility] 7t [place] [address] Care Team Providers Care Records And Tape Recordings Engineer Name Role Phone Ayan Perdomo MD Primary Care Provider [phone] Encounter Details Date Type Department Care Team ([facility] st Contact Info) Description 09/22/2023 Orders Only [facility] [address] [place], [place] [phone] Ayan Perdomo MD [address] [place], [place] [phone] Social History Tobacco Use Types Packs/Day Years [...] Description 12/10/2024 10:15 AM EDT Office Visit [facility] [address] [place] [address] Ayan Perdomo MD [address] [place] [address] 02/03/2025 2:00 PM EST Telemedicine [facility] [address] [place] [address] Sun Rueda RN [address] [place] [address] documented as of this encounter Visit Diagnoses Not on filedocumented in this encounter Care Teams Records And Tape Recordings Engineer Relationship Specialty Start Date End Date Ayan Perdomo MD [address] [place] [address] PCP - General Internal Medicine 03/20/18 [place] HOGUE 11/06/24 documented as of this encounter
--- OUTSIDE RECORDS SUMMARY | 2024-11-21 11:04 | XMS_ITS | Encounter Summary ---
Author Organization [employer] Address [address] [place] [address] 7 [place] [address] Care Team Providers Care Airbrush Painter Name Role Phone Ayan Perdomo MD Primary Care Provider [phone] Reason for Visit * Reason Comments Med Change Request Encounter Details Date Type Department Care Team (Late Contact Info) Description 02/06/2023 Refill [facility]S [address] [place], [place] [phone] Ayan Perdomo MD [address] [place] [address] Severe obesity (BMI 35.0-35.9 with comorbidity) (CMS/HCC) Social History Tobacco Use Types Packs/Day Years Used Date Smoking Tobacco: Never Passive Smoke Exposure: Never Smokeless Tobacco: Never Alcohol Use Standard Drinks/Week Comments Never 0 (1 standard drink = 0.6 oz pur e alcohol) Comments Unknown Sex and Gender Information Value Date Recorded Sex Assigned at Female 01/17/2022 10:21 AM EDT Legal Sex Female 10:21 AM EDT Gender Identity Female 01/17/2022 10:21 AM EDT Sexual Orientation Straight 01/17/2022 10 :21 AM EDT documented as of this encounter Miscellaneous Notes * Telephone Encounter - Ayan Perdomo MD - 02/06/2023 2:47 PM EST No weight loss medication prescribed while pt is on treatment for his newly diagnosed breast cancer. documented in this encounter Plan of Treatment Upcoming Encounters Date Type Department Care Team (Late st Contact Info) Description 12/10/2024 10:15 AM EDT Office Visit [facility] [address] [place] [address] Ayan Perdomo MD [address] [place] [address] 02/03/2025 2:00 PM EST Telemedicine [facility] [address] [place] [address] Sun Rueda, MATT [address] [place] [address] documented as of this encounter Visit Diagnoses Diagnosis Severe obesity (BMI 35.0-35.9 with comorbidity) (CMS/HCC) documented in this encounter Care Teams Airbrush Painter Relationship Specialty Start Date End Date Ayan Perdomo MD [address] [place] [address] PCP - General Internal Medicine 03/20/18 [place] HOGUE 11/06/24 documented as of this encounter
--- OUTSIDE RECORDS SUMMARY | 2024-11-21 11:04 | XMS_ITS | Encounter Summary ---
Author Organization [employer] Address [address] [facility] 7 [place] [address] Care Team Providers Care Academic Assistant Name Role Phone Ayan Perdomo MD Primary Care Provider [phone] Reason for Visit * Reason Onset Date Comments Med Refill 02/09/2024 Encounter Details Date Type Department Care Team ([facility] st Contact Info) Description 02/09/2024 Telephone [facility] [address] [place] [address] Ayan Perdomo MD [address] [place] [address] Med Refill Social History Tobacco Use Types [...] Miscellaneous Notes * Telephone Encounter - Carrol Atkins - 02/09/2024 11:12 AM EST TC from pt requesting medication refill. Medications needing refill : magnesium oxide 400 MG capsule fluticasone (Flonase) 50 MCG/ACT nasal spray acetaminophen (Tylenol 8 Hour) 650 MG ER tablet To be sent to: [id number] AT [facility] documented in this encounter Plan of Treatment Upcoming Encounters Date Type Department Care Team (Late st Contact Info) Description 12/10/2024 10:15 AM EDT Office Visit [facility] [address] [place] [address] Ayan Perdomo MD [address] [place] [address] 02/03/2025 2:00 PM EST Telemedicine [facility] [address] [place] [address] Sun Rueda RN [address] [place] [address] documented as of this encounter Visit Diagnoses Not on filedocumented in this encounter Additional Health Concerns Assessment Noted Time PHQ-9 Depression Total Score: 1 10/05/19 24 9:57 AM EDT documented as of this encounter Care Teams Academic Assistant Relationship Specialty Start Date End Date Ayan Perdomo MD [address] [place] [phone] PCP - General Internal Medicine 03/20/18 [place] HOGUE 11/06/24 documented as of this encounter
--- OUTSIDE RECORDS SUMMARY | 2024-11-21 11:04 | XMS_ITS | Encounter Summary ---
Author Organization [employer] Address [address] [facility] 7 [place] [address] Care Team Providers Care Dot Compliance Specialist Name Role Phone Ayan Perdomo MD Primary Care Provider [phone] Reason for Visit * Reason Onset Date Comments Med Refill 09/23/2024 Encounter Details Date Type Department Care Team ([facility] st Contact Info) Description 09/23/2024 Telephone [facility] [address] [place] [address] Ayan Perdomo MD [address] [place] [address] Med Refill Social History Tobacco Use Types [...] encounter Miscellaneous Notes * Telephone Encounter - Rylie Malloy LPN - 09/23/2024 1:10 PM EDT Medication pended to provider. * Telephone Encounter - tOoniel Tovar - 09/23/2024 12:57 PM EDT TC from pt requesting medication refill. Medications needing refill : Semaglutide-Weight Management (Wegovy) 1.7 MG/0.75ML solution auto-injector To be sent to: [id number] [place] [address] [address] AT [facility] [place] documented in this encounter Plan of Treatment Upcoming Encounters Date Type Department Care Team ([facility] st Contact Info) Description 12/10/2024 10:15 AM EDT Office Visit [facility] [address] [place] [address] Ayan Perdomo MD [address] [place] [address] 02/03/2025 2:00 PM EST Telemedicine [facility] [address] [place] [address] Sun Rueda RN [address] [place] [address] documented as of this encounter Visit Diagnoses Not on filedocumented in this encounter Additional Health Concerns Assessment Noted Time PHQ-9 Depression Total Score: 1 10/05/19 24 9:57 AM EDT documented as of this encounter Care Teams Dot Compliance Specialist Relationship Specialty Start Date End Date Ayan Perdomo MD [address] [place] [address] PCP - General Internal Medicine 03/20/18 [place] HOGUE 11/06/24 documented as of this encounter
--- OUTSIDE RECORDS SUMMARY | 2024-11-21 11:04 | XMS_ITS | Encounter Summary ---
Author Organization [employer] Address [address] [facility] 7 [place] [address] Care Team Providers Care Insulation Cutter And Former Name Role Phone Ayan Perdomo MD Primary Care Provider [phone] Reason for Visit * Reason Onset Date Comments Med Refill 09/04/2023 Encounter Details Date Type Department Care Team ([facility] st Contact Info) Description 09/04/[address] [facility] MEDICINE [address] [place] [address] Ayan Perdomo MD 505 [place] [address] Med Refill Social History Tobacco Use Types [...] Telephone Encounter - Rylie Malloy LPN - 09/04/2023 11:34 AM EDT Medication not prescribed by PCP. * Telephone Encounter - Mario Dumont - 09/04/2023 11:26 AM EDT TC from pt requesting medication refill. Medications needing refill : hydroCHLOROthiazide (HYDRODiuril) 12.5 MG tablet , To be sent to: [facility]/pharmacy #[id number] [place], [place] - [address] [email or web address] documented in this encounter Plan of Treatment Upcoming Encounters Date Type Department Care Team (Late st Contact Info) Description 12/10/2024 10:15 AM EDT Office Visit [facility] MED & PEDS 505 [place] [address] Ayan Perdomo MD [address] [place] [address] 02/03/2025 2:00 PM EST Telemedicine [facility] MED & PEDS 505 [place] [address] Sun Rueda RN 505 [place] [address] documented as of this encounter Visit Diagnoses Not on filedocumented in this encounter Care Teams Insulation Cutter And Former Relationship Specialty Start Date End Date Ayan Perdomo MD 505 [place] [address] PCP - General Internal Medicine 03/20/18 Bernice HOGUE 11/06/24 documented as of this encounter
--- OUTSIDE RECORDS SUMMARY | 2024-11-21 11:04 | XMS_ITS | Encounter Summary ---
Author Organization [employer] Address 75 [facility] 7 [place] [address] Care Team Providers Care Csm Consultant Name Role Phone Ayan Perdomo MD Primary Care Provider [phone] Reason for Visit * Reason Onset Date Comments Med Refill 11/05/2024 Encounter Details Date Type Department Care Team ([facility] st Contact Info) Description 11/05/2024 Telephone [facility] MEDICINE [address] [place] [address] Ayan Perdomo MD 505 [place] [address] Med Refill Social History Tobacco Use Types [...] encounter Miscellaneous Notes * Telephone Encounter - Otoniel Tovar - 11/05/2024 11:07 AM EDT TC from pt requesting medication refill. Medications needing refill : oxyCODONE (Roxicodone) 5 MG immediate release tablet To be sent to: [facility] #[id number] [place], [place] - [address] [place], [place] [address] documented in this encounter Plan of Treatment Upcoming Encounters Date Type Department Care Team (Late st Contact Info) Description 12/10/2024 10:15 AM EDT Office Visit [facility] MED & PEDS 505 [place] [address] Ayan Perdomo MD 505 [place] [address] 02/03/2025 2:00 PM EST Telemedicine [facility] MED & PEDS 505 [place] [address] Sun Rueda RN 505 [place] [address] documented as of this encounter Visit Diagnoses Not on filedocumented in this encounter Additional Health Concerns Assessment Noted Time PHQ-9 Depression Total Score: 1 10/05/19 24 9:57 AM EDT documented as of this encounter Care Teams Csm Consultant Relationship Specialty Start Date End Date Ayan Perdomo MD [address] [place] [address] PCP - General Internal Medicine 03/20/18 Bernice HOGUE 11/06/24 documented as of this encounter
--- OUTSIDE RECORDS SUMMARY | 2024-11-21 11:04 | XMS_ITS | Encounter Summary ---
Author Organization [employer] Address [address] [facility] 7t [place] [address] Care Team Providers Care Passenger Flagman Name Role Phone Ayan Perdomo MD Primary Care Provider [phone] Reason for Visit * Reason Onset Date Comments Med Refill 09/18/2023 Encounter Details Date Type Department Care Team (Late st Contact Info) Description 09/18/2023 Refill [facility] MEDICINE 230 [place] [address] Ayan Perdomo MD 505 [place] [address] Anxiety Social History Tobacco Use Types Packs/Day Years [...] t he electric, gas, oil or water [employer] threatened to shut off services in your home? No 08/23/2023 Comments Unknown Sex and Gender Information Value Date Recorded Sex Assigned at Female 01/17/2022 10:21 AM EDT Legal Sex Female 10:21 AM EDT Gender Identity Female 01/17/2022 10:21 AM EDT Sexual Orientation Straight 01/17/2022 10 :21 AM EDT documented as of this encounter Miscellaneous Notes * Telephone Encounter - Ayan Perdomo MD - 09/18/2023 2:26 PM EDT Approving, but needs appt for additional refills. * Telephone Encounter - Spencer Enriquez - 09/18/2023 9:26 AM EDT TC from pt requesting medication refill. Medications needing refill: LORazepam (Ativan) 1 MG tablet To be sent to: [email or web address] #[id number] AT [facility] documented in this encounter Plan of Treatment Upcoming Encounters Date Type Department Care Team (Late st Contact Info) Description 12/10/2024 10:15 AM EDT Office Visit [facility] MED & PEDS 505 [place] [address] Ayan Perdomo MD 505 [place] [address] 02/03/2025 2:00 PM EST Telemedicine [facility] MED & PEDS 505 [place] [address] Sun Rueda RN 505 [place] [address] documented as of this encounter Visit Diagnoses Diagnosis Anxiety Anxiety state, unspecified documented in this encounter Care Teams Passenger Flagman Relationship Specialty Start Date End Date Ayan Perdomo MD 505 [place] [address] PCP - General Internal Medicine 03/20/18 Bernice HOGUE 11/06/24 documented as of this encounter
--- OUTSIDE RECORDS SUMMARY | 2024-11-21 11:04 | XMS_ITS | Encounter Summary ---
Author Organization [employer] Address [address] [place] [address] 7 [place] [address] Care Team Providers Care Anode Crew Supervisor Name Role Phone Ayan Perdomo MD Primary Care Provider [phone] Reason for Visit * Reason Onset Date Comments Medication Question 12/02/2022 Encounter Details Date Type Department Care Team ([facility] st Contact Info) Description 12/02/2022 Telephone [facility] PEDS [address] [place], [place] [phone] Ayan Perdomo MD 505 [place] [address] Medication Question Social History Tobacco Use Types [...] encounter Miscellaneous Notes * Telephone Encounter - Christi Ramos RN - 12/05/2022 12:01 PM EDT Reviewed [facility] last Rx there was 09/08/21 for Prozac 20mg 2 tabs in the AM. Call to Pharmacy, states prior to last rx from 10/18, pt had received Rx for Prozac 20mg 2 tabs in the morning by Dr. Ayan Perdomo. Will send to PCP to reivew and advise if new Rx Prozac 20mg 2 tabs in the AM to be generated and sent to preferred pharmacy. Called pt to updated on above, verbalized understanding. During call pt also requesting that PCP send in correct amoxicillin Rx . Per pt is supposed to takeamoxicillin 500mg 4 tabs 1 hour prior to any dental procedure. Not 2 tabs as last Rx was sent. * Telephone Encounter - Carlosanudomitilarichard Gavin Dodd - 12/02/2022 1:05 PM EDT Tc from pt stating that something is wrong with her script of FLUoxetine (PROzac) 20 MG capsule pt states that as long as she remember she is been taking two tabs a day and [facility] is stating she is supposed to be taking 1 a day. Pt is requesting some Clarification. Please contact pt at [phone] documented in this encounter Plan of Treatment Upcoming Encounters Date Type Department Care Team (Late st Contact Info) Description 12/10/2024 10:15 AM EDT Office Visit [facility] MED & PEDS [address] [place] [address] Ayan Perdomo MD 505 [place] [address] 02/03/2025 2:00 PM EST Telemedicine [facility] MED & PEDS [address] [place] [address] Sun Rueda RN 505 [place] [address] documented as of this encounter Visit Diagnoses Diagnosis Anxiety- Primary Anxiety state, unspecified Other depression documented in this encounter Care Teams Anode Crew Supervisor Relationship Specialty Start Date End Date Ayan Perdomo MD 505 [place] [address] PCP - General Internal Medicine 03/20/18 Bernice HOGUE 11/06/24 documented as of this encounter
--- OUTSIDE RECORDS SUMMARY | 2024-11-21 11:04 | XMS_ITS | Encounter Summary ---
Author Organization [employer] Address [address] [facility] 7 [place] [address] Care Team Providers Care Skein Tier Name Role Phone Ayan Perdomo MD Primary Care Provider [phone] Reason for Visit * Reason Onset Date Comments Call Back Request 09/18/2023 Encounter Details Date Type Department Care Team ([facility] st Contact Info) Description 09/18/2023 Telephone [facility] MEDICINE [address] [place] [address] Ayan Perdomo MD [address] [place] [address] Call Back Request Social History Tobacco Use Types Packs/Day [...] encounter Miscellaneous Notes * Telephone Encounter - Spencer Enriquez - 09/18/2023 9:30 AM EDT Tc from pt is requesting a call back and or to schedule a telephone visit with pcp to discuss Tirzepatide (Mounjaro) 2.5 MG/0.5ML solution pen-injector. Pt stated PA was denied and she is unsure why.Pt also stated pcp agreed to schedule telephone visit for pt if needed. Please contact pt at [phone]. documented in this encounter Plan of Treatment Upcoming Encounters Date Type Department Care Team (Late st Contact Info) Description 12/10/2024 10:15 AM EDT Office Visit [facility] MED & PEDS [address] [place] [address] Ayan Perdomo MD 505 [place] [address] 02/03/2025 2:00 PM EST Telemedicine [facility] MED & PEDS [address] [place] [address] Sun Rueda RN 505 [place] [address] documented as of this encounter Visit Diagnoses Not on filedocumented in this encounter Care Teams Skein Tier Relationship Specialty Start Date End Date Ayan Perdomo MD 505 [place] [address] PCP - General Internal Medicine 03/20/18 Bernice HOGUE 11/06/24 documented as of this encounter
--- OUTSIDE RECORDS SUMMARY | 2024-11-21 11:04 | XMS_ITS | Encounter Summary ---
Author Organization [employer] Address [address] [facility] 7t [place] [address] Care Team Providers Care Rotary Drum Dyer Name Role Phone Ayan Perdomo MD Primary Care Provider [phone] Reason for Visit * Reason Onset Date Comments Medication Question 07/25/2024 Encounter Details Date Type Department Care Team ([facility] st Contact Info) Description 07/25/2024 Telephone [facility] MEDICINE 230 [place] [address] Ayan Perdomo MD 505 [place] [address] Medication Question Social History Tobacco Use Types [...] Telephone Encounter - Rylie Malloy LPN - 07/25/2024 10:13 AM EDT Next dose pended please review. Last seen 04/17/24. * Telephone Encounter - Otoniel Tovar - 07/25/2024 10:08 AM EDT Tc from pt requesting dosage increase of Semaglutide-Weight Management (Wegovy) 1 MG/0.5ML solutionauto-injector documented in this encounter Plan of Treatment Upcoming Encounters Date Type Department Care Team (Late st Contact Info) Description 12/10/2024 10:15 AM EDT Office Visit [facility] MED & PEDS [address] [place] [address] Ayan Perdomo MD 505 [place] [address] 02/03/2025 2:00 PM EST Telemedicine [facility] MED & PEDS [address] [place] [address] Sun Rueda RN 505 [place] [address] documented as of this encounter Visit Diagnoses Not on filedocumented in this encounter Additional Health Concerns Assessment Noted Time PHQ-9 Depression Total Score: 1 10/05/19 24 9:57 AM EDT documented as of this encounter Care Teams Rotary Drum Dyer Relationship Specialty Start Date End Date Ayan Perdomo MD 505 [place] [address] PCP - General Internal Medicine 03/20/18 Bernice HOGUE 11/06/24 documented as of this encounter
--- OUTSIDE RECORDS SUMMARY | 2024-11-21 11:04 | XMS_ITS | Encounter Summary ---
Author Organization [employer] Address [address] [place] [address] [place] [address] Care Team Providers Care Missileman Name Role Phone Ayan Perdomo MD Primary Care Provider [phone] Reason for Visit * Reason Onset Date Comments Medication Request 02/28/2023 Encounter Details Date Type Department Care Team (Late Contact Info) Description 02/28/2023 Telephone [facility] MED & PEDS [address] [place] [address] Ayan Perdomo MD 505 [place] [address] Medication Request Social History Tobacco Use Types Packs/Day [...] * Telephone Encounter - Spencer Enriquez - 02/28/2023 9:20 AM EST Tc from pt stating medication acetaminophen (Tylenol 8 Hour) 650 MG ER is out of stock. Pt is requesting alternative. If any questions please contact pt at [phone] documented in this encounter Plan of Treatment Upcoming Encounters Date Type Department Care Team (Late st Contact Info) Description 12/10/2024 10:15 AM EDT Office Visit [facility] MED & PEDS [address] [place] [address] Ayan Perdomo MD [address] [place] [address] 02/03/2025 2:00 PM EST Telemedicine [facility] MED & PEDS [address] [place] [address] Sun Rueda, MATT 505 [place] [address] documented as of this encounter Visit Diagnoses Not on filedocumented in this encounter Care Teams Missileman Relationship Specialty Start Date End Date Ayan Perdomo MD 505 [place] [address] PCP - General Internal Medicine 03/20/18 Bernice HOGUE 11/06/24 documented as of this encounter
--- OUTSIDE RECORDS SUMMARY | 2024-11-21 11:04 | XMS_ITS | Encounter Summary ---
Author Organization [employer] Address [address] [place] [address] 7t [place] [address] Care Team Providers Care Western Tack Assembly Line Worker Name Role Phone Ayan Perdomo MD Primary Care Provider [phone] Encounter Details Date Type Department Care Team ([facility] Contact Info) Description 10/26/2022 Orders Only [facility] MED & PEDS [address] [place] [address] Ayan Perdomo MD [address] [place] [address] Frequency of micturition (Primary Dx); Anxiety Social History Tobacco Use Types Packs/Day [...] Orientation Straight 01/17/2022 10 :21 AM EDT COVID-19 Exposure Response Date Recorded In the last 10 days, have yo u been in contact with someone who was confirmed or suspected to have Coronavirus/COVID-19? No / Unsure 09/28/2022 9:49 AM EDT documented as of this encounter Plan of Treatment Upcoming Encounters Date Type Department Care Team (Late Contact Info) Description 12/10/2024 10:15 AM EDT Office Visit [facility] MED & PEDS [address] [place] [address] Ayan Perdomo MD [address] [place] [address] 02/03/2025 2:00 PM EST Telemedicine [facility] MED & PEDS [address] [place] [address] Sun Rueda, RN 505 [place], [place] [id number] Scheduled Orders Name Type Priority Associated Diagnoses Orde r Schedule Urinalysis Complete Lab Routine Frequency of micturition Expected: 10/31/2022 (Approximate), Expires: 11/01/2023 documented as of this encounter Visit Diagnoses Diagnosis Frequency of micturition- Primary Urinary frequency Anxiety Anxiety state, unspecified documented in this encounter Care Teams Western Tack Assembly Line Worker Relationship Specialty Start Date End Date Ayan Perdomo MD [address] [place] [address] PCP - General Internal Medicine 03/20/18 Bernice HOGUE 11/06/24 documented as of this encounter
--- OUTSIDE RECORDS SUMMARY | 2024-11-21 11:04 | XMS_ITS | Encounter Summary ---
Author Organization [employer] Address [address] [facility] 7t [place] [address] Care Team Providers Care Unleavened Dough Mixer Name Role Phone Ayan Perdomo MD Primary Care Provider [phone] Encounter Details Date Type Department Care Team ([facility] st Contact Info) Description 09/14/2023 Telephone [facility] MED & PEDS [address] [place], [place] [phone] Ayan Perdomo MD [address] [place], [place] [phone] Social History Tobacco Use Types Packs/Day Years [...] encounter Miscellaneous Notes * Telephone Encounter - Wing Beatriz RN - 09/14/2023 12:48 PM EDT Please advise, tc to pt's pharmacy and spoke to Madi. Stated a prior authorization was needed for the Tirzepatide written on 08/30 and they will fax over a new request for the authorization to nurse station. Madi stated they still have the script for the medication and just need prior authorization. * Telephone Encounter - Carrol Atkins - 09/14/2023 12:05 PM EDT Tc from pt calling to inform medication Tirzepatide (Mounjaro) 2.5 MG/0.5ML solution pen-injector denied . Pt would like to know what would be the next step. documented in this encounter Plan of Treatment Upcoming Encounters Date Type Department Care Team (Late st Contact Info) Description 12/10/2024 10:15 AM EDT Office Visit [facility] MED & PEDS [address] [place] [address] Ayan Perdomo MD [address] [place] [address] 02/03/2025 2:00 PM EST Telemedicine [facility] MED & PEDS [address] [place] [address] Sun Rueda RN 505 [place] [address] documented as of this encounter Visit Diagnoses Not on filedocumented in this encounter Care Teams Unleavened Dough Mixer Relationship Specialty Start Date End Date Ayan Perdomo MD [address] [place] [address] PCP - General Internal Medicine 03/20/18 Bernice HOGUE 11/06/24 documented as of this encounter
--- OUTSIDE RECORDS SUMMARY | 2024-11-21 11:04 | XMS_ITS | Encounter Summary ---
Author Organization [employer] Address [address] [place] [address] 7 [place] [address] Care Team Providers Care Wad Impregnator Name Role Phone Ayan Perdomo MD Primary Care Provider [phone] Reason for Visit * Reason Comments Med Refill Encounter Details Date Type Department Care Team (Late Contact Info) Description 10/30/2022 Refill [facility] MED & PEDS [address] [place] [address] César Davenoprt MD [address] [place] [address] Social History Tobacco Use Types Packs/Day Years [...] Description 12/10/2024 10:15 AM EDT Office Visit [facility] MED & PEDS [address] [place] [address] Ayan Perdomo MD [address] [place] [address] 02/03/2025 2:00 PM EST Telemedicine [facility] MED & PEDS [address] [place] [address] Sun Rueda RN 505 [place] [address] documented as of this encounter Visit Diagnoses Not on filedocumented in this encounter Care Teams Wad Impregnator Relationship Specialty Start Date End Date Ayan Perdomo MD [address] [place] [address] PCP - General Internal Medicine 03/20/18 Bernice HOGUE 11/06/24 documented as of this encounter
--- OUTSIDE RECORDS SUMMARY | 2024-11-21 11:04 | XMS_ITS | Encounter Summary ---
Author Organization [employer] Address [address] [place] [address] 7 [place] [address] Care Team Providers Care Yard Motor Operator Name Role Phone Ayan Perdomo MD Primary Care Provider [phone] Reason for Visit * Reason Comments Med Refill Encounter Details Date Type Department Care Team (Late Contact Info) Description 07/02/2023 Refill [facility] MED & PEDS [address] [place] [address] Ayan Perdomo MD [address] [place] [address] Severe obesity (BMI 35.0-35.9 with comorbidity) (CMS/HCC) [...] Description 12/10/2024 10:15 AM EDT Office Visit [facility] MED & PEDS [address] [place] [address] Ayan Perdomo MD [address] [place] [address] 02/03/2025 2:00 PM EST Telemedicine [facility] MED & PEDS [address] [place] [address] Sun Rueda, RN 505 [place], [place] [address] documented as of this encounter Visit Diagnoses Diagnosis Severe obesity (BMI 35.0-35.9 with comorbidity) (CMS/HCC) documented in this encounter Care Teams Yard Motor Operator Relationship Specialty Start Date End Date Ayan Perdomo MD [address] [place] [address] PCP - General Internal Medicine 03/20/18 Bernice HOGUE 11/06/24 documented as of this encounter
--- OUTSIDE RECORDS SUMMARY | 2024-11-21 11:04 | XMS_ITS | Encounter Summary ---
Author Organization [employer] Address 75 [facility] 7 [place] [address] Care Team Providers Care Card Maker Name Role Phone Ayan Perdomo MD Primary Care Provider [phone] Reason for Visit * Reason Onset Date Comments Med Refill 06/11/2024 Encounter Details Date Type Department Care Team ([facility] st Contact Info) Description 06/11/2024 Telephone [facility] MEDICINE [address] [place] [address] Ayan Perdomo MD [address] [place] [address] Med Refill Social History Tobacco Use Types [...] encounter Miscellaneous Notes * Telephone Encounter - Maylin Meza LPN - 06/11/2024 10:37 AM EDT Please review pt request below and advise. Tc from pt requesting new medication script to be sent to pharmacy as she thinks provider needs to increase dose as been in the same dose of Semaglutide-Weight Management (Wegovy) 0.5 MG/0.5ML solution auto-injector.. * Telephone Encounter - Alejandra Alonso - 06/11/2024 9:39 AM EDT Tc from pt requesting new medication script to be sent to pharmacy as she thinks provider needs to increase dose as been in the same dose of Semaglutide-Weight Management (Wegovy) 0.5 MG/0.5ML solution auto-injector.. documented in this encounter Plan of Treatment Upcoming Encounters Date Type Department Care Team (Late st Contact Info) Description 12/10/2024 10:15 AM EDT Office Visit [facility] MED & PEDS [address] [place] [address] Ayan Perdomo MD 505 [place] [address] 02/03/2025 2:00 PM EST Telemedicine [facility] MED & PEDS [address] [place] [address] Sun Rueda, MATT [address] [place] [address] documented as of this encounter Visit Diagnoses Not on filedocumented in this encounter Additional Health Concerns Assessment Noted Time PHQ-9 Depression Total Score: 1 10/05/19 24 9:57 AM EDT documented as of this encounter Care Teams Card Maker Relationship Specialty Start Date End Date Ayan Perdomo MD 505 [place] [address] PCP - General Internal Medicine 03/20/18 Bernice HOGUE 11/06/24 documented as of this encounter
--- OUTSIDE RECORDS SUMMARY | 2024-11-21 11:04 | XMS_ITS | Encounter Summary ---
Author Organization [employer] Address [address] [place] [address] 7 [place] [address] Care Team Providers Care Group Marketing Vp Name Role Phone Ayan Perdomo MD Primary Care Provider [phone] Reason for Visit * Reason Comments Med Refill Encounter Details Date Type Department Care Team (Late Contact Info) Description 02/23/2023 Refill [facility] MED & PEDS [address] [place], [place] [phone] Ayan Perdomo MD 505 [place] [address] Severe obesity (BMI 35.0-35.9 with comorbidity) (CMS/HCC) [...] Telephone Encounter - Ayan Perdomo MD - 02/23/2023 9:20 AM EST Medication on hold as pt is being treated for Breast cancer. documented in this encounter Plan of Treatment Upcoming Encounters Date Type Department Care Team (Late Contact Info) Description 12/10/2024 10:15 AM EDT Office Visit [facility] MED & PEDS [address] [place] [address] Ayan Perdomo MD [address] [place] [address] 02/03/2025 2:00 PM EST Telemedicine [facility] MED & PEDS 505 [place] [address] Sun Rueda, MATT [address] [place] [address] documented as of this encounter Visit Diagnoses Diagnosis Severe obesity (BMI 35.0-35.9 with comorbidity) (CMS/HCC) documented in this encounter Care Teams Group Marketing Vp Relationship Specialty Start Date End Date Ayan Perdomo MD 505 [place] [address] PCP - General Internal Medicine 03/20/18 Bernice HOGUE 11/06/24 documented as of this encounter
--- OUTSIDE RECORDS SUMMARY | 2024-11-21 11:04 | XMS_ITS | Encounter Summary ---
Author Organization [employer] Address [address] [facility] 7 [place] [address] Care Team Providers Care Java Software Name Role Phone Ayan Perdomo MD Primary Care Provider [phone] Reason for Visit * Reason Onset Date Comments Med Refill 01/18/2024 Encounter Details Date Type Department Care Team ([facility] st Contact Info) Description 01/18/2024 Telephone [facility] MEDICINE [address] [place] [address] Ayan Perdomo MD 505 [place] [address] Med Refill Social History Tobacco Use Types [...] * Telephone Encounter - Spencer Enriquez - 01/18/2024 9:23 AM EDT TC from pt requesting medication refill. Medications needing refill: oxyCODONE (Roxicodone) 5 MG immediate release tablet To be sent to: [id number] AT [facility] documented in this encounter Plan of Treatment Upcoming Encounters Date Type Department Care Team (Late st Contact Info) Description 12/10/2024 10:15 AM EDT Office Visit [facility] MED & PEDS [address] [place] [address] Ayan Perdomo MD 505 [place] [address] 02/03/2025 2:00 PM EST Telemedicine [facility] [address] [place] [address] Sun Rueda RN 505 [place] [address] documented as of this encounter Visit Diagnoses Not on filedocumented in this encounter Additional Health Concerns Assessment Noted Time PHQ-9 Depression Total Score: 1 10/05/19 24 9:57 AM EDT documented as of this encounter Care Teams Java Software Relationship Specialty Start Date End Date Ayan Perdomo MD [address] [place] [address] PCP - General Internal Medicine 03/20/18 Bernice HOGUE 11/06/24 documented as of this encounter
--- OUTSIDE RECORDS SUMMARY | 2024-11-21 11:04 | XMS_ITS | Encounter Summary ---
Author Organization [employer] Address [address] [place] [address] 7 [place] [address] Care Team Providers Care Corporate Quality Assurance Manager Name Role Phone Ayan Perdomo MD Primary Care Provider [phone] Reason for Visit * Reason Comments Med Refill Encounter Details Date Type Department Care Team (Late Contact Info) Description 08/11/2023 Refill [facility] MED & PEDS [address] [place] [address] Ayan Perdomo MD 505 [place] [address] Social History Tobacco Use Types Packs/Day Years [...] Upcoming Encounters Date Type Department Care Team ([facility] Contact Info) Description 12/10/2024 10:15 AM EDT Office Visit [facility] MED & PEDS [address] [place] [address] Ayan Perdomo MD 505 [place] [address] 02/03/2025 2:00 PM EST Telemedicine [facility] MED [facility] PEDS [address] [place] [address] Sun Rueda RN 505 [place] [address] documented as of this encounter Visit Diagnoses Not on filedocumented in this encounter Care Teams Corporate Quality Assurance Manager Relationship Specialty Start Date End Date Ayan Perdomo MD 505 [place] [address] PCP - General Internal Medicine 03/20/18 Bernice HOGUE 11/06/24 documented as of this encounter
--- OUTSIDE RECORDS SUMMARY | 2024-11-21 11:04 | XMS_ITS | Encounter Summary ---
Author Organization [employer] Address [address] [place] [address] [place] [address] Care Team Providers Care Rack Pusher Name Role Phone Ayan Perdomo MD Primary Care Provider [phone] Reason for Visit * Reason Onset Date Comments Med Refill 09/01/2022 Encounter Details Date Type Department Care Team ([facility] st Contact Info) Description 09/01/2022 Telephone [facility] MED & PEDS [address] [place], [place] [phone] Ayan Perdomo MD 505 [place] [address] Med Refill Social History Tobacco Use Types Packs/Day Years Used Date Smoking Tobacco: Never Smokeless Tobacco: Never Alcohol Use Standard [...] suspected to have Coronavirus/COVID-19? No / Unsure 08/22/2022 9:37 AM EDT documented as of this encounter Miscellaneous Notes * Telephone Encounter - Gema Dodd - 09/01/2022 10:14 AM EDT Tc from pt requesting med refill on oxyCODONE (Roxicodone) 5 MG immediate release tablet Please sent to [id number] - [place], [place] - [address] AT [address] Patient she spoke with you in regards to pharmacy not having medication... documented in this encounter Plan of Treatment Upcoming Encounters Date Type Department Care Team (Late st Contact Info) Description 12/10/2024 10:15 AM EDT Office Visit [facility] MED & PEDS 505 [place] [address] Ayan Perdomo MD 505 [place] [address] 02/03/2025 2:00 PM EST Telemedicine [facility] MED & PEDS 505 [place] [address] Sun Rueda RN 505 [place], [place] [phone] documented as of this encounter Visit Diagnoses Not on filedocumented in this encounter Care Teams Rack Pusher Relationship Specialty Start Date End Date Ayan Perdomo MD 505 [place] [address] PCP - General Internal Medicine 03/20/18 Bernice HOGUE 11/06/24 documented as of this encounter
--- OUTSIDE RECORDS SUMMARY | 2024-11-21 11:04 | XMS_ITS | Encounter Summary ---
Author Organization [employer] Address 75 [facility] 7 [place] [address] Care Team Providers Care Home Delivery Driver Name Role Phone Ayan Perdomo MD Primary Care Provider [phone] Reason for Visit * Reason Onset Date Comments Med Refill 07/25/2024 Encounter Details Date Type Department Care Team ([facility] st Contact Info) Description 07/25/2024 Telephone [facility] MEDICINE [address] [place] [address] Ayan Perdomo MD 505 [place] [address] Med Refill Social History Tobacco Use Types [...] Telephone Encounter - Otoniel Tovar - 07/25/2024 10:06 AM EDT TC from pt requesting medication refill. Medications needing refill : oxyCODONE (Roxicodone) 5 MG immediate release tablet To be sent to: [id number] [place], [place] - [address] AT [facility] documented in this encounter Plan of Treatment Upcoming Encounters Date Type Department Care Team (Late st Contact Info) Description 12/10/2024 10:15 AM EDT Office Visit [facility] MED & PEDS 505 [place] [address] Ayan Perdomo MD 505 [place] [address] 02/03/2025 2:00 PM EST Telemedicine [facility] MED & PEDS 505 [place] [address] Sun Rueda RN 505 [place] [address] documented as of this encounter Visit Diagnoses Not on filedocumented in this encounter Additional Health Concerns Assessment Noted Time PHQ-9 Depression Total Score: 1 10/05/19 24 9:57 AM EDT documented as of this encounter Care Teams Home Delivery Driver Relationship Specialty Start Date End Date Ayan Perdomo MD [address] [place] [address] PCP - General Internal Medicine 03/20/18 Bernice HOGUE 11/06/24 documented as of this encounter
--- OUTSIDE RECORDS SUMMARY | 2024-11-21 11:04 | XMS_ITS | Encounter Summary ---
Author Organization [employer] Address [address] [place] [address] 7 [place] [address] Care Team Providers Care Dye Operator Name Role Phone Ayan Perdomo MD Primary Care Provider [phone] Encounter Details Date Type Department Care Team ([facility] Contact Info) Description 02/28/2023 Orders Only [facility] MED & PEDS 505 [place] [address] Ayan Perdomo MD 505 [place] [address] Chronic pain syndrome (Primary Dx) Social History Tobacco Use Types [...] 10:15 AM EDT Office Visit [facility]ED[facility] 505 [place] [address] Ayan Perdomo MD 505 [place] [address] 02/03/2025 2:00 PM EST Telemedicine [facility] MED [facility] 505 [place] [address] Sun Rueda, MATT 505 [place] [address] documented as of this encounter Visit Diagnoses Diagnosis Chronic pain syndrome- Primary documented in this encounter Care Teams Dye Operator Relationship Specialty Start Date End Date Ayan Perdomo MD 505 [place] [address] PCP - General Internal Medicine 03/20/18 Bernice HOGUE 11/06/24 documented as of this encounter
--- OUTSIDE RECORDS SUMMARY | 2024-11-21 11:04 | XMS_ITS | Encounter Summary ---
Author Organization [employer] Address 75 [facility] 7t [place] [address] Care Team Providers Care Commercial Director Name Role Phone Ayan Perdomo MD Primary Care Provider [phone] Reason for Visit * Reason Comments Med Refill Encounter Details Date Type Department Care Team ([facility] st Contact Info) Description 10/12/2024 Refill [facility] MED & PEDS 505 [place], [place] [phone] Ayan Perdomo MD 505 [place] [address] Severe obesity (CMS/HCC) Social History Tobacco Use Types Packs/Day [...] Description 12/10/2024 10:15 AM EDT Office Visit [facility] MED & PEDS 505 [place] [address] Ayan Perdomo MD 505 [place] [address] 02/03/2025 2:00 PM EST Telemedicine [facility] MED & PEDS 505 [place] [address] Sun Rueda, MATT 505 [place] [address] documented as of this encounter Visit Diagnoses Diagnosis Severe obesity (CMS/HCC) Morbid obesity documented in this encounter Additional Health Concerns Assessment Noted Time PHQ-9 Depression Total Score: 1 10/05/19 24 9:57 AM EDT documented as of this encounter Care Teams Commercial Director Relationship Specialty Start Date End Date Ayan Perdomo MD 505 [place] [address] PCP - General Internal Medicine 03/20/18 Bernice HOGUE 11/06/24 documented as of this encounter
--- OUTSIDE RECORDS SUMMARY | 2024-11-21 11:04 | XMS_ITS | Encounter Summary ---
Author Organization [employer] Address 75 [facility] 7t [place] [address] Care Team Providers Care Quality Lead Name Role Phone Ayan Perdomo MD Primary Care Provider [phone] Encounter Details Date Type Department Care Team ([facility] st Contact Info) Description 07/25/2024 Orders Only [facility] MED & PEDS [address] [place], [place] [phone] Ayan Perdomo MD 505 [place], [place] [phone] Severe obesity (CMS/HCC) (Primary Dx) Social History [...] [facility] 505 [place] [address] Ayan Perdomo MD 505 [place] [address] 02/03/2025 2:00 PM EST Telemedicine [facility] PEDS 505 [place] [address] Sun Rueda RN 505 [place] [address] documented as of this encounter Visit Diagnoses Diagnosis Severe obesity (CMS/HCC)- Primary Morbid obesity documented in this encounter Additional Health Concerns Assessment Noted Time PHQ-9 Depression Total Score: 1 10/05/19 24 9:57 AM EDT documented as of this encounter Care Teams Quality Lead Relationship Specialty Start Date End Date Ayan Perdomo MD 505 [place] [address] PCP - General Internal Medicine 03/20/18 Bernice HOGUE 11/06/24 documented as of this encounter
--- OUTSIDE RECORDS SUMMARY | 2024-11-21 11:04 | XMS_ITS | Encounter Summary ---
Author Organization [employer] Address [address] [place] [address] [place] [address] Care Team Providers Care Pleater Hand Name Role Phone Ayan Perdomo MD Primary Care Provider [phone] Reason for Visit * Reason Onset Date Comments Medication 10/25/2022 Encounter Details Date Type Department Care Team ([facility] st Contact Info) Description 10/25/2022 Telephone [facility] MED & PEDS [address] [place], [place] [phone] Ayan Perdomo MD 505 [place] [address] Medication Social History Tobacco Use Types Packs/Day Years [...] encounter Miscellaneous Notes * Telephone Encounter - Nataly Pollack - 10/26/2022 9:17 AM EDT Tc from pt calling in regards to status on LORazepam (Ativan) 1 MG tablet * Telephone Encounter - Janet De Los Santos - 10/25/2022 3:11 PM EDT Tc from patient requesting a new script for medication lorazepam 1 mg to be sent to [id number] - [place], [place] - [address] AT [facility] due to current pharmacy being out of stock. Patient is currently without medication. PCP Dr. Perdomo documented in this encounter Plan of Treatment Upcoming Encounters Date Type Department Care Team (Late st Contact Info) Description 12/10/2024 10:15 AM EDT Office Visit [facility] MED & PEDS [address] [place] [address] Ayan Perdomo MD 505 [place] [address] 02/03/2025 2:00 PM EST Telemedicine [facility] MED & PEDS [address] [place] [address] Sun Rueda, RN 505 [place] [address] documented as of this encounter Visit Diagnoses Diagnosis Anxiety Anxiety state, unspecified documented in this encounter Care Teams Pleater Hand Relationship Specialty Start Date End Date Ayan Perdomo MD 505 [place] [address] PCP - General Internal Medicine 03/20/18 Bernice HOGUE 11/06/24 documented as of this encounter
--- OUTSIDE RECORDS SUMMARY | 2024-11-21 11:04 | XMS_ITS | Encounter Summary ---
Author Organization [employer] Address [address] [place] [address] 7 [place] [address] Care Team Providers Care Cement And Concrete Plant Worker Name Role Phone Ayan Perdomo MD Primary Care Provider [phone] Reason for Visit * Reason Comments Med Refill Encounter Details Date Type Department Care Team ([facility] Contact Info) Description 10/15/[address] [facility] MED & PEDS 505 [place] [address] Ayan Perdomo MD 505 [place] [address] Other depression Social History Tobacco Use Types Packs/Day Years [...] Upcoming Encounters Date Type Department Care Team ([facility] Contact Info) Description 12/10/2024 10:15 AM EDT Office Visit [facility] MED & PEDS 505 [place] [address] Ayan Perdomo MD 505 [place] [address] 02/03/2025 2:[address] [facility] MED & PEDS 505 [place], [place] [phone] Sun Rueda, MATT 505 [place], [place] [phone] documented as of this encounter Visit Diagnoses Diagnosis Other depression documented in this encounter Care Teams Cement And Concrete Plant Worker Relationship Specialty Start Date End Date Ayan Perdomo MD 505 [place] [address] PCP - General Internal Medicine 03/20/18 Bernice HOGUE 11/06/24 documented as of this encounter
--- OUTSIDE RECORDS SUMMARY | 2024-11-21 11:04 | XMS_ITS | Encounter Summary ---
Author Organization [employer] Address [address] [place] [address] Care Team Providers Care Cyber Defense Incident Responder Name Role Phone Ayan Perdomo MD Primary Care Provider [phone] Reason for Visit * Reason Onset Date Comments Med Refill 01/25/2023 Encounter Details Date Type Department Care Team (Late st Contact Info) Description 01/25/2023 Refill [facility] MEDICINE [address] [place] [address] Ayan Perdomo MD [address] [place] [address] H/O bariatric surgery; Severe obesity (BMI 35.0-35.9 with comorbidity) (CMS/HCC) [...] * Telephone Encounter - Lilia Rand - 01/25/2023 10:29 AM EST Tc from pt requesting med refill on; ascorbic acid (Vitamin C) 500 MG tablet Calcium 600+D3 600-20 MG-MCG tablet magnesium oxide 400 MG capsule,cetirizine (ZyrTEC) 10 MG tablet, Eliquis 5 MG tablet,exenatide ER (Bydureon BCise) 2 MG/0.85ML pen documented in this encounter Plan of Treatment Upcoming Encounters Date Type Department Care Team (Late st Contact Info) Description 12/10/2024 10:15 AM EDT Office Visit [facility] MED & PEDS 505 [place] [address] Ayan Perdomo MD 505 [place] [address] 02/03/2025 2:00 PM EST Telemedicine [facility] MED & PEDS 505 [place] [address] Sun Rueda RN 505 [place], [place] [phone] documented as of this encounter Visit Diagnoses Diagnosis H/O bariatric surgery Severe obesity (BMI 35.0-35.9 with comorbidity) (CMS/HCC) documented in this encounter Care Teams Cyber Defense Incident Responder Relationship Specialty Start Date End Date Ayan Perdomo MD 505 [place] [address] PCP - General Internal Medicine 03/20/18 Bernice HOGUE 11/06/24 documented as of this encounter
--- OUTSIDE RECORDS SUMMARY | 2024-11-21 11:04 | XMS_ITS | Encounter Summary ---
Author Organization [employer] Address [address] [place] [address] 7 [place] [address] Care Team Providers Care Dairy Farm Supervisor Name Role Phone Ayan Perdomo MD Primary Care Provider [phone] Reason for Visit * Reason Comments Med Refill Encounter Details Date Type Department Care Team (Late Contact Info) Description 11/03/2022 Refill [facility] MED & PEDS 505 [place] [address] Ayan Perdomo MD [address] [place] [address] Essential hypertension Social History Tobacco Use Types Packs/Day Years [...] Description 12/10/2024 10:15 AM EDT Office Visit [facility] MED & PEDS 505 [place] [address] Ayan Perdomo MD 505 [place] [address] 02/03/2025 2:00 PM EST Telemedicine [facility] MED & PEDS [address] [place] [address] Sun Rueda, RN 505 [place] [address] documented as of this encounter Visit Diagnoses Diagnosis Essential hypertension Unspecified essential hypertension documented in this encounter Care Teams Dairy Farm Supervisor Relationship Specialty Start Date End Date Ayan Perdomo MD 505 [place] [address] PCP - General Internal Medicine 03/20/18 Bernice HOGUE 11/06/24 documented as of this encounter
--- OUTSIDE RECORDS SUMMARY | 2024-11-21 11:04 | XMS_ITS | Encounter Summary ---
Author Organization [employer] Address 75 [facility] 7 [place] [address] Care Team Providers Care Photographic Colorist Name Role Phone Ayan Perdomo MD Primary Care Provider [phone] Reason for Visit * Reason Onset Date Comments Med Refill 08/13/2024 Encounter Details Date Type Department Care Team ([facility] st Contact Info) Description 08/13/2024 Telephone [facility] MEDICINE [address] [place] [address] Ayan Perdomo MD [address] [place] [address] Med Refill Social History Tobacco Use Types [...] * Telephone Encounter - Trice Macias - 08/13/2024 3:48 PM EDT TC from pt requesting medication refill. Medications needing refill : LORazepam (Ativan) 1 MG tablet oxyCODONE (Roxicodone) 5 MG immediate release tablet To be sent to: [facility] [address]. [id number] [place], [place] - [facility] permanently closed. documented in this encounter Plan of Treatment Upcoming Encounters Date Type Department Care Team ([facility] st Contact Info) Description 12/10/2024 10:15 AM EDT Office Visit [facility] MED & PEDS 505 [place] [address] Ayan Perdomo MD 505 [place] [address] 02/03/2025 2:00 PM EST Telemedicine [facility] MED & PEDS 505 [place] [address] Sun Rueda, MATT 505 [place] [address] documented as of this encounter Visit Diagnoses Not on filedocumented in this encounter Additional Health Concerns Assessment Noted Time PHQ-9 Depression Total Score: 1 10/05/19 24 9:57 AM EDT documented as of this encounter Care Teams Photographic Colorist Relationship Specialty Start Date End Date Ayan Perdomo MD 505 [place] [address] PCP - General Internal Medicine 03/20/18 Bernice HOGUE 11/06/24 documented as of this encounter
--- OUTSIDE RECORDS SUMMARY | 2024-11-21 11:04 | XMS_ITS | Encounter Summary ---
Author Organization [employer] Address [address] [place] [address] 7 [place] [address] Care Team Providers Care Olive Grower Name Role Phone Ayan Perdomo MD Primary Care Provider [phone] Reason for Visit * Reason Comments Med Refill Encounter Details Date Type Department Care Team (Late Contact Info) Description 01/12/2023 Refill [facility] MED & PEDS [address] [place], [place] [phone] Ayan Perdomo MD 505 [place] [address] Severe obesity (BMI 35.0-35.9 with comorbidity) (CMS/HCC) [...] Telephone Encounter - Ayan Perdomo MD - 01/13/2023 11:42 AM EDT We will hold off Medication for weight loss during the treatment for her breast cancer. documented in this encounter Plan of Treatment Upcoming Encounters Date Type Department Care Team (Late st Contact Info) Description 12/10/2024 10:15 AM EDT Office Visit [facility] MED & PEDS [address] [place] [address] Ayan Perdmoo MD 505 [place] [address] 02/03/2025 2:00 PM EST Telemedicine [facility] MED [facility] PEDS [address] [place] [address] Sun Rueda, MATT 505 [place] [address] documented as of this encounter Visit Diagnoses Diagnosis Severe obesity (BMI 35.0-35.9 with comorbidity) (CMS/HCC) documented in this encounter Care Teams Olive Grower Relationship Specialty Start Date End Date Ayan Perdomo MD 505 [place] [address] PCP - General Internal Medicine 03/20/18 Bernice HOGUE 11/06/24 documented as of this encounter
--- OUTSIDE RECORDS SUMMARY | 2024-11-21 11:04 | XMS_ITS | Encounter Summary ---
Author Organization [employer] Address 75 [facility] 7t [place] [address] Care Team Providers Care Logging Supervisor Name Role Phone Ayan Perdomo MD Primary Care Provider [phone] Encounter Details Date Type Department Care Team ([facility] st Contact Info) Description 11/01/2024 Orders Only [facility] MED & PEDS [address] [place] [address] ProviderSeema MD Social History Tobacco Use Types Packs/Day Years [...] the past 12 months, has t he [employer], gas, oil or water [employer] threatened to shut off services in your [...] [facility] 505 [place] [address] Ayan Perdomo MD 505 [place] [address] 02/03/2025 2:00 PM EST Telemedicine [facility] MED & PEDS 505 [place] [address] Sun Rueda RN 505 [place] [address] documented as of this encounter Procedures Procedure Name Priority Date/Time Associated Diagnosis Comments ECG 12-LEAD Routine 10/31/2024 9:04 AM EDT documented in this encounter Results * ECG 12 lead (10/31/2024 9:04 AM EDT) us Historical Provider ECG ORDERABLES Final Res ult documented in this encounter Visit Diagnoses Not on filedocumented in this encounter Additional Health Concerns Assessment Noted Time PHQ-9 Depression Total Score: 1 10/05/19 24 9:57 AM EDT documented as of this encounter Care Teams Logging Supervisor Relationship Specialty Start Date End Date Ayan Perdomo MD 505 [place] [address] PCP - General Internal Medicine 03/20/18 Bernice MACIELA 11/06/24 documented as of this encounter
--- OUTSIDE RECORDS SUMMARY | 2024-11-21 11:05 | XMS_ITS | Encounter Summary ---
Author Organization [employer] Address [address] [place] [address] 7 [place] [address] Care Team Providers Care Supervisor Sintering Plant Name Role Phone Ayan Perdomo MD Primary Care Provider [phone] Encounter Details Date Type Department Care Team (Latest Contact Info) Description 01/14/2021 Abstract [facility] Dental, Provider, DDS Social History Tobacco Use Types Packs/Day Years Used Date Smoking Tobacco: Never Assessed Comments Unknown Sex and Gender Information Value Date Recorded Sex Assigned at Female 01/17/2022 10:21 AM EDT Legal Sex Female 10:21 AM EDT Gender Identity Female 01/17/2022 10:21 AM EDT Sexual Orientation Straight 01/17/2022 10 :21 AM EDT documented as of this encounter Plan of Treatment Upcoming Encounters Date Type Department Care Team ( st Contact Info) Description 12/10/2024 10:15 AM EDT Office Visit [facility] MED & PEDS [address] [place] [address] Ayan Perdomo MD 505 [place] [address] 02/03/2025 2:00 PM EST Telemedicine [facility] MED [facility] PEDS 505 [place] [address] Sun Rueda RN 505 [place] [address] documented as of this encounter Visit Diagnoses Not on filedocumented in this encounter Care Teams Supervisor Sintering Plant Relationship Specialty Start Date End Date Ayan Perdomo MD [address] [place] [address] PCP - General Internal Medicine 03/20/18 Bernice HOGUE 11/06/24 documented as of this encounter
--- OUTSIDE RECORDS SUMMARY | 2024-11-21 11:05 | XMS_ITS | Encounter Summary ---
Author Organization [employer] Address 75 [facility] 7 [place] [address] Care Team Providers Care Husker Operator Name Role Phone Ayan Perdomo MD Primary Care Provider [phone] Reason for Visit * Reason Onset Date Comments Med Refill 11/13/2023 Encounter Details Date Type Department Care Team ([facility] st Contact Info) Description 11/13/2023 Telephone [facility] [address] [place] [address] Ayan Perdomo MD 505 [place] [address] Med Refill Social History Tobacco Use Types [...] encounter Miscellaneous Notes * Telephone Encounter - Mario Dumont - 11/13/2023 11:34 AM EDT TC from pt requesting medication refill. Medications needing refill : LORazepam (Ativan) 1 MG tablet To be sent to: [id number] AT [facility] documented in this encounter Plan of Treatment Upcoming Encounters Date Type Department Care Team (Late st Contact Info) Description 12/10/2024 10:15 AM EDT Office Visit [facility] MED & PEDS [address] [place] [address] Ayan Perdomo MD 505 [place] [address] 02/03/2025 2:00 PM EST Telemedicine [facility] 505 [place] [address] Sun Rueda RN 505 [place] [address] documented as of this encounter Visit Diagnoses Not on filedocumented in this encounter Additional Health Concerns Assessment Noted Time PHQ-9 Depression Total Score: 1 10/05/19 24 9:57 AM EDT documented as of this encounter Care Teams Husker Operator Relationship Specialty Start Date End Date Ayan Perdomo MD [address] [place] [address] PCP - General Internal Medicine 03/20/18 Bernice HOGUE 11/06/24 documented as of this encounter
--- OUTSIDE RECORDS SUMMARY | 2024-11-21 11:05 | XMS_ITS | Encounter Summary ---
Author Organization [employer] Address 75 [facility] 7 [place] [address] Care Team Providers Care Embedded Firmware Engineer Name Role Phone Ayan Perdomo MD Primary Care Provider [phone] Reason for Visit * Reason Onset Date Comments Medication Question 11/19/2024 Encounter Details Date Type Department Care Team ([facility] st Contact Info) Description 11/19/2024 Telephone [facility] MED & PEDS 505 [place] [address] Ayan Perodmo MD 505 [place] [address] Medication Question Social History Tobacco Use Types [...] encounter Miscellaneous Notes * Telephone Encounter - Mary Grace Dela Cruz RN - 11/20/2024 10:00 AM EDT Tc to patient. Appointment to discuss increase dose in [employer] for 11/21/24. * Telephone Encounter - Rafael Salamanca - 11/19/2024 1:21 PM EDT Tc from pt requesting for the Semaglutide-Weight Management (Wegovy) 1.7 MG/0.75ML solution auto-injector To be increase to a 2.0 MG. Any questions contact pt at [phone] documented in this encounter Plan of Treatment Upcoming Encounters Date Type Department Care Team (Late st Contact Info) Description 12/10/2024 10:15 AM EDT Office Visit [facility] MED & PEDS [address] [place] [address] Ayan Perdomo MD 505 [place] [address] 02/03/2025 2:00 PM EST Telemedicine [facility] MED [facility]ED[facility] 505 [place] [address] Sun Rueda RN 505 [place] [address] documented as of this encounter Visit Diagnoses Not on filedocumented in this encounter Additional Health Concerns Assessment Noted Time PHQ-9 Depression Total Score: 1 10/05/19 24 9:57 AM EDT documented as of this encounter Care Teams Embedded Firmware Engineer Relationship Specialty Start Date End Date Ayan Perdomo MD 505 [place] [address] PCP - General Internal Medicine 03/20/18 Bernice HOGUE 11/06/24 documented as of this encounter
--- OUTSIDE RECORDS SUMMARY | 2024-11-21 11:05 | XMS_ITS | Encounter Summary ---
Author Organization [employer] Address 75 [facility] 7 [place] [address] Care Team Providers Care Wrapper Sorter Name Role Phone Ayan Perdomo MD Primary Care Provider [phone] Reason for Visit * Reason Onset Date Comments FYI 01/31/2023 Encounter Details Date Type Department Care Team (Late st Contact Info) Description 01/31/2023 Telephone [facility] MED[facility]INE 230 [place] [address] Ayan Perdomo MD 505 [place] [address] FYI Social History Tobacco Use Types Packs/Day Years [...] * Telephone Encounter - Mario Dumont - 01/31/2023 9:38 AM EST Tc from patient calling in regards to the medication count states received call from [place] counted what was in the prescription bottle and forgot to include the 2 that was on the night stand so instead of 33 on 01/27 it was 35. documented in this encounter Plan of Treatment Upcoming Encounters Date Type Department Care Team (Late st Contact Info) Description 12/10/2024 10:15 AM EDT Office Visit [facility] MED & PEDS 505 [place] [address] Ayan Perdomo MD 505 [place] [address] 02/03/2025 2:00 PM EST Telemedicine [facility] MED [facility] PEDS 505 [place] [address] Sun Rueda, MATT 505 [place] [address] documented as of this encounter Visit Diagnoses Not on filedocumented in this encounter Care Teams Wrapper Sorter Relationship Specialty Start Date End Date Ayan Perdomo MD 505 [place] [address] PCP - General Internal Medicine 03/20/18 Bernice HOGUE 11/06/24 documented as of this encounter
--- OUTSIDE RECORDS SUMMARY | 2024-11-21 11:05 | XMS_ITS | Encounter Summary ---
Author Organization [employer] Address 75 [facility] 7t [place] [address] Care Team Providers Care Ice Handler Name Role Phone Ayan Perdomo MD Primary Care Provider [phone] Encounter Details Date Type Department Care Team (Latest Contact Info) Description 11/21/2024 Travel Social History Tobacco Use Types Packs/Day Years [...] Description 12/10/2024 10:15 AM EDT Office Visit [facility] MED & PEDS 505 [place] [address] Ayan Perdomo MD 505 [place] [address] 02/03/2025 2:00 PM EST Telemedicine [facility] MED & PEDS 505 [place] [address] Sun Rueda, MATT 505 [place] [address] documented as of this encounter Visit Diagnoses Not on filedocumented in this encounter Additional Health Concerns Assessment Noted Time PHQ-9 Depression Total Score: 1 10/05/19 24 9:57 AM EDT documented as of this encounter Care Teams Ice Handler Relationship Specialty Start Date End Date Ayan Perdomo MD 505 [place] [address] PCP - General Internal Medicine 03/20/18 Bernice HOGUE 11/06/24 documented as of this encounter
--- OUTSIDE RECORDS SUMMARY | 2024-11-21 11:05 | XMS_ITS | Encounter Summary ---
Author Organization [employer] Address 75 [facility] 7t [place] [address] Care Team Providers Care Director Of Annual Giving Name Role Phone Ayan Perdomo MD Primary Care Provider [phone] Encounter Details Date Type Department Care Team ([facility] st Contact Info) Description 12/22/2023 Orders Only [facility] MED & PEDS 505 [place], [place] [phone] Ayan Perdomo MD 505 [place] [address] Social History Tobacco Use Types Packs/Day Years [...] Upcoming Encounters Date Type Department Care Team ([facility] st Contact Info) Description 12/10/2024 10:15 AM EDT Office Visit [facility] MED & PEDS 505 [place] [address] Ayan Perdomo MD 505 [place] [address] 02/03/2025 2:00 PM EST Telemedicine [facility] MED & PEDS 505 [place] [address] Sun Rueda, MATT 505 [place] [address] documented as of this encounter Visit Diagnoses Not on filedocumented in this encounter Additional Health Concerns Assessment Noted Time PHQ-9 Depression Total Score: 1 10/05/19 24 9:57 AM EDT documented as of this encounter Care Teams Director Of Annual Giving Relationship Specialty Start Date End Date Ayan Perdomo MD 505 [place] [address] PCP - General Internal Medicine 03/20/18 Bernice HOGUE 11/06/24 documented as of this encounter
--- OUTSIDE RECORDS SUMMARY | 2024-11-21 11:05 | XMS_ITS | Encounter Summary ---
Author Organization [employer] Address 75 [facility] 7 [place] [address] Care Team Providers Care Humane Officer Name Role Phone Ayan Perdomo MD Primary Care Provider [phone] Reason for Visit * Reason Onset Date Comments Med Refill 01/18/2023 Encounter Details Date Type Department Care Team ([facility] st Contact Info) Description 01/18/2023 Telephone [facility] MED & PEDS 505 [place], [place] [phone] Ayan Perdomo MD 505 [place] [address] Med Refill Social History Tobacco Use Types [...] * Telephone Encounter - Nataly Pollack - 01/18/2023 11:02 AM EDT Tc from pt requesting medication refill on gabapentin (Neurontin) 600 MG tablet to be sent to [facility]/pharmacy #[id number] - [place], [place] - [address] AT [employer] documented in this encounter Plan of Treatment Upcoming Encounters Date Type Department Care Team (Late st Contact Info) Description 12/10/2024 10:15 AM EDT Office Visit [facility] MED & PEDS 505 [place] [address] Ayan Perdomo MD 505 [place] [address] 02/03/2025 2:00 PM EST Telemedicine [facility] MED & PEDS 505 [place] [address] Sun Rueda, MATT 505 [place] [address] documented as of this encounter Visit Diagnoses Diagnosis Chronic pain syndrome documented in this encounter Care Teams Humane Officer Relationship Specialty Start Date End Date Ayan Perdomo MD 505 [place] [address] PCP - General Internal Medicine 03/20/18 Bernice HOGUE 11/06/24 documented as of this encounter
--- OUTSIDE RECORDS SUMMARY | 2024-11-21 11:05 | XMS_ITS | Encounter Summary ---
Author Organization [employer] Address [address] [place] [address] 7 [place] [address] Care Team Providers Care Yarn Examiner Name Role Phone Ayan Perdomo MD Primary Care Provider [phone] Encounter Details Date Type Department Care Team (Late st Contact Info) Description 07/18/2022 Orders Only [facility] 505 [place] [address] Malika Manley LPN Social History Tobacco Use Types Packs/Day Years [...] 10:15 AM EDT Office Visit [facility]S 505 [place] [address] Ayan Perdomo MD 505 [place] [address] 02/03/2025 2:00 PM EST Telemedicine [facility] MED [facility] PEDS [address] [place] [address] Sun Rueda RN 505 [place] [address] documented as of this encounter Visit Diagnoses Not on filedocumented in this encounter Care Teams Yarn Examiner Relationship Specialty Start Date End Date Ayan Perdomo MD [address] [place] [address] PCP - General Internal Medicine 03/20/18 Bernice HOGUE 11/06/24 documented as of this encounter
--- OUTSIDE RECORDS SUMMARY | 2024-11-21 11:05 | XMS_ITS | Encounter Summary ---
Author Organization [employer] Address 75 [facility] 7 [place] [address] Care Team Providers Care Loop Sewer Name Role Phone Ayan Perdomo MD Primary Care Provider [phone] Reason for Visit * Reason Onset Date Comments Medication Question 11/14/2023 Encounter Details Date Type Department Care Team ([facility] st Contact Info) Description 11/14/2023 Telephone [facility] MED & PEDS [address] [place] [address] Ayan Perdomo MD 505 [place] [address] Medication Question Social History Tobacco Use Types [...] * Telephone Encounter - Carrol Atkins - 11/14/2023 9:12 AM EDT Tc from pt requesting medication amoxicillin-clavulanate (Augmentin) 500-125 MG tablet . States would need to be 4 tablets instead of one due to having a dental procedure being done this . Please call pt to clarify. documented in this encounter Plan of Treatment Upcoming Encounters Date Type Department Care Team (Late st Contact Info) Description 12/10/2024 10:15 AM EDT Office Visit [facility] MED & PEDS 505 [place] [address] Ayan Perdomo MD 505 [place] [address] 02/03/2025 2:00 PM EST Telemedicine [facility] MED & PEDS 505 [place] [address] Sun Rueda RN 505 [place] [address] documented as of this encounter Visit Diagnoses Not on filedocumented in this encounter Additional Health Concerns Assessment Noted Time PHQ-9 Depression Total Score: 1 10/05/19 24 9:57 AM EDT documented as of this encounter Care Teams Loop Sewer Relationship Specialty Start Date End Date Ayan Perdomo MD [address] [place] [address] PCP - General Internal Medicine 03/20/18 Bernice HOGUE 11/06/24 documented as of this encounter
--- OUTSIDE RECORDS SUMMARY | 2024-11-21 11:05 | XMS_ITS | Encounter Summary ---
Author Organization [employer] Address [address] [place] [address] 7 [place] [address] Care Team Providers Care Recycle Coordinator Name Role Phone Ayan Perdomo MD Primary Care Provider [phone] Reason for Visit * Reason Comments Med Change Request Encounter Details Date Type Department Care Team ([facility] [address] Contact Info) Description 08/22/2022 Refill [facility] MED & PEDS 505 [place], [place] [phone] Ayan Perdomo MD 505 [place] [address] Severe obesity (BMI 35.0-35.9 with comorbidity) (CMS/HCC) [...] Upcoming Encounters Date Type Department Care Team ([facility] [address] Contact Info) Description 12/10/2024 10:15 AM EDT Office Visit [facility] MED & PEDS [address] [place] [address] Ayan Perdomo MD 505 [place] [address] 02/03/2025 2:00 PM EST Telemedicine [facility] MED & PEDS 505 [place] [address] Sun Rueda, MATT 505 [place], [place] [phone] documented as of this encounter Visit Diagnoses Diagnosis Severe obesity (BMI 35.0-35.9 with comorbidity) (CMS/HCC) documented in this encounter Care Teams Recycle Coordinator Relationship Specialty Start Date End Date Ayan Perdomo MD 505 [place] [address] PCP - General Internal Medicine 03/20/18 Bernice HOGUE 11/06/24 documented as of this encounter
--- OUTSIDE RECORDS SUMMARY | 2024-11-21 11:05 | XMS_ITS | Encounter Summary ---
Author Organization [employer] Address 75 [facility] 7t [place] [address] Care Team Providers Care Whirley Operator Name Role Phone Ayan Perdomo MD Primary Care Provider [phone] Reason for Visit * Reason Comments Med Refill Encounter Details Date Type Department Care Team ([facility] st Contact Info) Description 11/22/2023 Refill [facility] MED & PEDS [address] [place], [place] [phone] Ayan Perdomo MD 505 [place] [address] H/O bariatric surgery Social History Tobacco Use Types Packs/Day Years [...] 10:15 AM EDT Office Visit [facility] MED & PEDS [address] [place] [address] Ayan Perdomo MD [address] [place] [address] 02/03/2025 2:00 PM EST Telemedicine [facility] MED & PEDS [address] [place] [address] Sun Rueda RN 505 [place] [address] documented as of this encounter Visit Diagnoses Diagnosis H/O bariatric surgery documented in this encounter Additional Health Concerns Assessment Noted Time PHQ-9 Depression Total Score: 1 10/05/19 24 9:57 AM EDT documented as of this encounter Care Teams Whirley Operator Relationship Specialty Start Date End Date Ayan Perdomo MD [address] [place] [address] PCP - General Internal Medicine 03/20/18 Bernice HOGUE 11/06/24 documented as of this encounter
--- OUTSIDE RECORDS SUMMARY | 2024-11-21 11:05 | XMS_ITS | Encounter Summary ---
Author Organization [employer] Address [address] [place] [address] [place] [address] Care Team Providers Care Executive Meeting Manager Name Role Phone Ayan Perdomo MD Primary Care Provider [phone] Reason for Visit * Reason Onset Date Comments Med Refill 03/22/2022 Encounter Details Date Type Department Care Team (Late st Contact Info) Description 03/22/2022 Refill [facility] MED & PEDS 505 [place] [address] Ayan Perdomo MD 505 [place] [address] Essential hypertension (Primary Dx) Social History Tobacco Use Types [...] * Telephone Encounter - Carrol Atkins - 03/22/2022 10:38 AM EST Tc from pt requesting med refill on medication Lorazepam documented in this encounter Plan of Treatment Upcoming Encounters Date Type Department Care Team (Late st Contact Info) Description 12/10/2024 10:15 AM EDT Office Visit [facility] MED & PEDS 505 [place] [address] Ayan Perdomo MD 505 [place] [address] 02/03/2025 2:00 PM EST Telemedicine [facility] [address] [place] [address] Sun Rueda, MATT 505 [place], [place] [phone] documented as of this encounter Visit Diagnoses Diagnosis Essential hypertension- Primary Unspecified essential hypertension documented in this encounter Care Teams Executive Meeting Manager Relationship Specialty Start Date End Date Ayan Perdomo MD [address] [place] [address] PCP - General Internal Medicine 03/20/18 Bernice HOGUE 11/06/24 documented as of this encounter
--- OUTSIDE RECORDS SUMMARY | 2024-11-21 11:05 | XMS_ITS | Encounter Summary ---
Author Organization [employer] Address 75 [facility] 7 [place] [address] Care Team Providers Care Wellhead Pumper Name Role Phone Ayan Perdomo MD Primary Care Provider [phone] Reason for Visit * Reason Onset Date Comments fyi 11/19/2024 Encounter Details Date Type Department Care Team ([facility] st Contact Info) Description 11/19/2024 Telephone [facility] MED & PEDS [address] [place] [address] Ayan Perdoom MD 505 [place] [address] fy Social History Tobacco Use Types Packs/Day Years [...] Mary Grace Dela Cruz RN - 11/20/2024 10:02 AM EDT TC to patient. She stated she is doing fine. Her knee is sore. Appointment scheduled for 11/21/24 at 0915 for weight loss medication discuss and increase in dose. Will * Telephone Encounter - Dolly Mckeon - 11/19/2024 3:39 PM EDT Tc from Lay HOGUE stating pt fell yesterday has swelling and bruising of left knee. Contact Lay at [phone] documented in this encounter Plan of Treatment Upcoming Encounters Date Type Department Care Team (Late st Contact Info) Description 12/10/2024 10:15 AM EDT Office Visit [facility] MED & PEDS [address] [place] [address] Ayan Perdomo MD [address] [place] [address] 02/03/2025 2:00 PM EST Telemedicine [facility] MED & PEDS [address] [place] [address] Sun Rueda, MATT 505 [place] [address] documented as of this encounter Visit Diagnoses Not on filedocumented in this encounter Additional Health Concerns Assessment Noted Time PHQ-9 Depression Total Score: 1 10/05/19 24 9:57 AM EDT documented as of this encounter Care Teams Wellhead Pumper Relationship Specialty Start Date End Date Ayan Perdomo MD 505 [place] [address] PCP - General Internal Medicine 03/20/18 Bernice HOGUE 11/06/24 documented as of this encounter
--- OUTSIDE RECORDS SUMMARY | 2024-11-21 11:05 | XMS_ITS | Encounter Summary ---
Author Organization [employer] Address [address] [place] [address] 7 [place] [address] Care Team Providers Care Professional Nurse Name Role Phone Ayan Perdomo MD Primary Care Provider [phone] Encounter Details Date Type Department Care Team (Latest Contact Info) Description 08/22/2018 Abstract [facility] CONVERSIONS Dental, Provider, DDS Social History Tobacco [...] 12/10/2024 10:15 AM EDT Office Visit [facility] MED & PEDS [address] [place] [address] Ayan Perdomo MD 505 [place] [address] 02/03/2025 2:00 PM EST Telemedicine [facility] MED & PEDS 505 [place] [address] Sun Rueda RN 505 [place] [address] documented as of this encounter Visit Diagnoses Not on filedocumented in this encounter Care Teams Professional Nurse Relationship Specialty Start Date End Date Ayan Perdomo MD 505 [place] [address] PCP - General Internal Medicine 03/20/18 Bernice HOGUE 11/06/24 documented as of this encounter
--- OUTSIDE RECORDS SUMMARY | 2024-11-21 11:05 | XMS_ITS | Encounter Summary ---
Author Organization [employer] Address 75 [facility] 7 [place] [address] Care Team Providers Care Icu Clerk Name Role Phone Ayan Perdomo MD Primary Care Provider [phone] Reason for Visit * Reason Onset Date Comments Med Refill 05/18/2022 Encounter Details Date Type Department Care Team (Late st Contact Info) Description 05/18/2022 Telephone [facility] MED[facility]INE [address] [place] [address] Ayan Perdomo MD [address] [place] [address] Med Refill Social History Tobacco Use Types [...] suspected to have Coronavirus/COVID-19? No / Unsure 05/20/2022 9:10 AM EST documented as of this encounter Miscellaneous Notes * Telephone Encounter - Ryan Aparicio - 05/18/2022 9:23 AM EST Tc from pt requesting med refill Lorazepam 1 mg documented in this encounter Plan of Treatment Upcoming Encounters Date Type Department Care Team (Late st Contact Info) Description 12/10/2024 10:15 AM EDT Office Visit [facility] MED & PEDS [address] [place] [address] Ayan Perdomo MD 505 [place] [address] 02/03/2025 2:00 PM EST Telemedicine [facility] MED & PEDS 505 [place] [address] Sun Rueda, MATT 505 [place] [address] documented as of this encounter Visit Diagnoses Not on filedocumented in this encounter Care Teams Icu Clerk Relationship Specialty Start Date End Date Ayan Perdomo MD 505 [place] [address] PCP - General Internal Medicine 03/20/18 Bernice HOGUE 11/06/24 documented as of this encounter
--- OUTSIDE RECORDS SUMMARY | 2024-11-21 11:05 | XMS_ITS | Encounter Summary ---
Author Organization [employer] Address 75 [facility] 7 [place] [address] Care Team Providers Care Air Conditioning Specialist Name Role Phone Ayan Perdomo MD Primary Care Provider [phone] Reason for Visit * Reason Onset Date Comments Med Refill 01/02/2024 Encounter Details Date Type Department Care Team ([facility] st Contact Info) Description 01/02/2024 Telephone [facility] MEDICINE [address] [place] [address] Ayan Perdomo MD 505 [place] [address] Med Refill Social History Tobacco Use Types [...] * Telephone Encounter - Mario Dumont - 01/02/2024 10:09 AM EDT TC from pt requesting medication refill. Medications needing refill : oxyCODONE (Roxicodone) 5 MG immediate release tablet To be sent to: [id number] [place], [place] - [facility] AT [facility] documented in this encounter Plan of Treatment Upcoming Encounters Date Type Department Care Team (Late st Contact Info) Description 12/10/2024 10:15 AM EDT Office Visit [facility] MED & PEDS [address] [place] [address] Ayan Perdomo MD [address] [place] [address] 02/03/2025 2:00 PM EST Telemedicine [facility] MED & PEDS [address] [place] [address] Sun Rueda RN 505 [place] [address] documented as of this encounter Visit Diagnoses Not on filedocumented in this encounter Additional Health Concerns Assessment Noted Time PHQ-9 Depression Total Score: 1 10/05/19 24 9:57 AM EDT documented as of this encounter Care Teams Air Conditioning Specialist Relationship Specialty Start Date End Date Ayan Perdomo MD [address] [place] [address] PCP - General Internal Medicine 03/20/18 Bernice HOGUE 11/06/24 documented as of this encounter
--- OUTSIDE RECORDS SUMMARY | 2024-11-21 11:05 | XMS_ITS | Encounter Summary ---
Author Organization [employer] Address [address] [place] [address] 7 [place] [address] Care Team Providers Care Cell Stripper Name Role Phone Ayan Perdomo MD Primary Care Provider [phone] Encounter Details Date Type Department Care Team ([facility] Contact Info) Description 04/10/2023 Telephone [facility] MED & PEDS [address] [place] [address] Ayan Perdomo MD [address] [place] [address] Social History Tobacco Use Types Packs/Day Years [...] Upcoming Encounters Date Type Department Care Team ([facility] Contact Info) Description 12/10/2024 10:15 AM EDT Office Visit [facility] MED & PEDS [address] [place] [address] Ayan Perdomo MD [address] [place] [address] 02/03/2025 2:00 PM EST Telemedicine [facility] MED & PEDS [address] [place] [address] Sun Rueda, MATT [address] [place] [address] documented as of this encounter Visit Diagnoses Not on filedocumented in this encounter Care Teams Cell Stripper Relationship Specialty Start Date End Date Ayan Perdomo MD [address] [place] [address] PCP - General Internal Medicine 03/20/18 Bernice HOGUE 11/06/24 documented as of this encounter
--- OUTSIDE RECORDS SUMMARY | 2024-11-21 11:05 | XMS_ITS | Encounter Summary ---
Author Organization [employer] Address [address] [place] [address] 7 [place] [address] Care Team Providers Care Client Services Associate Name Role Phone Ayan Perdomo MD Primary Care Provider [phone] Encounter Details Date Type Department Care Team ([facility] Contact Info) Description 04/17/2023 Telephone [facility] MEDICINE [address] [place], [place] [phone] Ayan Perdomo MD [address] [place] [address] Social History Tobacco Use Types Packs/Day Years [...] Upcoming Encounters Date Type Department Care Team ([facility] Contact Info) Description 12/10/2024 10:15 AM EDT Office Visit [facility] MED & PEDS [address] [place] [address] Ayan Perdomo MD [address] [place] [address] 02/03/2025 2:00 PM EST Telemedicine [facility] MED & PEDS [address] [place] [address] Sun Rueda, MATT [address] [place] [address] documented as of this encounter Visit Diagnoses Not on filedocumented in this encounter Care Teams Client Services Associate Relationship Specialty Start Date End Date Ayan Perdomo MD [address] [place] [address] PCP - General Internal Medicine 03/20/18 Bernice HOGUE 11/06/24 documented as of this encounter
--- OUTSIDE RECORDS SUMMARY | 2024-11-21 11:05 | XMS_ITS | Encounter Summary ---
Author Organization [employer] Address [address] [facility] 7t [place] [address] Care Team Providers Care Tucking Machine Operator Name Role Phone Ayan Perdomo MD Primary Care Provider [phone] Encounter Details Date Type Department Care Team ([facility] st Contact Info) Description 11/16/2023 Orders Only [facility] MED & PEDS [address] [place], [place] [phone] Ayan Perdomo MD [address] [place], [place] [phone] Encounter for prophylactic surgery (Primary Dx) Social History Tobacco Use Types [...] 10:15 AM EDT Office Visit [facility] MED & PEDS [address] [place] [address] Ayan Perdomo MD [address] [place] [address] 02/03/2025 2:00 PM EST Telemedicine [facility] MED & PEDS [address] [place] [address] Sun Rueda RN [address] [place] [address] documented as of this encounter Visit Diagnoses Diagnosis Encounter for prophylactic surgery- Primary documented in this encounter Additional Health Concerns Assessment Noted Time PHQ-9 Depression Total Score: 1 10/05/19 24 9:57 AM EDT documented as of this encounter Care Teams Tucking Machine Operator Relationship Specialty Start Date End Date Ayan Perdomo MD [address] [place] [address] PCP - General Internal Medicine 03/20/18 Bernice HOGUE 11/06/24 documented as of this encounter
--- OUTSIDE RECORDS SUMMARY | 2024-11-21 11:05 | XMS_ITS | Encounter Summary ---
Author Organization [employer] Address [address] [facility] 7 [place] [address] Care Team Providers Care Peeler Operator Name Role Phone Ayan Perdomo MD Primary Care Provider [phone] Reason for Visit * Reason Onset Date Comments Chart Prep 11/20/2024 Encounter Details Date Type Department Care Team ([facility] st Contact Info) Description 11/20/2024 Telephone [facility] MED & PEDS [address] [place] [address] Ayan Perdomo MD [address] [place] [address] Chart Prep Social History Tobacco Use Types Packs/Day Years [...] encounter Miscellaneous Notes * Telephone Encounter - María Enriquez [place] - 11/20/2024 3:23 PM EDT Chart Prep Labs: not applicable Images: done Referrals: complete Vaccines due: PCV20, Tdap, RSV, and Zoster Screenings: colonoscopy Overdue care gaps: SDOH and PHQ-9 documented in this encounter Plan of Treatment Upcoming Encounters Date Type Department Care Team ([facility] st Contact Info) Description 12/10/2024 10:15 AM EDT Office Visit [facility] MED & PEDS [address] [place] [address] Ayan Perdomo MD [address] [place] [address] 02/03/2025 2:00 PM EST Telemedicine [facility] MED & PEDS [address] [place] [address] Sun Rueda RN [address] [place] [address] documented as of this encounter Visit Diagnoses Not on filedocumented in this encounter Additional Health Concerns Assessment Noted Time PHQ-9 Depression Total Score: 1 10/05/19 24 9:57 AM EDT documented as of this encounter Care Teams Peeler Operator Relationship Specialty Start Date End Date Ayan Perdomo MD [address] [place] [address] PCP - General Internal Medicine 03/20/18 Bernice HOGUE 11/06/24 documented as of this encounter
--- OUTSIDE RECORDS SUMMARY | 2024-11-21 11:05 | XMS_ITS | Encounter Summary ---
Author Organization [employer] Address [address] [place] [address] 7 [place] [address] Care Team Providers Care Bilingual Customer Service Specialist Name Role Phone Ayan Perdomo MD Primary Care Provider [phone] Reason for Visit * Reason Comments Med Refill Encounter Details Date Type Department Care Team ([facility] Contact Info) Description 08/28/2022 Refill [facility] MED & PEDS [address] [place] [address] Ayan Perdomo MD [address] [place] [address] Essential hypertension Social History Tobacco Use Types [...] Upcoming Encounters Date Type Department Care Team ([facility] Contact Info) Description 12/10/2024 10:15 AM EDT Office Visit [facility] MED & PEDS [address] [place] [address] Ayan Perdomo MD [address] [place] [address] 02/03/2025 2:00 PM EST Telemedicine [facility] MED & PEDS [address] [place] [address] Sun Rueda RN [address] [place], [place] [phone] documented as of this encounter Visit Diagnoses Diagnosis Essential hypertension Unspecified essential hypertension documented in this encounter Care Teams Bilingual Customer Service Specialist Relationship Specialty Start Date End Date Ayan Perdomo MD [address] [place] [address] PCP - General Internal Medicine 03/20/18 Bernice HOGUE 11/06/24 documented as of this encounter
--- OUTSIDE RECORDS SUMMARY | 2024-11-21 11:05 | XMS_ITS | Encounter Summary ---
Author Organization [employer] Address [address] [facility] 7 [place] [address] Care Team Providers Care Auto [employer] Safety Program Coordinator Name Role Phone Ayan Perdomo MD Primary Care Provider [phone] Reason for Visit * Reason Onset Date Comments Record Request 11/12/2024 Encounter Details Date Type Department Care Team ([facility] Contact Info) Description 11/12/2024 Telephone [facility] MED & PEDS [address] [place] [address] Ayan Perdomo MD [address] [place] [address] Record Request Social History Tobacco Use Types Packs/Day [...] AM EDT documented as of this encounter Functional Status * Over the last 2 weeks, how often have you been bothered by any of the following problems? Question Answer Date of Assessment Author Feeling nervous, anxious, or on edge 3 11/13/2024 11:00 AM EDT Sun Rueda RN Not being able to stop or co ntrol worrying 2 11/13/2024 11:00 AM EDT Sun Rueda RN Worrying too much about diff erent things 3 11/13/2024 11:00 AM Sun Tao RN Trouble relaxing 0 11/13/2024 11:00 AM Sun Tao RN Being so restless that it is hard to sit still 0 11/13/2024 11:00 AM Snu Tao RN Becoming easily annoyed or irritable 0 11/13/2024 11:00 AM EDSun Lim RN Feeling afraid as if somethi ng awful might happen 0 11/13/2024 11:00 AM EDT Sun Rueda RN NATALIIA-7 Total Score 8 11/13/2024 11:00 AM EDT Sun Rueda RN documented as of this encounter Miscellaneous Notes * Telephone Encounter - Rafael Salamanca - 11/12/2024 10:47 AM EDT Tc from [employer] reporting that pt needs a new formula of insure. [employer] spoke with the insurance and stated that the insurance needs... 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 Lab Work history (if she lost or gained weight). [employer] has until nov 22 to submit the paper work or the insurance with deny the formula. Fax number is [phone] Any questions contact [employer] at [phone] documented in this encounter Plan of Treatment Upcoming Encounters Date Type Department Care Team (Late st Contact Info) Description 12/10/2024 10:15 AM EDT Office Visit [facility] MED & PEDS [address] [place] [address] Ayan Perdomo MD [address] [place] [address] 02/03/2025 2:00 PM EST Telemedicine [facility] MED & PEDS [address] [place] [address] Sun Rueda RN [address] [place] [address] documented as of this encounter Visit Diagnoses Not on filedocumented in this encounter Additional Health Concerns Assessment Noted Time PHQ-9 Depression Total Score: 1 10/05/19 24 9:57 AM EDT documented as of this encounter Care Teams [employer] Safety Program Coordinator Relationship Specialty Start Date End Date Ayan Perdomo MD [address] [place] [address] PCP - General Internal Medicine 03/20/18 Bernice HOGUE 11/06/24 documented as of this encounter
--- OUTSIDE RECORDS SUMMARY | 2024-11-21 11:05 | XMS_ITS | Encounter Summary ---
Author Organization [employer] Address [address] [facility] 7 [place] [address] Care Team Providers Care Plan Consultant Name Role Phone Ayan Perdomo MD Primary Care Provider [phone] Reason for Visit * Reason Onset Date Comments Med Refill 05/18/2022 Encounter Details Date Type Department Care Team (Late st Contact Info) Description 05/18/2022 Telephone [facility] MEDICINE [address] [place] [address] Ayan Perdomo MD [address] [place] [id number] Med Refill Social History Tobacco Use Types [...] Telephone Encounter - Ryan Aparicio - 05/18/2022 9:25 AM EST Tc from pt requesting med refill Gabapentin 600 mg documented in this encounter Plan of Treatment Upcoming Encounters Date Type Department Care Team (Late st Contact Info) Description 12/10/2024 10:15 AM EDT Office Visit [facility] MED & PEDS [address] [place] [address] Ayan Perdomo MD [address] [place] [address] 02/03/2025 2:00 PM EST Telemedicine [facility] MED & PEDS [address] [place] [address] Sun Rueda, MATT [address] [place] [address] documented as of this encounter Visit Diagnoses Not on filedocumented in this encounter Care Teams Plan Consultant Relationship Specialty Start Date End Date Ayan Perdomo MD [address] [place] [address] PCP - General Internal Medicine 03/20/18 Bernice HOUGE 11/06/24 documented as of this encounter
--- OUTSIDE RECORDS SUMMARY | 2024-11-21 11:05 | XMS_ITS | Continuity of Care Document ---
Author Organization [employer] Address [address] [facility] [address] [place] [address] Insurance Providers Payer Plan Claims Address Claims Phone Policy Number Group Number Relation Employer Guarantor Name Guarantor Guarantor Address Guarantor Phone [employer]IC [employer] [address] [place] [address] tel:[phone] Self Ya Rizzo 1960 [address] [place] [address] MASSA CHUSE TTS MEDIC ARE [facility] [address], [place] [address] tel:[phone] Self Ya Rizzo 1960 [address] [place] [address] [employer] [place] [address], [place] [address] tel:[phone] Self Ya Rizzo 1960 [address] [place] [address] Problems Unknown Problems Results Test Value / Unit Interpretation Reference Ran ge Lab Report [email or web address] Lab Report [email or web address] Allergies, adverse reactions, alerts No known allergies and adverse reactions Medications No administered medications reported Vital Signs No vital signs reported Social History No smoking Hx information available
== END 2024-11-21 09:59 | disposition home or self-care (01) ==
LOC: HO.XRAY 09:58
PROVIDERS: PCP Internal Medicine; Visit Provider Internal Medicine
DX: R91.8 Other nonspecific abnormal finding of lung field (principal)
CPT/HCPCS: 71046

== ENCOUNTER → 2024-11-21 10:07 | Outpatient (BNV) | payer MEDICARE, MEDICAID, SELFPAY | PROVIDERS: PCP Internal Medicine; Visit Provider Radiology Diagnostic Radiology | DX: R91.8 Other nonspecific abnormal finding of lung field (principal); M19.011 Primary osteoarthritis, right shoulder; Z45.2 Encounter for adjustment and management of vascular access device | CPT/HCPCS: 71046 ==